=== PATIENT | male | born 1965 | race Caucasian/White ===

== ENCOUNTER 2018-11-30 05:22 | Day surgery (SDC) | payer BC, SELFPAY ==
[2018-11-30] VITALS (8 sets, daily range): BP systolic 97–136; BP diastolic 72–91; PULSE 63–85; RESP 16–18; TEMP 36.3–36.9; O2SAT 96–100; BMI 24.9
[2018-11-30 06:06] LABS: Bedside Glucose 95 mg/dL (70-110)
--- NOTE | 2018-11-30 06:16 | PCM.HP.STD ---
Problem List (1) Screening for intestinal cancer Status: Acute History of Present Illness Date of Admission: 11/30/18 The patient is a 53 year old M who presents for screening colonoscopy today. He has never had a screening colonoscopy. There is some question as to whether his father had colon cancer. He is aware that his father had abdominal surgery but is not aware whether it was benign or malignant. His father is no longer living. I have instructed him to try to check with his mother to try to determine that anterior as it may impact his surveillance program. The patient otherwise has a good feeling of health. He has no current complaints. Past Medical History Allergies No Known Allergies Allergy (Verified 11/30/18 05:48) Home Medications: Ambulatory Orders Medication Instructions Recorded Atorvastatin Calcium [Lipitor] 20 mg PO QHS 11/28/18 Metformin HCl 500 mg PO BID 11/28/18 Smoking Status: Former smoker Tobacco Use: Non-smoker Review of Systems Constitutional: Denies: Anorexia HEENT: Denies: Difficulty Swallowing Cardiovascular: Denies: Chest Pain, Claudication, Chest Pressure Respiratory: Denies: Cough Gastrointestinal: Denies: Abdominal Pain, Hematochezia, Nausea, Melena Endocrine: Reports: Change in Body Habitus - Weight loss associated with his newer diagnosis of type 2 diabetes mellitus VTE Information - Inpt Only VTE Present on Admission: No Patient Problems: Active and Suspected Problems Screening for intestinal cancer (Acute) - Physical Exam General: Alert, Oriented x3, Cooperative, No apparent distress HEENT: Atraumatic Oral: Moist Mucosa Neck: Supple Lungs: Clear to auscultation, Normal air movement Cardiovascular: Regular rate, Regular Rhythm Abdomen: Bowel Sounds Present, Soft, Non Tender, Non-Distended Extremities: No Calf Tenderness Neurological: - - Cognition intact Vital Signs Temp Pulse Resp BP Pulse Ox 97.9 F 67 16 121/90 H 100 11/30/18 05:49 11/30/18 05:49 11/30/18 05:49 11/30/18 05:49 11/30/18 05:49 Oxygen Delivery Method Room Air Weight: 173 lb 15.115 oz Body Mass Index (BMI) 24.9 POC Glucose 11/30/18 05:45 POC Glucose 95 Assessment/Plan All Active Problems Screening for intestinal cancer (Acute) I have am recommending the patient a screening colonoscopy with possible biopsy or polypectomy is indicated. He is aware of the technique, benefits, risks, alternatives. He has had an opportunity ask and have questions answered. He presents via our open access program. We will proceed as noted. Deuce Gaston M.D., F.A.C.S.
--- NOTE | 2018-11-30 06:56 | OP.ENDO_ITS ---
11/30/2018 Tem[facility] Shook Re : Colonoscopy procedure for Rob Correia Dear Bouchra This procedure was performed on Friday, November 30, 2018. My impressions and recommendations are as follows: Impressions : - Diverticulosis in the entire examined colon. - The examination was otherwise normal. - No specimens collected. Recommendations : - Discharge patient to home. - Resume previous diet. - Continue present medications. - Repeat colonoscopy in 10 years for screening purposes. My findings are described in the full procedure note, which is enclosed. If I can be of further assistance, please feel free to contact me at Doctor phone number(s): Work: . Sincerely, Deuce Gaston MD 11/30/2018 6:55:28 AM This report has been signed electronically.
== END 2018-11-30 07:39 | disposition home or self-care (01) ==
LOC: EN 05:23 → AC 05:25
PROVIDERS: Referring Provider Surgery; Visit Provider Surgery
PROC: 0DJD8ZZ Inspection of Lower Intestinal Tract, Via Natural or Artificial Opening Endoscopic (ICD-10-PCS; CPT 45378; principal; 2018-11-30 06:25)
DX: Z12.11 Encounter for screening for malignant neoplasm of colon (principal); K57.30 Diverticulosis of large intestine without perforation or abscess without bleeding; Z87.891 Personal history of nicotine dependence; Z79.84 Long term (current) use of oral hypoglycemic drugs
CPT/HCPCS: 45378; 82962; 99152; 99153; J7120

== ENCOUNTER → 2024-10-10 | Outpatient (CLI) | payer BC, SELFPAY ==
[2024-10-10 16:17] LABS: Mucous, Urine 0 SEEN /hpf (<or=2+); Red Blood Cells-Urine 0 SEEN /hpf (0-5); Squamous Epithelial Cells - UA 0 SEEN /hpf (0-5)
[2024-10-10 17:02] LABS: Microalbumin,Random Urine < 12.0 mg/L (NO RANGE EST.); Microalbumin:Creatinine Ratio UNABLE TO CALCULATE mg/g CRE
[2024-10-10 17:13] LABS: Absolute Lymphocyte Count 2.07 X10^3/uL (0.83-4.51); Absolute Neutrophil Count 4.4 X10^3/uL (2.0-7.7); Basophil# 0.03 X10^3/uL; Basophil% 0.4 % (0-1); Eosinophil# 0.09 X10^3/uL; Eosinophils% 1.2 % (0-5); Hematocrit 40.5 % (40-54); Hemoglobin 13.9 g/dL (13.0-16.5); Lymphocyte # 2.07 X10^3/ul (0.83-4.51); Lymphocyte % 28.5 % (19-41); Mean Corp Hgb Conc 34.3 g/dL (32-36); Mean Corpuscular Volume 87.3 fL (80-94); Mean Platelet Vol. 9.6 fl (6.2-12.0); Monocyte# 0.67 X10^3/uL; Monocyte% 9.2 % (0-10); NRBC Flagged by Analyzer 0 % (0-5); Neutrophil # 4.39 X10^3/uL (2.7-7.7); Neutrophil % 60.4 % (47-70); Platelet Count 240 K/mm3 (150-450); RBC Distribution Width CV 12.1 % (11.6-14.6); RBC Distribution Width SD 38.8 fl (35.1-43.9); Red Blood Count 4.64 M/mm3 (4.6-6.2); White Blood Count 7.3 K/mm3 (4.4-11.0)
[2024-10-10 17:32] LABS: ALB/GLOB Ratio 1.4 RATIO (0.9-2.4); AST(SGOT) 25 U/L (<=37); Alanine Aminotransfer ALT/SGPT 26 U/L (<=46); Albumin, Serum 4.1 g/dL (3.5-5.0); Alkaline Phosphatase 65 U/L (40-129); Anion Gap 11 (5-15); BUN 11 mg/dL (4-19); BUN/Creat Ratio 11.4 RATIO (10-20); Calcium,Total 9.2 mg/dL (7.6-11.0); Carbon Dioxide 24.2 mmol/L (21.0-32.0); Chloride 98 mmol/L (98-108); Cholesterol 149 mg/dL (<=200); Creatinine, Serum 0.99 mg/dL (0.70-1.20); EST Glomerular Filtration Rate 89 (>60); Globulin 2.9 g/dL (2.2-4.2); Glucose 108 mg/dL (70-99); High Density Lipoprotein 58 mg/dL; Low Density Lipoprotein Calc. 77 mg/dL; PSA,Total - Annual Screen 2.03 ng/mL (0.02-4.00); Protein, Total 7.1 g/dL (5.9-8.4); Sodium Level 134 mmol/L (133-145); Total Bilirubin 0.68 mg/dL (0.00-1.30); Triglycerides 73 mg/dL; Very Low Density Lipoprotein 15 mg/dL (5-40); cholesterol:hdl ratio screen 2.58
[2024-10-10 21:22] LABS: Color, Urine Straw (Yellow); Glucose, Dipstick Normal (Normal); Ketone-Dipstick Negative (Negative); Leukocyte Esterase-Dipstick Negative /ul (Negative); Nitrite-Dipstick Negative (Negative); Occult Blood-Urine Negative /ul (Negative); Protein-Dipstick 15 mg/dl (Negative); Specific Gravity, Urine 1.015 (1.002-1.030); Urine Bilirubin Dipstick Negative (Negative); Urine Clarity Clear (Clear); Urine Urobilinogen Normal (Normal)
--- OUTSIDE RECORDS SUMMARY | 2024-10-10 22:03 | XMS RPT_ITS | CCD ---
Author Organization [facility] Inform ion Partnership [facility] Care Team Providers Care Box Spring Maker Name Role Phone Joce Roe CNP Primary Care Provider Sherrie Roe CNP Primary Care Provider Aldo Butcher MD Primary Care Provider Aldo Butcher MD Primary Care Provider Aldo Butcher MD Primary Care Provider [phone] Ele Pro APRN.CNP Unavailable Corina Gomes PA-C Unavailable ALDO BUTCHER Primary Care Unavailable DESHAWN MUSA Attending Unavailabl e ALDO BUTCHER Primary Care Unavailable ALDO BUTCHER Attending Unavailable ALDO BUTCHER Primary Care Unavailable ALDO BUTCHER Referring Unavailable ALDO BUTCHER Primary Care Unavailable ALDO BUTCHER Attending Unavailable ALDO BUTCHER Primary Care Unavailable CORINA GOMES Referring Unavailable ALDO BUTCHER Primary Care Unavailable CORINA GOMES Attending Unavailable ALDO BUTCHER Primary Care Unavailable CORINA GOMES Attending Unavailable ALDO BUTCHER Primary Care Unavailable ALDO BUTCHER Referring Unavailable Medications Current Medications Medication Drug Class(es) Dates Sig (Normalized) Sig (Original) [id number] 200 actuat albuterol 0.09 mg/actuat metered dose inhaler (4 sources) beta2-Adrenergic Agonist Start: 06-03-2024 take 2 puff(s) by inhalation every four hours as needed for wheezing albuterol HFA (PROVENTIL HFA, VENTOLIN HFA) 90 mcg/actuation inhaler Inhale 2 Puffs as instructed every 4 hours as needed for wheezing/shortness of breath. 1 Each 06/03/2024 Active amoxicillin 875 mg oral tablet (2 sources) Penicillin-class Antibacterial Start: 09-09-2022 End: 09-16-2022 take 1 tablet by mouth twice daily amoxicillin (AMOXIL) 875 mg tablet Indications: Acute otitis media, unspecified otitis media type Take 1 tablet by mouth twice daily for 7 days. 14 tablet 0 09/09/2022 09/16/2022 Active Comment on above: Take 1 tablet by ronak th twice daily for 7 days. atorvastatin 20 mg oral tablet (20 sources) HMG-CoA Reductase Inhibitor Start: 11-12-2023 End: 04-19-2024 take 1 tablet by mouth once daily, then take 1 tablet by mouth once daily atorvastatin (LIPITOR) 20 mg tablet Take 1 tablet by mouth once daily. Take 1 tablet daily 90 tablet 1 04/19/2024 Active Start: 07-07-2017 End: 11-08-2023 take 1 tablet by mouth once daily, then take 1 tablet by mouth once daily atorvastatin (LIPITOR) 20 mg tablet Take 1 tablet by mouth once daily. Take 1 tablet daily 90 tablet 1 04/17/2023 11/08/2023 Discontinued Comment on above: Take 1 tablet by ronak th once daily. Take 1 tablet daily 20 mg. Take 1 tablet daily benzonatate 200 mg oral capsule (4 sources) Non-narcotic Antitussive Start: take 1 capsule by mouth every eight hours as needed Benzonatate 200 mg capsule Take 1 capsule by mouth three times a day as needed. 30 capsule 06/03/2024 Active cyanocobalamin, vitamin B-12, (VITAMIN B-12 ORAL) (12 sources) cyanocobalamin, vitamin B-12, (VITAMIN B-12 ORAL) Take by mouth once daily. Active cyanocobalamin, vitamin B-12, (VITAMIN B-12 ORAL) Take by mouth once daily. 0 Active glucosamine/chondroitin/C/Ma ng (GLUCOSAMINE-CHONDROITIN COMPLX ORAL) (17 sources) glucosamine/nomi droitin/C/Nacho (GLUCOSAMINE-CHONDROITIN COMPLX ORAL) Take by mouth once daily. Active glucosamine/nomi droitin/C/Nacho (GLUCOSAMINE-CHONDROITIN COMPLX ORAL) Take by mouth once daily. 0 Active glucosamine/nomi droitin/C/Nacho (GLUCOSAMINE-CHONDROITIN COMPLX ORAL) Take by mouth. 0 Active Comment on above: Take by mouth. 24 hr metFORMIN hydrochloride 500 mg extended release oral tablet (20 sources) Biguanide Start: 02-09-2023 End: 04-19-2024 take 1 tablet by mouth twice daily before mealtime metFORMIN ER (GLUCOPHAGE XR) 500 mg 24 hr tablet Take 1 tablet by mouth two times a day before meals. 180 tablet 1 04/19/2024 Active Start: 06-06-2017 End: 02-09-2023 metFORMIN ER (GLUCOPHAGE XR) 500 mg 24 hr tablet 500 mg. Take one tablet am and one tablet pm 0 06/06/2017 02/09/2023 Discontinued Start: 06-06-2017 metFORMIN ER ( GLUCOPHAGE XR) 500 mg 24 hr tablet 0 06/06/2017 Active Comment on above: Take 1 tablet by ronak two times a day before meals. Take one tablet am and one tablet pm 500 mg. Take one tab let am and one tablet pm Ylqpp-8-RPO-EPA-Fis h Oil (FISH OIL) 1,000 mg (120 mg-180 mg) cap (17 sources) Start: 04-17-2023 take 1 capsule by mouth twice daily Wziuw-3-YTN-EPA-Fi sh Oil (FISH OIL) 1,000 mg (120 mg-180 mg) cap Take 1 capsule by mouth two times a day. 04/17/2023 Active Start: 04-17-2023 take 1 capsule by mo [facility] twice daily Gcgaz-1-OVM-EPA-Fish Oil (FISH OIL) 1,000 mg (120 mg-180 mg) cap Take 1 capsule by mouth two times a day. 0 04/17/2023 Active Comment on above: Take 1 capsule by mo ut two times a day. sulfamethoxazole 800 mg / trimethoprim 160 mg oral tablet (1 source) Dihydrofolate Reductase Inhibitor Antibacterial, Sulfonamide Antimicrobial Start: 4 End: 4 take 1 tablet by mouth twice daily sulfamethoxazo le-trimethopri m (BACTRIM DS) 800-160 mg per tablet Take 1 tablet by mouth two times a day for 14 days. 28 tablet 0 09/15/2023 09/29/2023 Active Completed/Discontinued Medications Medication Drug Class(es) Dates Sig (Normalized) Sig (Original) cetirizine hydrochloride 10 mg oral tablet (4 sources) Histamine-1 Receptor Antagonist Start: 09-29-2022 End: 04-17-2023 take 1 tablet by mouth once daily cetirizine (ZYRTEC) 10 mg tablet Indications: Disorder of tympanic membrane of left ear Take 1 tablet by mouth once daily. 30 tablet 1 09/29/2022 04/17/2023 Discontinued Comment on above: Take 1 tablet by ronak once daily. fluticasone propionate 0.05 mg/actuat metered dose nasal spray (4 sources) Corticosteroid Start: 09-29-2022 End: 04-17-2023 take 2 spray(s) by mouth once daily fluticasone (FLONASE) 50 mcg/actuation nasal spray Indications: Disorder of tympanic membrane of left ear Use 2 Sprays in each nostril once daily. Rinse mouth after use. 11.1 mL 1 09/29/2022 04/17/2023 Discontinued Comment on above: Use 2 Sprays in each nostril once daily. Rinse mouth after use. phenylephrine hydrochloride 25 mg/ml ophthalmic solution (2 sources) alpha-1 Adrenergic Agonist Start: 10-30-2023 End: 10-30-2023 PHENYLephrine 2.5 % 1 Drop (AK-DILATE, RIDDHI-SYNEPHRINE) proparacaine hydrochloride 5 mg/ml ophthalmic solution (2 sources) Local Anesthetic Start: 10-30-2023 End: 10-30-2023 proparacaine 0.5 % 1 Drop (ALCAINE) tropicamide 10 mg/ml ophthalmic solution (2 sources) Anticholinergic Start: 10-30-2023 End: 10-30-2023 tropicamide 1 % 1 Drop (MYDRIACYL) Problems Active Problems Problem Classification Problem Date Documented Da te Episodic/Chronic Diabetes mellitus without complication (20 sources) Diabetes mellitus type 2 without retinopathy; Translations: [Type 2 diabetes mellitus without complications] Onset: 07-22-2017 Chronic Disorders of lipid metabolism (20 sources) Mixed hyperlipidemia; Translations: [Mixed hyperlipidemia] Onset: 10-12-2022 10-12-2022 Chronic Other lower respiratory disease (2 sources) Lower respiratory tract infection; Translations: [Unspecified acute lower respiratory infection] 06-03-2024 Episodic Other lower respiratory disease (2 sources) Cough; Translations: [Acute cough] 06-03-2024 Episodic Other lower respiratory disease (1 source) Unspecified acute lower respiratory infection; Translations: [Lower resp. tract infection] Onset: 06-03-2024 Episodic Otitis media and related conditions (1 source) Acute otitis media; Translations: [Otitis media, unspecified, unspecified ear] Episodic Unclassified (1 source) Acute cough; Translations: [Acute cough] Onset: 06-03-2024 Past or Other Problems Problem Classification Problem Date Documented Da te Episodic/Chronic Blindness and vision defects (20 sources) Bilateral myopia of eyes; Translations: [Myopia, bilateral] Onset: 08-23-2014 Episodic Genitourinary symptoms and ill-defined conditions (2 sources) Delay when starting to pass urine; Translations: [Hesitancy of micturition] Onset: 09-15-2023 09-15-2023 Episodic Other eye disorders (2 sources) Marginal corneal ulcer of right eye; Translations: [Marginal corneal ulcer, right eye] Onset: 09-08-2017 09-08-2017 Episodic Other screening for suspected conditions (not mental disorders or infectious disease) (20 sources) Patient encounter status; Translations: [Encounter for screening for malignant neoplasm of prostate] Onset: 10-12-2022 10-12-2022 Episodic Results Test Name Value Interpretation Reference Range Facility [facility] 06-04-2024 [facility] Telephone (MARTYWS) ROB CORREIA ([id number]) 1965 M Date Time Provider Department [facility] During your visit today, we recorded the following information about you: Corina Gomes PA-C 06/04/2024 8:25 AM Signed Positive influenza A. Continue as we discussed. MATT Guzman Sherill A, LPN 06/04/2024 8:34 AM Signed Left message for pt to contact office. SherPATRICE Mcclure Krista, LPN 06/04/2024 10:02 AM Signed Pt notified of results and provider message. Tawana Ruelas LPN Allergies As of Date: 06/04/2024 (No Known Allergies) Date Reviewed: 06/03/2024 Reviewed by: Martha Ceballos LPN - Fully Assessed Reason for Visit: Results [95] Prescriptions as of 06/04/2024 - Benzonatate 200 mg capsule Take 1 capsule by mouth three times a day as needed. - albuterol HFA (PROVENTIL HFA, VENTOLIN HFA) 90 mcg/actuation inhaler Inhale 2 Puffs as instructed every 4 hours as needed for wheezing/shortness of breath. - atorvastatin (LIPITOR) 20 mg tablet Take 1 tablet by mouth once daily. Take 1 tablet daily - metFORMIN ER (GLUCOPHAGE XR) 500 mg 24 hr tablet Take 1 tablet by mouth two times a day before meals. - cyanocobalamin, vitamin B-12, (VITAMIN B-12 ORAL) Take by mouth once daily. - glucosamine/chondroitin/C/Ma ng (GLUCOSAMINE-CHONDROITIN COMPLX ORAL) Take by mouth once daily. - Qbtnt-8-NHM-EPA-Fish Oil (FISH OIL) 1,000 mg (120 mg-180 mg) cap Take 1 capsule by mouth two times a day. Problem List As Of Date 06/04/2024 Noted Resolved Myopia [H52.10] 08/23/2014 Regular astigmatism [H52.229] 08/23/2014 Presbyopia [H52.4] 08/23/2014 Controlled type 2 diabetes mellitus without com*07/22/2017 Hyperlipidemia, mixed [E78.2] 10/12/2022 Screening for prostate cancer [Z12.5] 10/12/2022 Well adult exam [Z00.00] 10/12/2022 Encounter Status:Closed by TAWANA RUELAS on 06/04/24 [facility] CNOVon 06-03-2024 CNOV Office Visit (FAMPWS ) ROB CORREIA ([id number]) 1965 M Date Time Provider Department 06/03/24 8:20 AM CORINA GOMES During your visit today, we recorded the following information about you: Temperature Pulse Respiration Blood pressure 97.8 degrees 64/minute 18/minute 126/86 Weight 82.1 kg Corina Gomes PA-C 06/03/2024 9:04 AM Signed Chief Complaint Patient presents with: Cough HPI Rob Correia is a 59 year old male who presents here today for Above Complaints.. Patient reports dry cough for the past week. No fevers +bodyaches +headache No significant sinus symptoms, sore throat or earache +lack of appetite. +low energy Past medical history, appointments, medications, allergies reviewed. Previous Medical History PAST MEDICAL HISTORY Diagnosis Date Controlled type 2 diabetes mellitus without complication, without long-term current use of insulin ([facility]) 07/22/2017 Hyperlipidemia, mixed 10/12/2022 Myopia 08/23/2014 Presbyopia 08/23/2014 Regular astigmatism 08/23/2014 Well adult exam 10/12/2022 Last done: 10/12/2022 Previous Surgical History PAST SURGICAL HISTORY Procedure Laterality Date APPENDECTOMY PAST SURGICAL HISTORY OF hernia repair Family History FAMILY HISTORY Problem Relation Age of Onset Diabetes Mother Hyperlipidemia Mother Diabetes Father Heart Failure Father Colon Cancer Father 70's Hyperlipidemia Father other (trauma) Sister head injury from fall off a hourse Coronary Artery Disease Paternal Grandmother AR Coronary Artery Disease Paternal Grandfather AR Coronary Artery Disease Paternal Uncle Glaucoma No Family History Detached Retina No Family History Macular Degen No Family History Prostate Cancer No Family History Breast Cancer No Family History Alzheimer's Disease No Family History Kidney Disease No Family History Seizures No Family History Stroke No Family History Thyroid No Family History Patient Allergies ALLERGIES No Known Allergies Current Medications Current Outpatient Medications on File Prior to Visit Medication Sig atorvastatin (LIPITOR) 20 mg tablet Take 1 tablet by mouth once daily. Take 1 tablet daily metFORMIN ER (GLUCOPHAGE XR) 500 mg 24 hr tablet Take 1 tablet by mouth two times a day before meals. cyanocobalamin, vitamin B-12, (VITAMIN B-12 ORAL) Take by mouth once daily. glucosamine/chondroitin/C/Ma ng (GLUCOSAMINE-CHONDROITIN COMPLX ORAL) Take by mouth once daily. Ptett-3-GWS-EPA-Fish Oil (FISH OIL) 1,000 mg (120 mg-180 mg) cap Take 1 capsule by mouth two times a day. No current facility-administered medications on file prior to visit. Social History Social History Tobacco Use Smoking status: Never Smokeless tobacco: Never Vaping Use Vaping status: Never Used Substance Use Topics Alcohol use: Yes Alcohol/week: 4.0 standard drinks of alcohol Types: 4 Cans of beer per week Comment: social use Drug use: No Review of Symptoms REVIEW OF SYSTEMS See hpi EXAM: BP 126/86 (BP Site: Left Arm, BP Position: Sitting, BP Cuff Size: Large Adult) Pulse 64 Temp 36.6 ?C (97.8 ?F) Resp 18 Wt 82.1 kg (181 lb) SpO2 99% BMI 26.73 kg/m? General Appearance: Well appearing, alert, in no acute distress, well-hydrated, well nourished.. Ears: External ears normal, canals clear. Nose/Sinuses: Nares normal, septum midline, mucosa normal, no drainage or sinus tenderness. Oropharynx: Lips, mucosa, and tongue normal, teeth and gums normal, oropharynx normal. Neck: Supple, no adenopathy; thyroid symmetric, normal size, no bruits. Lungs: Lungs clear to auscultation. No wheezing, rhonchi, rales.. Heart: RRR without murmur, gallop, or rubs. No ectopy. Health Maintenance List Depression Screening Never done Anxiety Screening Never done Shingrix Vaccine(1 of 2) due on 10/18/2024 Urine Albumin:Creatinine Ratio due on 10/05/2024 HbA1C due on 10/07/2024 Diabetic Foot Exam due on 10/18/2024 Dilated Retinal Exam due on 10/29/2024 LDL Cholesterol due on 04/08/2025 Annual PCP Team Chronic Disease Visit due on 04/19/2025 Prostate Cancer Screening Discussion due on 10/18/2028 Colorectal Cancer Screening due on 11/30/2028 DTaP,Tdap,Td Vaccine(3 - Td or Tdap) due on 10/12/2032 Pneumococcal Vaccine: 50+ Completed Hepatitis B Vaccine Discontinued Influenza Vaccine Discontinued Hepatitis C Screening Discontinued HIV Screening Discontinued Covid-19 Vaccine Discontinued Data reviewed ASSESSMENT/PLAN: 1. Lower resp. tract infection - ICD9: 519.8, ICD10: J22 (primary diagnosis) Check covid/flu/rsv and CXR Symptomatic care Follow up as needed - XR CHEST 2V FRONTAL/LAT - COVID AND INFLUENZA A/B AND RSV PCR, ROUTINE 2. Acute cough - ICD9: 786.2, ICD10: R05.1 Await results. - XR CHEST 2V FRONTAL/LAT - COVID AND INFLUENZA A/B AND RS (more content not included)... Normal [facility] 06-03-2024 [facility] Telephone ([facility]) ROB CORREIA ([id number]) 1965 M Date Time Provider Department 06/03/24 CORINA GOMES [facility] During your visit today, we recorded the following information about you: Corina Gomes PA-C 06/03/2024 9:01 AM Signed CXR negative. Continue as we discussed Aparna Ryder MA 06/03/2024 10:38 AM Signed Pt notified. Aparna Ryder MA Allergies As of Date: 06/03/2024 (No Known Allergies) Date Reviewed: 06/03/2024 Reviewed by: Martha Ceballos LPN - Fully Assessed Reason for Visit: Results [95] Prescriptions as of 06/03/2024 - Benzonatate 200 mg capsule Take 1 capsule by mouth three times a day as needed. - albuterol HFA (PROVENTIL HFA, VENTOLIN HFA) 90 mcg/actuation inhaler Inhale 2 Puffs as instructed every 4 hours as needed for wheezing/shortness of breath. - atorvastatin (LIPITOR) 20 mg tablet Take 1 tablet by mouth once daily. Take 1 tablet daily - metFORMIN ER (GLUCOPHAGE XR) 500 mg 24 hr tablet Take 1 tablet by mouth two times a day before meals. - cyanocobalamin, vitamin B-12, (VITAMIN B-12 ORAL) Take by mouth once daily. - glucosamine/chondroitin/C/Ma ng (GLUCOSAMINE-CHONDROITIN COMPLX ORAL) Take by mouth once daily. - Dogfa-7-VLA-EPA-Fish Oil (FISH OIL) 1,000 mg (120 mg-180 mg) cap Take 1 capsule by mouth two times a day. Problem List As Of Date 06/03/2024 Noted Resolved Myopia [H52.10] 08/23/2014 Regular astigmatism [H52.229] 08/23/2014 Presbyopia [H52.4] 08/23/2014 Controlled type 2 diabetes mellitus without com*07/22/2017 Hyperlipidemia, mixed [E78.2] 10/12/2022 Screening for prostate cancer [Z12.5] 10/12/2022 Well adult exam [Z00.00] 10/12/2022 Encounter Status:Closed by APARNA RYDER on 06/03/24 Normal [facility] COVID AND INFLUENZA A/B AND RSV PCR, ROUTINEon 06-03-2024 SARS-CoV-2 (COVID-19) RNA JESSE+probe Ql (Unsp spec) SARS-COV-2 (AGENT OF COVID-19) RNA: Not detected INFLUENZA A RNA: Detected INFLUENZA B RNA: Not detected RESPIRATORY SYNCYTIAL VIRUS (RSV) RNA: Not detected Abnormal [facility] Comment on above: Performed By: #### C VFLRS ####[facility] LABCLIA [id number] [place] [address] [place] XR CHEST 2V FRONTAL/LATon XR CHEST 2V FRONTAL/LAT * * *Final Report* * * DATE OF EXAM: Jun 03 2024 8:57AM WOX [id number] - XR CHEST 2V FRONTAL/LAT / PROCEDURE REASON: multiple diagnoses * * * * Physician Interpretation * * * * EXAMINATION: CHEST RADIOGRAPH (2 VIEW FRONTAL and LATERAL) CLINICAL HISTORY: Acute cough Lower resp. tract infection MQ: XC2_6 EXAM DATE/TIME: 06/03/2024 8:57 AM COMPARISON: No relevant prior studies available. RESULT: Lines, tubes, and devices: None. Lungs and pleura: No consolidation. No lung mass. No pleural effusion. No pneumothorax. Cardiomediastinal silhouette: Normal cardiomediastinal silhouette. Bones and soft tissues: Degenerative changes are present within the thoracic spine. IMPRESSION: No acute radiographic abnormality. [employer] Fabricator[facility] Transcribe Date/Time: Jun 03 2024 8:57A Dictated by : FIDEL WESTBROOK MD This examination was interpreted and the report reviewed and electronically signed by: FIDEL WESTBROOK MD on Jun 03 2024 8:58AM EST [id number] Normal [facility] XR Chest PA and Lateralon IMPRESSION: No acute radiographic abnormality. Tubular [employer] Fabricator: [facility] Transcribe Date/Time: Jun 03 2024 8:57A Dictated by : FIDEL WESTBROOK MD This examination was interpreted and the report reviewed and electronically signed by: FIDEL WESTBROOK MD on Jun 03 2024 8:58AM EST DIVISION OF RADIOLOGY * * *Final Report* * * DATE OF EXAM: Jun 03 2024 8:57AM WOX [id number] - XR CHEST 2V FRONTAL/LAT / PROCEDURE REASON: multiple diagnoses * * * * Physician Interpretation * * * * EXAMINATION: CHEST RADIOGRAPH (2 VIEW FRONTAL & LATERAL) CLINICAL HISTORY: Acute cough Lower resp. tract infection MQ: XC2_6 EXAM DATE/TIME: 06/03/2024 8:57 AM COMPARISON: No relevant prior studies available. RESULT: Lines, tubes, and devices: None. Lungs and pleura: No consolidation. No lung mass. No pleural effusion. No pneumothorax. Cardiomediastinal silhouette: Normal cardiomediastinal silhouette. Bones and soft tissues: Degenerative changes are present within the thoracic spine. DIVISION OF RADIOLOGY Provider, [facility] - 06/03/2024 * * *Final Report* * * DATE OF EXAM: Jun 03 2024 8:57AM WOX [id number] - XR CHEST 2V FRONTAL/LAT / PROCEDURE REASON: multiple diagnoses * * * * Physician Interpretation * * * * EXAMINATION: CHEST RADIOGRAPH (2 VIEW FRONTAL & LATERAL) CLINICAL HISTORY: Acute cough Lower resp. tract infection MQ: XC2_6 EXAM DATE/TIME: 06/03/2024 8:57 AM COMPARISON: No relevant prior studies available. RESULT: Lines, tubes, and devices: None. Lungs and pleura: No consolidation. No lung mass. No pleural effusion. No pneumothorax. Cardiomediastinal silhouette: Normal cardiomediastinal silhouette. Bones and soft tissues: Degenerative changes are present within the thoracic spine. IMPRESSION IMPRESSION: No acute radiographic abnormality. Tubular Products Fabricator: JANICE Transcribe Date/Time: Jun 03 2024 8:57A Dictated by : FIDEL WESTBROOK MD This examination was interpreted and the report reviewed and electronically signed by: FIDEL WESTBROOK MD on Jun 03 2024 8:58AM EST [facility] Radiology Study observation (narrative) [facility] XR Chest PA and LateralOrder ed By: [facility] ([id number]) 1965 M Date Time Provider Department 05/02/24 [facility] During your visit today, we recorded the following information about you: Anjana Hsu RN 05/02/2024 1:55 PM Signed Patient calls back and states that he spoke with insurance as was told that Corina is not credentialed under Dr. Butcher and that insurance will not cover office visit. Patient/Family calling with additional questions regarding financials and billing. Patient/Family directed in the following manner: For financial questions about an upcoming service, contact Patient [employer] Chain Offbearer by calling toll-free at [phone] and request to speak with a supervisor extrusion. For questions regarding a medical bill for a past / post service, contact a Fingernail Sculptor by calling toll-free at [phone] and request to speak with a supervisor extrusion. Patient/Family verbalized understanding. Allergies As of Date: 05/02/2024 (No Known Allergies) Date Reviewed: 04/19/2024 Reviewed by: Martha Ceballos LPN - Fully Assessed Reason for Visit: Billing Issue [Other] Prescriptions as of 05/02/2024 - atorvastatin (LIPITOR) 20 mg tablet Take 1 tablet by mouth once daily. Take 1 tablet daily - metFORMIN ER (GLUCOPHAGE XR) 500 mg 24 hr tablet Take 1 tablet by mouth two times a day before meals. - cyanocobalamin, vitamin B-12, (VITAMIN B-12 ORAL) Take by mouth once daily. - glucosamine/chondroitin/C/Ma ng (GLUCOSAMINE-CHONDROITIN COMPLX ORAL) Take by mouth once daily. - Ykhbp-7-XQV-EPA-Fish Oil (FISH OIL) 1,000 mg (120 mg-180 mg) cap Take 1 capsule by mouth two times a day. Problem List As Of Date 05/02/2024 Noted Resolved Myopia [H52.10] 08/23/2014 Regular astigmatism [H52.229] 08/23/2014 Presbyopia [H52.4] 08/23/2014 Controlled type 2 diabetes mellitus without com*07/22/2017 Hyperlipidemia, mixed [E78.2] 10/12/2022 Screening for prostate cancer [Z12.5] 10/12/2022 Well adult exam [Z00.00] 10/12/2022 Encounter Status:Closed by ANJANA HSU on 05/02/24 [facility] 04-19-2024 CNOV Office Visit (FAMPWS ) ROB CORREIA ([id number]) 1965 M Date Time Provider Department 04/19/24 7:00 AM CORINA GOMES During your visit today, we recorded the following information about you: Temperature Pulse Respiration Blood pressure 97.3 degrees 68/minute 18/minute 122/80 Weight 84.4 kg Corina Gomes PA-C 04/19/2024 7:30 AM Signed Chief Complaint Patient presents with: 6 Month Exam HPI Rob Correia is a 59 year old male who presents here today for Chronic Medical Conditions.. Patient with hx of DM2, hyperlipidemia, and those as below. No concerns today. Past medical history, appointments, medications, allergies reviewed. Previous Medical History PAST MEDICAL HISTORY Diagnosis Date Controlled type 2 diabetes mellitus without complication, without long-term current use of insulin ([facility]) 07/22/2017 Hyperlipidemia, mixed 10/12/2022 Myopia 08/23/2014 Presbyopia 08/23/2014 Regular astigmatism 08/23/2014 Well adult exam 10/12/2022 Last done: 10/12/2022 Previous Surgical History PAST SURGICAL HISTORY Procedure Laterality Date APPENDECTOMY PAST SURGICAL HISTORY OF hernia repair Family History FAMILY HISTORY Problem Relation Age of Onset Diabetes Mother Hyperlipidemia Mother Diabetes Father Heart Failure Father Colon Cancer Father 70's Hyperlipidemia Father other (trauma) Sister head injury from fall off a hourse Coronary Artery Disease Paternal Grandmother AR Coronary Artery Disease Paternal Grandfather AR Coronary Artery Disease Paternal Uncle Glaucoma No Family History Detached Retina No Family History Macular Degen No Family History Prostate Cancer No Family History Breast Cancer No Family History Alzheimer's Disease No Family History Kidney Disease No Family History Seizures No Family History Stroke No Family History Thyroid No Family History Patient Allergies ALLERGIES No Known Allergies Current Medications Current Outpatient Medications on File Prior to Visit Medication Sig metFORMIN ER (GLUCOPHAGE XR) 500 mg 24 hr tablet Take 1 tablet by mouth two times a day before meals. Take one tablet am and one tablet pm atorvastatin (LIPITOR) 20 mg tablet Take 1 tablet by mouth once daily. Take 1 tablet daily cyanocobalamin, vitamin B-12, (VITAMIN B-12 ORAL) Take by mouth once daily. glucosamine/chondroitin/C/Ma ng (GLUCOSAMINE-CHONDROITIN COMPLX ORAL) Take by mouth once daily. Zbbps-0-BEC-EPA-Fish Oil (FISH OIL) 1,000 mg (120 mg-180 mg) cap Take 1 capsule by mouth two times a day. No current facility-administered medications on file prior to visit. Social History Social History Tobacco Use Smoking status: Never Smokeless tobacco: Never Vaping Use Vaping status: Never Used Substance Use Topics Alcohol use: Yes Alcohol/week: 4.0 standard drinks of alcohol Types: 4 Cans of beer per week Comment: social use Drug use: No Review of Symptoms REVIEW OF SYSTEMS GENERAL: No weight loss, malaise or fevers NECK: Negative for lumps, goiter, pain and significant neck swelling RESPIRATORY: Negative for cough, hemoptysis, wheezing, COPD, dyspnea or shortness of breath CARDIOVASCULAR: Negative for chest pain, leg swelling, hypertension, CHF or palpitations NEURO: No history of headaches, syncope, paralysis, seizures or tremors EXAM: BP 122/80 (BP Site: Left Arm, BP Position: Sitting, BP Cuff Size: Large Adult) Pulse 68 Temp 36.3 ?C (97.3 ?F) Resp 18 Wt 84.4 kg (186 lb) SpO2 97% BMI 27.47 kg/m? General Appearance: Well appearing, alert, in no acute distress, well-hydrated, well nourished.. Neck: Supple, no adenopathy; thyroid symmetric, normal size, no bruits. Lungs: Lungs clear to auscultation. No wheezing, rhonchi, rales.. Heart: RRR without murmur, gallop, or rubs. No ectopy. Extremities: No deformities, edema, skin discoloration, clubbing or cyanosis. Good capillary refill. . Peripheral Pulses: Normal. Health Maintenance List Depression Screening Never done Anxiety Screening Never done Shingrix Vaccine(1 of 2) due on 10/18/2024 Urine Albumin:Creatinine Ratio due on 10/05/2024 HbA1C due on 10/07/2024 Diabetic Foot Exam due on 10/18/2024 Annual PCP Team Chronic Disease Visit due on 10/18/2024 Dilated Retinal Exam due on 10/29/2024 LDL Cholesterol due on 04/08/2025 Prostate Cancer Screening Discussion due on 10/18/2028 Colorectal Cancer Screening due on 11/30/2028 DTaP,Tdap,Td Vaccine(3 - Td or Tdap) due on 10/12/2032 Pneumococcal Vaccine Completed Hepatitis B Vaccine Discontinued Influenza Vaccine Discontinued Hepatitis C Screening Discontinued HIV Screening Discontinued Covid-19 Vaccine Discontinued Data reviewed Latest Ref Rng 04/08/2024 Total Cholesterol, Nonfasting <200 mg/dL 163 Triglycerides, Nonfasting <150 mg/dL 128 HDL Cholesterol, N (more content not included)... Normal [facility] HbA1c (Bld)on 04-08-2024 Average glucose Estimated from glycated hemoglobin (Bld) [Mass/Vol] 143 mg/dL Normal [facility] Comment on above: Order Comment: Rachelle kim Type: BLOOD SPECIMENOrdering Facility: [facility] Address: [address] [place] [address] Result Comment: eAG: (Estimated average glucose) is a calculated value from HgbA1c and is employee's representative of the average blood glucose level in the last 2-3 month period. Performed By: #### 5 5454-3 ####[facility] LABCLIA [id number] [place] [address] [place] HbA1c (Bld) [Mass fraction] 6.6 % High 4.3-5.6 [facility] Comment on above: Order Comment: Rachelle kim Type: BLOOD SPECIMENOrdering Facility: [facility] Address: [address] [place] [address] Result Comment: Amer [place] Diabetes Association guidelines indicate that patients with HgbA1c in the range 5.7-6.4% are at increased risk for development of diabetes, and intervention by lifestyle modification may be beneficial. HgbA1c greater or equal to 6.5% is considered diagnostic of diabetes. Performed By: #### 5 5454-3 ####[facility] LABCLIA [id number] [place] [address] [place] LIPID PANEL, NONFASTINGon Cholesterol [Mass/Vol] 163 mg/dL Normal <200 [facility] Comment on above: Order Comment: Rachelle kim Type: BLOOD SPECIMENOrdering Facility: [facility] Address: [address] [place] [address] Result Comment: <200 mg/dL, Desirable 200-239 mg/dL, Borderline high >239 mg/dL, High Performed By: #### L IPNF ####[facility] LABIA [id number] [place] [address] [place] HDL CHOLESTEROL, NF 55 mg/dL Normal >39 [facility] Comment on above: Order Comment: Rachelle kim Type: BLOOD SPECIMENOrdering Facility: [facility] Address: [address] [place] [address] Result Comment: 40-5 9 mg/dL, Acceptable >59 mg/dL, High: Negative risk factor for coronary heart disease <40 mg/dL, Low: Positive risk factor for coronary heart disease Performed By: #### L IPNF ####[facility] LABCLIA [id number] [place] [address] [place] LDL CHOLESTEROL, NF 82 mg/dL Normal <100 [facility] Comment on above: Order Comment: Rachelle kim Type: BLOOD SPECIMENOrdering Facility: [facility] Address: [address] [place] [address] Result Comment: <100 mg/dL, Optimal 100-129 mg/dL, Near optimal/above optimal 130-159 mg/dL, Borderline high 160-189 mg/dL, High >189 mg/dL, Very high Secondary prevention optimal LDL Cholesterol levels are recommended to be < 70 mg/dL Performed By: #### L IPNF ####[facility] LABCLIA [id number] [address] [place] LDL/HDL RATIO, NF 1.49 mg/dL Normal <2.54 [facility] Comment on above: Order Comment: Rachelle kim Type: BLOOD SPECIMENOrdering Facility: [facility] Address: [address] [place] [address] Result Comment: Refe rence: 1. National Cholesterol Education Program ATP III Guideline At-A-Glance Quick Desk Reference: National Heart, Lung, and Blood [place]. National Institutes of Health. 2001: NIH Publication No. 01-3305. 2. An International Atherosclerosis Society position paper: global recommendations for the management of dyslipidemia: executive summary, Atherosclerosis. 2014: 232(2):410-413. Performed By: #### L IPNF ####[facility] LABCLIA [id number] [place] [address] [place] NON HDL CHOL, NF 108 mg/dL Normal <130 [facility] Comment on above: Order Comment: Rachelle kim Type: BLOOD SPECIMENOrdering Facility: [facility] Address: [address] [place] [address] Result Comment: <130 mg/dL, Optimal 130-159 mg/dL, Near optimal/above optimal 160-189 mg/dL, Borderline high 190-219 mg/dL, High >219 mg/dL, Very high Secondary prevention optimal non HDL Cholesterol levels are recommended to be <100 mg/dL Performed By: #### L IPNF ####[facility] LABCLIA [id number] [address] OF [facility] T CHOL/HDL RATIO NF 2.96 mg/dL Normal <5.10 [facility] Comment on above: Order Comment: Speci men Type: BLOOD SPECIMENOrdering Facility: [facility] Address: [address] [place] [address] Performed By: #### L IPNF ####[facility] LABCLIA [id number] [address] OF [facility] TRIGLYCERIDES, NF 128 mg/dL Normal <150 [facility] Comment on above: Order Comment: Speci men Type: BLOOD SPECIMENOrdering Facility: [facility] Address: [address] [place] [address] Result Comment: <150 mg/dL, Normal 150-199 mg/dL, Borderline high 200-499 mg/dL, High >499 mg/dL, Very high Performed By: #### L IPNF ####[facility] LABCLIA [id number] [address] [place] VLDL CHOLESTEROL, NF 26 mg/dL Normal <30 [facility] Comment on above: Order Comment: Speci men Type: BLOOD SPECIMENOrdering Facility: [facility] Address: [address] [place] [address] Performed By: #### L IPNF ####[facility] LABCLIA [id number] [address] [place] CNOVon 10-19-2023 CNOV Office Visit (FAMPWS ) ROB CORREIA ([id number]) 1965 M Date Time Provider Department 10/19/23 8:00 AM ALDO BUTCHER During your visit today, we recorded the following information about you: Pulse Blood pressure Weight Height 75/minute 130/82 81.6 kg 1.753 m Aldo Butcher MD 10/19/2023 11:47 AM Signed Chief Complaint Patient presents with: Physical HPI Rob Correia is a 58 year old male who presents here today for Physical. Patient with Hx of Diabetes, hyperlipidemia as well as those reviewed below. Patient seen optometry 2021. Knows he needs to schedule an appt this year. Past medical history, appointments, medications, allergies reviewed. Previous Medical History PAST MEDICAL HISTORY Diagnosis Date Controlled type 2 diabetes mellitus without complication, without long-term current use of insulin (HCC) 07/22/2017 Hyperlipidemia, mixed 10/12/2022 Myopia 08/23/2014 Presbyopia 08/23/2014 Regular astigmatism 08/23/2014 Well adult exam 10/12/2022 Last done: 10/12/2022 Previous Surgical History PAST SURGICAL HISTORY Procedure Laterality Date APPENDECTOMY PAST SURGICAL HISTORY OF hernia repair Family History FAMILY HISTORY Problem Relation Age of Onset Diabetes Mother Hyperlipidemia Mother Diabetes Father Heart Failure Father Colon Cancer Father 70's Hyperlipidemia Father other (trauma) Sister head injury from fall off a hourse Coronary Artery Disease Paternal Grandmother AR Coronary Artery Disease Paternal Grandfather AR Coronary Artery Disease Paternal Uncle Glaucoma No Family History Detached Retina No Family History Macular Degen No Family History Prostate Cancer No Family History Breast Cancer No Family History Alzheimer's Disease No Family History Kidney Disease No Family History Seizures No Family History Stroke No Family History Thyroid No Family History Patient Allergies ALLERGIES No Known Allergies Current Medications Current Outpatient Medications on File Prior to Visit Medication Sig cyanocobalamin, vitamin B-12, (VITAMIN B-12 ORAL) Take by mouth once daily. glucosamine/chondroitin/C/Ma ng (GLUCOSAMINE-CHONDROITIN COMPLX ORAL) Take by mouth once daily. metFORMIN ER (GLUCOPHAGE XR) 500 mg 24 hr tablet Take 1 tablet by mouth two times a day before meals. Take one tablet am and one tablet pm atorvastatin (LIPITOR) 20 mg tablet Take 1 tablet by mouth once daily. Take 1 tablet daily Bslys-7-MYJ-EPA-Fish Oil (FISH OIL) 1,000 mg (120 mg-180 mg) cap Take 1 capsule by mouth two times a day. No current facility-administered medications on file prior to visit. Social History Social History Tobacco Use Smoking status: Never Smokeless tobacco: Never Vaping Use Vaping Use: Never used Substance Use Topics Alcohol use: Yes Alcohol/week: 4.0 standard drinks of alcohol Types: 4 Cans of beer per week Comment: social use Drug use: No Review of Symptoms REVIEW OF SYSTEMS GENERAL: No weight loss, malaise or fevers HEENT: Negative for frequent or significant headaches, No changes in hearing or vision, no nose bleeds or other nasal problems NECK: Negative for lumps, goiter, pain and significant neck swelling RESPIRATORY: Negative for cough, hemoptysis, wheezing, COPD, dyspnea or shortness of breath CARDIOVASCULAR: Negative for chest pain, leg swelling, hypertension, CHF or palpitations GI: No nausea, vomiting, or diarrhea, No heartburn or reflux symptoms, and no blood : No history of dysuria, frequency or blood MUSCULOSKELETAL: Negative for joint pain or swelling, back pain or muscle pain SKIN: Negative for lesions, rash, and itching PSYCH: Negative for sleep disturbance, mood disorder and recent psychosocial stressors HEMATOLOGY/LYMPHOLOGY: Negative for prolonged bleeding, bruising easily or swollen nodes ENDOCRINE: Negative for cold or heat intolerance, polyuria, polydipsia and goiter NEURO: No history of headaches, syncope, paralysis, seizures or tremors EXAM: BP 130/91 Pulse 75 Ht 175.3 cm (5' 9) Wt 81.6 kg (180 lb) BMI 26.58 kg/m? BP 130/82 Pulse 75 Ht 175.3 cm (5' 9) Wt 81.6 kg (180 lb) BMI 26.58 kg/m? Last 5 Encounter Wt Readings: Date: Wt: 10/19/2023 81.6 kg (180 lb) 09/15/2023 81.9 kg (180 lb 9.6 oz) 04/17/2023 85.7 kg (189 lb) 10/12/2022 78.5 kg (173 lb) 09/29/2022 82.1 kg (181 lb) General Appearance: Well appearing, alert, in no acute distress, well-hydrated, well nourished.. Skin: Skin color, texture, turgor normal, no suspicious rashes or lesions. Head: Normocephalic, no masses, lesions, tenderness or abnormalities. Eyes: Anicteric sclera. Pupils are equally round and reactive to light. Extraocular movements are intact. . Ears: External ears normal, canals clear. Nose/Sinuses: Nares normal, septum midline, mucosa normal, no dr (more content not included)... Normal [facility] ALBUMIN/CREATININE RATIO, UR INEon 10-06-2023 Albumin DL <= 20 mg/L (U) [Mass/Vol] mg/dL Normal [facility] Comment on above: Order Comment: Speci men Type: URINE SPECIMENOrdering Facility: [facility] Address: [address] [place] [address] Performed By: #### U ACR ####[facility] LABCLIA [id number] [place] [address] [place] Albumin/Creatinine (U) [Mass ratio] <21 Normal <30 [facility] Comment on above: Order Comment: Speci men Type: URINE SPECIMENOrdering Facility: [facility] Address: [address] [place] [address] Result Comment: Adul t Male and Female Nephrotic Criteria: <30 mg/g is considered normal to mildly increased 30-300 mg/g is considered moderately increased >300 mg/g is considered severely increased KDIGO. (2013). KDIGO 2012 Clinical Practice Guideline for the Evaluation and Management of Chronic Kidney Disease. Official Journal of the International Society of Nephrology, 3(1), 1-150. Performed By: #### U ACR ####[facility] LABCLIA [id number] [place] [address] [place] Creatinine (U) [Mass/Vol] 57.6 mg/dL Normal 20.0-300.0 [facility] Comment on above: Order Comment: Speci men Type: URINE SPECIMENOrdering Facility: [facility] Address: [address] [place] [address] Performed By: #### U ACR ####[facility] LABCLIA [id number] [place] [address] [place] CBC W Auto Differential pane l (Bld)on 10-06-2023 Basophils (Bld) [#/Vol] 0.03 10*3/uL Normal <0.11 [facility] Comment on above: Order Comment: Speci men Type: BLOOD SPECIMENOrdering Facility: [facility] Address: [address] [place] [address] Performed By: #### 5 7021-8 ####[facility] LABCLIA [id number] [place] [address] [place] Basophils/100 WBC (Bld) 0.5 % Normal [facility] Comment on above: Order Comment: Speci men Type: BLOOD SPECIMENOrdering Facility: [facility] Address: [address] [place] [address] Performed By: #### 5 7021-8 ####[facility] LABCLIA [id number] [place] [address] [place] Differential cell count method Nom (Bld) Auto Normal [facility] Comment on above: Order Comment: Speci men Type: BLOOD SPECIMENOrdering Facility: [facility] Address: [address] [place] [address] Performed By: #### 5 7021-8 ####[facility] LABCLIA [id number] [place] [address] [place] Eosinophils (Bld) [#/Vol] 0.13 10*3/uL Normal <0.46 [facility] Comment on above: Order Comment: Speci men Type: BLOOD SPECIMENOrdering Facility: [facility] Address: [address] [place] [address] Performed By: #### 5 7021-8 ####[facility] LABCLIA [id number] [place] [address] [place] Eosinophils/100 WBC (Bld) 2.2 % Normal [facility] Comment on above: Order Comment: Speci men Type: BLOOD SPECIMENOrdering Facility: [facility] Address: [address] [place] [address] Performed By: #### 5 7021-8 ####[facility] LABCLIA [id number] [place] [address] [place] Erythrocyte distribution width (RBC) [Ratio] 12.4 % Normal 11.5-15.0 [facility] Comment on above: Order Comment: Speci men Type: BLOOD SPECIMENOrdering Facility: [facility] Address: [address] [place] [address] Performed By: #### 5 7021-8 ####[facility] LABCLIA [id number] [place] [address] [place] Hematocrit (Bld) [Volume fraction] 46.1 % Normal 39.0-51.0 [facility] Comment on above: Order Comment: Speci men Type: BLOOD SPECIMENOrdering Facility: [facility] Address: [address] [place] [address] Performed By: #### 5 7021-8 ####[facility] LABCLIA [id number] [place] [address] [place] Hemoglobin (Bld) [Mass/Vol] 15.0 g/dL Normal 13.0-17.0 [facility] Comment on above: Order Comment: Speci men Type: BLOOD SPECIMENOrdering Facility: [facility] Address: [address] [place] [address] Performed By: #### 5 7021-8 ####[facility] LABCLIA [id number] [place] [address] [place] Immature granulocytes (Bld) [#/Vol] 10*3/uL Normal <0.10 [facility] Comment on above: Order Comment: Speci men Type: BLOOD SPECIMENOrdering Facility: [facility] Address: [address] [place] [address] Performed By: #### 5 7021-8 ####[facility] LABCLIA [id number] [place] [address] [place] Immature granulocytes/100 WBC (Bld) 0.3 % Normal [facility] Comment on above: Order Comment: Speci men Type: BLOOD SPECIMENOrdering Facility: [facility] Address: [address] [place] [address] Performed By: #### 5 7021-8 ####[facility] LABCLIA [id number] [place] [address] [place] Lymphocytes (Bld) [#/Vol] 1.55 10*3/uL Normal 1.00-4.00 [facility] Comment on above: Order Comment: Speci men Type: BLOOD SPECIMENOrdering Facility: [facility] Address: [address] [place] [address] Performed By: #### 5 7021-8 ####[facility] LABCLIA [id number] [place] [address] [place] Lymphocytes/100 WBC (Bld) 25.9 % Normal [facility] Comment on above: Order Comment: Speci men Type: BLOOD SPECIMENOrdering Facility: [facility] Address: [address] [place] [address] Performed By: #### 5 7021-8 ####[facility] LABCLIA [id number] [place] [address] [place] MCH (RBC) [Entitic mass] 29.5 pg Normal 26.0-34.0 [facility] Comment on above: Order Comment: Speci men Type: BLOOD SPECIMENOrdering Facility: [facility] Address: [address] [place] [address] Performed By: #### 5 7021-8 ####[facility] LABCLIA [id number] [place] [address] [place] MCHC (RBC) [Mass/Vol] 32.5 g/dL Normal 30.5-36.0 [facility] Comment on above: Order Comment: Speci men Type: BLOOD SPECIMENOrdering Facility: [facility] Address: [address] [place] [address] Performed By: #### 5 7021-8 ####[facility] LABIA [id number] [place] [address] [place] MCV (RBC) [Entitic vol] 90.6 fL Normal 80.0-100.0 [facility] Comment on above: Order Comment: Speci men Type: BLOOD SPECIMENOrdering Facility: [facility] Address: [address] [place] [address] Performed By: #### 5 7021-8 ####[facility] LABIA [id number] [place] [address] [place] Monocytes (Bld) [#/Vol] 0.46 10*3/uL Normal <0.87 [facility] Comment on above: Order Comment: Speci men Type: BLOOD SPECIMENOrdering Facility: [facility] Address: [address] [place] [address] Performed By: #### 5 7021-8 ####[facility] LABIA [id number] [place] [address] [place] Monocytes/100 WBC (Bld) 7.7 % Normal [facility] Comment on above: Order Comment: Speci men Type: BLOOD SPECIMENOrdering Facility: [facility] Address: [address] [place] [address] Performed By: #### 5 7021-8 ####[facility] LABCLIA [id number] [place] [address] [place] Neutrophils (Bld) [#/Vol] 3.80 10*3/uL Normal 1.45-7.50 [facility] Comment on above: Order Comment: Speci men Type: BLOOD SPECIMENOrdering Facility: [facility] Address: [address] [place] [address] Performed By: #### 5 7021-8 ####[facility] LABIA [id number] [place] [address] [place] Neutrophils/100 WBC (Bld) 63.4 % Normal [facility] Comment on above: Order Comment: Speci men Type: BLOOD SPECIMENOrdering Facility: [facility] Address: [address] [place] [address] Performed By: #### 5 7021-8 ####[facility] LABIA [id number] [place] [address] [place] Nucleated RBC (Bld) [#/Vol] 10*3/uL Normal <0.01 [facility] Comment on above: Order Comment: Speci men Type: BLOOD SPECIMENOrdering Facility: [facility] Address: [address] [place] [address] Performed By: #### 5 7021-8 ####[facility] LABIA [id number] [place] [address] [place] Nucleated RBC/100 WBC (Bld) [Ratio] 0.0 /100 WBC Normal [facility] Comment on above: Order Comment: Speci men Type: BLOOD SPECIMENOrdering Facility: [facility] Address: [address] [place] [address] Performed By: #### 5 7021-8 ####[facility] LABIA [id number] [place] [address] [place] Platelet mean volume (Bld) [Entitic vol] 9.8 fL Normal 9.0-12.7 [facility] Comment on above: Order Comment: Speci men Type: BLOOD SPECIMENOrdering Facility: [facility] Address: [address] [place] [address] Performed By: #### 5 7021-8 ####[facility] LABCLIA [id number] [address] [address] [place] Platelets (Bld) [#/Vol] 225 10*3/uL Normal 150-400 [facility] Comment on above: Order Comment: Speci men Type: BLOOD SPECIMENOrdering Facility: [facility] Address: [address] [place] [address] Performed By: #### 5 7021-8 ####[facility] LABIA [id number] [place] [address] [place] RBC (Bld) [#/Vol] 5.09 10*6/uL Normal 4.20-6.00 [facility] Comment on above: Order Comment: Speci men Type: BLOOD SPECIMENOrdering Facility: [facility] Address: [address] [place] [address] Performed By: #### 5 7021-8 ####[facility] [id number] [place] [address] [place] WBC (Bld) [#/Vol] 5.99 10*3/uL Normal 3.70-11.00 [facility] Comment on above: Order Comment: Speci men Type: BLOOD SPECIMENOrdering Facility: [facility] Address: [address] [place] [address] Performed By: #### 5 7021-8 ####[facility] LABIA [id number] [place] [id number] [place] Comprehensive metabolic 2000 panelon 10-06-2023 Albumin [Mass/Vol] 4.3 g/dL Normal 3.9-4.9 [facility] Comment on above: Order Comment: Speci men Type: BLOOD SPECIMENOrdering Facility: [facility] [place] Address: [address] [place] [address] Performed By: #### 2 4323-8, LIPNF ####[facility] LABIA [id number] [place] [address] [place] ALP [Catalytic activity/Vol] 80 U/L Normal 38-113 [facility] Comment on above: Order Comment: Speci men Type: BLOOD SPECIMENOrdering Facility: [facility] Address: [address] [place] [address] Performed By: #### 2 4323-8, LIPNF ####[facility] LABCLIA [id number] [place] [address] [place] ALT [Catalytic activity/Vol] 34 U/L Normal 10-54 [facility] Comment on above: Order Comment: Speci men Type: BLOOD SPECIMENOrdering Facility: [facility] Address: [address] [place] [address] Performed By: #### 2 4323-8, LIPNF ####[facility] LABCLIA [id number] [place] [address] [place] Anion gap [Moles/Vol] 16 mmol/L Normal 9-18 [facility] Comment on above: Order Comment: Speci men Type: BLOOD SPECIMENOrdering Facility: [facility] Address: [address] [place] [address] Performed By: #### 2 4323-8, LIPNF ####[facility] LABCLIA [id number] [place] [address] [place] AST [Catalytic activity/Vol] 30 U/L Normal 14-40 [facility] Comment on above: Order Comment: Speci men Type: BLOOD SPECIMENOrdering Facility: [facility] Address: [address] [place] [address] Performed By: #### 2 4323-8, LIPNF ####[facility] LABCLIA [id number] [place] [address] [place] Bilirubin [Mass/Vol] 0.6 mg/dL Normal 0.2-1.3 [facility] Comment on above: Order Comment: Speci men Type: BLOOD SPECIMENOrdering Facility: [facility] Address: [address] [place] [address] Performed By: #### 2 4323-8, LIPNF ####[facility] LABCLIA [id number] [place] [address] [place] Calcium [Mass/Vol] 9.7 mg/dL Normal 8.5-10.2 [facility] Comment on above: Order Comment: Speci men Type: BLOOD SPECIMENOrdering Facility: [facility] Address: [address] [place] [address] Performed By: #### 2 4323-8, LIPNF ####[facility] LABCLIA [id number] [place] [address] [place] Chloride [Moles/Vol] 98 mmol/L Normal 97-105 [facility] Comment on above: Order Comment: Speci men Type: BLOOD SPECIMENOrdering Facility: [facility] Address: [address] [place] [address] Performed By: #### 2 4323-8, LIPNF ####[facility] LABCLIA [id number] [place] [address] [place] CO2 [Moles/Vol] 24 mmol/L Normal 22-30 [facility] Comment on above: Order Comment: Speci men Type: BLOOD SPECIMENOrdering Facility: [facility] Address: [address] [place] [address] Performed By: #### 2 4323-8, LIPNF ####[facility] LABCLIA [id number] [place] [address] [place] Creatinine [Mass/Vol] 0.90 mg/dL Normal 0.73-1.22 [facility] Comment on above: Order Comment: Speci men Type: BLOOD SPECIMENOrdering Facility: [facility] Address: [address] [place] [address] Performed By: #### 2 4323-8, LIPNF ####[facility] LABCLIA [id number] [place] [address] [place] Creatinine and Glomerular filtration rate.predicted panel (S/P/Bld) 100 mL/min/1.73m??? Normal >=60 [facility] Comment on above: Order Comment: Rachelle kim Type: BLOOD SPECIMENOrdering Facility: [facility] Address: [address] [place] [address] Result Comment: Norma mated Glomerular Filtration Rate (eGFR) is calculated using the 2020 CKD-EPI creatinine equation. This equation utilizes serum creatinine, sex, and age as parameters. The creatinine assay has traceable calibration to isotope dilution-mass spectrometry. Refer to KDIGO guidelines for clinical interpretation. In patients with unstable renal function, e.g. those with acute kidney injury, the eGFR may not accurately reflect actual GFR. Performed By: #### 2 4323-8, LIPNF ####[facility] LABIA [id number] [place] [address] [place] Glucose [Mass/Vol] 107 mg/dL High 74-99 [facility] Comment on above: Order Comment: Rachelle kim Type: BLOOD SPECIMENOrdering Facility: [facility] Address: [address] [place] [address] Result Comment: The [place] Diabetes Association (ADA) provides guidance for cutoff values for fasting glucose and random glucose. The ADA defines fasting as no caloric intake for at least 8 hours. Fasting plasma glucose results between 100 to 125 mg/dL indicate increased risk for diabetes (prediabetes). Fasting plasma glucose results greater than or equal to 126 mg/dL meet the criteria for diagnosis of diabetes. In the absence of unequivocal hyperglycemia, results should be confirmed by repeat testing. In a patient with classic symptoms of hyperglycemia or hyperglycemic crisis, random plasma glucose results greater than or equal to 200 mg/dL meet the criteria for diagnosis of diabetes. Reference: Standards of Medical Care in Diabetes 2016, [place] Diabetes Association. Diabetes Care. 2016.39(Suppl 1). Performed By: #### 2 4323-8, LIPNF ####[facility] LABIA [id number] [place] [address] [place] Potassium [Moles/Vol] 3.8 mmol/L Normal 3.7-5.1 [facility] Comment on above: Order Comment: Speci men Type: BLOOD SPECIMENOrdering Facility: [facility] Address: [address] [place] [address] Performed By: #### 2 4323-8, LIPNF ####[facility] LABCLIA [id number] [place] [address] [place] Protein [Mass/Vol] 6.6 g/dL Normal 6.3-8.0 [facility] Comment on above: Order Comment: Speci men Type: BLOOD SPECIMENOrdering Facility: [facility] Address: [address] [place] [address] Performed By: #### 2 4323-8, LIPNF ####[facility] LABCLIA [id number] [place] [address] [place] Sodium [Moles/Vol] 138 mmol/L Normal 136-144 [facility] Comment on above: Order Comment: Speci men Type: BLOOD SPECIMENOrdering Facility: [facility] Address: [address] [place] [address] Performed By: #### 2 4323-8, LIPNF ####[facility] LABCLIA [id number] [place] [address] [place] Urea nitrogen [Mass/Vol] 10 mg/dL Normal 9-24 [facility] Comment on above: Order Comment: Speci men Type: BLOOD SPECIMENOrdering Facility: [facility] Address: [address] [place] [address] Performed By: #### 2 4323-8, LIPNF ####[facility] LABCLIA [id number] [place] [address] [place] HbA1c (Bld)on 10-06-2023 Average glucose Estimated from glycated hemoglobin (Bld) [Mass/Vol] 148 mg/dL Normal [facility] Comment on above: Order Comment: Speci men Type: BLOOD SPECIMENOrdering Facility: [facility] Address: [address] [place] [address] Result Comment: eAG: (Estimated average glucose) is a calculated value from HgbA1c and is employee's representative of the average blood glucose level in the last 2-3 month period. Performed By: #### 5 5454-3 ####[facility] LABCLIA [id number] [place] [address] [place] HbA1c (Bld) [Mass fraction] 6.8 % High 4.3-5.6 [facility] Comment on above: Order Comment: Speci men Type: BLOOD SPECIMENOrdering Facility: [facility] Address: [address] [place] [address] Result Comment: [place] Diabetes Association guidelines indicate that patients with HgbA1c in the range 5.7-6.4% are at increased risk for development of diabetes, and intervention by lifestyle modification may be beneficial. HgbA1c greater or equal to 6.5% is considered diagnostic of diabetes. Performed By: #### 5 5454-3 ####[facility] LABIA [id number] [place] [address] [place] LIPID PANEL, NONFASTINGon Cholesterol [Mass/Vol] 170 mg/dL Normal <200 [facility] Comment on above: Order Comment: Speci men Type: BLOOD SPECIMENOrdering Facility: [facility] Address: [address] [place] [address] Result Comment: <200 mg/dL, Desirable 200-239 mg/dL, Borderline high >239 mg/dL, High Performed By: #### 2 4323-8, LIPNF ####[facility] LABIA [id number] [place] [address] [place] HDL CHOLESTEROL, NF 53 mg/dL Normal >39 [facility] Comment on above: Order Comment: Speci men Type: BLOOD SPECIMENOrdering Facility: [facility] [place] Address: [address] [place] [address] Result Comment: 40-5 9 mg/dL, Acceptable >59 mg/dL, High: Negative risk factor for coronary heart disease <40 mg/dL, Low: Positive risk factor for coronary heart disease Performed By: #### 2 4323-8, LIPNF ####[facility] LABCLIA [id number] [address] [facility] LDL CHOLESTEROL, NF 91 mg/dL Normal <100 [facility] Comment on above: Order Comment: Speci men Type: BLOOD SPECIMENOrdering Facility: [facility] [place] Address: [address] [place] [address] Result Comment: <100 mg/dL, Optimal 100-129 mg/dL, Near optimal/above optimal 130-159 mg/dL, Borderline high 160-189 mg/dL, High >189 mg/dL, Very high Secondary prevention optimal LDL Cholesterol levels are recommended to be < 70 mg/dL Performed By: #### 2 4323-8, LIPNF ####[facility] LABCLIA [id number] [address] LDL/HDL RATIO, NF 1.72 mg/dL Normal <2.54 [facility] Comment on above: Order Comment: Brucei men Type: BLOOD SPECIMENOrdering Facility: [facility] Address: [address] [place] [address] Result Comment: Refe rence: 1. National Cholesterol Education Program ATP III Guideline At-A-Glance Quick Desk Reference: National Heart, Lung, and Blood [place]. National Institutes of Health. 2001: NIH Publication No. 01-3305. 2. An International Atherosclerosis Society position paper: global recommendations for the management of dyslipidemia: executive summary, Atherosclerosis. 2014: 232(2):410-413. Performed By: #### 2 4323-8, LIPNF ####[facility] LABCLIA [id number] [address] [place] NON HDL CHOL, NF 117 mg/dL Normal <130 [facility] Comment on above: Order Comment: Brucei men Type: BLOOD SPECIMENOrdering Facility: [facility] Address: [address] [place] [address] Result Comment: <130 mg/dL, Optimal 130-159 mg/dL, Near optimal/above optimal 160-189 mg/dL, Borderline high 190-219 mg/dL, High >219 mg/dL, Very high Secondary prevention optimal non HDL Cholesterol levels are recommended to be <100 mg/dL Performed By: #### 2 4323-8, LIPNF ####[facility] LABCLIA [id number] [place] [address] [place] T CHOL/HDL RATIO NF 3.21 mg/dL Normal <5.10 [facility] Comment on above: Order Comment: Speci men Type: BLOOD SPECIMENOrdering Facility: [facility] Address: [address] [place] [address] Performed By: #### 2 4323-8, LIPNF ####[facility] LABCLIA [id number] [place] [address] [place] TRIGLYCERIDES, NF 128 mg/dL Normal <150 [facility] Comment on above: Order Comment: Speci men Type: BLOOD SPECIMENOrdering Facility: [facility] [place] Address: [address] [place] [address] Result Comment: <150 mg/dL, Normal 150-199 mg/dL, Borderline high 200-499 mg/dL, High >499 mg/dL, Very high Performed By: #### 2 4323-8, LIPNF ####[facility] LABCLIA [id number] [place] [address] [place] VLDL CHOLESTEROL, NF 26 mg/dL Normal <30 [facility] Comment on above: Order Comment: Speci men Type: BLOOD SPECIMENOrdering Facility: [facility] [place] Address: [address] [place] [address] Performed By: #### 2 4323-8, LIPNF ####[facility] LABCLIA [id number] [place] [address] [place] [facility] Prostate specific Ag [Mass/Vol] 2.12 ng/mL Normal <2.60 [facility] Comment on above: Order Comment: Speci men Type: BLOOD SPECIMENOrdering Facility: [facility] Address: [address] [place] [address] Result Comment: Tota l PSA test methodology used is the Electrochemiluminescence Immunoassay by [employer]. Total PSA values by differing methodologies cannot be interchanged. Performed By: #### 2 857-1 ####[facility] LABCLIA [id number] [place] [address] [place] Urinalysis complete panel (U )on 10-06-2023 Bacteria LM.HPF (Urine sed) [#/Area] Negative Normal Negative [facility] Comment on above: Order Comment: Speci men Type: URINE SPECIMENOrdering Facility: [facility] Address: [address] [place] [address] Performed By: #### 2 4356-8 ####[facility] LABCLIA [id number] [place] [address] [place] Bilirubin Ql (U) Negative Normal Negative [facility] Comment on above: Order Comment: Speci men Type: URINE SPECIMENOrdering Facility: [facility] [place] Address: [address] [place] [address] Performed By: #### 2 4356-8 ####[facility] LABCLIA [id number] [place] [address] [place] Clarity (Unsp spec) Clear Normal Clear [facility] Comment on above: Order Comment: Speci men Type: URINE SPECIMENOrdering Facility: [facility] Address: [address] [place] [address] Performed By: #### 2 4356-8 ####[facility] LABCLIA [id number] [place] [address] [place] Color (U) Yellow Normal Yellow [facility] Comment on above: Order Comment: Speci men Type: URINE SPECIMENOrdering Facility: [facility] Address: [address] [place] [address] Performed By: #### 2 4356-8 ####[facility] LABCLIA [id number] [place] [address] [place] Epithelial cells LM.HPF (Urine sed) [#/Area] None Seen Normal [facility] Comment on above: Order Comment: Speci men Type: URINE SPECIMENOrdering Facility: [facility] Address: [address] [place] [address] Performed By: #### 2 4356-8 ####[facility] LABCLIA [id number] [address] [place] Glucose Test strip (U) [Mass/Vol] Negative Normal Negative [facility] Comment on above: Order Comment: Speci men Type: URINE SPECIMENOrdering Facility: [facility] Address: [address] [place] [address] Performed By: #### 2 4356-8 ####[facility] LABCLIA [id number] [place] [address] [place] Hemoglobin Ql (U) Negative Normal Negative [facility] Comment on above: Order Comment: Speci men Type: URINE SPECIMENOrdering Facility: [facility] Address: [address] [place] [address] Performed By: #### 2 4356-8 ####[facility] LABCLIA [id number] [place] [address] [place] Hyaline casts (Urine sed) [#/Area] 0 /[LPF] Normal 0 /LPF [facility] Comment on above: Order Comment: Speci men Type: URINE SPECIMENOrdering Facility: [facility] Address: [address] [place] [address] Performed By: #### 2 4356-8 ####[facility] LABCLIA [id number] [place] [address] [place] Ketones Ql (U) Negative Normal Negative [facility] Comment on above: Order Comment: Speci men Type: URINE SPECIMENOrdering Facility: [facility] Address: [address] [place] [address] Performed By: #### 2 4356-8 ####[facility] LABCLIA [id number] [place] [address] [place] Leukocyte esterase Test strip Ql (U) Negative Normal Negative [facility] Comment on above: Order Comment: Speci men Type: URINE SPECIMENOrdering Facility: [facility] Address: [address] [place] [address] Performed By: #### 2 4356-8 ####[facility] LABCLIA [id number] [place] [address] [place] Nitrite Ql (U) Negative Normal Negative [facility] Comment on above: Order Comment: Speci men Type: URINE SPECIMENOrdering Facility: [facility] Address: [address] [place] [address] Performed By: #### 2 4356-8 ####[facility] LABCLIA [id number] [place] [address] [place] pH (U) 6.5 [pH] Normal <8.5 [facility] Comment on above: Order Comment: Speci men Type: URINE SPECIMENOrdering Facility: [facility] Address: [address] [place] [address] Performed By: #### 2 4356-8 ####[facility] LABCLIA [id number] [place] [address] [place] Protein (U) [Mass/Vol] Negative Normal Negative [facility] Comment on above: Order Comment: Speci men Type: URINE SPECIMENOrdering Facility: [facility] Address: [address] [place] [address] Performed By: #### 2 4356-8 ####[facility] LABCLIA [id number] [place] [address] [place] RBC LM.HPF (Urine sed) [#/Area] 0-2 /HPF Normal 0-2 /HPF [facility] Comment on above: Order Comment: Speci men Type: URINE SPECIMENOrdering Facility: [facility] Address: [address] [place] [address] Performed By: #### 2 4356-8 ####[facility] LABIA [id number] [place] [address] [place] Specific gravity (U) [Rel density] 1.012 Normal 1.005-1.030 [facility] Comment on above: Order Comment: Speci men Type: URINE SPECIMENOrdering Facility: [facility] Address: [address] [place] [address] Performed By: #### 2 4356-8 ####[facility] LABIA [id number] [address] [place] Urobilinogen Ql (U) 0.2 EU/dL Normal 0.2-1.0 EU/dL [facility] Comment on above: Order Comment: Speci men Type: URINE SPECIMENOrdering Facility: [facility] Address: [address] [place] [address] Performed By: #### 2 4356-8 ####[facility] [id number] [place] [address] [place] WBC LM.HPF (Urine sed) [#/Area] 0-5 /HPF Normal 0-5 /HPF [facility] Comment on above: Order Comment: Speci men Type: URINE SPECIMENOrdering Facility: [facility] Address: [address] [place] [address] Performed By: #### 2 4356-8 ####[facility] LABIA [id number] [place] [address] [place] CNOVon 09-15-2023 CNOV Office Visit [facility] ROB CORREIA ([id number]) 1965 M Date Time Provider Department 09/15/23 2:00 PM ALDO BUTCHER During your visit today, we recorded the following information about you: Pulse Blood pressure Weight 106/minute 122/86 81.9 kg Aldo Butcher MD 09/15/2023 4:13 PM Signed Chief Complaint Patient presents with: UTI: Urinary issues, unable to urinate, burn slightly, slow urine stream, lower back pain for 1 month HPI Rob Correia is a 58 year old male who presents here today for Urination issues.. Has been noting some hesitancy some days and with it some mild discomfort. Some dribbling prior to starting. Some reduced stream strength. No nocturia at all. No hematuria. No flank pain. Has his typical low back pain. No pain with defecation. Patient with Hx of Diabetes, hyperlipidemia as well as those reviewed below. Past medical history, appointments, medications, allergies reviewed. Previous Medical History PAST MEDICAL HISTORY Diagnosis Date Controlled type 2 diabetes mellitus without complication, without long-term current use of insulin ([facility]) 07/22/2017 Hyperlipidemia, mixed 10/12/2022 Myopia 08/23/2014 Presbyopia 08/23/2014 Regular astigmatism 08/23/2014 Well adult exam 10/12/2022 Last done: 10/12/2022 Previous Surgical History PAST SURGICAL HISTORY Procedure Laterality Date APPENDECTOMY PAST SURGICAL HISTORY OF hernia repair Family History FAMILY HISTORY Problem Relation Age of Onset Diabetes Mother Hyperlipidemia Mother Diabetes Father Heart Failure Father Colon Cancer Father 70's Hyperlipidemia Father other (trauma) Sister head injury from fall off a hourse Coronary Artery Disease Paternal Grandmother AR Coronary Artery Disease Paternal Grandfather AR Coronary Artery Disease Paternal Uncle Glaucoma No Family History Detached Retina No Family History Macular Degen No Family History Prostate Cancer No Family History Breast Cancer No Family History Alzheimer's Disease No Family History Kidney Disease No Family History Seizures No Family History Stroke No Family History Thyroid No Family History Patient Allergies ALLERGIES No Known Allergies Current Medications Current Outpatient Medications on File Prior to Visit Medication Sig glucosamine/chondroitin/C/Ma ng (GLUCOSAMINE-CHONDROITIN COMPLX ORAL) Take by mouth. metFORMIN ER (GLUCOPHAGE XR) 500 mg 24 hr tablet Take 1 tablet by mouth two times a day before meals. Take one tablet am and one tablet pm atorvastatin (LIPITOR) 20 mg tablet Take 1 tablet by mouth once daily. Take 1 tablet daily Qsgvr-9-TTF-EPA-Fish Oil (FISH OIL) 1,000 mg (120 mg-180 mg) cap Take 1 capsule by mouth two times a day. No current facility-administered medications on file prior to visit. Social History Social History Tobacco Use Smoking status: Never Smokeless tobacco: Never Vaping Use Vaping Use: Never used Substance Use Topics Alcohol use: Yes Alcohol/week: 4.0 standard drinks of alcohol Types: 4 Cans of beer per week Comment: social use Drug use: No Review of Symptoms REVIEW OF SYSTEMS See HPI EXAM: BP 122/86 (BP Site: Right Arm) Pulse 106 Wt 81.9 kg (180 lb 9.6 oz) SpO2 97% General Appearance: Well appearing, alert, in no acute distress, well-hydrated, well nourished.. Abdomen: Abdomen soft, non-tender. Genitalia: Normal, Penis normal. No urethral discharge. Scrotum normal to palpation. No hernia.. Rectal: prostate slightly enlarged and very soft on the left but not tender. . Health Maintenance List Covid-19 Vaccine( season) Never done Dilated Retinal Exam due on 03/08/2023 Behavioral Health Screening Never done Urine Albumin:Creatinine Ratio due on 10/13/2023 Diabetic Foot Exam due on 10/13/2023 Shingrix Vaccine(1 of 2) due on 10/13/2023 HbA1C due on 10/17/2023 LDL Cholesterol due on 04/17/2024 Annual PCP Team Chronic Disease Visit due on 04/17/2024 Prostate Cancer Screening Discussion due on 10/13/2027 Colorectal Cancer Screening due on 11/30/2028 DTaP,Tdap,Td Vaccine(3 - Td or Tdap) due on 10/12/2032 Pneumococcal Vaccine Completed Hepatitis B Vaccine Discontinued Influenza Vaccine Discontinued Hepatitis C Screening Discontinued HIV Screening Discontinued Data reviewed A/P ASSESSMENT/PLAN: 1. Hesitancy - ICD9: 788.64, ICD10: R39.11 - suspect this maybe a prostatitis: therefore will treat with Bactrim DS twice a day for 2 weeks Requested Prescriptions Signed Prescriptions Disp Refills sulfamethoxazole-trimethopri m (BACTRIM DS) 800-160 mg per tablet 28 tablet 0 Sig: Take 1 tablet by mouth two times a day for 14 days. Patient has routine f/u in early October and will see how he is doing. If not better will place on med for BPH. Aldo Butcher MD Allergies As of Date: 09/15/2023 (more content not included)... Normal [facility] HbA1c (Bld)on 04-17-2023 Average glucose Estimated from glycated hemoglobin (Bld) [Mass/Vol] 146 mg/dL [facility] HbA1c (Bld) [Mass fraction] 6.7 % High 4.3 - 5.6 % [facility] LIPID PANEL, NONFASTINGon Cholesterol [Mass/Vol] 139 mg/dL <200 mg/dL [facility] HDL Cholesterol, Nonfasting 52 mg/dL >39 mg[facility] LDL Cholesterol, Nonfasting 60 mg/dL <100 mg/dL [facility] LDL/HDL Ratio, Nonfasting 1.15 mg/dL <2.54 mg/dL [facility] Non HDL Cholesterol, Nonfasting 87 mg/dL <130 mg/dL [facility] Total Chol/HDL Ratio, Nonfasting 2.67 mg/dL <5.10 mg/dL [facility] Triglycerides, Nonfasting 133 mg/dL <150 mg/dL [facility] VLDL Cholesterol, Nonfasting 27 mg/dL <30 mg/dL [facility] Bedside Glucoseon 11-30-2018 BEDSIDE GLU 95 mg/dL Normal 70-110 [facility] Comment on above: Result Comment: JUAN ANTONIO AGGARWAL OF PATIENT CARE PER NURSING PROTOCOL Performed By: #### L [id number] #### [facility] Laboratory Point of Care [address] [place] [address] History and Physical Examon 11-30-2018 History and Physical Exam [facility] Medical Records Department [address] [place] [address] History and Physical 11/30/18 0616 MR#: [id number] Acct: [id number] Name: ROB CORREIA Rep #: [id number] : 1965 [id number] From: Deuce Gaston MD PCP: Temo Shook MD Status: REG [facility] Location: [place] [address] Problem List (1) Screening for intestinal cancer Status: Acute History of Present Illness Date of Admission: 11/30/18 The patient is a 53 year old M who presents for screening colonoscopy today. He has never had a screening colonoscopy. There is some question as to whether his father had colon cancer. He is aware that his father had abdominal surgery but is not aware whether it was benign or malignant. His father is no longer living. I have instructed him to try to check with his mother to try to determine that anterior as it may impact his surveillance program. The patient otherwise has a good feeling of health. He has no current complaints. Past Medical History Allergies No Known Allergies Allergy (Verified 11/30/18 05:48) Home Medications: Ambulatory Orders Medication Instructions Recorded Atorvastatin Calcium [Lipitor] 20 mg PO QHS 11/28/18 Metformin HCl 500 mg PO BID 11/28/18 Smoking Status: Former smoker Tobacco Use: Non-smoker Review of Systems Constitutional: Denies: Anorexia HEENT: Denies: Difficulty Swallowing Cardiovascular: Denies: Chest Pain, Claudication, Chest Pressure Respiratory: Denies: Cough Gastrointestinal: Denies: Abdominal Pain, Hematochezia, Nausea, Melena Endocrine: Reports: Change in Body Habitus - Weight loss associated with his newer diagnosis of type 2 diabetes mellitus VTE Information - Inpt Only VTE Present on Admission: No Patient Problems: Active and Suspected Problems Screening for intestinal cancer (Acute) - Physical Exam General: Alert, Oriented x3, Cooperative, No apparent distress HEENT: Atraumatic Oral: Moist Mucosa Neck: Supple Lungs: Clear to auscultation, Normal air movement Cardiovascular: Regular rate, Regular Rhythm Abdomen: Bowel Sounds Present, Soft, Non Tender, Non-Distended Extremities: No Calf Tenderness Neurological: - - Cognition intact Vital Signs Temp Pulse Resp BP Pulse Ox 97.9 F 67 16 121/90 H 100 11/30/18 05:49 11/30/18 05:49 11/30/18 05:49 11/30/18 05:49 11/30/18 05:49 Oxygen Delivery Method Room Air Weight: 173 lb 15.115 oz Body Mass Index (BMI) 24.9 POC Glucose POC Glucose 95 Assessment/Plan All Active Problems Screening for intestinal cancer (Acute) I have am recommending the patient a screening colonoscopy with possible biopsy or polypectomy is indicated. He is aware of the technique, benefits, risks, alternatives. He has had an opportunity ask and have questions answered. He presents via our open access program. We will proceed as noted. Deuce Gaston M.D., F.A.C.S. 11/30/18 0628 Date Deuce Gaston MD Cosigner Signature: Date (if applicable) CC: Temo Shook MD; Deuce Gaston MD Signed Normal [facility] Operative Report - Endoscopy on 11-30-2018 Operative Report - Endoscopy [facility] Medical Records Department [address] [place] [address] Operative Report - Endoscopy MR#: [id number] Acct: [id number] Name: ROB CORREIA Rep #: [id number] : 1965 53 From: Deuce Gaston MD PCP: Temo Shook MD Status: REG [facility] 11/30/2018 Tem[facility] Shook Re : Colonoscopy procedure for Rob Correia Dear Bouchra This procedure was performed on Friday, November 30, 2018. My impressions and recommendations are as follows: Impressions : - Diverticulosis in the entire examined colon. - The examination was otherwise normal. - No specimens collected. Recommendations : - Discharge patient to home. - Resume previous diet. - Continue present medications. - Repeat colonoscopy in 10 years for screening purposes. My findings are described in the full procedure note, which is enclosed. If I can be of further assistance, please feel free to contact me at Doctor phone number(s): Work: . Sincerely, Deuce Gaston MD 11/30/2018 6:55:28 AM This report has been signed electronically. 11/30/18654 Date Deuce Gaston MD Cosigner Signature: Date (if indicated) CC: Temo Shook MD; Deuce Gaston MD Date Dictated: 11/30/18609 Date Transcribed: [employer]ator: RACHEL Signed [facility] Vital Signs Date Time Vital Sign Value Performing Clinician Faci lity 06-03-2024 08:21-0500 Body mass index (BMI) [Ratio] 26.73 kg/m2 Corina Gomes PA-C Work Phone: [facility] 06-03-2024 08:21-0500 Body temperature 97.81 [degF] Corina Gomes PA-C Work Phone: [facility] 06-03-2024 08:21-0500 Body weight 82.1 kg Corina Gomes PA-C Work Phone: [facility] 06-03-2024 08:21-0500 Diastolic blood pressure 86 mm[Hg] Corina Gomes PA-C Work Phone: [facility] 06-03-2024 08:21-0500 Heart rate 64 /min Corina Gomes PA-C Work Phone: [facility] 06-03-2024 08:21-0500 Respiratory rate 18 /min Corina Gomes PA-C Work Phone: [facility] 06-03-2024 08:21-0500 SaO2% (BldA) [Mass fraction] 99 % Corina Gomes PA-C Work Phone: [facility] 06-03-2024 08:21-0500 Systolic blood pressure 126 mm[Hg] Corina Gomes PA-C Work Phone: [facility] 04-19-2024 06:55-0500 Body mass index (BMI) [Ratio] 27.47 kg/m2 Corina Gomes PA-C Work Phone: [facility] 04-19-2024 06:55-0500 Body temperature 97.3 [degF] Corina Gomes PA-C Work Phone: [facility] 04-19-2024 06:55-0500 Body weight 84.37 kg Corina Gomes PA-C Work Phone: [facility] 04-19-2024 06:55-0500 Diastolic blood pressure 80 mm[Hg] Corina Gomes PA-C Work Phone: [facility] 04-19-2024 06:55-0500 Heart rate 68 /min Corina Gomes PA-C Work Phone: [facility] 04-19-2024 06:55-0500 Respiratory rate 18 /min Corina Gomes PA-C Work Phone: [facility] 04-19-2024 06:55-0500 SaO2% (BldA) [Mass fraction] 97 % Corina Gomes PA-C Work Phone: [facility] 04-19-2024 06:55-0500 Systolic blood pressure 122 mm[Hg] Corina Gomes PA-C Work Phone: [facility] 10-19-2023 08:18-0400 Diastolic blood pressure 82 mm[Hg] Aldo Butcher MD Work Phone: [facility] 10-19-2023 08:18-0400 Systolic blood pressure 130 mm[Hg] Aldo Butcher MD Work Phone: [facility] 10-19-2023 08:03-0400 Body height 175.3 cm Aldo Butcher MD Work Phone: [facility] 10-19-2023 08:03-0400 Body mass index (BMI) [Ratio] 26.58 kg/m2 Aldo Butcher MD Work Phone: [facility] 10-19-2023 08:03-0400 Body weight 81.65 kg Aldo Butcher MD Work Phone: [facility] 10-19-2023 08:03-0400 Heart rate 75 /min Aldo Butcher MD Work Phone: [facility] 09-15-2023 14:01-0400 Body weight 81.92 kg Aldo Butcher MD Work Phone: [facility] 09-15-2023 14:01-0400 Diastolic blood pressure 86 mm[Hg] Aldo Butcher MD Work Phone: [facility] 09-15-2023 14:01-0400 Heart rate 106 /min Aldo Butcher MD Work Phone: [facility] 09-15-2023 14:01-0400 SaO2% (BldA) [Mass fraction] 97 % Aldo Butcher MD Work Phone: [facility] 09-15-2023 14:01-0400 Systolic blood pressure 122 mm[Hg] Aldo Butcher MD Work Phone: [facility] 04-17-2023 08:49-0500 Diastolic blood pressure 86 mm[Hg] Aldo Butcher MD Work Phone: [facility] 04-17-2023 08:49-0500 Systolic blood pressure 134 mm[Hg] Aldo Butcher MD Work Phone: [facility] 04-17-2023 08:40-0500 Body weight 85.73 kg Aldo Butcher MD Work Phone: [facility] 04-17-2023 08:40-0500 Heart rate 80 /min Aldo Butcher MD Work Phone: [facility] 04-17-2023 08:40-0500 Respiratory rate 16 /min Aldo Butcher MD Work Phone: [facility] 09-09-2022 09:05-0400 Body temperature 97.5 [degF] Ele Pro APRN.CNP Work Phone: [facility] 09-09-2022 09:05-0400 Body weight 81.65 kg Ele Pro [employer]ING CONTRACTOR Work Phone: [facility] 09-09-2022 09:05-0400 Diastolic blood pressure 80 mm[Hg] Ele Pro [employer]ING [employer]OR Work Phone: [facility] 09-09-2022 09:05-0400 Heart rate 72 /min Ele Inocencia [employer]ANGE [employer].HA[employer]ING CONTRACTOR Work Phone: [facility] 09-09-2022 09:05-0400 Respiratory rate 14 /min Ele Inocencia [employer].HA[employer]ING CONTRACTOR Work Phone: [facility] 09-09-2022 09:05-0400 Systolic blood pressure 130 mm[Hg] Ele Pro [employer]ANGE [employer]OWER.HAULING CONTRACTOR Work Phone: [facility] Encounters Encounter Date Encounter Type Care Provider Facility Start: 06-04-2024 End: 06-04-2024 Telephone encounter Corina Gomes PA-C Work Phone: [facility] Comment on above: Results Start: 06-03-2024 End: 06-03-2024 Telephone encounter Corina Gomes PA-C Work Phone: [facility] Comment on above: Results Start: 06-03-2024 End: 06-03-2024 Subsequent hospital visit by physician Ranj[facility] Work Phone: Radiology Comment on above: Acute cough [R05.1] Start: 06-03-2024 End: 06-03-2024 ambulatory ALDO BUTCHER Facility:[facility] Start: 06-03-2024 End: 06-03-2024 Patient encounter procedure Corina Gomes PA-C Work Phone: [facility] Comment on above: Lower resp. tract in fection (Primary Dx); Acute cough Start: 05-02-2024 End: 05-02-2024 Telephone encounter Aldo Butcher MD Work Phone: [facility] Comment on above: Billing Issue Start: 05-01-2024 End: 05-02-2024 Refill Corina Gomes PA-C Work Phone: [facility] Comment on above: Refill Request Start: 04-19-2024 End: 04-19-2024 ambulatory ALDO BUTCHER Facility:[facility] Start: 04-19-2024 End: 04-19-2024 Office outpatient visit 25 minutes Corina Gomes PA-C Work Phone: [facility] Comment on above: Controlled type 2 di abetes mellitus without complication, without long-term current use of insulin (HCC) (Primary Dx); Hyperlipidemia, mixed; Screening for prostate cancer Start: 04-08-2024 End: 04-08-2024 ambulatory ALDO BUTCHER Facility:[facility] Start: 12-12-2023 Refill Aldo gilliland MD Work Phone: [facility] Comment on above: Refill Request Start: 11-08-2023 Refill Aldo gilliland MD Work Phone: [facility] Comment on above: Refill Request Start: 10-30-2023 End: 10-30-2023 ambulatory ALDO BUTCHER Facility:[facility] Start: 10-30-2023 End: 10-30-2023 Patient encounter procedure Deshawn Musa OD Work Phone: Optometry Comment on above: Type 2 diabetes rajiv itus without retinopathy (HCC) (Primary Dx); Myopia, bilateral; Regular astigmatism of right eye; Presbyopia Start: 10-19-2023 End: 10-19-2023 ambulatory ALDO BUTCHER Facility:[facility] Start: 10-19-2023 End: 10-19-2023 Patient encounter procedure Aldo Butcher MD Work Phone: [facility] Comment on above: Well adult exam (Genna jose luis Dx); Controlled type 2 diabetes mellitus without complication, without long-term current use of insulin (HCC); Hyperlipidemia, mixed Start: 10-19-2023 End: 10-19-2023 Patient encounter status Aldo Butcher MD Work Phone: [facility] Work Phone: Start: 10-06-2023 End: 10-06-2023 ambulatory ALDO BUTCHER Facility:[facility] Start: 09-15-2023 End: 09-15-2023 Patient encounter procedure Aldo Butcher MD Work Phone: [facility] Comment on above: Hesitancy (Primary D x) Start: 09-15-2023 End: 09-15-2023 ambulatory ALDO BUTCHER Facility:[facility] Start: 09-14-2023 ambulatory Aldo gilliland MD Work Phone: [facility] Comment on above: Urination Start: 07-21-2023 ambulatory Ele salmeron APRN.HAULING CONTRACTOR Work Phone: [facility] Comment on above: Labs and paperwork Diabetic diagnosis Start: 04-17-2023 Telephone encounter Aldo Butcher MD Work Phone: [facility] Comment on above: Results Start: 04-17-2023 End: 04-17-2023 Patient encounter procedure Aldo Butcher MD Work Phone: [facility] Comment on above: Controlled type 2 di abetes mellitus without complication, without long-term current use of insulin (HCC) (Primary Dx); Hyperlipidemia, mixed; Screening for prostate cancer Start: 03-06-2023 Refill Aldo gilliland MD Work Phone: [facility] Comment on above: Refill Request Start: 02-09-2023 Refill Aldo gilliland MD Work Phone: [facility] Comment on above: Refill Request Start: 10-12-2022 Patient encounter status Aldo Butcher MD Work Phone: [facility] Work Phone: Start: 09-09-2022 End: 09-09-2022 Patient encounter procedure Ele Pro APRN.HAULING CONTRACTOR Work Phone: [facility] Comment on above: Acute otitis media, unspecified otitis media type (Primary Dx) Start: 03-08-2022 End: 03-08-2022 Patient encounter procedure Pawel Musa OD Work Phone: Optometry Comment on above: Type 2 diabetes rajiv itus without retinopathy (HCC) (Primary Dx); Myopia, bilateral; Regular astigmatism of right eye; Presbyopia Procedures Date Procedure Procedure Detail Performing Clinician Start: 06-03-2024 Radiologic exam ches t 2 views Corina Gomes PA-C Work Phone: Start: 11-30-2018 Colonoscopy Aldo kaur MD Work Phone: Plan of Treatment Date Care Activity Detail Author Start: 10-12-2032 Urine microalbumin profile [facility] Start: 11-30-2028 Colonoscopy Colonoscopy [facility] Start: 11-30-2028 Colorectal Cancer Screening Colorectal Cancer Screening [facility] Start: 11-30-2028 Screening for malign ant neoplasm of colon [facility] Start: 10-18-2028 Prostate specific antigen measurement Prostate Cancer Screening Discussion [facility] Start: 10-13-2027 Prostate Cancer Screening Discussion Prostate Cancer Screening Discussion [facility] Start: 10-13-2027 Prostate specific antigen measurement Prostate Cancer Screening Discussion [facility] Start: 06-03-2025 Annual PCP Team Medical Aide yany Disease Visit Annual PCP Team Chronic Disease Visit [facility] Start: 04-19-2025 Annual PCP Team Medical Aide yany Disease Visit Annual PCP Team Chronic Disease Visit [facility] Start: 04-08-2025 Hepatitis B surface antibody level LDL Cholesterol [facility] Start: 11-04-2024 End: 11-04-2024 Patient encounter procedure 11/04/2024 4:30 PM EDT Office Visit [facility] [address] [place] [address] Deshawn Musa, OD [address] [place] [address] Diabetic Exam/[facility] Comment on above: Diabetic Exam[facility] Start: 10-29-2024 Glaucoma screening Dilated Retinal E xam [facility] Start: 10-23-2024 End: 10-23-2024 Patient encounter procedure 10/23/2024 8:00 AM EDT Office Visit Family [facility] [address] [place] [address] Aldo Butcher MD [address] [facility] [place] [address] physical Family Medicine [facility] Comment on above: physical Start: 10-18-2024 Annual PCP Team Medical Aide yany Disease Visit Annual PCP Team Chronic Disease Visit [facility] Start: 10-18-2024 End: 01-17-2025 CBC W Auto Differential panel - Blood COMPLETE BLOOD COUNT AND DIFFERENTIAL Lab Routine Controlled type 2 diabetes mellitus without complication, without long-term current use of insulin (HCC) Expected: 10/18/2024, Expires: 01/17/2025 [facility] Comment on above: Expected: 10/18/2024 , Expires: 01/17/2025 Start: 10-18-2024 End: 01-17-2025 Comprehensive metabolic 2000 panel - Serum or Plasma COMPREHENSIVE METABOLIC PANEL Lab Routine Controlled type 2 diabetes mellitus without complication, without long-term current use of insulin (HCC) Hyperlipidemia, mixed Expected: 10/18/2024, Expires: 01/17/2025 [facility] Comment on above: Expected: 10/18/2024 , Expires: 01/17/2025 Start: 10-18-2024 Diabetic foot examination Diabetic Foot Exam [facility] Start: 10-18-2024 End: 01-17-2025 Hemoglobin A1c in Blood HEMOGLOBIN A1C Lab Routine Controlled type 2 diabetes mellitus without complication, without long-term current use of insulin (HCC) Hyperlipidemia, mixed Expected: 10/18/2024, Expires: 01/17/2025 [facility] Comment on above: Expected: 10/18/2024 , Expires: 01/17/2025 Start: 10-18-2024 End: 01-17-2025 LIPID PANEL, NONFASTING LIPID PANEL, NONFASTING Lab Routine Hyperlipidemia, mixed Expected: 10/18/2024, Expires: 01/17/2025 [facility] Comment on above: Expected: 10/18/2024 , Expires: 01/17/2025 Start: 10-18-2024 End: 01-17-2025 Microalbumin/Creatinine [Mass Ratio] in Urine ALBUMIN/CREATININE RATIO, URINE Lab Routine Controlled type 2 diabetes mellitus without complication, without long-term current use of insulin (HCC) Expected: 10/18/2024, Expires: 01/17/2025 [facility] Comment on above: Expected: 10/18/2024 , Expires: 01/17/2025 Start: 10-18-2024 End: 01-17-2025 Prostate specific Ag [Mass/volume] in Serum or Plasma PROSTATE-SPECIFIC ANTIGEN DIAGNOSTIC Lab Routine Screening for prostate cancer Expected: 10/18/2024, Expires: 01/17/2025 [facility] Comment on above: Expected: 10/18/2024 , Expires: 01/17/2025 Start: 10-18-2024 Shingrix Vaccine (1 of 2) Shingrix Vaccine (1 of 2) [facility] Comment on above: Postponed from 04/14 (Insurance Coverage) Start: 10-18-2024 End: 01-17-2025 Urinalysis complete panel - Urine URINALYSIS, WITH MICROSCOPIC Lab Routine Controlled type 2 diabetes mellitus without complication, without long-term current use of insulin (HCC) Expected: 10/18/2024, Expires: 01/17/2025 [facility] Work Phone: Comment on above: Expected: 10/18/2024 , Expires: 01/17/2025 Start: 10-07-2024 Hemoglobin A1c measurement HbA1C [facility] Start: 10-05-2024 Hepatitis B screening Urine Albumin:Creatinine Ratio [facility] Start: 10-05-2024 Hepatitis B surface antibody level LDL Cholesterol [facility] Start: 09-14-2024 Annual PCP Team Medical Aide yany Disease Visit Annual PCP Team Chronic Disease Visit [facility] Start: 05-07-2024 Behavioral Health Screening Behavioral Health Screening [facility] Comment on above: Postponed from 05/08 (Declined at this time) Start: 04-19-2024 End: 04-19-2024 Patient encounter procedure 04/19/2024 7:00 AM EST Office Visit Family Medicine [facility] [address] [place] [address] Corina Gomes PA-C [address] [place] [address] 6 month follow up. Labs prior [facility] Comment on above: 6 month follow up. L abs prior Start: 04-17-2024 Annual PCP Team Medical Aide yany Disease Visit Annual PCP Team Chronic Disease Visit [facility] Start: 04-17-2024 Hepatitis B surface antibody level LDL Cholesterol [facility] Start: 04-06-2024 Hemoglobin A1c measurement HbA1C [facility] Start: 04-05-2024 End: 07-05-2024 Hemoglobin A1c in Blood HEMOGLOBIN A1C Lab Routine Controlled type 2 diabetes mellitus without complication, without long-term current use of insulin (HCC) Expected: 04/05/2024, Expires: 07/05/2024 [facility] Work Phone: Comment on above: Expected: 04/05/2024 , Expires: 07/05/2024 Start: 04-05-2024 End: 07-05-2024 LIPID PANEL, NONFASTING LIPID PANEL, NONFASTING Lab Routine Controlled type 2 diabetes mellitus without complication, without long-term current use of insulin (HCC) Hyperlipidemia, mixed Expected: 04/05/2024, Expires: 07/05/2024 [facility] Comment on above: Expected: 04/05/2024 , Expires: 07/05/2024 Start: 10-19-2023 End: 10-19-2023 Patient encounter procedure 10/19/2023 8:00 AM EDT Office Visit Family Medicine [facility]m [address] [place], [place] [id number] Aldo Butcher MD [address] [place], [place] [id number] Physical Family Medicine [facility] Comment on above: Physical Start: 10-17-2023 Hemoglobin A1c measurement HbA1C [facility] Start: 10-17-2023 Hemoglobin A1c/Hemoglobin.total in Blood HbA1C [facility] Start: 10-13-2023 3 comp foot exam completed Diabetic Foot Exam [facility] Start: 10-13-2023 Annual PCP Team Medical Aide yany Disease Visit Annual PCP Team Chronic Disease Visit [facility] Start: 10-13-2023 Covid-19 Vaccine (#1) Covid-19 Vacci ne (#1) [facility] Comment on above: Postponed from 10/13 (Declined at this time) Start: 10-13-2023 Diabetic foot examination Diabetic Foot Exam [facility] Start: 10-13-2023 Hepatitis B screening Urine Albumin:Creatinine Ratio [facility] Start: 10-13-2023 Hepatitis B surface antibody level LDL Cholesterol [facility] Start: 10-13-2023 Shingrix Vaccine (1 of 2) Shingrix Vaccine (1 of 2) [facility] Comment on above: Postponed from 04/14 (Insurance Coverage) Start: 10-06-2023 End: 01-05-2024 ALBUMIN/CREAT RATIO RND UR ALBUMIN/CREAT RATIO RND UR Lab Routine Controlled type 2 diabetes mellitus without complication, without long-term current use of insulin (HCC) Expected: 10/06/2023, Expires: 01/05/2024 [facility] Work Phone: Comment on above: Expected: 10/06/2023 , Expires: 01/05/2024 Start: 10-06-2023 End: 01-05-2024 CBC W Auto Differential panel - Blood CBC + DIFF Lab Routine Controlled type 2 diabetes mellitus without complication, without long-term current use of insulin (HCC) Expected: 10/06/2023, Expires: 01/05/2024 [facility] Work Phone: Comment on above: Expected: 10/06/2023 , Expires: 01/05/2024 Start: 10-06-2023 End: 01-05-2024 Comprehensive metabolic 2000 panel - Serum or Plasma COMP METABOLIC PANEL Lab Routine Controlled type 2 diabetes mellitus without complication, without long-term current use of insulin (HCC) Hyperlipidemia, mixed Expected: 10/06/2023, Expires: 01/05/2024 [facility] Work Phone: Comment on above: Expected: 10/06/2023 , Expires: 01/05/2024 Start: 10-06-2023 End: 01-05-2024 Hemoglobin A1c in Blood HGB A1C Lab Routine Controlled type 2 diabetes mellitus without complication, without long-term current use of insulin (HCC) Expected: 10/06/2023, Expires: 01/05/2024 [facility] Work Phone: Comment on above: Expected: 10/06/2023 , Expires: 01/05/2024 Start: 10-06-2023 End: 01-05-2024 LIPID PANEL, NONFASTING LIPID PANEL, NONFASTING Lab Routine Controlled type 2 diabetes mellitus without complication, without long-term current use of insulin (HCC) Hyperlipidemia, mixed Expected: 10/06/2023, Expires: 01/05/2024 [facility] Work Phone: Comment on above: Expected: 10/06/2023 , Expires: 01/05/2024 Start: 10-06-2023 End: 01-05-2024 Prostate specific Ag [Mass/volume] in Serum or Plasma PSA/PROSTSPECAG DIAG Lab Routine Screening for prostate cancer Expected: 10/06/2023, Expires: 01/05/2024 [facility] Work Phone: Comment on above: Expected: 10/06/2023 , Expires: 01/05/2024 Start: 10-06-2023 End: 01-05-2024 Urinalysis complete panel - Urine URINALYSIS, WITH MICROSCOPIC Lab Routine Controlled type 2 diabetes mellitus without complication, without long-term current use of insulin (HCC) Hyperlipidemia, mixed Expected: 10/06/2023, Expires: 01/05/2024 [facility] Work Phone: Comment on above: Expected: 10/06/2023 , Expires: 01/05/2024 Start: 09-10-2023 ANNUAL PCP TEAM MOTION PICTURE PROJECTIONIST APPRENTICE YANY DISEASE VISIT ANNUAL PCP TEAM CHRONIC DISEASE VISIT [facility] Start: 05-08-2023 Behavioral Health Screening Behavioral Health Screening [facility] Start: 05-08-2023 [facility] [facility] Start: 04-13-2023 Hemoglobin A1c/Hemoglobin.total in Blood HbA1C [facility] Start: 03-08-2023 Glaucoma screening Dilated Retinal E xam [facility] Start: 03-08-2023 Hepatitis C antibody , confirmatory test DILATED RETINAL EXAM [facility] Start: 01-06-2023 Covid-19 Vaccine () Covid-19 Vaccine () [facility] Start: 01-06-2023 Influenza vaccination [facility] Start: 05-08-2022 DEPRESSION ASSESSMENT DEPRESSION ASS ESSMENT [facility] Start: 2022 PROSTATE CANCER SCREENING DISCUSSION PROSTATE CANCER SCREENING DISCUSSION [facility] Start: 01-06-2022 Influenza vaccination INFLUENZA (#1) [facility] Start: 05-08-2021 DEPRESSION ASSESSMENT DEPRESSION ASS ESSMENT [facility] Start: 2017 SHINGRIX VACCINE (1 of 2) SHINGRIX VACCINE (1 of 2) [facility] Start: 2012 COLOGUARD (FIT-DNA) COLOGUARD (FIT-D NA) [facility] Start: 2012 Colonoscopy COLONOSCOPY [facility] Start: 2012 COLORECTAL CANCER SCREENING COLORECTAL CANCER SCREENING [facility] Start: [address] COLONOGRAPHY [facility] [place] Start: 2012 FECAL OCCULT BLOOD FECAL OCCULT BLOO D [facility] Start: 2012 Screening for malign ant neoplasm of colon [facility] Start: 2012 SIGMOIDOSCOPY SIGMOIDOSCOPY [facility] Start: 1986 Urine microalbumin profile DTAP,TDAP,TD (1 - Tdap) [facility] Start: 1985 ANNUAL PCP TEAM MOTION PICTURE PROJECTIONIST APPRENTICE YANY DISEASE VISIT ANNUAL PCP TEAM CHRONIC DISEASE VISIT [facility] Start: 1985 Anxiety Screening Anxiety Screening [facility] Start: 1985 Depression Screening Depression Scre ening [facility] Start: 1985 Hepatitis B surface antibody level LDL CHOLESTEROL [facility] Start: 1985 HEPATITIS C SCREENING HEPATITIS C SC SAHRA [facility] Start: 1985 HIV SCREENING HIV SCREENING [facility] Start: 1977 3 comp foot exam completed DIABETIC FOOT EXAM [facility] Start: 1977 Hepatitis B screening URINE ALBUMIN:CREATININE RATIO [facility] Start: 1973 PNEUMOCOCCAL (1 - PCV) PNEUMOCOCCAL (1 - PCV) [facility] Start: 1972 Hemoglobin A1c/Hemoglobin.total in Blood HBA1C [facility] Start: 1967 COVID-19 VACCINE (#1) COVID-19 VACCI NE (#1) [facility] Start: 1967 HEPATITIS B (1 of 3 - 3-dose series) HEPATITIS B (1 of 3 - 3-dose series) [facility] COVID & INFLUENZA A/ B & RSV PCR, ROUTINE COVID & INFLUENZA A/B & RSV PCR, ROUTINE Microbiology Routine Acute cough Lower resp. tract infection Ordered: 06/03/2024 [facility] Work Phone: Comment on above: Ordered: 06/03/2024 [facility] Immunizations Immunization Date Immunization Notes Care Provider Todd duffy 10-12-2022 pneumococcal (PCV20) vaccine, 20 valent (PREVNAR 20) Aldo Butcher MD Work Phone: [facility] 10-12-2022 tetanus toxoid, redu nicki diphtheria toxoid, and acellular pertussis vaccine, adsorbed Aldo Butcher MD Work Phone: [facility] 08-15-2016 tetanus toxoid, redu nicki diphtheria toxoid, and acellular pertussis vaccine, adsorbed Aldo Butcher MD Work Phone: [facility] Payers Date Payer Category Payer Unknown MALAIKA BADILLO PPO [id number] 2012-Present [phone] [facility] [id number] [place] [address] PPO [id number] 2012 Unknown [id number] 2012 Unknown [id number] Social History Date Type Detail Facility Start: 07-28-2014 End: 10-12-2022 Tobacco smoking status NHIS Never smoked tobacco [facility] Work Phone: Start: 07-28-2014 End: 10-12-2022 Tobacco use and exposure Smokeless tobacco non-user [facility] Work Phone: Start: 03-08-2022 End: 06-03-2024 Alcohol intake Current drinker of alcohol (finding) [facility] Start: 03-08-2022 End: 10-15-2023 Alcohol intake [facility] Start: 12-18-2018 Alcohol Comment social use [facility] Start: 1965 Sex Assigned At Not on file C [facility] Start: 02-26-2022 End: 03-08-2022 Exposure to SARS-CoV-2 (event) Not sure [facility] Start: 10-11-2022 End: 10-15-2023 Social connection and isolation panel [facility] Do you belong to any clubs or organizations such as spiritism groups, unions, fraternal or athletic groups, or school groups? No [facility] How often do you att end meetings of the clubs or organizations you belong to? Patient refused [facility] Are you now , , , , never or living with a partner? [facility] How often to you hav e a drink containing alcohol? 2-3 time sa week [facility] How many standard dr inks containing alcohol do you have on a typical day? 1 or 2 [facility] How often do you hav e 6 or more drinks on 1 occasion? Less than monthly [facility] How hard is it for y ou to pay for the very basics like food, housing, medical care, and heating Not very hard [facility] Do you feel stress - tense, restless, nervous, or anxious, or unable to sleep at night because your mind is troubled all the time - these days [OSQ] Not at all [facility] (I/We) worried rod er (my/our) food would run out before (I/we) got money to buy more. Never true [facility] How often to you hav e a drink containing alcohol? 2-4 times a month [facility] How often do you hav e 6 or more drinks on 1 occasion? Never [facility] Clinical Notes 03-08-2022 to 06-04-2024 Telephone Encounter - Tawana Ruelas LPN - 06/04/2024 10:01 AM ESTTelephone Encounter - Tawana Ruelas LPN - 06/04/2024 10:01 AM Santiago Gordon RT(R) - 06/03/2024 8:50 AM EST Note Date & Type Note Facility 06-04-2024 Telephone encount er Note Pt notified of results and provider message. Tawana Ruelas LPN [facility] 06-04-2024 Miscellaneous Notes Formattin g of this note might be different from the original. Pt notified of results and provider message. Tawana Ruelas LPN Left message for pt to contact office. Martha Ceballos LPN Positive influenza A. Continue as we discussed. Corina Gomes PA-C documented in this encounter [facility] 06-04-2024 Telephone encount er Note Left message for pt to contact office. Martha Ceballos LPN [facility] 06-04-2024 Telephone encount er Note Positive influenza A. Continue as we discussed. Corina Gomes PA-C [facility] 06-03-2024 Telephone encount er Note Pt notified. Aparna Ryder MA [facility] 06-03-2024 Miscellaneous Notes Formattin g of this note might be different from the original. Pt notified. Aparna Ryder MA CXR negative. Continue as we discussed documented in this encounter [facility] 06-03-2024 Telephone encount er Note CXR negative. Continue as we discussed [facility] 06-03-2024 History of Presen t illness Narrative Radiology Service Progress Note PATIENT NAME: Rob Correia DATE OF SERVICE: June 03, 2024 TIME: 8:49 AM PATIENT IDENTITY VERIFICATION COMPLETED USING TWO (2) IDENTIFIERS: Name and Date of confirmed by patient verbally. FALL SCREENING: Has the patient had 2 falls in the last year or 1 fall with injury or currently using an Ambulatory Assistive Device (Walker, Cane, Wheelchair, Crutches, etc.)? No PATIENT GENDER DATA: Assigned male at PATIENT RELEVANT IMPLANT DATA REVIEWED: Yes PATIENT PRESENTS WITH AN IMPLANTABLE OR ATTACHED GUEST SERVICES MANAGER: No RADIOLOGY DEPARTMENT: General X-ray: Exam(s) Completed: Chest X-Ray PERIPHERAL IV DATA: Not applicable SIGNED BY: RT Stephanie(R) June 03, 2024 8:49 AM documented in this encounter [facility] 06-03-2024 Note HNO ID: [id number] Author: SANTIAGO MATTHEWS RT(Marco) Service: ? Author Type: Organisational Psychologist Type: Progress Notes Filed: 06/03/2024 08:56 Note Text: Radiology Service Progress Note PATIENT NAME: Rob Correia DATE OF SERVICE: June 03, 2024 TIME: 8:49 AM PATIENT IDENTITY VERIFICATION COMPLETED USING TWO (2) IDENTIFIERS: Name and Date of confirmed by patient verbally. FALL SCREENING: Has the patient had 2 falls in the last year or 1 fall with injury or currently using an Ambulatory Assistive Device (Walker, Cane, Wheelchair, Crutches, etc.)? No PATIENT GENDER DATA: Assigned male at PATIENT RELEVANT IMPLANT DATA REVIEWED: Yes PATIENT PRESENTS WITH AN IMPLANTABLE OR ATTACHED GUEST SERVICES MANAGER: No RADIOLOGY DEPARTMENT: General X-ray: Exam(s) Completed: Chest X-Ray PERIPHERAL IV DATA: Not applicable SIGNED BY: RT Stephanie(R) June 03, 2024 8:49 AM [facility] 06-03-2024 Note HNO ID: [id number] Author: CORINA GOMES PA-C Service: ? Author Type: Physician Milk Runner Type: Progress Notes Filed: 06/03/2024 09:04 Note Text: Chief Complaint Patient presents with: Cough HPI Rob Correia is a 59 year old male who presents here today for Above Complaints.. Patient reports dry cough for the past week. No fevers +bodyaches +headache No significant sinus symptoms, sore throat or earache +lack of appetite. +low energy Past medical history, appointments, medications, allergies reviewed. Previous Medical History PAST MEDICAL HISTORY Diagnosis Date Controlled type 2 diabetes mellitus without complication, without long-term current use of insulin (HCC) 07/22/2017 Hyperlipidemia, mixed 10/12/2022 Myopia 08/23/2014 Presbyopia 08/23/2014 Regular astigmatism 08/23/2014 Well adult exam 10/12/2022 Last done: 10/12/2022 Previous Surgical History PAST SURGICAL HISTORY Procedure Laterality Date APPENDECTOMY PAST SURGICAL HISTORY OF hernia repair Family History FAMILY HISTORY Problem Relation Age of Onset Diabetes Mother Hyperlipidemia Mother Diabetes Father Heart Failure Father Colon Cancer Father 70's Hyperlipidemia Father other (trauma) Sister head injury from fall off a hourse Coronary Artery Disease Paternal Grandmother AR Coronary Artery Disease Paternal Grandfather AR Coronary Artery Disease Paternal Uncle Glaucoma No Family History Detached Retina No Family History Macular Degen No Family History Prostate Cancer No Family History Breast Cancer No Family History Alzheimer's Disease No Family History Kidney Disease No Family History Seizures No Family History Stroke No Family History Thyroid No Family History Patient Allergies ALLERGIES No Known Allergies Current Medications Current Outpatient Medications on File Prior to Visit Medication Sig atorvastatin (LIPITOR) 20 mg tablet Take 1 tablet by mouth once daily. Take 1 tablet daily metFORMIN ER (GLUCOPHAGE XR) 500 mg 24 hr tablet Take 1 tablet by mouth two times a day before meals. cyanocobalamin, vitamin B-12, (VITAMIN B-12 ORAL) Take by mouth once daily. glucosamine/chondroitin/C/Nacho (GLUCOSAMINE-CHONDROITIN COMPLX ORAL) Take by mouth once daily. Tptpc-0-YCP-EPA-Fish Oil (FISH OIL) 1,000 mg (120 mg-180 mg) cap Take 1 capsule by mouth two times a day. No current facility-administered medications on file prior to visit. Social History Social History Tobacco Use Smoking status: Never Smokeless tobacco: Never Vaping Use Vaping status: Never Used Substance Use Topics Alcohol use: Yes Alcohol/week: 4.0 standard drinks of alcohol Types: 4 Cans of beer per week Comment: social use Drug use: No Review of Symptoms REVIEW OF SYSTEMS See hpi EXAM: BP 126/86 (BP Site: Left Arm, BP Position: Sitting, BP Cuff Size: Large Adult) Pulse 64 Temp 36.6 ?C (97.8 ?F) Resp 18 Wt 82.1 kg (181 lb) SpO2 99% BMI 26.73 kg/m? General Appearance: Well appearing, alert, in no acute distress, well-hydrated, well nourished.. Ears: External ears normal, canals clear. Nose/Sinuses: Nares normal, septum midline, mucosa normal, no drainage or sinus tenderness. Oropharynx: Lips, mucosa, and tongue normal, teeth and gums normal, oropharynx normal. Neck: Supple, no adenopathy; thyroid symmetric, normal size, no bruits. Lungs: Lungs clear to auscultation. No wheezing, rhonchi, rales.. Heart: RRR without murmur, gallop, or rubs. No ectopy. Health Maintenance List Depression Screening Never done Anxiety Screening Never done Shingrix Vaccine(1 of 2) due on 10/18/2024 Urine Albumin:Creatinine Ratio due on 10/05/2024 HbA1C due on 10/07/2024 Diabetic Foot Exam due on 10/18/2024 Dilated Retinal Exam due on 10/29/2024 LDL Cholesterol due on 04/08/2025 Annual PCP Team Chronic Disease Visit due on 04/19/2025 Prostate Cancer Screening Discussion due on 10/18/2028 Colorectal Cancer Screening due on 11/30/2028 DTaP,Tdap,Td Vaccine(3 - Td or Tdap) due on 10/12/2032 Pneumococcal Vaccine: 50+ Completed Hepatitis B Vaccine Discontinued Influenza Vaccine Discontinued Hepatitis C Screening Discontinued HIV Screening Discontinued Covid-19 Vaccine Discontinued Data reviewed ASSESSMENT/PLAN: 1. Lower resp. tract infection - ICD9: 519.8, ICD10: J22 (primary diagnosis) Check covid/flu/rsv and CXR Symptomatic care Follow up as needed - XR CHEST 2V FRONTAL/LAT - COVID AND INFLUENZA A/B AND RSV PCR, ROUTINE 2. Acute cough - ICD9: 786.2, ICD10: R05.1 Await results. - XR CHEST 2V FRONTAL/LAT - COVID AND INFLUENZA A/B AND RSV PCR, ROUTINE Corina Gomes PA-C [facility] 06-03-2024 History of Presen t illness Narrative Chief Complaint Patient presents with: Cough HPI Rob Correia is a 59 year old male who presents here today for Above Complaints.. Patient reports dry cough for the past week. No fevers +bodyaches +headache No significant sinus symptoms, sore throat or earache +lack of appetite. +low energy Past medical history, appointments, medications, allergies reviewed. Previous Medical History PAST MEDICAL HISTORY Diagnosis Date Controlled type 2 diabetes mellitus without complication, without long-term current use of insulin (HCC) 07/22/2017 Hyperlipidemia, mixed 10/12/2022 Myopia 08/23/2014 Presbyopia 08/23/2014 Regular astigmatism 08/23/2014 Well adult exam 10/12/2022 Last done: 10/12/2022 Previous Surgical History PAST SURGICAL HISTORY Procedure Laterality Date APPENDECTOMY PAST SURGICAL HISTORY OF hernia repair Family History FAMILY HISTORY Problem Relation Age of Onset Diabetes Mother Hyperlipidemia Mother Diabetes Father Heart Failure Father Colon Cancer Father 70's Hyperlipidemia Father other (trauma) Sister head injury from fall off a hourse Coronary Artery Disease Paternal Grandmother AR Coronary Artery Disease Paternal Grandfather AR Coronary Artery Disease Paternal Uncle Glaucoma No Family History Detached Retina No Family History Macular Degen No Family History Prostate Cancer No Family History Breast Cancer No Family History Alzheimer's Disease No Family History Kidney Disease No Family History Seizures No Family History Stroke No Family History Thyroid No Family History Patient Allergies ALLERGIES No Known Allergies Current Medications Current Outpatient Medications on File Prior to Visit Medication Sig atorvastatin (LIPITOR) 20 mg tablet Take 1 tablet by mouth once daily. Take 1 tablet daily metFORMIN ER (GLUCOPHAGE XR) 500 mg 24 hr tablet Take 1 tablet by mouth two times a day before meals. cyanocobalamin, vitamin B-12, (VITAMIN B-12 ORAL) Take by mouth once daily. glucosamine/chondroitin/C/Nacho (GLUCOSAMINE-CHONDROITIN COMPLX ORAL) Take by mouth once daily. Ibcuz-1-CPH-EPA-Fish Oil (FISH OIL) 1,000 mg (120 mg-180 mg) cap Take 1 capsule by mouth two times a day. No current facility-administered medications on file prior to visit. Social History Social History Tobacco Use Smoking status: Never Smokeless tobacco: Never Vaping Use Vaping status: Never Used Substance Use Topics Alcohol use: Yes Alcohol/week: 4.0 standard drinks of alcohol Types: 4 Cans of beer per week Comment: social use Drug use: No Review of Symptoms REVIEW OF SYSTEMS See hpi EXAM: BP 126/86 (BP Site: Left Arm, BP Position: Sitting, BP Cuff Size: Large Adult) Pulse 64 Temp 36.6 C (97.8 F) Resp 18 Wt 82.1 kg (181 lb) SpO2 99% BMI 26.73 kg/m General Appearance: Well appearing, alert, in no acute distress, well-hydrated, well nourished.. Ears: External ears normal, canals clear. Nose/Sinuses: Nares normal, septum midline, mucosa normal, no drainage or sinus tenderness. Oropharynx: Lips, mucosa, and tongue normal, teeth and gums normal, oropharynx normal. Neck: Supple, no adenopathy; thyroid symmetric, normal size, no bruits. Lungs: Lungs clear to auscultation. No wheezing, rhonchi, rales.. Heart: RRR without murmur, gallop, or rubs. No ectopy. Health Maintenance List Depression Screening Never done Anxiety Screening Never done Shingrix Vaccine(1 of 2) due on 10/18/2024 Urine Albumin:Creatinine Ratio due on 10/05/2024 HbA1C due on 10/07/2024 Diabetic Foot Exam due on 10/18/2024 Dilated Retinal Exam due on 10/29/2024 LDL Cholesterol due on 04/08/2025 Annual PCP Team Chronic Disease Visit due on 04/19/2025 Prostate Cancer Screening Discussion due on 10/18/2028 Colorectal Cancer Screening due on 11/30/2028 DTaP,Tdap,Td Vaccine(3 - Td or Tdap) due on 10/12/2032 Pneumococcal Vaccine: 50+ Completed Hepatitis B Vaccine Discontinued Influenza Vaccine Discontinued Hepatitis C Screening Discontinued HIV Screening Discontinued Covid-19 Vaccine Discontinued Data reviewed ASSESSMENT/PLAN: 1. Lower resp. tract infection - ICD9: 519.8, ICD10: J22 (primary diagnosis) Check covid/flu/rsv and CXR Symptomatic care Follow up as needed - XR CHEST 2V FRONTAL/LAT - COVID & INFLUENZA A/B & RSV PCR, ROUTINE 2. Acute cough - ICD9: 786.2, ICD10: R05.1 Await results. - XR CHEST 2V FRONTAL/LAT - COVID & INFLUENZA A/B & RSV PCR, ROUTINE Corina Gomes PA-C documented in this encounter [facility] 05-02-2024 Telephone encount er Note Patient calls back and states that he spoke with insurance as was told that Corina is not credentialed under Dr. Butcher and that insurance will not cover office visit. Patient/Family calling with additional questions regarding financials and billing. Patient/Family directed in the following manner: For financial questions about an upcoming service, contact Patient Green Chain Offbearer by calling toll-free at [phone] and request to speak with a supervisor extrusion. For questions regarding a medical bill for a past / post service, contact a Fingernail Sculptor by calling toll-free at [phone] and request to speak with a supervisor extrusion. Patient/Family verbalized understanding. [facility] 05-02-2024 Miscellaneous Notes Formattin g of this note might be different from the original. Patient calls back and states that he spoke with insurance as was told that Corina is not credentialed under Dr. Butcher and that insurance will not cover office visit. Patient/Family calling with additional questions regarding financials and billing. Patient/Family directed in the following manner: For financial questions about an upcoming service, contact Patient Green Chain Offbearer by calling toll-free at [phone] and request to speak with a supervisor extrusion. For questions regarding a medical bill for a past / post service, contact a Fingernail Sculptor by calling toll-free at [phone] and request to speak with a supervisor extrusion. Patient/Family verbalized understanding. documented in this encounter [facility] 04-19-2024 Note HNO ID: [id number] Author: CORINA GOMES PA-C Service: ? Author Type: Physician Milk Runner Type: Progress Notes Filed: 04/19/2024 07:30 Note Text: Chief Complaint Patient presents with: 6 Month Exam HPI Rob Correia is a 59 year old male who presents here today for Chronic Medical Conditions.. Patient with hx of DM2, hyperlipidemia, and those as below. No concerns today. Past medical history, appointments, medications, allergies reviewed. Previous Medical History PAST MEDICAL HISTORY Diagnosis Date Controlled type 2 diabetes mellitus without complication, without long-term current use of insulin (HCC) 07/22/2017 Hyperlipidemia, mixed 10/12/2022 Myopia 08/23/2014 Presbyopia 08/23/2014 Regular astigmatism 08/23/2014 Well adult exam 10/12/2022 Last done: 10/12/2022 Previous Surgical History PAST SURGICAL HISTORY Procedure Laterality Date APPENDECTOMY PAST SURGICAL HISTORY OF hernia repair Family History FAMILY HISTORY Problem Relation Age of Onset Diabetes Mother Hyperlipidemia Mother Diabetes Father Heart Failure Father Colon Cancer Father 70's Hyperlipidemia Father other (trauma) Sister head injury from fall off a hourse Coronary Artery Disease Paternal Grandmother AR Coronary Artery Disease Paternal Grandfather AR Coronary Artery Disease Paternal Uncle Glaucoma No Family History Detached Retina No Family History Macular Degen No Family History Prostate Cancer No Family History Breast Cancer No Family History Alzheimer's Disease No Family History Kidney Disease No Family History Seizures No Family History Stroke No Family History Thyroid No Family History Patient Allergies ALLERGIES No Known Allergies Current Medications Current Outpatient Medications on File Prior to Visit Medication Sig metFORMIN ER (GLUCOPHAGE XR) 500 mg 24 hr tablet Take 1 tablet by mouth two times a day before meals. Take one tablet am and one tablet pm atorvastatin (LIPITOR) 20 mg tablet Take 1 tablet by mouth once daily. Take 1 tablet daily cyanocobalamin, vitamin B-12, (VITAMIN B-12 ORAL) Take by mouth once daily. glucosamine/chondroitin/C/Nacho (GLUCOSAMINE-CHONDROITIN COMPLX ORAL) Take by mouth once daily. Kzsxk-8-XOI-EPA-Fish Oil (FISH OIL) 1,000 mg (120 mg-180 mg) cap Take 1 capsule by mouth two times a day. No current facility-administered medications on file prior to visit. Social History Social History Tobacco Use Smoking status: Never Smokeless tobacco: Never Vaping Use Vaping status: Never Used Substance Use Topics Alcohol use: Yes Alcohol/week: 4.0 standard drinks of alcohol Types: 4 Cans of beer per week Comment: social use Drug use: No Review of Symptoms REVIEW OF SYSTEMS GENERAL: No weight loss, malaise or fevers NECK: Negative for lumps, goiter, pain and significant neck swelling RESPIRATORY: Negative for cough, hemoptysis, wheezing, COPD, dyspnea or shortness of breath CARDIOVASCULAR: Negative for chest pain, leg swelling, hypertension, CHF or palpitations NEURO: No history of headaches, syncope, paralysis, seizures or tremors EXAM: BP 122/80 (BP Site: Left Arm, BP Position: Sitting, BP Cuff Size: Large Adult) Pulse 68 Temp 36.3 ?C (97.3 ?F) Resp 18 Wt 84.4 kg (186 lb) SpO2 97% BMI 27.47 kg/m? General Appearance: Well appearing, alert, in no acute distress, well-hydrated, well nourished.. Neck: Supple, no adenopathy; thyroid symmetric, normal size, no bruits. Lungs: Lungs clear to auscultation. No wheezing, rhonchi, rales.. Heart: RRR without murmur, gallop, or rubs. No ectopy. Extremities: No deformities, edema, skin discoloration, clubbing or cyanosis. Good capillary refill. . Peripheral Pulses: Normal. Health Maintenance List Depression Screening Never done Anxiety Screening Never done Shingrix Vaccine(1 of 2) due on 10/18/2024 Urine Albumin:Creatinine Ratio due on 10/05/2024 HbA1C due on 10/07/2024 Diabetic Foot Exam due on 10/18/2024 Annual PCP Team Chronic Disease Visit due on 10/18/2024 Dilated Retinal Exam due on 10/29/2024 LDL Cholesterol due on 04/08/2025 Prostate Cancer Screening Discussion due on 10/18/2028 Colorectal Cancer Screening due on 11/30/2028 DTaP,Tdap,Td Vaccine(3 - Td or Tdap) due on 10/12/2032 Pneumococcal Vaccine Completed Hepatitis B Vaccine Discontinued Influenza Vaccine Discontinued Hepatitis C Screening Discontinued HIV Screening Discontinued Covid-19 Vaccine Discontinued Data reviewed Latest Ref Rng 04/08/2024 Total Cholesterol, Nonfasting <200 mg/dL 163 Triglycerides, Nonfasting <150 mg/dL 128 HDL Cholesterol, Nonfasting >39 mg/dL 55 LDL Cholesterol, Nonfasting <100 mg/dL 82 Non HDL Cholesterol, Nonfasting <130 mg/dL 108 VLDL Cholesterol, Nonfasting <30 mg/dL 26 Total Chol/HDL Ratio, Nonfasting <5.10 mg/dL 2.96 LDL/HDL Ratio, Nonfasting <2.54 mg/dL 1.49 Hemoglobin A1C 4.3 - 5.6 % 6.6 (H) (more content not included)... [facility] 04-19-2024 History of Presen t illness Narrative Chief Complaint Patient presents with: 6 Month Exam HPI Rob Correia is a 59 year old male who presents here today for Chronic Medical Conditions.. Patient with hx of DM2, hyperlipidemia, and those as below. No concerns today. Past medical history, appointments, medications, allergies reviewed. Previous Medical History PAST MEDICAL HISTORY Diagnosis Date Controlled type 2 diabetes mellitus without complication, without long-term current use of insulin (HCC) 07/22/2017 Hyperlipidemia, mixed 10/12/2022 Myopia 08/23/2014 Presbyopia 08/23/2014 Regular astigmatism 08/23/2014 Well adult exam 10/12/2022 Last done: 10/12/2022 Previous Surgical History PAST SURGICAL HISTORY Procedure Laterality Date APPENDECTOMY PAST SURGICAL HISTORY OF hernia repair Family History FAMILY HISTORY Problem Relation Age of Onset Diabetes Mother Hyperlipidemia Mother Diabetes Father Heart Failure Father Colon Cancer Father 70's Hyperlipidemia Father other (trauma) Sister head injury from fall off a hourse Coronary Artery Disease Paternal Grandmother AR Coronary Artery Disease Paternal Grandfather AR Coronary Artery Disease Paternal Uncle Glaucoma No Family History Detached Retina No Family History Macular Degen No Family History Prostate Cancer No Family History Breast Cancer No Family History Alzheimer's Disease No Family History Kidney Disease No Family History Seizures No Family History Stroke No Family History Thyroid No Family History Patient Allergies ALLERGIES No Known Allergies Current Medications Current Outpatient Medications on File Prior to Visit Medication Sig metFORMIN ER (GLUCOPHAGE XR) 500 mg 24 hr tablet Take 1 tablet by mouth two times a day before meals. Take one tablet am and one tablet pm atorvastatin (LIPITOR) 20 mg tablet Take 1 tablet by mouth once daily. Take 1 tablet daily cyanocobalamin, vitamin B-12, (VITAMIN B-12 ORAL) Take by mouth once daily. glucosamine/chondroitin/C/Nacho (GLUCOSAMINE-CHONDROITIN COMPLX ORAL) Take by mouth once daily. Hpcqp-9-OVF-EPA-Fish Oil (FISH OIL) 1,000 mg (120 mg-180 mg) cap Take 1 capsule by mouth two times a day. No current facility-administered medications on file prior to visit. Social History Social History Tobacco Use Smoking status: Never Smokeless tobacco: Never Vaping Use Vaping status: Never Used Substance Use Topics Alcohol use: Yes Alcohol/week: 4.0 standard drinks of alcohol Types: 4 Cans of beer per week Comment: social use Drug use: No Review of Symptoms REVIEW OF SYSTEMS GENERAL: No weight loss, malaise or fevers NECK: Negative for lumps, goiter, pain and significant neck swelling RESPIRATORY: Negative for cough, hemoptysis, wheezing, COPD, dyspnea or shortness of breath CARDIOVASCULAR: Negative for chest pain, leg swelling, hypertension, CHF or palpitations NEURO: No history of headaches, syncope, paralysis, seizures or tremors EXAM: BP 122/80 (BP Site: Left Arm, BP Position: Sitting, BP Cuff Size: Large Adult) Pulse 68 Temp 36.3 C (97.3 F) Resp 18 Wt 84.4 kg (186 lb) SpO2 97% BMI 27.47 kg/m General Appearance: Well appearing, alert, in no acute distress, well-hydrated, well nourished.. Neck: Supple, no adenopathy; thyroid symmetric, normal size, no bruits. Lungs: Lungs clear to auscultation. No wheezing, rhonchi, rales.. Heart: RRR without murmur, gallop, or rubs. No ectopy. Extremities: No deformities, edema, skin discoloration, clubbing or cyanosis. Good capillary refill. . Peripheral Pulses: Normal. Health Maintenance List Depression Screening Never done Anxiety Screening Never done Shingrix Vaccine(1 of 2) due on 10/18/2024 Urine Albumin:Creatinine Ratio due on 10/05/2024 HbA1C due on 10/07/2024 Diabetic Foot Exam due on 10/18/2024 Annual PCP Team Chronic Disease Visit due on 10/18/2024 Dilated Retinal Exam due on 10/29/2024 LDL Cholesterol due on 04/08/2025 Prostate Cancer Screening Discussion due on 10/18/2028 Colorectal Cancer Screening due on 11/30/2028 DTaP,Tdap,Td Vaccine(3 - Td or Tdap) due on 10/12/2032 Pneumococcal Vaccine Completed Hepatitis B Vaccine Discontinued Influenza Vaccine Discontinued Hepatitis C Screening Discontinued HIV Screening Discontinued Covid-19 Vaccine Discontinued Data reviewed Latest Ref Rng 04/08/2024 Total Cholesterol, Nonfasting <200 mg/dL 163 Triglycerides, Nonfasting <150 mg/dL 128 HDL Cholesterol, Nonfasting >39 mg/dL 55 LDL Cholesterol, Nonfasting <100 mg/dL 82 Non HDL Cholesterol, Nonfasting <130 mg/dL 108 VLDL Cholesterol, Nonfasting <30 mg/dL 26 Total Chol/HDL Ratio, Nonfasting <5.10 mg/dL 2.96 LDL/HDL Ratio, Nonfasting <2.54 mg/dL 1.49 Hemoglobin A1C 4.3 - 5.6 % 6.6 (H) Estimated Average Glucose mg/dL 143 Legend: (H) High ASSESSMENT/PLAN: 1. Controlled type 2 diabetes mellitus without complication, without long-term current use of insulin (HCC) - ICD9: 250.00, ICD10: E11.9 (primary diagnosis) - Controlled - Continue current medications - URINALYSIS, WITH MICROSCOPIC - ALBUMIN/CREATININE RATIO, URINE - COMPLETE BLOOD COUNT AND DIFFERENTIAL - HEMOGLOBIN A1C - COMPREHENSIVE METABOLIC PANEL 2. Hyperlipidemia, mixed - ICD9: 272.2, ICD10: E78.2 - Controlled - Continue current medications - Counseled on healthy diet and regular exercise - LIPID PANEL, NONFASTING - HEMOGLOBIN A1C - COMPREHENSIVE METABOLIC PANEL 3. Screening for prostate cancer - ICD9: V76.44, ICD10: Z12.5 - PROSTATE-SPECIFIC ANTIGEN DIAGNOSTIC Follow up for physical in 6 months with labs prior. Corina Gomes PA-C documented in this encounter [facility] 12-13-2023 Telephone encount er Note Prescription Refill Information The patient has been identified by name and date of : Yes Caregiver verified no other encounters exist for this prescription request: Yes Caregiver confirmed with patient/requestor that no other refills are due, in the near future, with this provider at this time: Yes The last office visit in the department: 10/19/23 Does the patient have a future office visit with this provider/department: Yes Requested Prescriptions Pending Prescriptions Disp Refills metFORMIN ER (GLUCOPHAGE XR) 500 mg 24 hr tablet 180 tablet 1 Sig: Take 1 tablet by mouth two times a day before meals. Take one tablet am and one tablet pm Martha Ceballos LPN December 13, 2023 7:05 AM [facility] 12-13-2023 Miscellaneous Notes Formattin g of this note is different from the original. Prescription Refill Information The patient has been identified by name and date of : Yes Caregiver verified no other encounters exist for this prescription request: Yes Caregiver confirmed with patient/requestor that no other refills are due, in the near future, with this provider at this time: Yes The last office visit in the department: 10/19/23 Does the patient have a future office visit with this provider/department: Yes Requested Prescriptions Pending Prescriptions Disp Refills metFORMIN ER (GLUCOPHAGE XR) 500 mg 24 hr tablet 180 tablet 1 Sig: Take 1 tablet by mouth two times a day before meals. Take one tablet am and one tablet pm Martha Ceballos LPN December 13, 2023 7:05 AM documented in this encounter [facility] 11-12-2023 Telephone encount er Note The following approved medication requests have been transmitted electronically. Requested Prescriptions Signed Prescriptions Disp Refills atorvastatin (LIPITOR) 20 mg tablet 90 tablet 1 Sig: Take 1 tablet by mouth once daily. Take 1 tablet daily Authorizing Provider: ALDO BUTCHER MD [facility] 11-12-2023 Miscellaneous Notes Formattin g of this note is different from the original. The following approved medication requests have been transmitted electronically. Requested Prescriptions Signed Prescriptions Disp Refills atorvastatin (LIPITOR) 20 mg tablet 90 tablet 1 Sig: Take 1 tablet by mouth once daily. Take 1 tablet daily Authorizing Provider: ALDO BUTCHER MD Prescription Refill Information The patient has been identified by name and date of : Yes Caregiver verified no other encounters exist for this prescription request: Yes Caregiver confirmed with patient/requestor that no other refills are due, in the near future, with this provider at this time: Yes The last office visit in the department: 10/19/23 Does the patient have a future office visit with this provider/department: Yes, 04/19/24 Requested Prescriptions Pending Prescriptions Disp Refills atorvastatin (LIPITOR) 20 mg tablet 90 tablet 1 Sig: Take 1 tablet by mouth once daily. Take 1 tablet daily Robles Marrero LPN November 10, 2023 4:07 PM documented in this encounter [facility] 11-10-2023 Telephone encount er Note Prescription Refill Information The patient has been identified by name and date of : Yes Caregiver verified no other encounters exist for this prescription request: Yes Caregiver confirmed with patient/requestor that no other refills are due, in the near future, with this provider at this time: Yes The last office visit in the department: 10/19/23 Does the patient have a future office visit with this provider/department: Yes, 04/19/24 Requested Prescriptions Pending Prescriptions Disp Refills atorvastatin (LIPITOR) 20 mg tablet 90 tablet 1 Sig: Take 1 tablet by mouth once daily. Take 1 tablet daily Robles Marrero LPN November 10, 2023 4:07 PM [facility] 10-30-2023 Instructions Deshawn Musa OD - 10/30/2023 5:16 PM EDT ASSESSMENT/PLAN: 1. Type 2 diabetes mellitus without retinopathy (HCC) - ICD9: 250.00, ICD10: E11.9 (primary diagnosis) Examination shows no ocular diabetic complications today. Discussed need for optimal diabetes control to minimize chance of ocular complications. Advise patient to immediately report worsening in status or additional symptoms. Continue yearly dilated eye examinations. 2. Myopia, bilateral - ICD9: 367.1, ICD10: H52.13 3. Regular astigmatism of right eye - ICD9: 367.21, ICD10: H52.221 4. Presbyopia - ICD9: 367.4, ICD10: H52.4 Continue to wear his glasses as desired. Recommended yearly exams. documented in this encounter [facility] 10-30-2023 Note HNO ID: [id number] Author: DESHAWN MUSA OD Service: ? Author Type: MEASUREMENT SUPERVISOR Type: Progress Notes Filed: 10/30/2023 17:17 Note Text: ASSESSMENT/PLAN: 1. Type 2 diabetes mellitus without retinopathy (HCC) - ICD9: 250.00, ICD10: E11.9 (primary diagnosis) Examination shows no ocular diabetic complications today. Discussed need for optimal diabetes control to minimize chance of ocular complications. Advise patient to immediately report worsening in status or additional symptoms. Continue yearly dilated eye examinations. 2. Myopia, bilateral - ICD9: 367.1, ICD10: H52.13 3. Regular astigmatism of right eye - ICD9: 367.21, ICD10: H52.221 4. Presbyopia - ICD9: 367.4, ICD10: H52.4 Continue to wear his glasses as desired. Recommended yearly exams. Deshawn Musa, OD I have confirmed and edited as necessary the relevant ophthalmic history, ROS, and the neuro exam findings as obtained by others. [facility] 10-30-2023 History of Presen t illness Narrative ASSESSMENT/PLAN: 1. Type 2 diabetes mellitus without retinopathy (HCC) - ICD9: 250.00, ICD10: E11.9 (primary diagnosis) Examination shows no ocular diabetic complications today. Discussed need for optimal diabetes control to minimize chance of ocular complications. Advise patient to immediately report worsening in status or additional symptoms. Continue yearly dilated eye examinations. 2. Myopia, bilateral - ICD9: 367.1, ICD10: H52.13 3. Regular astigmatism of right eye - ICD9: 367.21, ICD10: H52.221 4. Presbyopia - ICD9: 367.4, ICD10: H52.4 Continue to wear his glasses as desired. Recommended yearly exams. Deshawn Musa OD I have confirmed and edited as necessary the relevant ophthalmic history, ROS, and the neuro exam findings as obtained by others. documented in this encounter [facility] 10-19-2023 Instructions Aldo Butcher MD - 10/19/2023 8:07 AM EDT If you are thinking of getting the shingrix vaccine for the prevention of shingles please check with insurance to see if covered and if you can get it at your doctors office. Please get labs and urine test done on or after 04/05/24 prior to your next visit. documented in this encounter [facility] 10-19-2023 History of Presen t illness Narrative Images from the original note were not included. Chief Complaint Patient presents with: Physical HPI Riudavid Correia is a 58 year old male who presents here today for Physical. Patient with Hx of Diabetes, hyperlipidemia as well as those reviewed below. Patient seen optometry 2021. Knows he needs to schedule an appt this year. Past medical history, appointments, medications, allergies reviewed. Previous Medical History PAST MEDICAL HISTORY Diagnosis Date Controlled type 2 diabetes mellitus without complication, without long-term current use of insulin ([facility]) 07/22/2017 Hyperlipidemia, mixed 10/12/2022 Myopia 08/23/2014 Presbyopia 08/23/2014 Regular astigmatism 08/23/2014 Well adult exam 10/12/2022 Last done: 10/12/2022 Previous Surgical History PAST SURGICAL HISTORY Procedure Laterality Date APPENDECTOMY PAST SURGICAL HISTORY OF hernia repair Family History FAMILY HISTORY Problem Relation Age of Onset Diabetes Mother Hyperlipidemia Mother Diabetes Father Heart Failure Father Colon Cancer Father 70's Hyperlipidemia Father other (trauma) Sister head injury from fall off a hourse Coronary Artery Disease Paternal Grandmother AR Coronary Artery Disease Paternal Grandfather AR Coronary Artery Disease Paternal Uncle Glaucoma No Family History Detached Retina No Family History Macular Degen No Family History Prostate Cancer No Family History Breast Cancer No Family History Alzheimer's Disease No Family History Kidney Disease No Family History Seizures No Family History Stroke No Family History Thyroid No Family History Patient Allergies ALLERGIES No Known Allergies Current Medications Current Outpatient Medications on File Prior to Visit Medication Sig cyanocobalamin, vitamin B-12, (VITAMIN B-12 ORAL) Take by mouth once daily. glucosamine/chondroitin/C/Nacho (GLUCOSAMINE-CHONDROITIN COMPLX ORAL) Take by mouth once daily. metFORMIN ER (GLUCOPHAGE XR) 500 mg 24 hr tablet Take 1 tablet by mouth two times a day before meals. Take one tablet am and one tablet pm atorvastatin (LIPITOR) 20 mg tablet Take 1 tablet by mouth once daily. Take 1 tablet daily [place]-4-NUV-EPA-Fish Oil (FISH OIL) 1,000 mg (120 mg-180 mg) cap Take 1 capsule by mouth two times a day. No current facility-administered medications on file prior to visit. Social History Social History Tobacco Use Smoking status: Never Smokeless tobacco: Never Vaping Use Vaping Use: Never used Substance Use Topics Alcohol use: Yes Alcohol/week: 4.0 standard drinks of alcohol Types: 4 Cans of beer per week Comment: social use Drug use: No Review of Symptoms REVIEW OF SYSTEMS GENERAL: No weight loss, malaise or fevers HEENT: Negative for frequent or significant headaches, No changes in hearing or vision, no nose bleeds or other nasal problems NECK: Negative for lumps, goiter, pain and significant neck swelling RESPIRATORY: Negative for cough, hemoptysis, wheezing, COPD, dyspnea or shortness of breath CARDIOVASCULAR: Negative for chest pain, leg swelling, hypertension, CHF or palpitations GI: No nausea, vomiting, or diarrhea, No heartburn or reflux symptoms, and no blood : No history of dysuria, frequency or blood MUSCULOSKELETAL: Negative for joint pain or swelling, back pain or muscle pain SKIN: Negative for lesions, rash, and itching PSYCH: Negative for sleep disturbance, mood disorder and recent psychosocial stressors HEMATOLOGY/LYMPHOLOGY: Negative for prolonged bleeding, bruising easily or swollen nodes ENDOCRINE: Negative for cold or heat intolerance, polyuria, polydipsia and goiter NEURO: No history of headaches, syncope, paralysis, seizures or tremors EXAM: BP 130/91 Pulse 75 Ht 175.3 cm (5' 9) Wt 81.6 kg (180 lb) BMI 26.58 kg/m BP 130/82 Pulse 75 Ht 175.3 cm (5' 9) Wt 81.6 kg (180 lb) BMI 26.58 kg/m Last 5 Encounter Wt Readings: Date: Wt: 10/19/2023 81.6 kg (180 lb) 09/15/2023 81.9 kg (180 lb 9.6 oz) 04/17/2023 85.7 kg (189 lb) 10/12/2022 78.5 kg (173 lb) 09/29/2022 82.1 kg (181 lb) General Appearance: Well appearing, alert, in no acute distress, well-hydrated, well nourished.. Skin: Skin color, texture, turgor normal, no suspicious rashes or lesions. Head: Normocephalic, no masses, lesions, tenderness or abnormalities. Eyes: Anicteric sclera. Pupils are equally round and reactive to light. Extraocular movements are intact. . Ears: External ears normal, canals clear. Nose/Sinuses: Nares normal, septum midline, mucosa normal, no drainage or sinus tenderness. Oropharynx: Lips, mucosa, and tongue normal, teeth and gums normal, oropharynx normal. Neck: Supple, no adenopathy; thyroid symmetric, normal size, no bruits. Lungs: Lungs clear to auscultation. No wheezing, rhonchi, rales.. Heart: RRR without murmur, gallop, or rubs. No ectopy. Abdomen: Normal abdominal exam, Abdomen soft, non-tender. Bowel sounds normal. No masses, organomegaly. Extremities: No deformities, edema, skin discoloration, clubbing or cyanosis. Good capillary refill. . Musculoskeletal: Spine range of motion normal. Muscular strength intact, No joint swelling, deformity, or tenderness. Peripheral Pulses: Normal. Neurologic: Gait normal. Reflexes normal and symmetric. Sensation to light touch and crainal nerves 2-12 intact.. Genitalia: Normal, Penis normal. No urethral discharge. Scrotum normal to palpation. No hernia.. Rectal: Normal exam. Diabetic Foot Exam: Feet: Shoes and socks removed, no deformities, ulcers, calluses, normal distal pulses, sensitive to 10 gm microfilament, and vibratory exam within normal limits Skin: warm, dry, no callouses or ulcer, and normal hair growth Vascular Pulses: Normal SEMMES-PILI MONOFILAMENT TESTING Left Foot Right Foot Dorsal Surface Intact Dorsal Surface Intact Plantar Surface Intact Plantar Surface Intact Health Maintenance List Shingrix Vaccine(1 of 2) Never done Covid-19 Vaccine( season) Never done Dilated Retinal Exam due on 03/08/2023 Behavioral Health Screening Never done Diabetic Foot Exam due on 10/13/2023 HbA1C due on 04/06/2024 Annual PCP Team Chronic Disease Visit due on 09/14/2024 Urine Albumin:Creatinine Ratio due on 10/05/2024 LDL Cholesterol due on 10/05/2024 Prostate Cancer Screening Discussion due on 10/05/2028 Colorectal Cancer Screening due on 11/30/2028 DTaP,Tdap,Td Vaccine(3 - Td or Tdap) due on 10/12/2032 Pneumococcal Vaccine Completed Hepatitis B Vaccine Discontinued Influenza Vaccine Discontinued Hepatitis C Screening Discontinued HIV Screening Discontinued Data reviewed Latest Ref Rng 10/12/2022 04/17/2023 10/06/2023 WBC 3.70 - 11.00 k/uL 7.94 5.99 RBC 4.20 - 6.00 m/uL 4.90 5.09 Hemoglobin 13.0 - 17.0 g/dL 14.7 15.0 Hematocrit 39.0 - 51.0 % 43.2 46.1 MCV 80.0 - 100.0 fL 88.2 90.6 MCH 26.0 - 34.0 pg 30.0 29.5 MCHC 30.5 - 36.0 g/dL 34.0 32.5 RDW-CV 11.5 - 15.0 % 12.4 12.4 Platelet Count 150 - 400 k/uL 227 225 MPV 9.0 - 12.7 fL 9.9 9.8 Neut% % 63.6 63.4 Abs Neut (ANC) 1.45 - 7.50 k/uL 5.05 3.80 Lymph% % 24.3 25.9 Abs Lymph 1.00 - 4.00 k/uL 1.93 1.55 [place]% % 8.7 7.7 Abs [place] <0.87 k/uL 0.69 0.46 Eosin% % 2.6 2.2 Abs Eosin <0.46 k/uL 0.21 0.13 Baso% % 0.5 0.5 Abs Baso <0.11 k/uL 0.04 0.03 Immature Gran % % 0.3 0.3 IMMATURE GRANS (ABS) <0.10 k/uL <0.03 <0.03 NRBC /100 WBC 0.0 0.0 Absolute nRBC <0.01 k/uL <0.01 <0.01 DTYPE Auto Auto Color Yellow Light Yellow Yellow Clarity Clear Clear Clear Glucose, Urine Negative Negative Negative Bilirubin, Urine Negative Negative Negative Ketones, Urine Negative Negative Negative Specific [place], Ur 1.005 - 1.030 1.009 1.012 Hemoglobin/Blood,Ur Negative Negative Negative pH, Urine <8.5 6.0 6.5 Protein, Urine Negative Negative Negative Urobilinogen 0.2-1.0 EU/dL Negative 0.2 EU/dL Nitrites Negative Negative Negative Leukest Negative Negative Negative WBC, Urine 0-5 /HPF 0-5 /HPF 0-5 /HPF RBC, Urine 0-2 /HPF 0-3 /HPF 0-2 /HPF Bacteria Negative /HPF Negative Epithelial Cells /HPF None Seen Hyaline Cast 0 /LPF 0 /LPF Protein, Total 6.3 - 8.0 g/dL 7.3 6.6 Albumin 3.9 - 4.9 g/dL 4.5 4.3 Calcium 8.5 - 10.2 mg/dL 9.6 9.7 Bilirubin, Total 0.2 - 1.3 mg/dL 0.4 0.6 Alkaline Phosphatase 38 - 113 U/L 80 80 AST 14 - 40 U/L 23 30 ALT 10 - 54 U/L 26 34 Glucose 74 - 99 mg/dL 113 (H) 107 (H) BUN 9 - 24 mg/dL 14 10 Creatinine 0.73 - 1.22 mg/dL 0.94 0.90 Sodium 136 - 144 mmol/L 137 138 Potassium 3.7 - 5.1 mmol/L 4.1 3.8 Chloride 97 - 105 mmol/L 99 98 CO2 22 - 30 mmol/L 25 24 Anion Gap 9 - 18 mmol/L 13 16 eGFR >=60 mL/min/1.73m 96 100 Non-Squamous Epithelial Cells None Seen /HPF Few ! Total Cholesterol, Nonfasting <200 mg/dL 164 139 170 Triglycerides, Nonfasting <150 mg/dL 233 (H) 133 128 HDL Cholesterol, Nonfasting >39 mg/dL 52 52 53 LDL Cholesterol, Nonfasting <100 mg/dL 65 60 91 Non HDL Cholesterol, Nonfasting <130 mg/dL 112 87 117 VLDL Cholesterol, Nonfasting <30 mg/dL 47 (H) 27 26 Total Chol/HDL Ratio, Nonfasting <5.10 mg/dL 3.15 2.67 3.21 LDL/HDL Ratio, Nonfasting <2.54 mg/dL 1.25 1.15 1.72 Creatinine, Ur Random (UCRR) 20.0 - 300.0 mg/dL 39.4 57.6 Albumin, Urine Random mg/L <12.0 <12.0 Albumin/Creat Ratio <30 mg/g -- <21 Hemoglobin A1C 4.3 - 5.6 % 6.6 (H) 6.7 (H) 6.8 (H) Estimated Average Glucose mg/dL 143 146 148 PSA <2.60 ng/mL 1.89 2.12 A/P ASSESSMENT/PLAN: 1. Well adult exam - ICD9: V70.0, ICD10: Z00.00 (primary diagnosis) - Counseled on healthy diet and regular exercise - Discussed need for and benefit of weight loss. BMI 26.58 kg/(m^2) - Follow up for annual exam in one year 2. Controlled type 2 diabetes mellitus without complication, without long-term current use of insulin (HCC) - ICD9: 250.00, ICD10: E11.9 - Controlled - Continue current medications - Counseled on healthy diet and regular exercise - Discussed need for and benefit of weight loss. BMI 26.58 kg/(m^2) - advised patient to get his eye exam set up. 3. Hyperlipidemia, mixed - ICD9: 272.2, ICD10: E78.2 - Controlled - Continue current medications - Counseled on healthy diet and regular exercise - Discussed need for and benefit of weight loss. BMI 26.58 kg/(m^2) F/u 6 months routine check A1c and Lipid piror. Aldo Butcher MD documented in this encounter [facility] 10-19-2023 Note HNO ID: [id number] Author: ALDO BUTCHER MD Service: ? Author Type: Physician Type: Progress Notes Filed: 10/19/2023 11:47 Note Text: Chief Complaint Patient presents with: Physical HPI Rob Correia is a 58 year old male who presents here today for Physical. Patient with Hx of Diabetes, hyperlipidemia as well as those reviewed below. Patient seen optometry 2021. Knows he needs to schedule an appt this year. Past medical history, appointments, medications, allergies reviewed. Previous Medical History PAST MEDICAL HISTORY Diagnosis Date Controlled type 2 diabetes mellitus without complication, without long-term current use of insulin (HCC) 07/22/2017 Hyperlipidemia, mixed 10/12/2022 Myopia 08/23/2014 Presbyopia 08/23/2014 Regular astigmatism 08/23/2014 Well adult exam 10/12/2022 Last done: 10/12/2022 Previous Surgical History PAST SURGICAL HISTORY Procedure Laterality Date APPENDECTOMY PAST SURGICAL HISTORY OF hernia repair Family History FAMILY HISTORY Problem Relation Age of Onset Diabetes Mother Hyperlipidemia Mother Diabetes Father Heart Failure Father Colon Cancer Father 70's Hyperlipidemia Father other (trauma) Sister head injury from fall off a hourse Coronary Artery Disease Paternal Grandmother AR Coronary Artery Disease Paternal Grandfather AR Coronary Artery Disease Paternal Uncle Glaucoma No Family History Detached Retina No Family History Macular Degen No Family History Prostate Cancer No Family History Breast Cancer No Family History Alzheimer's Disease No Family History Kidney Disease No Family History Seizures No Family History Stroke No Family History Thyroid No Family History Patient Allergies ALLERGIES No Known Allergies Current Medications Current Outpatient Medications on File Prior to Visit Medication Sig cyanocobalamin, vitamin B-12, (VITAMIN B-12 ORAL) Take by mouth once daily. glucosamine/chondroitin/C/Nacho (GLUCOSAMINE-CHONDROITIN COMPLX ORAL) Take by mouth once daily. metFORMIN ER (GLUCOPHAGE XR) 500 mg 24 hr tablet Take 1 tablet by mouth two times a day before meals. Take one tablet am and one tablet pm atorvastatin (LIPITOR) 20 mg tablet Take 1 tablet by mouth once daily. Take 1 tablet daily [place]ob[place]-1-BZY-EPA-Fish Oil (FISH OIL) 1,000 mg (120 mg-180 mg) cap Take 1 capsule by mouth two times a day. No current facility-administered medications on file prior to visit. Social History Social History Tobacco Use Smoking status: Never Smokeless tobacco: Never Vaping Use Vaping Use: Never used Substance Use Topics Alcohol use: Yes Alcohol/week: 4.0 standard drinks of alcohol Types: 4 Cans of beer per week Comment: social use Drug use: No Review of Symptoms REVIEW OF SYSTEMS GENERAL: No weight loss, malaise or fevers HEENT: Negative for frequent or significant headaches, No changes in hearing or vision, no nose bleeds or other nasal problems NECK: Negative for lumps, goiter, pain and significant neck swelling RESPIRATORY: Negative for cough, hemoptysis, wheezing, COPD, dyspnea or shortness of breath CARDIOVASCULAR: Negative for chest pain, leg swelling, hypertension, CHF or palpitations GI: No nausea, vomiting, or diarrhea, No heartburn or reflux symptoms, and no blood : No history of dysuria, frequency or blood MUSCULOSKELETAL: Negative for joint pain or swelling, back pain or muscle pain SKIN: Negative for lesions, rash, and itching PSYCH: Negative for sleep disturbance, mood disorder and recent psychosocial stressors HEMATOLOGY/LYMPHOLOGY: Negative for prolonged bleeding, bruising easily or swollen nodes ENDOCRINE: Negative for cold or heat intolerance, polyuria, polydipsia and goiter NEURO: No history of headaches, syncope, paralysis, seizures or tremors EXAM: BP 130/91 Pulse 75 Ht 175.3 cm (5' 9) Wt 81.6 kg (180 lb) BMI 26.58 kg/m? BP 130/82 Pulse 75 Ht 175.3 cm (5' 9) Wt 81.6 kg (180 lb) BMI 26.58 kg/m? Last 5 Encounter Wt Readings: Date: Wt: 10/19/2023 81.6 kg (180 lb) 09/15/2023 81.9 kg (180 lb 9.6 oz) 04/17/2023 85.7 kg (189 lb) 10/12/2022 78.5 kg (173 lb) 09/29/2022 82.1 kg (181 lb) General Appearance: Well appearing, alert, in no acute distress, well-hydrated, well nourished.. Skin: Skin color, texture, turgor normal, no suspicious rashes or lesions. Head: Normocephalic, no masses, lesions, tenderness or abnormalities. Eyes: Anicteric sclera. Pupils are equally round and reactive to light. Extraocular movements are intact. . Ears: External ears normal, canals clear. Nose/Sinuses: Nares normal, septum midline, mucosa normal, no drainage or sinus tenderness. Oropharynx: Lips, mucosa, and tongue normal, teeth and gums normal, oropharynx normal. Neck: Supple, no adenopathy; thyroid symmetric, normal size, no bruits. Lungs: Lungs clear to auscultation. No wheezing, rhonchi, rales.. Heart: (more content not included)... [facility] 09-15-2023 History of Presen t illness Narrative Chief Complaint Patient presents with: UTI: Urinary issues, unable to urinate, burn slightly, slow urine stream, lower back pain for 1 month HPI Rob Correia is a 58 year old male who presents here today for Urination issues.. Has been noting some hesitancy some days and with it some mild discomfort. Some dribbling prior to starting. Some reduced stream strength. No nocturia at all. No hematuria. No flank pain. Has his typical low back pain. No pain with defecation. Patient with Hx of Diabetes, hyperlipidemia as well as those reviewed below. Past medical history, appointments, medications, allergies reviewed. Previous Medical History PAST MEDICAL HISTORY Diagnosis Date Controlled type 2 diabetes mellitus without complication, without long-term current use of insulin ([facility]) 07/22/2017 Hyperlipidemia, mixed 10/12/2022 Myopia 08/23/2014 Presbyopia 08/23/2014 Regular astigmatism 08/23/2014 Well adult exam 10/12/2022 Last done: 10/12/2022 Previous Surgical History PAST SURGICAL HISTORY Procedure Laterality Date APPENDECTOMY PAST SURGICAL HISTORY OF hernia repair Family History FAMILY HISTORY Problem Relation Age of Onset Diabetes Mother Hyperlipidemia Mother Diabetes Father Heart Failure Father Colon Cancer Father 70's Hyperlipidemia Father other (trauma) Sister head injury from fall off a hourse Coronary Artery Disease Paternal Grandmother AR Coronary Artery Disease Paternal Grandfather AR Coronary Artery Disease Paternal Uncle Glaucoma No Family History Detached Retina No Family History Macular Degen No Family History Prostate Cancer No Family History Breast Cancer No Family History Alzheimer's Disease No Family History Kidney Disease No Family History Seizures No Family History Stroke No Family History Thyroid No Family History Patient Allergies ALLERGIES No Known Allergies Current Medications Current Outpatient Medications on File Prior to Visit Medication Sig glucosamine/chondroitin/C/Nacho (GLUCOSAMINE-CHONDROITIN COMPLX ORAL) Take by mouth. metFORMIN ER (GLUCOPHAGE XR) 500 mg 24 hr tablet Take 1 tablet by mouth two times a day before meals. Take one tablet am and one tablet pm atorvastatin (LIPITOR) 20 mg tablet Take 1 tablet by mouth once daily. Take 1 tablet daily Hkphl-9-[id number]-EPA-Fish Oil (FISH OIL) 1,000 mg (120 mg-180 mg) cap Take 1 capsule by mouth two times a day. No current facility-administered medications on file prior to visit. Social History Social History Tobacco Use Smoking status: Never Smokeless tobacco: Never Vaping Use Vaping Use: Never used Substance Use Topics Alcohol use: Yes Alcohol/week: 4.0 standard drinks of alcohol Types: 4 Cans of beer per week Comment: social use Drug use: No Review of Symptoms REVIEW OF SYSTEMS See HPI EXAM: BP 122/86 (BP Site: Right Arm) Pulse 106 Wt 81.9 kg (180 lb 9.6 oz) SpO2 97% General Appearance: Well appearing, alert, in no acute distress, well-hydrated, well nourished.. Abdomen: Abdomen soft, non-tender. Genitalia: Normal, Penis normal. No urethral discharge. Scrotum normal to palpation. No hernia.. Rectal: prostate slightly enlarged and very soft on the left but not tender. . Health Maintenance List Covid-19 Vaccine(2022- season) Never done Dilated Retinal Exam due on 03/08/2023 Behavioral Health Screening Never done Urine Albumin:Creatinine Ratio due on 10/13/2023 Diabetic Foot Exam due on 10/13/2023 Shingrix Vaccine(1 of 2) due on 10/13/2023 HbA1C due on 10/17/2023 LDL Cholesterol due on 04/17/2024 Annual PCP Team Chronic Disease Visit due on 04/17/2024 Prostate Cancer Screening Discussion due on 10/13/2027 Colorectal Cancer Screening due on 11/30/2028 DTaP,Tdap,Td Vaccine(3 - Td or Tdap) due on 10/12/2032 Pneumococcal Vaccine Completed Hepatitis B Vaccine Discontinued Influenza Vaccine Discontinued Hepatitis C Screening Discontinued HIV Screening Discontinued Data reviewed A/P ASSESSMENT/PLAN: 1. Hesitancy - ICD9: 788.64, ICD10: R39.11 - suspect this maybe a prostatitis: therefore will treat with Bactrim DS twice a day for 2 weeks Requested Prescriptions Signed Prescriptions Disp Refills sulfamethoxazole-trimethoprim (BACTRIM DS) 800-160 mg per tablet 28 tablet 0 Sig: Take 1 tablet by mouth two times a day for 14 days. Patient has routine f/u in early October and will see how he is doing. If not better will place on med for BPH. Aldo Butcher MD documented in this encounter [facility] 09-15-2023 Note HNO ID: [id number] Author: ALDO BUTCHER MD Service: ? Author Type: Physician Type: Progress Notes Filed: 09/15/2023 16:13 Note Text: Chief Complaint Patient presents with: UTI: Urinary issues, unable to urinate, burn slightly, slow urine stream, lower back pain for 1 month HPI Rob Correia is a 58 year old male who presents here today for Urination issues.. Has been noting some hesitancy some days and with it some mild discomfort. Some dribbling prior to starting. Some reduced stream strength. No nocturia at all. No hematuria. No flank pain. Has his typical low back pain. No pain with defecation. Patient with Hx of Diabetes, hyperlipidemia as well as those reviewed below. Past medical history, appointments, medications, allergies reviewed. Previous Medical History PAST MEDICAL HISTORY Diagnosis Date Controlled type 2 diabetes mellitus without complication, without long-term current use of insulin (HCC) 07/22/2017 Hyperlipidemia, mixed 10/12/2022 Myopia 08/23/2014 Presbyopia 08/23/2014 Regular astigmatism 08/23/2014 Well adult exam 10/12/2022 Last done: 10/12/2022 Previous Surgical History PAST SURGICAL HISTORY Procedure Laterality Date APPENDECTOMY PAST SURGICAL HISTORY OF hernia repair Family History FAMILY HISTORY Problem Relation Age of Onset Diabetes Mother Hyperlipidemia Mother Diabetes Father Heart Failure Father Colon Cancer Father 70's Hyperlipidemia Father other (trauma) Sister head injury from fall off a hourse Coronary Artery Disease Paternal Grandmother AR Coronary Artery Disease Paternal Grandfather AR Coronary Artery Disease Paternal Uncle Glaucoma No Family History Detached Retina No Family History Macular Degen No Family History Prostate Cancer No Family History Breast Cancer No Family History Alzheimer's Disease No Family History Kidney Disease No Family History Seizures No Family History Stroke No Family History Thyroid No Family History Patient Allergies ALLERGIES No Known Allergies Current Medications Current Outpatient Medications on File Prior to Visit Medication Sig glucosamine/chondroitin/C/Nacho (GLUCOSAMINE-CHONDROITIN COMPLX ORAL) Take by mouth. metFORMIN ER (GLUCOPHAGE XR) 500 mg 24 hr tablet Take 1 tablet by mouth two times a day before meals. Take one tablet am and one tablet pm atorvastatin (LIPITOR) 20 mg tablet Take 1 tablet by mouth once daily. Take 1 tablet daily Filoq-6-JYV-EPA-Fish Oil (FISH OIL) 1,000 mg (120 mg-180 mg) cap Take 1 capsule by mouth two times a day. No current facility-administered medications on file prior to visit. Social History Social History Tobacco Use Smoking status: Never Smokeless tobacco: Never Vaping Use Vaping Use: Never used Substance Use Topics Alcohol use: Yes Alcohol/week: 4.0 standard drinks of alcohol Types: 4 Cans of beer per week Comment: social use Drug use: No Review of Symptoms REVIEW OF SYSTEMS See HPI EXAM: BP 122/86 (BP Site: Right Arm) Pulse 106 Wt 81.9 kg (180 lb 9.6 oz) SpO2 97% General Appearance: Well appearing, alert, in no acute distress, well-hydrated, well nourished.. Abdomen: Abdomen soft, non-tender. Genitalia: Normal, Penis normal. No urethral discharge. Scrotum normal to palpation. No hernia.. Rectal: prostate slightly enlarged and very soft on the left but not tender. . Health Maintenance List Covid-19 Vaccine() Never done Dilated Retinal Exam due on 03/08/2023 Behavioral Health Screening Never done Urine Albumin:Creatinine Ratio due on 10/13/2023 Diabetic Foot Exam due on 10/13/2023 Shingrix Vaccine(1 of 2) due on 10/13/2023 HbA1C due on 10/17/2023 LDL Cholesterol due on 04/17/2024 Annual PCP Team Chronic Disease Visit due on 04/17/2024 Prostate Cancer Screening Discussion due on 10/13/2027 Colorectal Cancer Screening due on 11/30/2028 DTaP,Tdap,Td Vaccine(3 - Td or Tdap) due on 10/12/2032 Pneumococcal Vaccine Completed Hepatitis B Vaccine Discontinued Influenza Vaccine Discontinued Hepatitis C Screening Discontinued HIV Screening Discontinued Data reviewed A/P ASSESSMENT/PLAN: 1. Hesitancy - ICD9: 788.64, ICD10: R39.11 - suspect this maybe a prostatitis: therefore will treat with Bactrim DS twice a day for 2 weeks Requested Prescriptions Signed Prescriptions Disp Refills sulfamethoxazole-trimethoprim (BACTRIM DS) 800-160 mg per tablet 28 tablet 0 Sig: Take 1 tablet by mouth two times a day for 14 days. Patient has routine f/u in early October and will see how he is doing. If not better will place on med for BPH. Aldo Butcher MD [facility] 04-18-2023 Miscellaneous Notes Formattin g of this note might be different from the original. Pt notified of results and provider message. Tawana Ruelas LPN Called and left a voicemail for the Patient to call back and ask for a nurse to receive the providers message. Rafia Yo, ELVIE Let patient know A1c is ok at 6.7%. lipid panel was very good. documented in this encounter [facility] 04-17-2023 Instructions Aldo Butcher MD - 04/17/2023 8:58 AM EST Please get labs and urine test done on or after 10/06/2023 prior to your next visit. Consider taking Vit B6 once a ay for the foot tingling. documented in this encounter [facility] 04-17-2023 History of Presen t illness Narrative Chief Complaint Patient presents with: F/U 6 months HPI Rob Correia is a 58 year old male who presents here today for 6 month follow up. Patient with Hx of Diabetes, hyperlipidemia as well as those reviewed below. Any new concerns today? None Any recent ER/hospital visits? None Recent eye exam? Dr. Musa Doesn't check sugars Patient declined flu vaccine Past medical history, appointments, medications, allergies reviewed. Previous Medical History PAST MEDICAL HISTORY Diagnosis Date Controlled type 2 diabetes mellitus without complication, without long-term current use of insulin (HCC) 07/22/2017 Hyperlipidemia, mixed 10/12/2022 Myopia 08/23/2014 Presbyopia 08/23/2014 Regular astigmatism 08/23/2014 Well adult exam 10/12/2022 Last done: 10/12/2022 Previous Surgical History PAST SURGICAL HISTORY Procedure Laterality Date APPENDECTOMY PAST SURGICAL HISTORY OF hernia repair Family History FAMILY HISTORY Problem Relation Age of Onset Diabetes Mother Hyperlipidemia Mother Diabetes Father Heart Failure Father Colon Cancer Father 70's Hyperlipidemia Father other (trauma) Sister head injury from fall off a hourse Coronary Artery Disease Paternal Grandmother AR Coronary Artery Disease Paternal Grandfather AR Coronary Artery Disease Paternal Uncle Glaucoma No Family History Detached Retina No Family History Macular Degen No Family History Prostate Cancer No Family History Breast Cancer No Family History Alzheimer's Disease No Family History Kidney Disease No Family History Seizures No Family History Stroke No Family History Thyroid No Family History Patient Allergies ALLERGIES No Known Allergies Current Medications Current Outpatient Medications on File Prior to Visit Medication Sig metFORMIN ER (GLUCOPHAGE XR) 500 mg 24 hr tablet Take 1 tablet by mouth two times a day before meals. Take one tablet am and one tablet pm atorvastatin (LIPITOR) 20 mg tablet Take 1 tablet by mouth once daily. Take 1 tablet daily fluticasone (FLONASE) 50 mcg/actuation nasal spray Use 2 Sprays in each nostril once daily. Rinse mouth after use. cetirizine (ZYRTEC) 10 mg tablet Take 1 tablet by mouth once daily. No current facility-administered medications on file prior to visit. Social History Social History Tobacco Use Smoking status: Never Smokeless tobacco: Never Vaping Use Vaping Use: Never used Substance Use Topics Alcohol use: Yes Alcohol/week: 4.0 standard drinks of alcohol Types: 4 Cans of beer per week Comment: social use Drug use: No Review of Symptoms REVIEW OF SYSTEMS GENERAL: No weight loss, malaise or fevers NECK: Negative for lumps, goiter, pain and significant neck swelling RESPIRATORY: Negative for cough, hemoptysis, wheezing, COPD, dyspnea or shortness of breath CARDIOVASCULAR: Negative for chest pain, leg swelling, hypertension, CHF or palpitations GI: No nausea, vomiting, or diarrhea and No heartburn or reflux symptoms : No history of dysuria, frequency or blood ENDOCRINE: Negative for low BS's NEURO: No history of headaches, syncope, paralysis, seizures or tremors. Gets a tingling in his feet at times. EXAM: BP 142/88 (BP Site: Left Arm, BP Position: Sitting, BP Cuff Size: Regular Adult) Pulse 80 Resp 16 Wt 85.7 kg (189 lb) BP 134/86 Pulse 80 Resp 16 Wt 85.7 kg (189 lb) Last 5 Encounter Wt Readings: Date: Wt: 04/17/2023 85.7 kg (189 lb) 10/12/2022 78.5 kg (173 lb) 09/29/2022 82.1 kg (181 lb) 09/09/2022 81.6 kg (180 lb) Last 10 Encounter BP Readings: Date: BP: 04/17/2023 134/86 10/12/2022 118/80 09/29/2022 116/78 09/09/2022 130/80 General Appearance: Well appearing, alert, in no acute distress, well-hydrated, well nourished.. Eyes: Anicteric sclera. Pupils are equally round and reactive to light. Extraocular movements are intact. . Neck: Supple, no adenopathy; thyroid symmetric, normal size, no bruits. Lungs: Lungs clear to auscultation. No wheezing, rhonchi, rales.. Heart: RRR without murmur, gallop, or rubs. No ectopy. Abdomen: Normal abdominal exam, Abdomen soft, non-tender. Bowel sounds normal. No masses, organomegaly. Extremities: No deformities, edema, skin discoloration, clubbing or cyanosis. Good capillary refill. . Peripheral Pulses: Normal. Neurologic: Gait normal. Reflexes normal and symmetric. Sensation grossly intact.. Health Maintenance List Influenza Vaccine(1) Never done Dilated Retinal Exam due on 03/08/2023 HbA1C due on 04/13/2023 Shingrix Vaccine(1 of 2) due on 10/13/2023 Covid-19 Vaccine(1) due on 10/13/2023 Urine Albumin:Creatinine Ratio due on 10/13/2023 LDL Cholesterol due on 10/13/2023 Diabetic Foot Exam due on 10/13/2023 Annual PCP Team Chronic Disease Visit due on 10/13/2023 Prostate Cancer Screening Discussion due on 10/13/2027 Colorectal Cancer Screening due on 11/30/2028 DTaP,Tdap,Td Vaccine(3 - Td or Tdap) due on 10/12/2032 Depression Assessment Completed Pneumococcal Vaccine Completed Hepatitis B Vaccine Discontinued Hepatitis C Screening Discontinued HIV Screening Discontinued Data reviewed A/P ASSESSMENT/PLAN: 1. Controlled type 2 diabetes mellitus without complication, without long-term current use of insulin (HCC) - ICD9: 250.00, ICD10: E11.9 (primary diagnosis) - await A1c - Continue current medications - Counseled on healthy diet and regular exercise - LIPID PANEL, NONFASTING - HGB A1C 2. Hyperlipidemia, mixed - ICD9: 272.2, ICD10: E78.2 - await lipids. - Continue current medications - Counseled on healthy diet and regular exercise - LIPID PANEL, NONFASTING Will monitor BP. Typically very good and less then 135/80. Requested Prescriptions Signed Prescriptions Disp Refills metFORMIN ER (GLUCOPHAGE XR) 500 mg 24 hr tablet 180 tablet 1 Sig: Take 1 tablet by mouth two times a day before meals. Take one tablet am and one tablet pm atorvastatin (LIPITOR) 20 mg tablet 90 tablet 1 Sig: Take 1 tablet by mouth once daily. Take 1 tablet daily Hujoq-2-FVC-EPA-Fish Oil (FISH OIL) 1,000 mg (120 mg-180 mg) cap Sig: Take 1 capsule by mouth two times a day. F/u 6 months extensive check CMP, Lipid, UA, A1c, urine micro albumin, CBC, PSA Aldo Butcher MD documented in this encounter [facility] 03-06-2023 Miscellaneous Notes Formattin g of this note might be different from the original. Patient's contacted office via my chart and indicated that this prescription should have been sent to [facility] and not [facility]. Hannah Rodriguez MA documented in this encounter [facility] 02-09-2023 Miscellaneous Notes Formattin g of this note might be different from the original. Last office visit: 10/12/22 F/u scheduled: 04/17/23 Aparna Ryder Ma \ Patient has been identified by name and date of : Yes Last office visit in this department: 10/12/2022 RX INSTRUCTIONS: Patient aware RX will be sent to pharmacy. No need to notify patient. Patient phones requesting refills as follows: Requested Prescriptions Pending Prescriptions Disp Refills metFORMIN ER (GLUCOPHAGE XR) 500 mg 24 hr tablet Si tablet. Take one tablet am and one tablet pm atorvastatin (LIPITOR) 20 mg tablet Si tablet. Take 1 tablet daily Please review and advise. Lilli Espinosa documented in this encounter [facility] 09-09-2022 History of Presen t illness Narrative Chief Complaint Patient presents with: Ear Problem: Left ear pain X 5 days HPI Rob Correia is a 57 year old male who presents here today for Above Complaints.. Patient presents for left ear pain. Patient reports symptoms started on Monday with sore throat and ear pain. Patient states ear pain and fullness has continued. Past medical history, appointments, medications, allergies reviewed. Previous Medical History PAST MEDICAL HISTORY Diagnosis Date Diabetes (HCC) Elevated cholesterol NEGATIVE MEDICAL HISTORY Previous Surgical History PAST SURGICAL HISTORY Procedure Laterality Date APPENDECTOMY Family History FAMILY HISTORY Problem Relation Age of Onset Diabetes Father Heart Failure Father Diabetes Mother Glaucoma No Family History Detached Retina No Family History Macular Degen No Family History Patient Allergies ALLERGIES No Known Allergies Current Medications Current Outpatient Medications on File Prior to Visit Medication Sig atorvastatin (LIPITOR) 20 mg tablet metFORMIN ER (GLUCOPHAGE XR) 500 mg 24 hr tablet No current facility-administered medications on file prior to visit. Social History Social History Tobacco Use Smoking status: Never Smokeless tobacco: Never Vaping Use Vaping Use: Never used Substance Use Topics Alcohol use: Yes Alcohol/week: 3.3 standard drinks Types: 4 Cans of beer per week Comment: social use Drug use: No Review of Symptoms REVIEW OF SYSTEMS SEE HPI EXAM: BP 130/80 Pulse 72 Temp 36.4 C (97.5 F) Resp 14 Wt 81.6 kg (180 lb) General Appearance: Well appearing, alert, in no acute distress, well-hydrated, well nourished.. Ears: Positive findings: R TM: normal, L TM: erythematous, erythema and edema of ear canal: on left. Nose/Sinuses: Nares normal, septum midline, mucosa normal, no drainage or sinus tenderness. Oropharynx: Lips, mucosa, and tongue normal, teeth and gums normal, oropharynx normal. Neck: Supple, no adenopathy; thyroid symmetric, normal size, no bruits. Health Maintenance List HEPATITIS B(1 of 3 - 3-dose series) Never done COVID-19 VACCINE(1) Never done HBA1C Never done PNEUMOCOCCAL(1 - PCV) Never done URINE ALBUMIN:CREATININE RATIO Never done DIABETIC FOOT EXAM Never done LDL CHOLESTEROL Never done ANNUAL PCP TEAM CHRONIC DISEASE VISIT Never done HEPATITIS C SCREENING Never done HIV SCREENING Never done DTAP,TDAP,TD(1 - Tdap) Never done COLORECTAL CANCER SCREENING Never done SHINGRIX VACCINE(1 of 2) Never done PROSTATE CANCER SCREENING DISCUSSION Never done DEPRESSION ASSESSMENT Never done INFLUENZA(Season Ended) due on 01/06/2023 DILATED RETINAL EXAM due on 03/08/2023 ASSESSMENT/PLAN: 1. Acute otitis media, unspecified otitis media type - ICD9: 382.9, ICD10: H66.90 - Will begin treatment with Amoxicillin for 7 days - The patient should also be given OTC decongestants prn, warm salt water gargles, throat lozenges and/or OTC throat spray as needed, and nasal saline gtts and suction prn for the first 5-7 days of treatment. - Supportive care with plenty of fluids, rest, and analgesia prn. - Follow up in 7 days if symptoms persist or worsen. - AMOXICILLIN 875 MG TABLET Ele Pro APRN.[employer]ING [employer] documented in this encounter [facility] 03-08-2022 Instructions Pawel Musa II, OD - 03/08/2022 4:38 PM EDT Assessment and Plan E11.9 Type 2 diabetes mellitus without retinopathy (HCC) (primary encounter diagnosis) Comment: Examination shows no ocular diabetic complications today. Discussed need for optimal diabetes control to minimize chance of ocular complications. Advise patient to immediately report worsening in status or additional symptoms. Continue yearly dilated eye examinations. H52.13 Myopia, bilateral H52.221 Regular astigmatism of right eye H52.4 Presbyopia Comment: Glasses power stable. Update as desired. I have confirmed and edited as necessary the relevant ophthalmic history, ROS, and the neuro exam findings as obtained by others. I have seen and examined Rob Correia. I have discussed the case and the management of this patient's care with the Resident/Fellow, if applicable. I also have reviewed and agree with the assessment and plan as stated above and agree with all of its relevant components. Pawel Musa II, OD documented in this encounter [facility] 03-08-2022 History of Presen t illness Narrative Assessment and Plan E11.9 Type 2 diabetes mellitus without retinopathy (HCC) (primary encounter diagnosis) Comment: Examination shows no ocular diabetic complications today. Discussed need for optimal diabetes control to minimize chance of ocular complications. Advise patient to immediately report worsening in status or additional symptoms. Continue yearly dilated eye examinations. H52.13 Myopia, bilateral H52.221 Regular astigmatism of right eye H52.4 Presbyopia Comment: Glasses power stable. Update as desired. I have confirmed and edited as necessary the relevant ophthalmic history, ROS, and the neuro exam findings as obtained by others. I have seen and examined Rob Jean Masood. I have discussed the case and the management of this patient's care with the Resident/Fellow, if applicable. I also have reviewed and agree with the assessment and plan as stated above and agree with all of its relevant components. Pawel Musa II, OD documented in this encounter [facility] Evaluation note Diagnosis Type 2 diabetes mellitus without retinopathy (HCC)- Primary Type II or unspecified type diabetes mellitus without mention of complication, not stated as uncontrolled Myopia, bilateral Myopia Regular astigmatism of right eye Regular astigmatism Presbyopia [facility] Diagnosis Acute otitis media, unspecified otitis media type- Primary [facility] Diagnosis Controlled type 2 diabetes mellitus without complication, without long-term current use of insulin (HCC)- Primary Hyperlipidemia, mixed Mixed hyperlipidemia Screening for prostate cancer Special screening for malignant neoplasm of prostate [facility] Diagnosis Hesitancy- Primary Urinary hesitancy [facility] Diagnosis Well adult exam- Primary Routine general medical examination at a health care facility Controlled type 2 diabetes mellitus without complication, without long-term current use of insulin (HCC) Hyperlipidemia, mixed Mixed hyperlipidemia [facility] Diagnosis Type 2 diabetes mellitus without retinopathy (HCC)- Primary Type II or unspecified type diabetes mellitus without mention of complication, not stated as uncontrolled Myopia, bilateral Myopia Regular astigmatism of right eye Regular astigmatism Presbyopia [facility] Diagnosis Lower resp. tract infection- Primary Other diseases of respiratory system, not elsewhere classified Acute cough Acute cough Lower resp. tract infection Other diseases of respiratory system, not elsewhere classified [facility] Diagnosis Acute cough Lower resp. tract infection Other diseases of respiratory system, not elsewhere classified documented in this encounter [facility] Summary Purpose Family History No Family History Records FoundNo Family History Records Found Advance Directives No Advanced Directives Records FoundNo Advanced Directives Records Found Reason for Referral Specialty Diagnoses / Procedures Referred By Joslyn t Referred To Contact Ele Pro APRN.[facility] [address] [place] [address] Referral ID Status Reason Start Date Expiration Date Visits Re quested Visits Authorized [id number] Closed 1 1 Additional Source Comments (unrecognized sect ion and content) No Status Records FoundNo Status Records Found INFORMATION SOURCE (unrecogn ized section and content) DATE CREATED AUTHOR 12/21/2018 [facility] DATE CREATED AUTHOR AUTHOR'S HARVEY ATION 06/05/2024 [facility] Source Comments (unrecognize d section and content) In the event this informatio n is protected by the Federal Confidentiality of Alcohol and Drug Abuse Patient Records regulations: The Federal rules restrict any use of the information to criminally investigate or prosecute any alcohol or drug abuse patient.[facility] event this information is protected by the Federal Confidentiality of Alcohol and Drug Abuse Patient Records regulations: The Federal rules restrict any use of the information to criminally investigate or prosecute any alcohol or drug abuse patient.[facility] the event this information is protected by the Federal Confidentiality of Alcohol and Drug Abuse Patient Records regulations: The Federal rules restrict any use of the information to criminally investigate or prosecute any alcohol or drug abuse patient.[facility] the event this information is protected by the Federal Confidentiality of Alcohol and Drug Abuse Patient Records regulations: The Federal rules restrict any use of the information to criminally investigate or prosecute any alcohol or drug abuse patient.[facility] the event this information is protected by the Federal Confidentiality of Alcohol and Drug Abuse Patient Records regulations: The Federal rules restrict any use of the information to criminally investigate or prosecute any alcohol or drug abuse patient.[facility] the event this information is protected by the Federal Confidentiality of Alcohol and Drug Abuse Patient Records regulations: The Federal rules restrict any use of the information to criminally investigate or prosecute any alcohol or drug abuse patient.[facility] the event this information is protected by the Federal Confidentiality of Alcohol and Drug Abuse Patient Records regulations: The Federal rules restrict any use of the information to criminally investigate or prosecute any alcohol or drug abuse patient.[facility] the event this information is protected by the Federal Confidentiality of Alcohol and Drug Abuse Patient Records regulations: The Federal rules restrict any use of the information to criminally investigate or prosecute any alcohol or drug abuse patient.[facility] the event this information is protected by the Federal Confidentiality of Alcohol and Drug Abuse Patient Records regulations: The Federal rules restrict any use of the information to criminally investigate or prosecute any alcohol or drug abuse patient.[facility] the event this information is protected by the Federal Confidentiality of Alcohol and Drug Abuse Patient Records regulations: The Federal rules restrict any use of the information to criminally investigate or prosecute any alcohol or drug abuse patient.[facility] the event this information is protected by the Federal Confidentiality of Alcohol and Drug Abuse Patient Records regulations: The Federal rules restrict any use of the information to criminally investigate or prosecute any alcohol or drug abuse patient.[facility] the event this information is protected by the Federal Confidentiality of Alcohol and Drug Abuse Patient Records regulations: The Federal rules restrict any use of the information to criminally investigate or prosecute any alcohol or drug abuse patient.[facility] the event this information is protected by the Federal Confidentiality of Alcohol and Drug Abuse Patient Records regulations: The Federal rules restrict any use of the information to criminally investigate or prosecute any alcohol or drug abuse patient.[facility] the event this information is protected by the Federal Confidentiality of Alcohol and Drug Abuse Patient Records regulations: The Federal rules restrict any use of the information to criminally investigate or prosecute any alcohol or drug abuse patient.[facility] the event this information is protected by the Federal Confidentiality of Alcohol and Drug Abuse Patient Records regulations: The Federal rules restrict any use of the information to criminally investigate or prosecute any alcohol or drug abuse patient.[facility] the event this information is protected by the Federal Confidentiality of Alcohol and Drug Abuse Patient Records regulations: The Federal rules restrict any use of the information to criminally investigate or prosecute any alcohol or drug abuse patient.[facility] the event this information is protected by the Federal Confidentiality of Alcohol and Drug Abuse Patient Records regulations: The Federal rules restrict any use of the information to criminally investigate or prosecute any alcohol or drug abuse patient.[facility] the event this information is protected by the Federal Confidentiality of Alcohol and Drug Abuse Patient Records regulations: The Federal rules restrict any use of the information to criminally investigate or prosecute any alcohol or drug abuse patient.[facility] the event this information is protected by the Federal Confidentiality of Alcohol and Drug Abuse Patient Records regulations: The Federal rules restrict any use of the information to criminally investigate or prosecute any alcohol or drug abuse patient.[facility] the event this information is protected by the Federal Confidentiality of Alcohol and Drug Abuse Patient Records regulations: The Federal rules restrict any use of the information to criminally investigate or prosecute any alcohol or drug abuse patient.[facility] the event this information is protected by the Federal Confidentiality of Alcohol and Drug Abuse Patient Records regulations: The Federal rules restrict any use of the information to criminally investigate or prosecute any alcohol or drug abuse patient.[facility] the event this information is protected by the Federal Confidentiality of Alcohol and Drug Abuse Patient Records regulations: The Federal rules restrict any use of the information to criminally investigate or prosecute any alcohol or drug abuse patient.[facility] Reason for Visit (unrecogniz ed section and content) Reason Comments Diabetes Reason Comments Ear Problem Left ear pain X 5 da ys Reason Onset Date Comments Refill Request 02/09/2023 Reason Onset Date Comments Refill Request 03/06/2023 Reason Comments F/U 6 months Reason Comments Results Reason Comments UTI Urinary issues, unab le to urinate, burn slightly, slow urine stream, lower back pain for 1 month Reason Comments Physical Reason Onset Date Comments Refill Request 11/08/2023 Reason Onset Date Comments Refill Request 12/12/2023 Reason Comments 6 Month Exam Reason Onset Date Comments Refill Request 05/01/2024 Reason Comments Billing Issue Reason Comments Cough Care Teams (unrecognized sec tion and content) Box Spring Maker Relationship Specialty Start Date End Date Joce Roe CNP [address] [place] [address] PCP - General Family Medicine 01/23/21 Box Spring Maker Relationship Specialty Start Date End Date Sherrie Roe CNP [address] [place] [address] PCP - General Family Medicine 01/23/21 Box Spring Maker Relationship Specialty Start Date End Date Aldo Butcher MD [address] [address] PCP - General Family Medicine 10/12/22 Box Spring Maker Relationship Specialty Start Date End Date Aldo Butcher MD [address] [place] [address] PCP - General Family Medicine 10/12/22 Box Spring Maker Relationship Specialty Start Date End Date Aldo Butcher MD [address] [place] [address] PCP - General Family Medicine 10/12/22 Box Spring Maker Relationship Specialty Start Date End Date Aldo Butcher MD [address] [place] [address] PCP - General Family Medicine 10/12/22 Box Spring Maker Relationship Specialty Start Date End Date Aldo Butcher MD [address] [place] [address] PCP - General Family Medicine 10/12/22 Box Spring Maker Relationship Specialty Start Date End Date Aldo Butcher MD [address] [place] [address] PCP - General Family Medicine 10/12/22 Box Spring Maker Relationship Specialty Start Date End Date Aldo Butcher MD [address] [place] [address] PCP - General Family Medicine 10/12/22 Box Spring Maker Relationship Specialty Start Date End Date Aldo Butcher MD [address] [place] [address] PCP - General Family Medicine 10/12/22 Box Spring Maker Relationship Specialty Start Date End Date Aldo Butcher MD [address] [place] [address] PCP - General Family Medicine 10/12/22 Box Spring Maker Relationship Specialty Start Date End Date Aldo Butcher MD [address] [place] [address] PCP - General Family Medicine 10/12/22 Box Spring Maker Relationship Specialty Start Date End Date Aldo Butcher MD [address] [place] [address] PCP - General Family Medicine 10/12/22 Ele Pro APRN.[employer] [address] [place] [address] [employer] Attendant Family Medicine 04/13/24 Corina Gomes PA-C [address] [place] [address] [employer]ven Attendant Family Medicine 04/13/24 Box Spring Maker Relationship Specialty Start Date End Date Aldo Butcher MD [address] [place] [address] PCP - General Family Medicine 10/12/22 Ele Pro APRN.HAULING CONTRACTOR [facility] [place] [address] [employer]ven Attendant Family Medicine 04/13/24 Corina Gomes PA-C [address] [place] [address] [employer]ven Attendant Family Medicine 04/13/24 Box Spring Maker Relationship Specialty Start Date End Date Aldo Butcher MD [address] [place] [address] PCP - General Family Medicine 10/12/22 Ele Pro APRN.[employer]OR [address] [place] [address] [employer]ven Attendant Family Medicine 04/13/24 Corina Gomes PA-C [address] [place] [address] [employer]ven Attendant Family Medicine 04/13/24 Box Spring Maker Relationship Specialty Start Date End Date Aldo Butcher MD [address] [place] [address] PCP - General Family Medicine 10/12/22 Ele Pro APRN.[employer]OR [address] [place] [address] [employer]ven Attendant Family Medicine 04/13/24 Corina Gomes PA-C [address] [place] [address] [employer] Oven Attendant Family Medicine 04/13/24 Box Spring Maker Relationship Specialty Start Date End Date Aldo Butcher MD [address] [place] [address] PCP - General Family Medicine 10/12/22 Ele Pro ORANGE GROWER.HAULING CONTRACTOR [address] [place] [address] Po[employer] Oven Attendant Family Medicine 04/13/24 Corina Gomes PA-C [address] [place] [address] [employer] Attendant Family Medicine 04/13/24 Box Spring Maker Relationship Specialty Start Date End Date Aldo Butcher MD [address] [place] [address] PCP - General Family Medicine 10/12/22 Ele Pro APRN.CNP [address] [place] [address] [employer] [facility] 04/13/24 Corina Gomes PA-C [address] [place] [address] [facility] 04/13/24 FOR RECORDS PERTAINING TO PATIENTS WHO ARE OR HAVE BEEN ENROLLED IN A CHEMICAL DEPENDENCY/SUBSTANCEABUSE PROGRAM, SOME INFORMATION MAY BE OMITTED. This clinical summary was aggregated from multiple sources. Caution should be exercised in using it in the provision of clinical care. This summary normalizes information from multiple sources, and as a consequence, information in this document may materially change the coding, format and clinical context of patient data. In addition, data may be omitted in some cases. CLINICAL DECISIONS SHOULD BE BASED ON THE PRIMARY CLINICAL RECORDS. [employer] provides no warranty or guarantee of the accuracy or completeness of information in this document.
[2024-10-10 22:19] LABS: Bacteria 1+ /hpf (None Seen)
[2024-10-10 22:22] LABS: White Blood Cells 0-5 SEEN /hpf (0-5)
== END | disposition home or self-care (01) ==
LOC: LAB.FUTURE 16:09 → LAB 16:12
PROVIDERS: Visit Provider Physician Assistant
DX: E11.9 Type 2 diabetes mellitus without complications (principal); E78.2 Mixed hyperlipidemia; Z12.5 Encounter for screening for malignant neoplasm of prostate
CPT/HCPCS: 36415; 80053; 80061; 81001; 82043; 82570; 83036; 84153; 85025; G0103

== ENCOUNTER → 2024-11-19 | Outpatient (CLI) | payer BC, SELFPAY ==
--- NOTE | 2024-11-19 06:47 | CT_ITS ---
PROCEDURE: LIMITED CHEST CT CARDIAC ONLY 11/19/2024 REASON FOR EXAM: CAD SCREENING Family history. TECHNIQUE: LIMITED CHEST CT CARDIAC ONLY Coronal and Sagittal reconstruction series were provided. CONTRAST: None One or more dose reduction techniques were used (e.g., Automated exposure control, adjustment of the mA and/or kV according to patient size, use of iterative reconstruction technique). RADIATION DOSE SUMMARY: CTDlvol: 12.19 mGy DLP: 268.17 mGycm COMPARISON: None FINDINGS: Coronary artery calcification. The heart is nonenlarged. The pericardium is unremarkable. Small benign-appearing mediastinal lymph nodes. The lungs are clear. CT/Limited Chest CT Cardiac Only IMPRESSION: Coronary artery CT calcifications. Reading Location: [id number]
--- NOTE | 2024-11-19 06:47 | CT_ITS ---
PROCEDURE: LIMITED CHEST CT CARDIAC ONLY 11/19/2024 REASON FOR EXAM: CAD SCREENING Family history. TECHNIQUE: LIMITED CHEST CT CARDIAC ONLY Coronal and Sagittal reconstruction series were provided. CONTRAST: None One or more dose reduction techniques were used (e.g., Automated exposure control, adjustment of the mA and/or kV according to patient size, use of iterative reconstruction technique). RADIATION DOSE SUMMARY: CTDlvol: 12.19 mGy DLP: 268.17 mGycm COMPARISON: None FINDINGS: Coronary artery calcification. The heart is nonenlarged. The pericardium is unremarkable. Small benign-appearing mediastinal lymph nodes. The lungs are clear. CT/Limited Chest CT Cardiac Only IMPRESSION: Coronary artery CT calcifications. Reading Location: [id number]
--- OUTSIDE RECORDS SUMMARY | 2024-11-19 06:48 | XMS RPT_ITS | CCD ---
Author Organization [facility] Team Providers Care All Terrain Vehicle Technician Name Role Phone Joce Roe CNP Primary Care Provider Sherrie Roe CNP Primary Care Provider Aldo Butcher MD Primary Care Provider Aldo Butcher MD Primary Care Provider Aldo Butcher MD Primary Care Provider [place] DE ICER INSTALLER.Ele FREITAS Unavailable Corina Gomes PA-C Unavailable Dr. Temo Shook MD Primary Care Provider [phone] Corina Gray Attending Provider [place] DE ICER INSTALLER.Ele FREITAS Unavailable Corina Gomes PA-C Unavailable Temo Shook Primary Care Unavailable Corina Gomes Attending Unavailable Aldo Butcher Attending Unavailable Aldo Butcher Referring Unavailable Temo Shook Primary Care Unavailable ALDO BUTCHER Primary Care Unavailable DESHAWN MUSA Referring UnavailDESHAWN Sandoval Attending Unavailhussain e ALDO BUTCHER Attending Unavailable ALDO BUTCHER Primary Care Unavailable ALDO BUTCHER Primary Care Unavailable CORIAN GOMES Attending Unavailable ALDO BUTCHER Primary Care Unavailable CORINA GOMES Attending Unavailable ALDO BUTCHER Primary Care Unavailable ALDO BUTCHER Referring Unavailable ALDO BUTCHER Primary Care Unavailable CORINA GOMES Referring Unavailable Medications Current Medications Medication Drug Class(es) Dates Sig (Normalized) Sig (Original) amoxicillin 875 mg oral tablet (2 sources) [...] tablet (20 sources) HMG-CoA Reductase Inhibitor Start: 07-07-2017 End: 10-23-2024 take 1 tablet by mouth once daily, then take 1 tablet by mouth once daily atorvastatin (LIPITOR) 20 mg tablet Take 1 tablet by mouth once daily. Take 1 tablet daily 90 tablet 1 10/23/2024 Active Comment on above: Take 1 tablet by ronak th once daily. Take 1 tablet daily 20 mg. Take 1 tablet daily cyanocobalamin, vitamin B-12, (VITAMIN B-12 ORAL) (15 sources) cyanocobalamin, vitamin B-12, (VITAMIN B-12 ORAL) Take by mouth once daily. Active cyanocobalamin, vitamin B-12, (VITAMIN B-12 ORAL) Take by mouth once daily. 0 Active glucosamine/chondroitin/C/Ma ng (GLUCOSAMINE-CHONDROITIN COMPLX ORAL) (20 sources) glucosamine/nomi droitin/C/Nacho (GLUCOSAMINE-CHONDROITIN COMPLX ORAL) Take by mouth once daily. Active glucosamine/nomi droitin/C/Nacho (GLUCOSAMINE-CHONDROITIN COMPLX ORAL) Take by mouth once daily. 0 Active glucosamine/nomi droitin/C/Nacho (GLUCOSAMINE-CHONDROITIN COMPLX ORAL) Take by mouth. 0 Active Comment on above: Take by mouth. 24 hr metFORMIN hydrochloride 500 mg extended release oral tablet (20 sources) Biguanide Start: 02-09-2023 End: 10-23-2024 take 1 tablet by mouth twice daily before mealtime metFORMIN ER (GLUCOPHAGE XR) 500 mg 24 hr tablet Take 1 tablet by mouth two times a day before meals. 180 tablet 1 10/23/2024 Active Start: 11-28-2018 take 1 tablet by ronak th twice daily Metformin 500 MG tablet Active 500 mg PO TWICE A DAY November 28, 2018 12:00am Start: 06-06-2017 End: 02-09-2023 metFORMIN ER (GLUCOPHAGE XR) 500 mg 24 hr tablet 500 mg. Take one tablet am and one tablet pm 0 06/06/2017 02/09/2023 Discontinued Start: 06-06-2017 metFORMIN ER ( GLUCOPHAGE XR) 500 mg 24 hr tablet 0 06/06/2017 Active Comment on above: [facility]. Take one tablet am and one tablet pm 500 mg. Take one tab let am and one tablet pm Rsucf-1-UPZ-EPA-Fis h Oil (FISH OIL) 1,000 mg (120 mg-180 mg) cap (20 sources) Start: 04-17-2023 take 1 capsule by mouth twice daily Yqvkl-9-RMH-EPA-Fi sh Oil (FISH OIL) 1,000 mg (120 mg-180 mg) cap Take 1 capsule by mouth two times a day. 04/17/2023 Active Start: 04-17-2023 take 1 capsule by [facility] twice daily Zjwdk-4-YRS-EPA-Fish Oil (FISH OIL) 1,000 mg (120 mg-180 mg) cap Take 1 capsule by mouth two times a day. 0 04/17/2023 Active Comment on above: Take 1 capsule by [facility] two times a day. sulfamethoxazole 800 mg / trimethoprim 160 mg oral tablet (1 source) Dihydrofolate Reductase Inhibitor Antibacterial, Sulfonamide Antimicrobial Start: End: 4 take 1 tablet by mouth twice daily sulfamethoxazo le-trimethopri m (BACTRIM DS) 800-160 mg per tablet Take 1 tablet by mouth two times a day for 14 days. 28 tablet 0 09/15/2023 09/29/2023 Active Completed/Discontinued Medications Medication Drug Class(es) Dates Sig (Normalized) Sig (Original) [id number] 200 actuat albuterol 0.09 mg/actuat metered dose inhaler (5 sources) beta2-Adrenergic Agonist Start: 06-03-2024 End: 10-23-2024 take 2 puff(s) by inhalation every four hours as needed for wheezing albuterol HFA (PROVENTIL HFA, VENTOLIN HFA) 90 mcg/actuation inhaler Inhale 2 Puffs as instructed every 4 hours as needed for wheezing/shortness of breath. 1 Each 06/03/2024 10/23/2024 Discontinued (Course of therapy completed) benzonatate 200 mg oral capsule (5 sources) Non-narcotic Antitussive Start: 06-03-2024 End: 10-23-2024 take 1 capsule by mouth every eight hours as needed Benzonatate 200 mg capsule Take 1 capsule by mouth three times a day as needed. 30 capsule 06/03/2024 10/23/2024 Discontinued (Course of therapy completed) cetirizine hydrochloride 10 mg oral tablet (4 sources) Histamine-1 Receptor Antagonist Start: 09-29-2022 End: 04-17-2023 take 1 tablet by mouth once daily cetirizine (ZYRTEC) 10 mg tablet Indications: Disorder of tympanic membrane of left ear Take 1 tablet by mouth once daily. 30 tablet 1 09/29/2022 04/17/2023 Discontinued Comment on above: Take 1 tablet by ronak th once daily. fluticasone propionate 0.05 mg/actuat metered [...] use. phenylephrine hydrochloride 25 mg/ml ophthalmic solution (4 sources) alpha-1 Adrenergic Agonist Start: 11-04-2024 End: 11-04-2024 PHENYLephrine 2.5 % 1 drop (AK-DILATE, RIDDHI-SYNEPHRINE) Start: 11-04-2024 End: 11-04-2024 1 drop, BOTH EYES, ONCE, 1 d ose, On Mon11/04/24 at 1730, FOR OPHTHALMIC USE ONLY PROTECT FROM LIGHT Start: 10-30-2023 End: 10-30-2023 PHENYLephrine 2.5 % 1 Drop ( AK-DILATE, RIDDHI-SYNEPHRINE) proparacaine hydrochloride 5 mg/ml ophthalmic solution (4 sources) Local Anesthetic Start: 11-04-2024 End: 06-30-2025 proparacaine 0.5 % 1 drop (ALCAINE) Start: 11-04-2024 End: 11-04-2024 1 drop, BOTH EYES, ONCE, 1 d ose, On Mon11/04/24 at 1730, FOR THE EYE Start: 10-30-2023 End: 10-30-2023 proparacaine 0.5 % 1 Drop (A LCAINE) tropicamide 10 mg/ml ophthalmic solution (4 sources) Anticholinergic Start: 11-04-2024 End: 11-04-2024 tropicamide 1 % 1 drop (MYDRIACYL) Start: 11-04-2024 End: 11-04-2024 1 drop, BOTH EYES, ONCE, 1 d ose, On Mon11/04/24 at 1730, FOR THE EYE Start: 10-30-2023 End: 10-30-2023 tropicamide 1 % 1 Drop (MYDR IACYL) Problems Active Problems Problem Classification Problem Date Documented Da te Episodic/Chronic Diabetes mellitus without complication (20 sources) Diabetes mellitus type 2 without retinopathy; Translations: [Type 2 diabetes mellitus without complications] Onset: 07-22-2017 Chronic Disorders of lipid metabolism (20 sources) Mixed hyperlipidemia; Translations: [Mixed hyperlipidemia] Onset: 10-12-2022 10-12-2022 Chronic Genitourinary symptoms and ill-defined conditions (1 source) Delay when starting to pass urine; Translations: [Hesitancy of micturition] 09-15-2023 Episodic Immunizations and screening for infectious disease (2 sources) Vaccination needed; Translations: [Encounter for immunization] Onset: 10-23-2024 10-23-2024 Episodic Other connective tissue disease (4 sources) Pain of toes of bilateral feet; Translations: [Pain in right toe(s)] Onset: 10-23-2024 10-23-2024 Episodic Other connective tissue disease (1 source) Pain in right toe(s); Translations: [Pain in toes of both feet] Onset: 10-23-2024 Episodic Other connective tissue disease (1 source) Pain in left toe(s); Translations: [Pain in toes of both feet] Onset: 10-23-2024 Episodic Other lower respiratory disease (2 sources) Lower respiratory tract infection; Translations: [Unspecified acute lower respiratory infection] 06-03-2024 Episodic Other lower respiratory disease (2 sources) Cough; Translations: [Acute cough] 06-03-2024 Episodic Other screening for suspected conditions (not mental disorders or infectious disease) (20 sources) Patient encounter status; Translations: [Encounter for screening for malignant neoplasm of prostate] Onset: 10-12-2022 10-12-2022 Episodic Otitis media and related conditions (1 source) Acute otitis media; Translations: [Otitis media, unspecified, unspecified ear] Episodic Residual codes; unclassified (4 sources) FH: premature coronary heart disease; Translations: [Family history of ischemic heart disease and other diseases of the circulatory system] Onset: 10-23-2024 10-23-2024 Episodic Residual codes; unclassified (2 sources) Family history of ischemic heart disease and other diseases of the circulatory system; Translations: [Family history of ischemic heart disease and other diseases of the circulatory system] Onset: 10-23-2024 Episodic Screening and history of mental health and substance abuse codes (2 sources) Encounter for screening examination for other mental health and behavioral disorders; Translations: [Encounter for screening for depression] Onset: 10-23-2024 Episodic Unclassified (1 source) Acute cough; Translations: [Acute cough] Onset: 06-03-2024 Past or Other Problems Problem Classification Problem Date Documented Da te Episodic/Chronic Blindness and vision defects (20 sources) Bilateral myopia of eyes; Translations: [Myopia, bilateral] Onset: 08-23-2014 Episodic Other eye disorders (2 sources) Marginal corneal ulcer of right eye; Translations: [Marginal corneal ulcer, right eye] Onset: 09-08-2017 09-08-2017 Episodic Other lower respiratory disease (1 source) Unspecified acute lower respiratory infection; Translations: [Lower resp. tract infection] Onset: 06-03-2024 Episodic Unclassified (1 source) Patient encounter status 10-25-2024 Results Test Name Value Interpretation Reference Range Facility [facility] 10-24-2024 [facility] ROB CORREIA ([id number]) 1965 M Date Time Provider Department 10/24/24 ALDO BUTCHER During your visit today, we recorded the following information about you: Anjana Hsu RN 10/24/2024 10:37 AM Signed Polly from [facility] Scheduling calls and states that they received order for CT calcium scoring test. Patient does not qualify for Junior. New order needs to be sent over that takes out the Junior. ELVIE Carrillo Danielle, DE ICER INSTALLER.KILN TENDER 10/25/2024 1:53 PM Signed New order placed. Please fax to [facility] and notify patient. Rafia Bess RN 10/28/2024 10:08 AM Signed Hannah with [facility] Radiology called to say patient does not qualify for Junior for Calcium scoring test as he isn't over 60 years of age. Faxed new order over to scheduling at [phone]. Rafia Bess RN Allergies As of Date: 10/24/2024 (No Known Allergies) Date Reviewed: 10/23/2024 Reviewed by: Aldo Butcher MD - Fully Assessed Reason for Visit: Results [95] Primary Visit Diagnosis:Encounter for screening for cardiovascular disorders [Z13.6] Order(s):CT CALCIUM SCORING (CARDIAC) [facility] [[id number]] Order #: [id number] FUTURE Prescriptions as of 10/28/2024 - atorvastatin (LIPITOR) 20 mg tablet Take 1 tablet by mouth once daily. Take 1 tablet daily - metFORMIN ER (GLUCOPHAGE XR) 500 mg 24 hr tablet Take 1 tablet by mouth two times a day before meals. - cyanocobalamin, vitamin B-12, (VITAMIN B-12 ORAL) Take by mouth once daily. - glucosamine/chondroit in/C/Nacho (GLUCOSAMINE-CHONDROI TIN COMPLX ORAL) Take by mouth once daily. - Lkeht-4-QOV-EPA-Fish Oil (FISH OIL) 1,000 mg (120 mg-180 mg) cap Take 1 capsule by mouth two times a day. Problem List As Of Date 10/24/2024 Noted Resolved Myopia [H52.10] 08/23/2014 Regular astigmatism [H52.229] 08/23/2014 Presbyopia [H52.4] 08/23/2014 Controlled type 2 diabetes mellitus without com*07/22/2017 Hyperlipidemia, mixed [E78.2] 10/12/2022 Screening for prostate cancer [Z12.5] 10/12/2022 Well adult exam [Z00.00] 10/12/2022 Pain in toes of both feet [M79.674, M79.675] 10/23/2024 Family history of early CAD [Z82.49] 10/23/2024 Encounter Status:Closed by RAFIA BESS on 10/28/24 [facility] CNOVon 10-23-2024 CNOV Office Visit (FAMPWS ) PARAGMILDREDHARSHILROB Jean ([id number]) 1965 M Date Time Provider Department 10/23/24 8:00 AM [facility] BUT[facility] During your visit today, we recorded the following information about you: Pulse Respiration Blood pressure Weight 67/minute 16/minute 132/80 79.8 kg Height 1.753 m Aldo Butcher MD 10/23/2024 9:37 PM Signed Chief Complaint Patient presents with: Physical HPI Rob Jean Correia is a 59 year old male who presents here today for Physical and chronic health issues. Patient with hx of DM2, hyperlipidemia, and those as below. 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 He has been trying to watch his diet, cutting out snacks and soda, and eating whole grain bread. He denies recent fevers, frequent headaches, changes in hearing or vision, issues with his nose or throat, lumps or swelling in his neck, wheezing, dyspnea, hemoptysis, chest pain, palpitations, leg swelling, nausea, emesis, diarrhea, heartburn, hematuria, or dysuria. He also denies skin lesions, rashes, or sores, easy bruising or bleeding, changes in heat or cold tolerance, and symptoms of hypoglycemia, syncope, seizures, or tremors. He has not been checking his blood sugar regularly. 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 He also has a history of chickenpox. He denies any recent surgeries and is not aware of any new health issues in his blood relatives. His mother is still living, but his grandparents are . His sister 20 years ago due to trauma from being thrown off a horse. His father had colon cancer, which was successfully treated with surgery. He has a family history of DM and HTN, with his brother on antihypertensive medication but not diabetic, and his father having both conditions. His uncle on his father's side at 58 or 59 years old from a massive DC, and his cousin recently had stents placed at around 50 years old. Rob reports neuropathic pain in his feet, mainly in his toes, which he attributes to DM. The pain is described as a burning sensation and is alleviated by removing his shoes. He wears tennis shoes at home instead of work shoes, which helps reduce the pain. He denies any new or unusual aches and pains besides the neuropathic pain in his feet. He has not noticed any decreased interest or pleasure in activities he enjoys, nor has he been feeling down or blue, except for being affected by the weather. Past medical history, appointments, medications, allergies reviewed. [...] a hourse Coronary Artery Disease Paternal Grandmother DC Coronary Artery Disease Paternal Grandfather DC Coronary Artery Disease Paternal Uncle Glaucoma No [...] on File Prior to Visit Medication Sig Benzonatate 200 mg capsule Take 1 capsule by mouth three times a day as needed. albuterol HFA (PROVENTIL HFA, VENTOLIN HFA) 90 mcg/actuation inhaler Inhale 2 Puffs as instructed every 4 hours as needed for wheezing/shortness of breath. atorvastatin (LIPITOR) 20 mg tablet Take 1 tablet by mouth once daily. Take 1 tablet daily metFORMIN ER (GLUCOPHAGE XR) 500 mg 24 hr tablet Take 1 tablet by mouth two times a day before meals. cyanocobalamin, vitamin B-12, (VITAMIN B-12 ORAL) Take by mouth once daily. glucosamine/chondroit in/C/Nacho (GLUCOSAMINE-CHONDROI TIN COMPLX ORAL) Take by mouth once da (more content not included)... Normal [facility] Absolute lymphocyte countOrd ered By: Corina Gomes on 10-10-2024 Lymphocytes Auto (Unsp spec) [#/Vol] 2.07 10*3/uL 0.83-4.51 [facility] Absolute neutrophil countOrd ered By: Corina Gomes on 10-10-2024 Neutrophils (Bld) [#/Vol] 4.4 10*3/uL 2.0-7.7 [facility] Anion gap in Serum or Plasma Ordered By: Corina Gomes on 10-10-2024 Anion gap [Moles/Vol] 11 mmol/L 5-15 [facility] Automated blood erythrocyte countOrdered By: Corina Gomes on 10-10-2024 RBC (Bld) [#/Vol] 4.64 10*6/uL [facility] Automated blood hematocrit ( percentage)Ordered By: Corina Gomes on 10-10-2024 Hematocrit (Bld) [Volume fraction] 40.5 % 37.5 - 51.0 % [facility] Automated lymphocyte count a s percentage of total leukocytesOrdered By: Corina Gomes on 10-10-2024 Lymphocytes/100 WBC Auto (Unsp spec) 28.5 % 19- [facility] BUN/creatinine ratioOrdered By: Corina Gomes on 10-10-2024 Urea nitrogen/Creatinine [Mass ratio] 11.4 mg/mg 10- [facility] Basophil percentageOrdered B y: Corina Gomes on 10-10-2024 Basophils/100 WBC (Bld) 0.4 % [facility] Bil[facility] Test strip Ql (U)O rdered By: Corina Gomes on 10-10-2024 Bilirubin Ql (U) Negative Negative [facility] Bilirubin, totalOrdered By: Corina Gomes on 10-10-2024 Bilirubin [Mass/Vol] 0.68 mg/dL 0.00-1.30 [facility] CBC W/DIFF/PLT (EXTERNAL LAB KARLOS)on 10-10-2024 BASO ABSOLUTE [facility] EOS ABSOLUTE [facility] Immature Gran % [facility] IMMATURE GRANS ABSOLUTE [facility] LYMPHS ABSOLUTE 2.07 [facility] MCH 30 Pg 26.6 - 33 Pg [facility] MCHC (RBC) [Mass/Vol] 34.4 g/dL 31.5 - 35.7 g/dL [facility] MONOCYTES ABSOLUTE [facility] NEUTROPHILS ABSOLUTE 4.4 [facility] CBC W/Diff, Automatedon Absolute Lymph 2.07 X10 3/uL Normal 0.83-4.51 [facility] Comment on above: Performed By: #### L 501.9985, L500.4050, L400.0001, L501.9910, L502.0250, L500.4100, L100.0100 #### [facility] Laboratory [address] [place], [address] Absolute Neut 4.4 X10 3/uL Normal 2.0-7.7 [facility] Comment on above: Performed By: #### L 501.9985, L500.4050, L400.0001, L501.9910, L502.0250, L500.4100, L100.0100 #### [facility] Laboratory [address] [place], [address] Basophils/100 WBC (Bld) 0.4 % Normal 0-1 [facility] Comment on above: Performed By: #### L 501.9985, L500.4050, L400.0001, L501.9910, L502.0250, L500.4100, L100.0100 #### [facility] Laboratory [address] [place], [address] Eosinophils/100 WBC (Bld) 1.2 % Normal 0-5 [facility] Comment on above: Performed By: #### L 501.9985, L500.4050, L400.0001, L501.9910, L502.0250, L500.4100, L100.0100 #### [facility] Laboratory [address] [place], [address] Erythrocyte distribution width (RBC) [Ratio] 12.1 % Normal 11.6-14.6 [facility] Comment on above: Performed By: #### L 501.9985, L500.4050, L400.0001, L501.9910, L502.0250, L500.4100, L100.0100 #### [facility] Laboratory [address] [place], [address] Hematocrit (Bld) [Volume fraction] 40.5 % Normal 40-54 [facility] Comment on above: Performed By: #### L 501.9985, L500.4050, L400.0001, L501.9910, L502.0250, L500.4100, L100.0100 #### [facility] Laboratory [address] [place], [address] Hemoglobin (Bld) [Mass/Vol] 13.9 g/dL Normal 13.0-16.5 [facility] Comment on above: Performed By: #### L 501.9985, L500.4050, L400.0001, L501.9910, L502.0250, L500.4100, L100.0100 #### [facility] Laboratory [address] [place], [address] IG% 0.300 Normal 0.0-0.9 [facility] Comment on above: Result Comment: IG% - Immature Granulocytes (promyelocytes, myelocytes and metamyelocytes) > 1% indicates that a LEFT SHIFT is Present. Performed By: #### L 501.9985, L500.4050, L400.0001, L501.9910, L502.0250, L500.4100, L100.0100 #### [facility] Laboratory [address] [place], [address] Lymphocytes/100 WBC (Bld) 28.5 % Normal 19-41 [facility] Comment on above: Performed By: #### L 501.9985, L500.4050, L400.0001, L501.9910, L502.0250, L500.4100, L100.0100 #### [facility] Laboratory [address] [place] [place], [address] MCH (RBC) [Entitic mass] 30.0 pg Normal 27.0-32.0 [facility] Comment on above: Performed By: #### L 501.9985, L500.4050, L400.0001, L501.9910, L502.0250, L500.4100, L100.0100 #### [facility] Laboratory [address] [place], [address] MCHC (RBC) [Mass/Vol] 34.3 g/dL Normal 32-36 [facility] Comment on above: Performed By: #### L 501.9985, L500.4050, L400.0001, L501.9910, L502.0250, L500.4100, L100.0100 #### [facility] Laboratory [address] [place], [address] MCV (RBC) [Entitic vol] 87.3 fL Normal 80-94 [facility] Comment on above: Performed By: #### L 501.9985, L500.4050, L400.0001, L501.9910, L502.0250, L500.4100, L100.0100 #### [facility] Laboratory [address] [place], [address] Monocytes/100 WBC (Bld) 9.2 % Normal 0-10 [facility] Comment on above: Performed By: #### L 501.9985, L500.4050, L400.0001, L501.9910, L502.0250, L500.4100, L100.0100 #### [facility] Laboratory [address] [place], [address] Neutrophils/100 WBC (Bld) 60.4 % Normal 47-70 [facility] Comment on above: Performed By: #### L 501.9985, L500.4050, L400.0001, L501.9910, L502.0250, L500.4100, L100.0100 #### [facility] Laboratory [address] [place], [address] Nucleated RBC (Bld) [#/Vol] 0 10*3/uL Normal 0-5 [facility] Comment on above: Performed By: #### L 501.9985, L500.4050, L400.0001, L501.9910, L502.0250, L500.4100, L100.0100 #### [facility] Laboratory [address] [place], [address] Platelet mean volume (Bld) [Entitic vol] 9.6 fL Normal 6.2-12.0 [facility] Comment on above: Performed By: #### L 501.9985, L500.4050, L400.0001, L501.9910, L502.0250, L500.4100, L100.0100 #### [facility] Laboratory [address] [place], [address] Platelets (Bld) [#/Vol] 240 10*3/uL Normal 150-450 [facility] Comment on above: Performed By: #### L 501.9985, L500.4050, L400.0001, L501.9910, L502.0250, L500.4100, L100.0100 #### [facility] Laboratory [address] [place], [address] RBC (Bld) [#/Vol] 4.64 10*6/uL Normal 4.6-6.2 [facility] Comment on above: Performed By: #### L 501.9985, L500.4050, L400.0001, L501.9910, L502.0250, L500.4100, L100.0100 #### [facility] Laboratory [address] [place], [address] RDW SD 38.8 fl Normal 35.1-43.9 [facility] Comment on above: Performed By: #### L 501.9985, L500.4050, L400.0001, L501.9910, L502.0250, L500.4100, L100.0100 #### [facility] Laboratory [address] [place], [address] WBC (Bld) [#/Vol] 7.3 10*3/uL Normal 4.4-11.[address] [facility] Comment on above: Performed By: #### L 501.9985, L500.4050, L400.0001, L501.9910, L502.0250, L500.4100, L100.0100 #### [facility] Laboratory [address] [place], [address] CMP (EXTERNAL)on 10-10-2024 Alk Phos Total 65 U/L 45 - 117 U/L [facility] Bili Total 0.68 mg/dL 0.2 - 1 mg/dL [facility] GFR 89 mL/MIN [facility] GFR AFR AMER [facility] K 4.0- 3.5 - 5.1 mmol/L [facility] Calculated very low density lipoprotein (VLDL) cholesterol measurementOrdered By: Corina Gomes on 10-10-2024 Calculated very low density lipoprotein (VLDL) cholesterol measurement 15 mg/dL 5-40 [facility] Carbon dioxide, total [Moles /volume] in Central venous bloodOrdered By: Corina Gomes on 10-10-2024 CO2 [Moles/Vol] 24.2 mmol/L [facility] Chloride assayOrdered By: Ra leonard Gomes on 10-10-2024 Chloride [Moles/Vol] 98 mmol/L [facility] Comprehensive Metabolic Prof ilon 10-10-2024 Albumin [Mass/Vol] 4.1 g/dL Normal 3.5-5.[address] [facility] Comment on above: Performed By: #### L 501.9985, L500.4050, L400.0001, L501.9910, L502.0250, L500.4100, L100.0100 #### [facility] [address] [place], [address] Albumin/Globulin [Mass ratio] 1.4 {ratio} Normal 0.9-2.4 [facility] Comment on above: Performed By: #### L 501.9985, L500.4050, L400.0001, L501.9910, L502.0250, L500.4100, L100.0100 #### [facility] Laboratory [address] [place], [address] ALK PHOS 65 U/L Normal 40-129 [facility] Comment on above: Performed By: #### L 501.9985, L500.4050, L400.0001, L501.9910, L502.0250, L500.4100, L100.0100 #### [facility] [address] [place], [address] ALT [Catalytic activity/Vol] 26 U/L Normal <=46 [facility] Comment on above: Performed By: #### L 501.9985, L500.4050, L400.0001, L501.9910, L502.0250, L500.4100, L100.0100 #### [facility] Laboratory [address] [place], [address] AST [Catalytic activity/Vol] 25 U/L Normal <=37 [facility] Comment on above: Performed By: #### L 501.9985, L500.4050, L400.0001, L501.9910, L502.0250, L500.4100, L100.0100 #### [facility] Laboratory [address] [place], [address] Bilirubin [Mass/Vol] 0.68 mg/dL Normal 0.00-1.30 [facility] Comment on above: Performed By: #### L 501.9985, L500.4050, L400.0001, L501.9910, L502.0250, L500.4100, L100.0100 #### [facility] Laboratory [address] [place], [address] BUN/CRE 11.4 RATIO Normal 10-20 [facility] Comment on above: Performed By: #### L 501.9985, L500.4050, L400.0001, L501.9910, L502.0250, L500.4100, L100.0100 #### [facility] Laboratory [address] [place], [address] Calcium [Mass/Vol] 9.2 mg/dL Normal 7.6-11.[address] [facility] Comment on above: Performed By: #### L 501.9985, L500.4050, L400.0001, L501.9910, L502.0250, L500.4100, L100.0100 #### [facility] Laboratory [address] [place], [address] Chloride [Moles/Vol] 98 mmol/L Normal 98-108 [facility] Comment on above: Performed By: #### L 501.9985, L500.4050, L400.0001, L501.9910, L502.0250, L500.4100, L100.0100 #### [facility] Laboratory [address] [place], [address] CO2 [Moles/Vol] 24.2 mmol/L Normal 21.0-32.0 [facility] Comment on above: Performed By: #### L 501.9985, L500.4050, L400.0001, L501.9910, L502.0250, L500.4100, L100.0100 #### [facility] Laboratory [address] [place], [address] Creatinine [Mass/Vol] 0.99 mg/dL Normal 0.70-1.20 [facility] Comment on above: Performed By: #### L 501.9985, L500.4050, L400.0001, L501.9910, L502.0250, L500.4100, L100.0100 #### [facility] Laboratory [address] [place], [address] GAP 11 Normal 5-15 [facility] Comment on above: Performed By: #### L 501.9985, L500.4050, L400.0001, L501.9910, L502.0250, L500.4100, L100.0100 #### [facility] Laboratory [address] [place], [address] GFR/1.73 sq M.predicted among non-blacks MDRD (S/P/Bld) [Vol rate/Area] 89 mL/min/{1.73_m2} Normal >60 [facility] Comment on above: Result Comment: mL/m in/1.73m2 CKD-EPI Creatinine Equation (2020) Performed By: #### L 501.9985, L500.4050, L400.0001, L501.9910, L502.0250, L500.4100, L100.0100 #### [facility] Laboratory [address] [place], [address] Globulin (S) [Mass/Vol] 2.9 g/dL Normal 2.2-4.2 [facility] Comment on above: Performed By: #### L 501.9985, L500.4050, L400.0001, L501.9910, L502.0250, L500.4100, L100.0100 #### [facility] Laboratory [address] [place], [address] Glucose [Mass/Vol] 108 mg/dL High 70-[address] [facility] Comment on above: Performed By: #### L 501.9985, L500.4050, L400.0001, L501.9910, L502.0250, L500.4100, L100.0100 #### [facility] Laboratory [address] [place], [address] Potassium [Moles/Vol] 4.0 mmol/L Normal 3.3-5.1 [facility] Comment on above: Performed By: #### L 501.9985, L500.4050, L400.0001, L501.9910, L502.0250, L500.4100, L100.0100 #### [facility] Laboratory [address] [place], [address] Sodium [Moles/Vol] 134 mmol/L Normal 133-[address] [facility] Comment on above: Performed By: #### L 501.9985, L500.4050, L400.0001, L501.9910, L502.0250, L500.4100, L100.0100 #### [facility] [address] [place], [address] T PROT 7.1 g/dL Normal 5.9-8.4 [facility] Comment on above: Performed By: #### L 501.9985, L500.4050, L400.0001, L501.9910, L502.0250, L500.4100, L100.0100 #### [facility] Laboratory [address] [place], [place], [id number] Urea nitrogen [Mass/Vol] 11 mg/dL Normal 4-19 [facility] Comment on above: Performed By: #### L 501.9985, L500.4050, L400.0001, L501.9910, L502.0250, L500.4100, L100.0100 #### [facility] Laboratory [address] [place], [place], [id number] Eosinophil percentageOrdered By: Corina Gomes on 10-10-2024 Eosinophils/100 WBC (Bld) 1.2 % [facility] Erythrocyte distribution wid th ratioOrdered By: Corina Gomes on 10-10-2024 Erythrocyte distribution width (RBC) [Ratio] 12.1 % 11.6 - 14.6 % [facility] Erythrocyte distribution wid th standard deviationOrdered By: Corina Gomes on 10-10-2024 Erythrocyte distribution width (RBC) [Ratio] 38.8 fl 35.1-43.9 [facility] Glomerular filtration rate ( GFR) estimation/1.73 sq m using serum, plasma, or whole bOrdered By: Corina Gomes on 10-10-2024 GFR/1.73 sq M.predicted among non-blacks MDRD (S/P/Bld) [Vol rate/Area] 89 mL/min/{1.73_m2} >60 [facility] Comment on above: mL/min/1.73m2 CKD-EP I Creatinine Equation (2020) HEMOGLOBIN A1C (EXTERNAL)on 10-10-2024 HbA1c (Bld) [Mass fraction] 7 % Abnormal 0 - 5.7 % [facility] Hemoglobin A1con 10-10-2024 HbA1c (Bld) [Mass fraction] 7.0 % High <=5.6 [facility] Comment on above: Result Comment: Norm al < 5.7 % Prediabetic 5.7 - 6.4 % Diabetic >or= 6.5 % Please note range changes. Performed By: #### L 501.9985, L500.4050, L400.0001, L501.9910, L502.0250, L500.4100, L100.0100 #### [facility] Laboratory [address] [place], [address] Hemoglobin A1c percentageOrd ered By: Corina Gomes on 10-10-2024 HbA1c (Bld) [Mass fraction] 7.0 % High <5.7 [facility] Comment on above: Normal < 5.7 % Predi abetic 5.7 - 6.4 % Diabetic >or= 6.5 % Please note range changes. Hemoglobin measurementOrdere d By: Corina Gomes on 10-10-2024 Hemoglobin (Bld) [Mass/Vol] 13.9 g/dL 12.6 - 17.7 g/dL [facility] Immature granulocytes/100 WB C Auto (Bld)Ordered By: Corina Gomes on 10-10-2024 Immature granulocytes/100 WBC (Bld) 0.300 % 0.0-0.9 [facility] Comment on above: IG% - Immature Granu locytes (promyelocytes, myelocytes and metamyelocytes) > 1% indicates that a LEFT SHIFT is Present. Ketones Test strip Ql (U)Ord ered By: Corina Gomes on 10-10-2024 Ketones Ql (U) Negative Negative [facility] LDL calc ser/plasOrdered By: Corina Gomes on 10-10-2024 Cholesterol in LDL [Mass/Vol] 77 mg/dL - 100 [facility] Comment on above: Vvshgazkkr=209-526 m g/dL & Higher Fixx=190 mg/dL or greater LIPID PANEL (OUTSIDE)on LDL:HDL Ratio [facility] Non-HDL Cholesterol [facility] TC:HDL Ratio [facility] VLDL Cholesterol [facility] Laboratory - Chemistry and C hemistry - challengeOrdered By: Corina Gomes on 10-10-2024 AST [Catalytic activity/Vol] 25 U/L 8 - 37 U/L [facility] Lipid Profileon 10-10-2024 CHOL:HDL 2.58 Normal [facility] Comment on above: Performed By: #### L 501.9985, L500.4050, L400.0001, L501.9910, L502.0250, L500.4100, L100.0100 #### [facility] Laboratory [address] [place], [address] Cholesterol [Mass/Vol] 149 mg/dL Normal <=200 [facility] Comment on above: Result Comment: Chol esterol level, Desirable <200 mg/dL Borderline high cholesterol 200-239 mg/dL High cholesterol >=240 mg/dL Recommendations of the NCEP Adult Treatment Panel for the following risk-cutoff thresholds for the [place] population. Performed By: #### L 501.9985, L500.4050, L400.0001, L501.9910, L502.0250, L500.4100, L100.0100 #### [facility] Laboratory [address] [place], [address] Cholesterol in HDL [Mass/Vol] 58 mg/dL Normal [facility] Comment on above: Result Comment: Marlyn onal Cholesterol Education Program (NCEP) guidelines: <40 mg/dL: Low HDL-cholesterol (major risk factor for CHD) >= 60 mg/dL: High HDL-cholesterol (negative risk factor for CHD) HDL-cholesterol is affected by a number of factors, e.g. smoking, exercise, hormones, sex and age. Performed By: #### L 501.9985, L500.4050, L400.0001, L501.9910, L502.0250, L500.4100, L100.0100 #### [facility] Laboratory [address] [place], [address] Cholesterol in LDL [Mass/Vol] 77 mg/dL Normal [facility] Comment on above: Result Comment: Bord etwceb=479-651 mg/dL Higher Lict=377 mg/dL or greater Performed By: #### L 501.9985, L500.4050, L400.0001, L501.9910, L502.0250, L500.4100, L100.0100 #### [facility] Laboratory [address] [place], [address] Cholesterol in VLDL [Mass/Vol] 15 mg/dL Normal 5-40 [facility] Comment on above: Performed By: #### L 501.9985, L500.4050, L400.0001, L501.9910, L502.0250, L500.4100, L100.0100 #### [facility] Laboratory [address] [place], [address] Triglyceride [Mass/Vol] 73 mg/dL Normal [facility] Comment on above: Result Comment: The drugs N-Acetylcysteine and Metamizole may falsely depress this assay. Normal range: <150 mg/dL Borderline High: 150-199 mg/dL High: 200-499 mg/dL Very High: >500 mg/dL Performed By: #### L 501.9985, L500.4050, L400.0001, L501.9910, L502.0250, L500.4100, L100.0100 #### [facility] Laboratory [address] [place], [place], [id number] MCV (mean corpuscular volume ) determinationOrdered By: Corina Gomes on 10-10-2024 MCV (RBC) [Entitic vol] 87.3 fL 79 - 97 fL [facility] MICROALBUMIN/CREATININE UR W RATIO (EXTERNAL)on 10-10-2024 Albumin/Creat Ratio [facility] Creatinine Urine 92.1 [facility] Microalbumin, Random urine 12 [facility] Mean corpuscular hemoglobin (MCH) determinationOrdered By: Corina Gomes on 10-10-2024 MCH (RBC) [Entitic mass] 30.0 pg 27.0-32.0 [facility] Mean corpuscular hemoglobin concentration (MCHC) determinationOrdered By: Corina Gomes on 10-10-2024 MCHC (RBC) [Mass/Vol] 34.3 g/dL 32-36 [facility] Mean platelet volume determi nationOrdered By: Corina Gomes on 10-10-2024 Platelet mean volume (Bld) [Entitic vol] 9.6 fL 6.2-12.0 [facility] Microalb:Creat Ratio,Random URon 10-10-2024 Creatinine [Mass/Vol] 92.10 mg/dL Normal 39.00-259.00 [facility] Comment on above: Performed By: #### L 501.9985, L500.4050, L400.0001, L501.9910, L502.0250, L500.4100, L100.0100 #### [facility] Laboratory [address] [place], [place], [id number] MALB:CREAT UNABLE TO CALCULATE Normal [facility] Comment on above: Performed By: #### L 501.9985, L500.4050, L400.0001, L501.9910, L502.0250, L500.4100, L100.0100 #### [facility] Laboratory [address] [place], [place], [id number] MICROALBUMIN,UR < 12.0 Normal NO RANGE EST. [facility] Comment on above: Performed By: #### L 501.9985, L500.4050, L400.0001, L501.9910, L502.0250, L500.4100, L100.0100 #### [facility] Laboratory [address] [place], [place], [id number] Microalbumin/creat ratio urO rdered By: Corina Gomes on 10-10-2024 Urine microalbumin/creatinine ratio measurement UNABLE TO CALCULATE mg/g CRE [facility] Microscopic analysis of urin e for red blood cells (RBC)Ordered By: Corina Gomes on 10-10-2024 Microscopic analysis of urine for red blood cells (RBC) 0 SEEN /hpf 0-5 [facility] Monocyte percentageOrdered B y: Corina Gomes on 10-10-2024 Monocytes/100 WBC (Bld) 9.2 % [facility] Mucus LM Ql (Urine sed)Order ed By: Corina Gomes on 10-10-2024 Mucus Ql (Urine sed) 0 SEEN /hpf [facility] Neutrophil percentageOrdered By: Corina Gomes on 10-10-2024 Neutrophils/100 WBC (Bld) 60.4 % [facility] Nitrite Test strip Ql (U)Ord ered By: Corina Gomes on 10-10-2024 Nitrite Ql (U) Negative Negative [facility] No Panel Informationon 10-10 Interpretation and review of laboratory results Abnormal [facility] Nucleated red blood cell per centageOrdered By: Corina Gomes on 10-10-2024 Nucleated RBC/100 WBC (Bld) [Ratio] 0 % 0-5 [facility] PSA,Total - Annual Screenon 10-10-2024 PSA,TOT SCREEN 2.03 ng/mL Normal 0.02-4.00 [facility] Comment on above: Result Comment: This test was performed using the [employer] tPSA method. Measured values of a patient??sample can vary depending on the testing procedure used. PSA values determined on patient samples by different testing procedures cannot be used interchangeably. If there is a change in PSA assays while monitoring therapy, sequential testing should be performed to confirm baseline values. Performed By: #### L 501.9985, L500.4050, L400.0001, L501.9910, L502.0250, L500.4100, L100.0100 #### [facility] Laboratory [address] [place] [address]. [place], [place], [id number] Platelet countOrdered By: Ra leonard Gomes on 10-10-2024 Platelets (Bld) [#/Vol] 240 10*3/uL [facility] Potassium measurement (mass/ volume)Ordered By: Corian Gomes on 10-10-2024 Potassium (Unsp spec) [Mass/Vol] 4.0 mmol/L 3.3-5.1 [facility] Protein Test strip Ql (U)Ord ered By: Corina Gomes on 10-10-2024 Protein Ql (U) 15 mg/dl High Negative [facility] Random urine creatinine alan urement (mass/volume)Ordered By: Corina Gomes on 10-10-2024 Creatinine Unsp time (U) [Mass/Vol] 92.10 mg/dL 39.00-259.00 [facility] Screening total cholesterol/ high density lipoprotein (HDL) cholesterol ratioOrdered By: Corina Gomes on 10-10-2024 Cholesterol.total/Choles terol in HDL [Mass ratio] 2.58 {ratio} [facility] Serum creatinine measurement (mass/volume)Ordered By: Corina Gomes on 10-10-2024 Creatinine [Mass/Vol] 0.99 mg/dL [facility] Serum globulin measurementOr dered By: Corina Gomes on 10-10-2024 Globulin (S) [Mass/Vol] 2.9 g/dL 2.2-4.2 [facility] Serum glucose measurement (m ass/volume)Ordered By: Corina Gomes on 10-10-2024 Glucose [Mass/Vol] 108 mg/dL Abnormal [facility] Serum or plasma alanine dow otransferase (ALT) measurementOrdered By: Corina Gomes on 10-10-2024 ALT [Catalytic activity/Vol] 26 U/L 12 - 78 U/L [facility] Serum or plasma albumin alan urement (mass/volume)Ordered By: Corina Gomes on 10-10-2024 Albumin [Mass/Vol] 4.1 g/dL [facility] Serum or plasma albumin/glob ulin mass ratioOrdered By: Corina Gomes on 10-10-2024 Albumin/Globulin [Mass ratio] 1.4 {ratio} 0.9-2.4 [facility] Serum or plasma alkaline richard sphatase measurementOrdered By: Corina Gomes on 10-10-2024 ALP [Catalytic activity/Vol] 65 U/L 40-129 [facility] Serum or plasma calcium alan urement (mass/volume)Ordered By: Corina Gomes on 10-10-2024 Calcium [Mass/Vol] 9.2 mg/dL 8.5 - 10. 1 mg/dL [facility] Serum or plasma cholesterol in HDL measurement (mass/volume)Ordered By: Corina Gomes on 10-10-2024 Cholesterol in HDL [Mass/Vol] 58 mg/dL 40 [facility] Comment on above: National Cholesterol Education Program (NCEP) guidelines:<40 mg/dL: Low HDL-cholesterol (major risk factor for CHD)>= 60 mg/dL: High HDL-cholesterol (negative risk factor for CHD)HDL-cholesterol is affected by a number of factors, e.g. smoking, exercise, hormones, sex and age. Serum or plasma cholesterol measurement (mass/volume)Ordered By: Corina Gomes on 10-10-2024 Cholesterol [Mass/Vol] 149 mg/dL - 200 [facility] Comment on above: Cholesterol level, D esirable <200 mg/dLBorderline high cholesterol 200-239 mg/dLHigh cholesterol >=240 mg/dLRecommendations of the NCEP Adult Treatment Panel for the following risk-cutoff thresholds for the [place] population. Serum or plasma urea nitroge n measurement (mass/volume)Ordered By: Corina Gomes on 10-10-2024 Urea nitrogen [Mass/Vol] 11 mg/dL [facility] Sodium levelOrdered By: Nancy Gomes on 10-10-2024 Sodium [Moles/Vol] 134 mmol/L Abnormal 136 - 145 mmol/L [facility] Squamous epithelial cells de tection in urine sediment by light microscopyOrdered By: Corina Gomes on 10-10-2024 Epithelial cells.squamous LM Ql (Urine sed) 0 SEEN /hpf 0-5 [facility] Total proteinOrdered By: Donald Gomes on 10-10-2024 Protein [Mass/Vol] 7.1 g/dL [facility] Triglycerides measurementOrd ered By: Corina Gomes on 10-10-2024 Triglyceride [Mass/Vol] 73 mg/dL - 150 [facility] Comment on above: The drugs N-Acetylcy steine and Metamizole may falsely depress this assay. Normal range: <150 mg/dLBorderline High: 150-199 mg/dLHigh: 200-499 mg/dLVery High: >500 mg/dL Urinalysis, Completeon 10-10 WBC 0-5 SEEN Normal 0-5 [facility] Comment on above: Order Comment: Urine , Random Performed By: #### L 501.9985, L500.4050, L400.0001, L501.9910, L502.0250, L500.4100, L100.0100 #### [facility] Laboratory [address] [place], [address] BACTERIA 1+ /hpf Normal None Seen [facility] Comment on above: Order Comment: Urine , Random Performed By: #### L 501.9985, L500.4050, L400.0001, L501.9910, L502.0250, L500.4100, L100.0100 #### [facility] Laboratory [address] [place], [address] BILIRUBIN URINE Negative Normal Negative [facility] Comment on above: Order Comment: Urine , Random Performed By: #### L 501.9985, L500.4050, L400.0001, L501.9910, L502.0250, L500.4100, L100.0100 #### [facility] Laboratory [address] [place], [address] Clarity (U) Clear Normal Clear [facility] Comment on above: Order Comment: Urine , Random Performed By: #### L 501.9985, L500.4050, L400.0001, L501.9910, L502.0250, L500.4100, L100.0100 #### [facility] [address] [place], [address] Color (U) Straw Normal Yellow [facility] Comment on above: Order Comment: Urine , Random Performed By: #### L 501.9985, L500.4050, L400.0001, L501.9910, L502.0250, L500.4100, L100.0100 #### [facility] [address] [place], [address] GLUCOSE, UR Normal Normal Normal [facility] Comment on above: Order Comment: Urine , Random Performed By: #### L 501.9985, L500.4050, L400.0001, L501.9910, L502.0250, L500.4100, L100.0100 #### [facility] [address] [place], [address] KETONE UR Negative Normal Negative [facility] Comment on above: Order Comment: Urine , Random Performed By: #### L 501.9985, L500.4050, L400.0001, L501.9910, L502.0250, L500.4100, L100.0100 #### [facility] [address] [place], [address] LEUK ESTERASE Negative Normal Negative [facility] Comment on above: Order Comment: Urine , Random Performed By: #### L 501.9985, L500.4050, L400.0001, L501.9910, L502.0250, L500.4100, L100.0100 #### [facility] [place], [place], [facility] Nitrite Ql (U) Negative Normal Negative [facility] Comment on above: Order Comment: Urine , Random Performed By: #### L 501.9985, L500.4050, L400.0001, L501.9910, L502.0250, L500.4100, L100.0100 #### [facility] [place], [address] OCCULT BLOOD-UR Negative Normal Negative [facility] Comment on above: Order Comment: Urine , Random Performed By: #### L 501.9985, L500.4050, L400.0001, L501.9910, L502.0250, L500.4100, L100.0100 #### [facility] [address] [place], [address] pH UR 6.0 Normal 5.0 - 8.0 [facility] Comment on above: Order Comment: Urine , Random Performed By: #### L 501.9985, L500.4050, L400.0001, L501.9910, L502.0250, L500.4100, L100.0100 #### [facility] [address] [place], [address] PROT DIPSTX 15 mg/dl Abnormal Negative [facility] Comment on above: Order Comment: Urine , Random Performed By: #### L 501.9985, L500.4050, L400.0001, L501.9910, L502.0250, L500.4100, L100.0100 #### [facility] [address] [place], [address] SP.GR. DIPSTX 1.015 Normal 1.002-1.030 [facility] Comment on above: Order Comment: Urine , Random Performed By: #### L 501.9985, L500.4050, L400.0001, L501.9910, L502.0250, L500.4100, L100.0100 #### [facility] [address] [place], [address] UROBILI Normal Normal Normal [facility] Comment on above: Order Comment: Urine , Random Performed By: #### L 501.9985, L500.4050, L400.0001, L501.9910, L502.0250, L500.4100, L100.0100 #### [facility] [address] [place], [address] EPI,SQUAMOUS 0 SEEN Normal 0-5 [facility] Comment on above: Order Comment: Urine , Random Performed By: #### L 501.9985, L500.4050, L400.0001, L501.9910, L502.0250, L500.4100, L100.0100 #### [facility] [address] [place], [address] Mucus Ql (Urine sed) 0 SEEN Normal [facility] Comment on above: Order Comment: Urine , Random Performed By: #### L 501.9985, L500.4050, L400.0001, L501.9910, L502.0250, L500.4100, L100.0100 #### [facility] [address] [place], [address] RBC 0 SEEN Normal 0-5 [facility] Comment on above: Order Comment: Urine , Random Performed By: #### L 501.9985, L500.4050, L400.0001, L501.9910, L502.0250, L500.4100, L100.0100 #### [facility] [address] [place], [address] Urine albumin measurement [facility] detection limit of 20 mg/L or less (mass/volume)Ordered By: Corina Gomes on 10-10-2024 Albumin DL <= 20 mg/L (U) [Mass/Vol] < 12.0 mg/L NO RANGE EST. [facility] Urine clarityOrdered By: Donald Gomes on 10-10-2024 Clarity (U) Clear Clear [facility] Urine color determinationOrd ered By: Corina Gomes on 10-10-2024 Color (U) Straw Yellow [facility] Urine glucose detectionOrder ed By: Corina Gomes on 10-10-2024 Glucose Ql (U) Normal mg/dl Normal [facility] Urine leukocyte esterase det ection by dipstickOrdered By: Corina Gomes on 10-10-2024 Leukocyte esterase Test strip Ql (U) Negative Negative [facility] Urine pHOrdered By: Corina Gomes on 10-10-2024 pH (U) 6.0 [pH] 5.0 - 8.0 [facility] Urine sediment bacteria coun t by microscopy (number/high power field)Ordered By: Corina Gomes on 10-10-2024 Bacteria LM.HPF (Urine sed) [#/Area] 1 /[HPF] None Seen [facility] Urine specific gravity measu rementOrdered By: Corina Gomes on 10-10-2024 Specific gravity (U) [Rel density] 1.015 1.002-1.030 [facility] Urine urobilinogen measureme ntOrdered By: Corina Gomes on 10-10-2024 Urobilinogen Ql (U) Normal mg/dl Normal [facility] White blood cell (WBC) count Ordered By: Corina Gomes on 10-10-2024 WBC (Bld) [#/Vol] 7.3 10*3/uL 3.4 - 10.8 K/uL [facility] White blood cell countOrdere d By: Corina Gomes on 10-10-2024 White blood cell count 0-5 SEEN /hpf 0-5 [facility] CNPNon 06-04-2024 [facility] ROB CORREIA ([id number]) 1965 M Date Time Provider Department 06/04/24 [facility] During your visit today, we recorded the following information about you: Corina Gomes PA-C 06/04/2024 8:25 AM Signed Positive influenza A. Continue as we discussed. MATT Guzman Sherill A, LPN 06/04/2024 8:34 AM Signed Left message for pt to contact office. PATRICE Garcia Krista, LPN 06/04/2024 10:02 AM Signed Pt [...] ORAL) Take by mouth once daily. - glucosamine/chondroit in/C/Nacho (GLUCOSAMINE-CHONDROI TIN COMPLX ORAL) Take by mouth once daily. - Wzaba-8-FRA-EPA-Fish Oil (FISH OIL) 1,000 mg (120 mg-180 [...] Encounter Status:Closed by TAWANA RUELAS on 06/04/24 [facility] CNOVon 06-03-2024 CNOV Office Visit ([facility] ) ROB CORREIA ([id number]) 1965 M Date Time Provider Department 06/03/24 8:20 AM CORINA GOMES [facility] During your visit today, we recorded the following information about you: Temperature Pulse Respiration Blood pressure 97.8 degrees 64/minute 18/minute 126/86 Weight 82.1 kg Corina Gomes PA-C 06/03/2024 9:04 AM Signed Chief Complaint Patient presents with: Cough HPI Ruidavid Correia is a 59 year old male [...] a hourse Coronary Artery Disease Paternal Grandmother [place] Coronary Artery Disease Paternal Grandfather [place] Coronary Artery Disease Paternal Uncle Glaucoma No [...] B-12 ORAL) Take by mouth once daily. glucosamine/chondroit in/C/Nacho (GLUCOSAMINE-CHONDROI TIN COMPLX ORAL) Take by mouth once daily. Lyhwv-3-VDW-EPA-Fish Oil (FISH OIL) 1,000 mg (120 mg-180 [...] AND RS (more content not included)... Normal [facility] Renny 06-03-2024 CNPN Telephone ([facility]) ROB CORREIA ([id number]) 1965 M Date Time Provider Department 06/03/24 CORINA GOMES During your visit today, we [...] ORAL) Take by mouth once daily. - glucosamine/chondroit in/C/Nacho (GLUCOSAMINE-CHONDROI TIN COMPLX ORAL) Take by mouth once daily. - Udwke-4-AIP-EPA-Fish Oil (FISH OIL) 1,000 mg (120 mg-180 [...] Status:Closed by APARNA RYDER on 06/03/24 Normal [facility] COVID AND INFLUENZA A/B AND RSV PCR, ROUTINEon 06-03-2024 SARS-CoV-2 (COVID-19) RNA JESSE+probe Ql (Unsp spec) SARS-COV-2 (AGENT OF COVID-19) RNA: Not detected INFLUENZA A RNA: Detected INFLUENZA B RNA: Not detected RESPIRATORY SYNCYTIAL VIRUS (RSV) RNA: Not detected Abnormal [facility] Comment on above: Performed By: #### C VFLRS ####[facility] [id number] [address] [facility] XR CHEST 2V FRONTAL/LATon XR CHEST 2V FRONTAL/LAT * * *Final Repor t* * * DATE OF EXAM: Jun 03 [...] thoracic spine. IMPRESSION: No acute radiographic abnormality. Quality Control Engineering Technician: PSCB Transcribe Date/Time: Jun 03 2024 8:57A Dictated by : FIDEL WESTBROOK MD This examination was interpreted and the report reviewed and electronically signed by: FIDEL WESTBROOK MD on Jun 03 2024 8:58AM EST [id number] Normal [facility] XR Chest PA and Lateralon IMPRESSION: No acute radiographic abnormality. Quality Control Engineering Technician: PSC Transcribe Date/Time: Jun 03 2024 8:57A Dictated [...] the thoracic spine. DIVISION OF RADIOLOGY Provider, [facility] - 06/03/2024 * * *Final Report* * [...] spine. IMPRESSION IMPRESSION: No acute radiographic abnormality. Quality Control Engineering Technician: PSCB Transcribe Date/Time: Jun 03 2024 8:57A Dictated by : FIDEL WESTBROOK MD This examination was interpreted and the report reviewed and electronically signed by: FIEDL WESTBROOK MD on Jun 03 2024 8:58AM [facility] Radiology Study observation (narrative) [facility] XR Chest PA and LateralOrder ed By: Cc Provider on 06-03-2024 [facility] CNPNon 05-02-2024 CNPN Telephone ([facility]AMWS) ROB CORREIA ([id number]) 1965 M Date Time Provider Department 05/02/24 ALDO BUTCHER [facility] During your visit today, we recorded the [...] questions about an upcoming service, contact Patient Principal Quality Engineer by calling toll-free at [phone] and request to speak with a desk clerks supervisor. For questions regarding a medical bill for a past / post service, contact a Assembler Fitter by calling toll-free at [phone] and request to speak with a desk clerks supervisor. Patient/Family verbalized understanding. Allergies As of Date: [...] ORAL) Take by mouth once daily. - glucosamine/chondroit in/C/Nacho (GLUCOSAMINE-CHONDROI TIN COMPLX ORAL) Take by mouth once daily. - Gzcvo-1-SYB-EPA-Fish Oil (FISH OIL) 1,000 mg (120 mg-180 [...] Encounter Status:Closed by ANJANA HSU on 05/02/24 [facility] CNOVon 04-19-2024 CNOV Office Visit (FAMPWS ) ROB CORREIA ([id number]) 1965 M Date Time Provider Department 04/19/24 7:00 AM COR[facility]ES [facility] During your visit today, we recorded the [...] a hourse Coronary Artery Disease Paternal Grandmother [place] Coronary Artery Disease Paternal Grandfather [place] Coronary Artery Disease Paternal Uncle Glaucoma No [...] B-12 ORAL) Take by mouth once daily. glucosamine/chondroit in/C/Nacho (GLUCOSAMINE-CHONDROI TIN COMPLX ORAL) Take by mouth once daily. Ipnny-6-RSA-EPA-Fish Oil (FISH OIL) 1,000 mg (120 mg-180 [...] Cholesterol, N (more content not included)... Normal [facility] HbA1c (Bld)on 04-08-2024 Average glucose Estimated from glycated hemoglobin (Bld) [Mass/Vol] 143 mg/dL Normal [facility] Comment on above: Order Comment: Speci men Type: BLOOD SPECIMENOrdering Facility: [facility] Address: [address] [place] [address] Result Comment: eAG: (Estimated average glucose) is a calculated value from HgbA1c and is hr representative of the average blood glucose level in the last 2-3 month period. Performed By: #### 5 5454-3 ####[facility] [id number] [place] [address] [place] HbA1c (Bld) [Mass fraction] 6.6 % High 4.3-5.6 [facility] Comment on above: Order Comment: Speci men Type: BLOOD SPECIMENOrdering Facility: [facility] Address: [address] [place] [address] Result Comment: Amer ican Diabetes Association guidelines indicate that patients with HgbA1c in the range 5.7-6.4% are at increased risk for development of diabetes, and intervention by lifestyle modification may be beneficial. HgbA1c greater or equal to 6.5% is considered diagnostic of diabetes. Performed By: #### 5 5454-3 ####[facility] [id number] [place] [address] [place] LIPID PANEL, NONFASTINGon Cholesterol [Mass/Vol] 163 mg/dL Normal <200 [facility] Comment on above: Order Comment: Speci men Type: BLOOD SPECIMENOrdering Facility: [facility] Address: [address] [place] [address] Result Comment: <200 mg/dL, Desirable 200-239 mg/dL, Borderline high >239 mg/dL, High Performed By: #### L IPNF ####[facility] [id number] [place] [address] [place] HDL CHOLESTEROL, NF 55 mg/dL Normal >39 [facility] Comment on above: Order Comment: Brucei men Type: BLOOD SPECIMENOrdering Facility: [facility] Address: [address] [place] [address] Result Comment: 40-5 9 mg/dL, Acceptable >59 mg/dL, High: Negative risk factor for coronary heart disease <40 mg/dL, Low: Positive risk factor for coronary heart disease Performed By: #### L IPNF ####[facility] [id number] [place] [address] [place] LDL CHOLESTEROL, NF 82 mg/dL Normal <100 [facility] Comment on above: Order Comment: Brucei men Type: BLOOD SPECIMENOrdering Facility: [facility] Address: [address] [place] [address] Result Comment: <100 mg/dL, Optimal 100-129 mg/dL, Near optimal/above optimal 130-159 mg/dL, Borderline high 160-189 mg/dL, High >189 mg/dL, Very high Secondary prevention optimal LDL Cholesterol levels are recommended to be < 70 mg/dL Performed By: #### L IPNF ####[facility] [id number] [place] [address] [place] LDL/HDL RATIO, NF 1.49 mg/dL Normal <2.54 [facility] Comment on above: Order Comment: Rachelle kim Type: BLOOD SPECIMENOrdering Facility: [facility] Address: [address] [place] [address] Result Comment: Refe rence: 1. National Cholesterol Education Program ATP III Guideline At-A-Glance Quick Desk Reference: National Heart, Lung, and Blood [place]. National Institutes of Health. 2001: NIH Publication No. 01-3305. 2. An International Atherosclerosis Society position paper: global recommendations for the management of dyslipidemia: executive summary, Atherosclerosis. 2014: 232(2):410-413. Performed By: #### L IPNF ####[facility] [id number] [address] [place] NON HDL CHOL, NF 108 mg/dL Normal <130 [facility] Comment on above: Order Comment: Rachelle kim Type: BLOOD SPECIMENOrdering Facility: [facility] Address: [address] [place] [address] Result Comment: <130 mg/dL, Optimal 130-159 mg/dL, Near optimal/above optimal 160-189 mg/dL, Borderline high 190-219 mg/dL, High >219 mg/dL, Very high Secondary prevention optimal non HDL Cholesterol levels are recommended to be <100 mg/dL Performed By: #### L IPNF ####[facility] [id number] [address] [place] T CHOL/HDL RATIO NF 2.96 mg/dL Normal <5.10 [facility] Comment on above: Order Comment: Rachelle kim Type: BLOOD SPECIMENOrdering Facility: [facility] Address: [address] [place], [place] [id number] Performed By: #### L IPNF ####[facility] [id number] [place] [address] [place] TRIGLYCERIDES, NF 128 mg/dL Normal <150 [facility] Comment on above: Order Comment: Speci men Type: BLOOD SPECIMENOrdering Facility: [facility] Address: [address] [place] [address] Result Comment: <150 mg/dL, Normal 150-199 mg/dL, Borderline high 200-499 mg/dL, High >499 mg/dL, Very high Performed By: #### L IPNF ####[facility] [id number] [place] [address] [place] VLDL CHOLESTEROL, NF 26 mg/dL Normal <30 [facility] Comment on above: Order Comment: Speci men Type: BLOOD SPECIMENOrdering Facility: [facility] Address: [address] [place] [address] Performed By: #### L IPNF ####[facility] [id number] [place] [address] [place] HbA1c (Bld)on 04-17-2023 Average glucose Estimated from glycated hemoglobin (Bld) [Mass/Vol] 146 mg/dL [facility] HbA1c (Bld) [Mass fraction] 6.7 % High 4.3 - 5.6 % [facility] LIPID PANEL, NONFASTINGon Cholesterol [Mass/Vol] 139 mg/dL <200 mg/dL [facility] HDL Cholesterol, Nonfasting 52 mg/dL >39 mg/dL [facility] LDL Cholesterol, Nonfasting 60 mg/dL <100 mg/dL [facility] LDL/HDL Ratio, Nonfasting 1.15 mg/dL <2.54 mg/dL [facility] Non HDL Cholesterol, Nonfasting 87 mg/dL <130 mg/dL [facility] Total Chol/HDL Ratio, Nonfasting 2.67 mg/dL <5.10 mg/dL [facility] Triglycerides, Nonfasting 133 mg/dL <150 mg/dL [facility] VLDL Cholesterol, Nonfasting 27 mg/dL <30 mg/dL [facility] Vital Signs Date Time Vital Sign Value Performing Clinician Kasi worthygabe 10-23-2024 08:26-0400 Diastolic blood pressure 80 mm[Hg] Aldo Butcher MD Work Phone: [facility] 10-23-2024 08:26-0400 Systolic blood pressure 132 mm[Hg] Aldo Butcher MD Work Phone: [facility] 10-23-2024 07:58-0400 Body height 175.3 cm Aldo Butcher MD Work Phone: [facility] 10-23-2024 07:58-0400 Body mass index (BMI) [Ratio] 25.99 kg/m2 Aldo Butcher MD Work Phone: [facility] 10-23-2024 07:58-0400 Body weight 79.83 kg Aldo Butcher MD Work Phone: [facility] 10-23-2024 07:58-0400 Heart rate 67 /min Aldo Butcher MD Work Phone: [facility] 10-23-2024 07:58-0400 Respiratory rate 16 /min Aldo Butcher MD Work Phone: [facility] 10-23-2024 07:58-0400 SaO2% (BldA) [Mass fraction] 98 % Aldo Butcher MD Work Phone: [facility] 06-03-2024 08:21-0500 Body mass index (BMI) [Ratio] 26.73 kg/m2 Corina Gomes PA-C Work Phone: [facility] 06-03-2024 08:21-0500 Body temperature 97.81 [degF] Corina Gomes PA-C Work Phone: [facility] 06-03-2024 08:21-0500 Body weight 82.1 kg Corina Gomes PA-C Work Phone: [facility] 06-03-2024 08:21-0500 Diastolic blood pressure 86 mm[Hg] Corina Gomes PA-C Work Phone: [facility] 06-03-2024 08:21-0500 Heart rate 64 /min Corina Gomes PA-C Work Phone: [facility] 06-03-2024 08:21-0500 Respiratory rate 18 /min Corina Gomes PA-C Work Phone: [facility] 06-03-2024 08:21-0500 SaO2% (BldA) [Mass fraction] 99 % Corina Gomes PA-C Work Phone: [facility] 06-03-2024 08:21-0500 Systolic blood pressure 126 mm[Hg] Corina Gomes PA-C Work Phone: [facility] 04-19-2024 06:55-0500 Body mass index (BMI) [Ratio] 27.47 kg/m2 Corina Gomes PA-C Work Phone: [facility] 04-19-2024 06:55-0500 Body temperature 97.3 [degF] Corina Gomes PA-C Work Phone: [facility] 04-19-2024 06:55-0500 Body weight 84.37 kg Corina Gomes PA-C Work Phone: [facility] 04-19-2024 06:55-0500 Diastolic blood pressure 80 mm[Hg] Corina Gomes PA-C Work Phone: [facility] 04-19-2024 06:55-0500 Heart rate 68 /min Corina Gomes PA-C Work Phone: [facility] 04-19-2024 06:55-0500 Respiratory rate 18 /min Corina Gomes PA-C Work Phone: [facility] 04-19-2024 06:55-0500 SaO2% (BldA) [Mass fraction] 97 % Corina Gomes PA-C Work Phone: [facility] 04-19-2024 06:55-0500 Systolic blood pressure 122 mm[Hg] Corina Gomes PA-C Work Phone: [facility] 10-19-2023 08:18-0400 Diastolic blood pressure 82 mm[Hg] Aldo Butcher MD Work Phone: [facility] 10-19-2023 08:18-0400 Systolic blood pressure 130 mm[Hg] Aldo Butcher MD Work Phone: [facility] 10-19-2023 08:03-0400 Body height 175.3 cm Aldo Butcher MD Work Phone: [facility] 10-19-2023 08:03-0400 Body mass index (BMI) [Ratio] 26.58 kg/m2 Aldo Butcher MD Work Phone: [facility] 10-19-2023 08:03-0400 Body weight 81.65 kg Aldo Butcher MD Work Phone: [facility] 10-19-2023 08:03-0400 Heart rate 75 /min Aldo Butcher MD Work Phone: [facility] 09-15-2023 14:01-0400 Body weight 81.92 kg Aldo Butcher MD Work Phone: [facility] 09-15-2023 14:01-0400 Diastolic blood pressure 86 mm[Hg] Aldo Butcher MD Work Phone: [facility] 09-15-2023 14:01-0400 Heart rate 106 /min Aldo Butcher MD Work Phone: [facility] 09-15-2023 14:01-0400 SaO2% (BldA) [Mass fraction] 97 % Aldo Butcher MD Work Phone: [facility] 09-15-2023 14:01-0400 Systolic blood pressure 122 mm[Hg] Aldo Butcher MD Work Phone: [facility] 04-17-2023 08:49-0500 Diastolic blood pressure 86 mm[Hg] Aldo Butcher MD Work Phone: [facility] 04-17-2023 08:49-0500 Systolic blood pressure 134 mm[Hg] Aldo Butcher MD Work Phone: [facility] 04-17-2023 08:40-0500 Body weight 85.73 kg Aldo Butcher MD Work Phone: [facility] 04-17-2023 08:40-0500 Heart rate 80 /min Aldo Butcher MD Work Phone: [facility] 04-17-2023 08:40-0500 Respiratory rate 16 /min Aldo Butcher MD Work Phone: [facility] 09-09-2022 09:05-0400 Body temperature 97.5 [degF] Ele Pro DE ICER INSTALLER.KILN TENDER Work Phone: [facility] 09-09-2022 09:05-0400 Body weight 81.65 kg Ele Pro DE ICER INSTALLER.KILN TENDER Work Phone: [facility] 09-09-2022 09:05-0400 Diastolic blood pressure 80 mm[Hg] Ele Pro DE ICER INSTALLER.KILN TENDER Work Phone: [facility] 09-09-2022 09:05-0400 Heart rate 72 /min Ele Inocencia DE ICER INSTALLER.KILN TENDER Work Phone: [facility] 09-09-2022 09:05-0400 Respiratory rate 14 /min Ele Pro DE ICER INSTALLER.KILN TENDER Work Phone: [facility] 09-09-2022 09:05-0400 Systolic blood pressure 130 mm[Hg] Ele Pro DE ICER INSTALLER.KILN TENDER Work Phone: [facility] Encounters Encounter Date Encounter Type Care Provider Facility Start: 11-19-2024 ambulatory Aldo Bucther Facility :[facility] Start: 11-04-2024 End: 11-04-2024 Patient encounter procedure Deshawn Musa OD Work Phone: Optometry Comment on above: Type 2 diabetes rajiv itus without retinopathy (HCC) (Primary Dx) Start: 11-04-2024 End: 11-04-2024 ambulatory ALDO BUTCHER Facility:[facility] Start: 10-24-2024 End: 10-28-2024 Telephone encounter Aldo Butcher MD Work Phone: [facility] Comment on above: Results Start: 10-23-2024 Encounter for genera l adult medical examination without abnormal findings ALDO BUTCHER [facility] Start: 10-23-2024 End: 10-23-2024 Patient encounter procedure Aldo Butcher MD Work Phone: [facility] Comment on above: Well adult exam (Genna jose luis Dx); Controlled type 2 diabetes mellitus without complication, without long-term current use of insulin (HCC); Hyperlipidemia, mixed; Pain in toes of both feet; Family history of early CAD; Screening for heart disease; Need for vaccination; Encounter for screening examination for other mental health and behavioral disorders; Screening for depression Start: 10-23-2024 End: 10-23-2024 Patient encounter status Aldo Butcher MD Work Phone: [facility] Work Phone: Start: 10-23-2024 End: 10-23-2024 ambulatory ALDO BUTCHER Facility:[facility] Start: 10-10-2024 End: 10-10-[address] Temo Shook MD Work Phone: [facility] Work Phone: Start: 10-10-2024 End: 10-10-2024 Patient encounter procedure Corina Amaya Work Phone: Start: 10-10-2024 End: 10-10-2024 ambulatory Temo Shook Facility:[facility] Start: 06-04-2024 End: 06-04-2024 Telephone encounter Corina Gomes PA-C [facility]: [facility] Comment on above: Results Start: 06-03-2024 End: 06-03-2024 Telephone encounter Corina Gomes PA-C Work Phone: [facility] Comment on above: Results Start: 06-03-2024 End: 06-03-2024 Subsequent hospital visit by physician [facility] [place] Work Phone: Radiology Comment on above: Acute cough [R05.1] Start: 06-03-2024 End: 06-03-2024 ambulatory ALDO BUTCHER Facility:[facility] Start: 06-03-2024 End: 06-03-2024 Patient encounter procedure Corina Gomes PA-C Work Phone: [facility] Comment on above: Lower resp. tract in fection (Primary Dx); Acute cough Start: 05-02-2024 End: 05-02-2024 Telephone encounter Aldo Butcher MD Work Phone: [facility] Comment on above: Billing Issue Start: 05-01-2024 End: 05-02-2024 Refill Corina Gomes PA-C Work Phone: [facility] Comment on above: Refill Request Start: 04-19-2024 End: 04-19-2024 ambulatory ALDO BUTCHER Facility:[facility] Start: 04-19-2024 End: 04-19-2024 Office outpatient visit 25 minutes Corina Gomes PA-C Work Phone: [facility] Comment on above: Controlled type 2 di abetes mellitus without complication, without long-term current use of insulin (HCC) (Primary Dx); Hyperlipidemia, mixed; Screening for prostate cancer Start: 04-08-2024 End: 04-08-2024 ambulatory ALDO BUTCHER Facility:[facility] Start: 12-12-2023 Refill Aldo gilliland MD Work Phone: [facility] Comment on above: Refill Request Start: 11-08-2023 Refill Aldo gilliland MD Work Phone: [facility] Comment on above: Refill Request Start: 10-30-2023 End: 10-30-2023 Patient encounter procedure Deshawn Musa OD Work Phone: Optometry Comment on above: Type 2 diabetes rajiv itus without retinopathy (HCC) (Primary Dx); Myopia, bilateral; Regular astigmatism of right eye; Presbyopia Start: 10-19-2023 End: 10-19-2023 Patient encounter procedure Aldo Butcher MD Work Phone: [facility] Comment on above: Well adult exam (Genna jose luis Dx); Controlled type 2 diabetes mellitus without complication, without long-term current use of insulin (HCC); Hyperlipidemia, mixed Start: 10-19-2023 End: 10-19-2023 Patient encounter status Aldo Butcher MD Work Phone: [facility] Work Phone: Start: 09-15-2023 End: 09-15-2023 Patient encounter procedure Aldo Butcher MD Work Phone: [facility] [place] Comment on above: Hesitancy (Primary D x) Start: 09-14-2023 ambulatory Aldo gilliland MD Work Phone: [facility] [place] Comment on above: Urination Start: 07-21-2023 ambulatory Ele salmeron APRN.KILN TENDER Work Phone: [facility] Comment on above: Labs and paperwork Diabetic diagnosis Start: 04-17-2023 Telephone encounter Aldo Butcher MD Work Phone: [facility] Comment on above: Results Start: 04-17-2023 End: 04-17-2023 Patient encounter procedure Aldo Butcher MD Work Phone: [facility] [place] Comment on above: Controlled type 2 di abetes mellitus without complication, without long-term current use of insulin (HCC) (Primary Dx); Hyperlipidemia, mixed; Screening for prostate cancer Start: 03-06-2023 Refill Aldo gilliland MD Work Phone: [facility] [place] Comment on above: Refill Request Start: 02-09-2023 Refill Aldo gilliland MD Work Phone: [facility] Comment on above: Refill Request Start: 10-12-2022 Patient encounter status Aldo Butcher MD Work Phone: [facility] Work Phone: Start: 09-09-2022 End: 09-09-2022 Patient encounter procedure Ele Pro APRN.KILN TENDER Work Phone: [facility] Comment on above: Acute otitis media, unspecified otitis media type (Primary Dx) Start: 03-08-2022 End: 03-08-2022 Patient encounter procedure Pawel Musa OD Work Phone: Optometry Comment on above: Type 2 diabetes rajiv itus without retinopathy (HCC) (Primary Dx); Myopia, bilateral; Regular astigmatism of right eye; Presbyopia Procedures Date Procedure Procedure Detail Performing Clinician Start: 10-23-2024 Adult depression scr eening assessment Aldo Butcher MD Work Phone: Start: 10-10-2024 Prostate specific an tigen measurement Dr. Temo Shook MD Work Phone: Comment on above: This test was perfor med using the [employer] tPSA method. Measured values of a patient sample can vary depending on the testing procedure used. PSA values determined on patient samples by different testing procedures cannot be used interchangeably. If there is a change in PSA assays while monitoring therapy, sequential testing should be performed to confirm baseline values. Start: 10-10-2024 Urnls dip stick/tabl et reagent auto microscopy Dr. Temo Shook MD Work Phone: Start: 10-10-2024 CBC W/DIFF/PLT ([facility]) [facility] Provider Start: 10-10-2024 Comprehensive metabo lic 2000 panel - Serum or Plasma [facility] Provider Start: 10-10-2024 Hemoglobin A1c/Hemoglobin.total in Blood [facility] Provider Start: 10-10-2024 Lipid panel [facility] Provid er Start: 10-10-2024 MICROALBUMIN/CREATIN INE UR W RATIO (EXTERNAL) [facility] Provider Start: 10-10-2024 PSA screening [facility] Provi juan Start: 06-03-2024 Radiologic exam ches t 2 views Corina Gomes PA-C Work Phone: Start: 11-30-2018 Colonoscopy Aldo kaur MD Work Phone: Plan of Treatment Date Care Activity Detail Author Start: 10-12-2032 Urine microalbumin profile [facility] Start: 10-23-2029 Prostate specific antigen measurement Prostate Cancer Screening Discussion [facility] Start: 11-30-2028 Colonoscopy Colonoscopy [facility] Start: 11-30-2028 Colorectal Cancer Screening Colorectal Cancer Screening [facility] Start: 11-30-2028 Screening for malign ant neoplasm of colon [facility] Start: 10-18-2028 Prostate specific antigen measurement Prostate Cancer Screening Discussion [facility] Start: 10-13-2027 Prostate Cancer Screening Discussion Prostate Cancer Screening Discussion [facility] Start: 10-13-2027 Prostate specific antigen measurement Prostate Cancer Screening Discussion [facility] Start: 11-10-2025 End: 11-10-2025 Patient encounter procedure 11/10/2025 4:30 PM EDT Office Visit [facility] [address] [place] [address] Deshawn Musa, OD [address] [place] [address] Diabetic Exam/[facility] Comment on above: Diabetic Exam/[facility] Start: 11-04-2025 Glaucoma screening Dilated Retinal E xam [facility] Start: 10-23-2025 Annual PCP Team Investment Director yany Disease Visit Annual PCP Team Chronic Disease Visit [facility] Start: 10-23-2025 Anxiety Screening Anxiety Screening [facility] Start: 10-23-2025 Depression Screening Depression Scre ening [facility] Start: 10-23-2025 Diabetic foot examination Diabetic Foot Exam [facility] Start: 10-10-2025 Hepatitis B screening Urine Al bumin:Creatinine Ratio [facility] Start: 10-10-2025 Hepatitis B surface antibody level LDL Cholesterol [facility] Start: 06-03-2025 Annual PCP Team Investment Director yany Disease Visit Annual PCP Team Chronic Disease Visit [facility] Start: 04-24-2025 End: 04-24-2025 Patient encounter procedure 04/24/2025 7:40 AM EST Office Visit Family Medicine [facility] [address] [place] [address] Ele Pro APRN.KILN TENDER [address] [place] [address] 6 month follow up Family Medicine Rm Comment on above: 6 month follow up Start: 04-19-2025 Annual PCP Team Investment Director yany Disease Visit Annual PCP Team Chronic Disease Visit [facility] Start: 04-11-2025 End: 07-11-2025 Hemoglobin A1c in Blood HEMOGLOBIN A1C Lab Routine Controlled type 2 diabetes mellitus without complication, without long-term current use of insulin (HCC) Expected: 04/11/2025, Expires: 07/11/2025 [facility] Comment on above: Expected: 04/11/2025 , Expires: 07/11/2025 Start: 04-11-2025 Hemoglobin A1c measurement HbA1C [facility] Start: 04-11-2025 End: 07-11-2025 LIPID PANEL, NONFASTING LIPID PANEL, NONFASTING Lab Routine Controlled type 2 diabetes mellitus without complication, without long-term current use of insulin (HCC) Hyperlipidemia, mixed Expected: 04/11/2025, Expires: 07/11/2025 [facility] Comment on above: Expected: 04/11/2025 , Expires: 07/11/2025 Start: 04-08-2025 Hepatitis B surface antibody level LDL Cholesterol [facility] Start: 12-24-2024 End: 12-24-2024 Nursing evaluation of patient and report 12/24/2024 8:00 AM EDT Nurse Visit Family [facility] [address] [place] [address] Nurse, [address] [place] [address] #2 [facility] Comment on above: #2 [facility] Start: 12-22-2024 Hzv zoster vacc recombinant adjuvanted im njx ZOSTER VACCINE, RECOMBINANT (SHINGRIX) Immunization/Injection Routine Need for vaccination Expected: 12/22/2024 (Approximate) [facility] Work Phone: Comment on above: Expected: 12/22/2024 (Approximate) Start: 12-18-2024 Shingrix Vaccine (2 of 2) Shingrix Vaccine (2 of 2) [facility] Start: 11-04-2024 End: 11-04-2024 Patient encounter procedure Optometry Comment on above: Diabetic Exam/[facility] Di[facility] $60 Start: 10-29-2024 Glaucoma screening Dilated Retinal E xam [facility] Start: 10-23-2024 End: 10-23-2024 Patient encounter procedure 10/23/2024 8:00 AM EDT Office Visit Family [facility] [place] [address] [facility] [place] [address] Aldo Butcher MD [address] [place], [place] [id number] physical Family Medicine Rm Comment on above: physical Start: 10-18-2024 Annual PCP Team Investment Director yany Disease Visit Annual PCP Team Chronic Disease Visit [facility] Start: 10-18-2024 End: 01-17-2025 CBC W Auto Differential panel - Blood COMPLETE BLOOD COUNT AND DIFFERENTIAL Lab Routine Controlled type 2 diabetes mellitus without complication, without long-term current use of insulin (HCC) Expected: 10/18/2024, Expires: 01/17/2025 [facility] Comment on above: Expected: 10/18/2024 , Expires: 01/17/2025 Start: 10-18-2024 End: 01-17-2025 Comprehensive metabolic 2000 panel - Serum or Plasma COMPREHENSIVE METABOLIC PANEL Lab Routine Controlled type 2 diabetes mellitus without complication, without long-term current use of insulin (HCC) Hyperlipidemia, mixed Expected: 10/18/2024, Expires: 01/17/2025 [facility] Comment on above: Expected: 10/18/2024 , Expires: 01/17/2025 Start: 10-18-2024 Diabetic foot examination Diabetic Foot Exam [facility] Start: 10-18-2024 End: 01-17-2025 Hemoglobin A1c in Blood HEMOGLOBIN A1C Lab Routine Controlled type 2 diabetes mellitus without complication, without long-term current use of insulin (HCC) Hyperlipidemia, mixed Expected: 10/18/2024, Expires: 01/17/2025 [facility] Comment on above: Expected: 10/18/2024 , Expires: 01/17/2025 Start: 10-18-2024 End: 01-17-2025 LIPID PANEL, NONFASTING LIPID PANEL, NONFASTING Lab Routine Hyperlipidemia, mixed Expected: 10/18/2024, Expires: 01/17/2025 [facility] Comment on above: Expected: 10/18/2024 , Expires: 01/17/2025 Start: 10-18-2024 End: 01-17-2025 Microalbumin/Creatinine [Mass Ratio] in Urine ALBUMIN/CREATININE RATIO, URINE Lab Routine Controlled type 2 diabetes mellitus without complication, without long-term current use of insulin (HCC) Expected: 10/18/2024, Expires: 01/17/2025 [facility] Comment on above: Expected: 10/18/2024 , Expires: 01/17/2025 Start: 10-18-2024 End: 01-17-2025 Prostate specific Ag [Mass/volume] in Serum or Plasma PROSTATE-SPECIFIC ANTIGEN DIAGNOSTIC Lab Routine Screening for prostate cancer Expected: 10/18/2024, Expires: 01/17/2025 [facility] Comment on above: Expected: 10/18/2024 , Expires: 01/17/2025 Start: 10-18-2024 Shingrix Vaccine (1 of 2) Shingrix Vaccine (1 of 2) [facility] Comment on above: Postponed from 04/14 (Insurance Coverage) Start: 10-18-2024 End: 01-17-2025 Urinalysis complete panel - Urine URINALYSIS, WITH MICROSCOPIC Lab Routine Controlled type 2 diabetes mellitus without complication, without long-term current use of insulin (HCC) Expected: 10/18/2024, Expires: 01/17/2025 [facility] Work Phone: Comment on above: Expected: 10/18/2024 , Expires: 01/17/2025 Start: 10-07-2024 Hemoglobin A1c measurement HbA1C [facility] Start: 10-05-2024 Hepatitis B screening Urine Al bumin:Creatinine Ratio [facility] Start: 10-05-2024 Hepatitis B surface antibody level LDL Cholesterol [facility] Start: 09-14-2024 Annual PCP Team Investment Director yany Disease Visit Annual PCP Team Chronic Disease Visit [facility] Start: 05-07-2024 Behavioral Health Screening Behavioral Health Screening [facility] Comment on above: Postponed from 05/08 (Declined at this time) Start: 04-19-2024 End: 04-19-2024 Patient encounter procedure 04/19/2024 7:00 AM EST Office Visit Family Medicine [facility] [address], [place] [id number] Corina Gomes PA-C [address] [place], [place] [id number] 6 month follow up. Labs prior Family Medicine [facility] Comment on above: 6 month follow up. L abs prior Start: 04-17-2024 Annual PCP Team Investment Director yany Disease Visit Annual PCP Team Chronic Disease Visit [facility] Start: 04-17-2024 Hepatitis B surface antibody level LDL Cholesterol [facility] Start: 04-06-2024 Hemoglobin A1c measurement HbA1C [facility] Start: 04-05-2024 End: 07-05-2024 Hemoglobin A1c in Blood HEMOGLOBIN A1C Lab Routine Controlled type 2 diabetes mellitus without complication, without long-term current use of insulin (HCC) Expected: 04/05/2024, Expires: 07/05/2024 [facility] Work Phone: Comment on above: Expected: 04/05/2024 , Expires: 07/05/2024 Start: 04-05-2024 End: 07-05-2024 LIPID PANEL, NONFASTING LIPID PANEL, NONFASTING Lab Routine Controlled type 2 diabetes mellitus without complication, without long-term current use of insulin (HCC) Hyperlipidemia, mixed Expected: 04/05/2024, Expires: 07/05/2024 [facility] Comment on above: Expected: 04/05/2024 , Expires: 07/05/2024 Start: 10-19-2023 End: 10-19-2023 Patient encounter procedure 10/19/2023 8:00 AM EDT Office Visit Family Medicine [facility] [address] [place], [place] [id number] Aldo Butcher MD [address] [place], [place] [phone] Physical Family Medicine Rm Comment on above: Physical Start: 10-17-2023 Hemoglobin A1c measurement HbA1C [facility] Start: 10-17-2023 Hemoglobin A1c/Hemoglobin.total in Blood HbA1C [facility] Start: 10-13-2023 3 comp foot exam completed Diabetic Foot Exam [facility] Start: 10-13-2023 Annual PCP Team Investment Director yany Disease Visit Annual PCP Team Chronic Disease Visit [facility] Start: 10-13-2023 Covid-19 Vaccine (#1) Covid-19 Vacci ne (#1) [facility] Comment on above: Postponed from 10/13 (Declined at this time) Start: 10-13-2023 Diabetic foot examination Diabetic Foot Exam [facility] Start: 10-13-2023 Hepatitis B screening Urine Al bumin:Creatinine Ratio [facility] Start: 10-13-2023 Hepatitis B surface antibody level LDL Cholesterol [facility] Start: 10-13-2023 Shingrix Vaccine (1 of 2) Shingrix Vaccine (1 of 2) [facility] Comment on above: Postponed from 04/14 (Insurance Coverage) Start: 10-06-2023 End: 01-05-2024 ALBUMIN/CREAT RATIO RND UR ALBUMIN/CREAT RATIO RND UR Lab Routine Controlled type 2 diabetes mellitus without complication, without long-term current use of insulin (HCC) Expected: 10/06/2023, Expires: 01/05/2024 [facility] Work Phone: Comment on above: Expected: 10/06/2023 , Expires: 01/05/2024 Start: 10-06-2023 End: 01-05-2024 CBC W Auto Differential panel - Blood CBC + DIFF Lab Routine Controlled type 2 diabetes mellitus without complication, without long-term current use of insulin (HCC) Expected: 10/06/2023, Expires: 01/05/2024 [facility] Work Phone: Comment on above: Expected: 10/06/2023 , Expires: 01/05/2024 Start: 10-06-2023 End: 01-05-2024 Comprehensive metabolic 2000 panel - Serum or Plasma COMP METABOLIC PANEL Lab Routine Controlled type 2 diabetes mellitus without complication, without long-term current use of insulin (HCC) Hyperlipidemia, mixed Expected: 10/06/2023, Expires: 01/05/2024 [facility] Work Phone: Comment on above: Expected: 10/06/2023 , Expires: 01/05/2024 Start: 10-06-2023 End: 01-05-2024 Hemoglobin A1c in Blood HGB A1C Lab Routine Controlled type 2 diabetes mellitus without complication, without long-term current use of insulin (HCC) Expected: 10/06/2023, Expires: 01/05/2024 [facility] Work Phone: Comment on above: Expected: 10/06/2023 , Expires: 01/05/2024 Start: 10-06-2023 End: 01-05-2024 LIPID PANEL, NONFASTING LIPID PANEL, NONFASTING Lab Routine Controlled type 2 diabetes mellitus without complication, without long-term current use of insulin (HCC) Hyperlipidemia, mixed Expected: 10/06/2023, Expires: 01/05/2024 [facility] Work Phone: Comment on above: Expected: 10/06/2023 , Expires: 01/05/2024 Start: 10-06-2023 End: 01-05-2024 Prostate specific Ag [Mass/volume] in Serum or Plasma PSA/PROSTSPECAG DIAG Lab Routine Screening for prostate cancer Expected: 10/06/2023, Expires: 01/05/2024 [facility] Work Phone: Comment on above: Expected: 10/06/2023 , Expires: 01/05/2024 Start: 10-06-2023 End: 01-05-2024 Urinalysis complete panel - Urine URINALYSIS, WITH MICROSCOPIC Lab Routine Controlled type 2 diabetes mellitus without complication, without long-term current use of insulin (HCC) Hyperlipidemia, mixed Expected: 10/06/2023, Expires: 01/05/2024 [facility] Work Phone: Comment on above: Expected: 10/06/2023 , Expires: 01/05/2024 Start: 09-10-2023 ANNUAL PCP TEAM MARKETING AMBASSADOR YANY DISEASE VISIT ANNUAL PCP TEAM CHRONIC DISEASE VISIT [facility] Start: 05-08-2023 Behavioral Health Screening Behavioral Health Screening [facility] Start: 05-08-2023 Depression Assessment Depression Ass essment [facility] Start: 04-13-2023 Hemoglobin A1c/Hemoglobin.total in Blood HbA1C [facility] Start: 03-08-2023 Glaucoma screening Dilated Retinal E xam [facility] Start: 03-08-2023 Hepatitis C antibody , confirmatory test DILATED RETINAL EXAM [facility] Start: 01-06-2023 Covid-19 Vaccine () Covid-19 Vaccine () [facility] Start: 01-06-2023 Influenza vaccination [facility] Start: 05-08-2022 DEPRESSION ASSESSMENT DEPRESSION ASS ESSMENT [facility] Start: 2022 PROSTATE CANCER SCREENING DISCUSSION PROSTATE CANCER SCREENING DISCUSSION [facility] Start: 01-06-2022 Influenza vaccination INFLUENZA (#1) [facility] Start: 05-08-2021 DEPRESSION ASSESSMENT [facility] Start: 2017 SHINGRIX VACCINE (1 of 2) SHINGRIX VACCINE (1 of 2) [facility] Start: 2012 COLOGUARD (FIT-DNA) COLOGUARD (FIT-D NA) [facility] Start: 2012 Colonoscopy COLONOSCOPY [facility] Start: 2012 COLORECTAL CANCER SCREENING COLORECTAL CANCER SCREENING [facility] Start: [address] COL[facility]OGR[facility] Start: 2012 FECAL OCCULT BLOOD FECAL OCCULT BLOO D [facility] Start: 2012 Screening for malign ant neoplasm of colon [facility] Start: 2012 SIGMOIDOSCOPY SIGMOIDOSCOPY [facility] Start: 1986 Urine microalbumin profile DTAP,TDAP,TD (1 - Tdap) [facility] Start: 1985 ANNUAL PCP TEAM MARKETING AMBASSADOR YANY DISEASE VISIT ANNUAL PCP TEAM CHRONIC DISEASE VISIT [facility] Start: 1985 Anxiety Screening Anxiety Screening [facility] Start: 1985 Depression Screening Depression Scre ening [facility] Start: 1985 Hepatitis B surface antibody level LDL CHOLESTEROL [facility] Start: 1985 HEPATITIS C SCREENING HEPATITIS C SC REENING [facility] Start: 1985 HIV SCREENING HIV SCREENING [facility] Start: 1977 3 comp foot exam completed DIABETIC FOOT EXAM [facility] Start: 1977 Hepatitis B screening URINE AL BUMIN:CREATININE RATIO [facility] Start: 1973 PNEUMOCOCCAL (1 - PCV) PNEUMOCOCCAL (1 - PCV) [facility] Start: 1972 Hemoglobin A1c/Hemoglobin.total in Blood HBA1C [facility] Start: 1967 COVID-19 VACCINE (#1) COVID-19 VACCI NE (#1) [facility] Start: 1967 HEPATITIS B (1 of 3 - 3-dose series) HEPATITIS B (1 of 3 - 3-dose series) [facility] COVID & INFLUENZA A/ B & RSV PCR, ROUTINE COVID & INFLUENZA A/B & RSV PCR, ROUTINE Microbiology Routine Acute cough Lower resp. tract infection Ordered: 06/03/2024 [facility] Work Phone: Comment on above: Ordered: 06/03/2024 End: 11-24-2025 CT Heart and Coronary arteries for calcium scoring WO contrast CT CALCIUM SCORING (CARDIAC) WO IVCON Radiology Routine Encounter for screening for cardiovascular disorders 1 Occurrences starting 10/25/2024 until 11/24/2025 [facility] Work Phone: Comment on above: 1 Occurrences starti ng 10/25/2024 until 11/24/2025 [facility] Immunizations Immunization Date Immunization Notes Care Provider Fa clive 10-23-2024 zoster vaccine recombinant Aldo Butcher MD Work Phone: [facility] 10-12-2022 pneumococcal (PCV20) vaccine, 20 valent (PREVNAR 20) Aldo Butcher MD Work Phone: [facility] 10-12-2022 tetanus toxoid, redu nicki diphtheria toxoid, and acellular pertussis vaccine, adsorbed Aldo Butcher MD Work Phone: [facility] 08-15-2016 tetanus toxoid, redu nicki diphtheria toxoid, and acellular pertussis vaccine, adsorbed Aldo Butcher MD Work Phone: [facility] Payers Date Payer Category Payer Self-pay 2023 [facility] PPO [id number] 2012 Unknown MALAIKA BARROSO PPO [id number] 2012-Present [phone] [address] [place] [address] PPO [id number] 2012 Unknown [id number] 2012 Unknown [id number] Unknown [employer] [id number] Unknown [id number] Unknown [id number] Social History Date Type Detail Facility Start: 07-28-2014 End: 10-12-2022 Tobacco smoking status [facility] Never smoked tobacco [facility] Work Phone: Start: 07-28-2014 End: 10-12-2022 Tobacco use and exposure Smokeless tobacco non-user [facility] Work Phone: Start: 03-08-2022 End: 11-04-2024 Alcohol intake Current drinker of alcohol (finding) [facility] Start: 03-08-2022 End: 10-15-2023 Alcohol intake [facility] Start: 12-18-2018 Alcohol Comment social use [facility] Start: 1965 Sex Assigned At Not on file [facility] Start: 02-26-2022 End: 03-08-2022 Exposure to SARS-CoV-2 (event) Not sure [facility] Start: 10-11-2022 End: 10-15-2023 Social connection and isolation panel [facility] Do you belong to any clubs or organizations such as baptism groups, unions, fraternal or athletic groups, or school groups? No [facility] How often do you att end meetings of the clubs or organizations you belong to? Patient refused [facility] Are you now , , , , never or living with a partner? [facility] How often to you hav e a drink containing alcohol? 2-3 time sa week [facility] How many standard dr inks containing alcohol do you have on a typical day? 1 or 2 [facility] How often do you hav e 6 or more drinks on 1 occasion? Less than monthly [facility] How hard is it for y ou to pay for the very basics like food, housing, medical care, and heating Not very hard [facility] Do you feel stress - tense, restless, nervous, or anxious, or unable to sleep at night because your mind is troubled all the time - these days [OSQ] Not at all [facility] (I/We) worried wheth er (my/our) food would run out before (I/we) got money to buy more. Never true [facility] How often to you hav e a drink containing alcohol? 2-4 times a month [facility] How often do you hav e 6 or more drinks on 1 occasion? Never [facility] Start: 11-28-2018 Tobacco smoking stat us ARIS Ex-smoker (finding) [facility] Start: 11-28-2018 Tobacco Use Tobacco Use [facility] Start: 1965 Sex Assigned At Male [facility] Clinical Notes 03-08-2022 to 11-04-2024 Patient InstructionsCoDeshawn horton OD - 11/04/2024 5:25 PM EDTTelephone Encounter - Rafia Bess RN - 10/28/2024 10:05 AM EDTPatient InstructionsPatient InstructionsPatient Instructions Note Date & Type Note Facility 11-04-2024 Instructions Deshawn Musa OD - 11/04/2024 5:26 PM EDT ASSESSMENT/PLAN: 1. Type 2 diabetes mellitus without retinopathy (HCC) - ICD9: 250.00, ICD10: E11.9 (primary diagnosis) Examination shows no ocular diabetic complications today. Discussed need for optimal diabetes control to minimize chance of ocular complications. Advise patient to immediately report worsening in status or additional symptoms. Continue yearly dilated eye examinations. Recommended yearly dilated exams. documented in this encounter [facility] 11-04-2024 Note HNO ID: [id number] Author: DESHAWN MUSA OD Service: ? Author Type: FUND DEVELOPMENT MANAGER Type: Progress Notes Filed: 11/04/2024 17:27 Note Text: ASSESSMENT/PLAN: 1. Type 2 diabetes mellitus without retinopathy (HCC) - ICD9: 250.00, ICD10: E11.9 (primary diagnosis) Examination shows no ocular diabetic complications today. Discussed need for optimal diabetes control to minimize chance of ocular complications. Advise patient to immediately report worsening in status or additional symptoms. Continue yearly dilated eye examinations. Recommended yearly dilated exams. Deshawn Musa OD I have confirmed and edited as necessary the relevant ophthalmic history, ROS, and the neuro exam findings as obtained by others. [facility] 11-04-2024 History of Presen t illness Narrative ASSESSMENT/PLAN: 1. Type 2 diabetes mellitus without retinopathy (HCC) - ICD9: 250.00, ICD10: E11.9 (primary diagnosis) Examination shows no ocular diabetic complications today. Discussed need for optimal diabetes control to minimize chance of ocular complications. Advise patient to immediately report worsening in status or additional symptoms. Continue yearly dilated eye examinations. Recommended yearly dilated exams. Deshawn Musa OD I have confirmed and edited as necessary the relevant ophthalmic history, ROS, and the neuro exam findings as obtained by others. documented in this encounter [facility] 10-28-2024 Telephone encounter Note Hannah with [facility] called to say patient does not qualify for Junior for Calcium scoring test as he isn't over 60 years of age. Faxed new order over to scheduling at [phone]. Rafia Bess, ELVIE [facility] 10-28-2024 Miscellaneous Notes Hannah with [facility] called to say patient does not qualify for Junior for Calcium scoring test as he isn't over 60 years of age. Faxed new order over to scheduling at [phone]. Rafia Bess RN New order placed. Please fax to [facility] and notify patient. Polly from [facility] Scheduling calls and states that they received order for CT calcium scoring test. Patient does not qualify for Junior. New order needs to be sent over that takes out the Junior. Anjana Hsu RN documented in this encounter [facility] 10-25-2024 Telephone encounter Note New order placed. Please fax to [facility] and notify patient. [facility] 10-24-2024 Telephone encounter Note Polly from [facility] Scheduling calls and states that they received order for CT calcium scoring test. Patient does not qualify for Junior. New order needs to be sent over that takes out the Junior. Anjana Hsu RN [facility] 10-23-2024 Instructions Aldo Butcher MD - 10/23/2024 8:44 AM EDT We discussed your diabetes: - Your A1c is currently 7.0, which is slightly elevated. The goal is to keep it at 7.0 or below. Continue monitoring your diet and making healthy choices to help lower your A1c. - Your blood sugar during your last lab test was 108, which is within the normal range. - Consider purchasing a glucose meter from [employer] (their brand is affordable) to monitor your blood sugar at home. - Fasting blood sugar (before eating or drinking in the morning) should be below 120. - Post-meal blood sugar (2 hours after eating) should be below 180. - You can check your blood sugar 2-4 times per week, alternating between fasting and post-meal readings. - Your triglycerides, HDL (good cholesterol), and LDL (bad cholesterol) are all within normal limits. - Continue taking Metformin as prescribed. It is not contributing to the tingling in your feet. We discussed your foot pain and neuropathy: - The tingling and pain in your toes are likely related to diabetic neuropathy. Keeping your blood sugar under good control can help prevent progression. - Consider trying metatarsal pads, Triangular shapped, which can be purchased at [employer] or a drugstore near the Dr[address] Mckeon s section. These pads may help relieve pressure on your toes and reduce discomfort. - If the pain worsens or becomes unmanageable, please let us know. We discussed your weight loss: - You have lost 10 pounds over the past 6-7 months, which is a positive change. Continue watching your diet and staying active. - Cutting out snacks and soda has likely contributed to your weight loss. Keep up these healthy habits. We discussed your shingles prevention: - You received your first dose of the Shingrix vaccine today to protect against shingles. - Please return in 2-3 months for the second dose. We discussed your family history and heart health: - Given your family history of heart disease and diabetes, I recommend a CT calcium score to assess for calcium buildup in your coronary arteries. - I will send an order to [facility], which may have a junior to cover the cost. They will contact you to schedule the test. We reviewed your recent lab results: - Your kidney function, liver function, and calcium levels are all normal. - Your urine test showed a small amount of protein, but your microalbumin level was normal, indicating no significant kidney issues. - Your PSA test was normal. Follow-up: - Return in 6 months for your next routine visit. - Schedule your second Shingrix vaccine in 2-3 months. - [facility] will contact you to schedule the CT calcium score. If you have any questions or concerns before your next visit, please don t hesitate to reach out. documented in this encounter [facility] 10-23-2024 Note HNO ID: [id number] Author: ALDO BUTCHER MD Service: ? Author Type: Physician Type: Progress Notes Filed: 10/23/2024 21:37 Note Text: Chief Complaint Patient presents with: Physical HPI Rob Correia is a 59 year old male who presents here today for Physical and chronic health issues. Patient with hx of DM2, hyperlipidemia, and those as below. 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 He has been trying to watch his diet, cutting out snacks and soda, and eating whole grain bread. He denies recent fevers, frequent headaches, changes in hearing or vision, issues with his nose or throat, lumps or swelling in his neck, wheezing, dyspnea, hemoptysis, chest pain, palpitations, leg swelling, nausea, emesis, diarrhea, heartburn, hematuria, or dysuria. He also denies skin lesions, rashes, or sores, easy bruising or bleeding, changes in heat or cold tolerance, and symptoms of hypoglycemia, syncope, seizures, or tremors. He has not been checking his blood sugar regularly. 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 He also has a history of chickenpox. He denies any recent surgeries and is not aware of any new health issues in his blood relatives. His mother is still living, but his grandparents are . His sister 20 years ago due to trauma from being thrown off a horse. His father had colon cancer, which was successfully treated with surgery. He has a family history of DM and HTN, with his brother on antihypertensive medication but not diabetic, and his father having both conditions. His uncle on his father's side at 58 or 59 years old from a massive DC, and his cousin recently had stents placed at around 50 years old. Rob reports neuropathic pain in his feet, mainly in his toes, which he attributes to DM. The pain is described as a burning sensation and is alleviated by removing his shoes. He wears tennis shoes at home instead of work shoes, which helps reduce the pain. He denies any new or unusual aches and pains besides the neuropathic pain in his feet. He has not noticed any decreased interest or pleasure in activities he enjoys, nor has he been feeling down or blue, except for being affected by the weather. Past medical history, appointments, medications, allergies reviewed. [...] a hourse Coronary Artery Disease Paternal Grandmother DC Coronary Artery Disease Paternal Grandfather DC Coronary Artery Disease Paternal Uncle Glaucoma No [...] on File Prior to Visit Medication Sig Benzonatate 200 mg capsule Take 1 capsule by mouth three times a day as needed. albuterol HFA (PROVENTIL HFA, VENTOLIN HFA) 90 mcg/actuation inhaler Inhale 2 Puffs as instructed every 4 hours as needed for wheezing/shortness of breath. atorvastatin (LIPITOR) 20 mg tablet Take 1 tablet by mouth once daily. Take 1 tablet daily metFORMIN ER (GLUCOPHAGE XR) 500 mg 24 hr tablet Take 1 tablet by mouth two times a day before meals. cyanocobalamin, vitamin B-12, (VITAMIN B-12 ORAL) Take by mouth once daily. glucosamine/chondroitin/C/Nacho (GLUCOSAMINE-CHONDROITIN COMPLX ORAL) Take by mouth once daily. Cvumt-2-DXQ-EPA-Fish Oil (FISH OIL) 1,000 mg (120 mg-180 mg) cap Take 1 capsule by mouth two times a day. No current facility-administered medications on file prior to visit. Social History Social History Tobacco Use Smoking status: Never Smokeless tobacco: Never Vaping Use (more content not included)... [facility] 10-23-2024 History of Presen t illness Narrative Chief Complaint Patient presents with: Physical HPI Rob Correia is a 59 year old male who presents here today for Physical and chronic health issues. Patient with hx of DM2, hyperlipidemia, and those as below. 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 He has been trying to watch his diet, cutting out snacks and soda, and eating whole grain bread. He denies recent fevers, frequent headaches, changes in hearing or vision, issues with his nose or throat, lumps or swelling in his neck, wheezing, dyspnea, hemoptysis, chest pain, palpitations, leg swelling, nausea, emesis, diarrhea, heartburn, hematuria, or dysuria. He also denies skin lesions, rashes, or sores, easy bruising or bleeding, changes in heat or cold tolerance, and symptoms of hypoglycemia, syncope, seizures, or tremors. He has not been checking his blood sugar regularly. 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 He also has a history of chickenpox. He denies any recent surgeries and is not aware of any new health issues in his blood relatives. His mother is still living, but his grandparents are . His sister 20 years ago due to trauma from being thrown off a horse. His father had colon cancer, which was successfully treated with surgery. He has a family history of DM and HTN, with his brother on antihypertensive medication but not diabetic, and his father having both conditions. His uncle on his father's side at 58 or 59 years old from a massive DC, and his cousin recently had stents placed at around 50 years old. Rob reports neuropathic pain in his feet, mainly in his toes, which he attributes to DM. The pain is described as a burning sensation and is alleviated by removing his shoes. He wears tennis shoes at home instead of work shoes, which helps reduce the pain. He denies any new or unusual aches and pains besides the neuropathic pain in his feet. He has not noticed any decreased interest or pleasure in activities he enjoys, nor has he been feeling down or blue, except for being affected by the weather. Past medical history, appointments, medications, allergies reviewed. Previous Medical History PAST MEDICAL HISTORY Diagnosis Date Controlled type 2 diabetes mellitus without complication, without long-term current use of insulin ([facility]) 07/22/2017 Hyperlipidemia, mixed 10/12/2022 Myopia 08/23/2014 Presbyopia [...] a hourse Coronary Artery Disease Paternal Grandmother DC Coronary Artery Disease Paternal Grandfather DC Coronary Artery Disease Paternal Uncle Glaucoma No [...] on File Prior to Visit Medication Sig Benzonatate 200 mg capsule Take 1 capsule by mouth three times a day as needed. albuterol HFA (PROVENTIL HFA, VENTOLIN HFA) 90 mcg/actuation inhaler Inhale 2 Puffs as instructed every 4 hours as needed for wheezing/shortness of breath. atorvastatin (LIPITOR) 20 mg tablet Take 1 tablet by mouth once daily. Take 1 tablet daily metFORMIN ER (GLUCOPHAGE XR) 500 mg 24 hr tablet Take 1 tablet by mouth two times a day before meals. cyanocobalamin, vitamin B-12, (VITAMIN B-12 ORAL) Take by mouth once daily. glucosamine/chondroitin/C/Nacho (GLUCOSAMINE-CHONDROITIN COMPLX ORAL) Take by mouth once daily. Pzvax-5-AJP-EPA-Fish Oil (FISH OIL) 1,000 mg (120 mg-180 [...] of Symptoms REVIEW OF SYSTEMS GENERAL: No unintentional weight loss, malaise or fevers HEENT: Negative [...] : No history of dysuria, frequency or incontinence MUSCULOSKELETAL: Negative for joint pain or swelling, back pain or muscle pain SKIN: Negative for lesions, rash, and itching PSYCH: Negative for sleep disturbance, mood disorder and recent psychosocial stressors HEMATOLOGY/LYMPHOLOGY: Negative for prolonged bleeding, bruising easily or swollen nodes ENDOCRINE: Negative for cold or heat intolerance, symptoms of low BS's NEURO: No history of headaches, syncope, paralysis, seizures or tremors SEE HPI EXAM: BP 132/80 Pulse 67 Resp 16 Ht 175.3 cm (5' 9) Wt 79.8 kg (176 lb) SpO2 98% BMI 25.99 kg/m BP 132/80 Pulse 67 Resp 16 Ht 175.3 cm (5' 9) Wt 79.8 kg (176 lb) SpO2 98% BMI 25.99 kg/m Last 6 Encounter Wt Readings: Date: Wt: 10/23/2024 79.8 kg (176 lb) 06/03/2024 82.1 kg (181 lb) 04/19/2024 84.4 kg (186 lb) 10/19/2023 81.6 kg (180 lb) 09/15/2023 81.9 kg (180 lb 9.6 oz) 04/17/2023 85.7 kg (189 lb) General Appearance: Well appearing, alert, in no acute distress, well-hydrated, well nourished. and Overweight. Skin: Skin color, texture, turgor normal, no suspicious rashes or lesions. Head: Normocephalic, no masses, lesions, tenderness or abnormalities. Eyes: Anicteric sclera. Pupils are equally round and reactive to light. Extraocular movements are intact. . Ears: External ears, TM's normal, canals clear. Nose/Sinuses: Nares normal, septum [...] to palpation. No hernia.. Rectal: Normal exam. Health Maintenance List Dilated Retinal Exam due on 10/29/2024 Shingrix Vaccine(2 of 2) due on 12/18/2024 HbA1C due on 04/11/2025 Urine Albumin:Creatinine Ratio due on 10/10/2025 LDL Cholesterol due on 10/10/2025 Diabetic Foot Exam due on 10/23/2025 Annual PCP Team Chronic Disease Visit due on 10/23/2025 Depression Screening due on 10/23/2025 Anxiety Screening due on 10/23/2025 Colorectal Cancer Screening due on 11/30/2028 Prostate Cancer Screening Discussion due on 10/23/2029 DTaP,Tdap,Td Vaccine(3 - Td or Tdap) due on 10/12/2032 Pneumococcal Vaccine: 50+ Completed Hepatitis B Vaccine Discontinued Influenza Vaccine Discontinued Hepatitis C Screening Discontinued HIV Screening Discontinued Covid-19 Vaccine Discontinued Data reviewed Latest Ref Rng 10/10/2024 WBC 3.4 - 10.8 K/uL 7.3 (E) RBC 4.14 - 5.80 M/uL 4.64 (E) Hemoglobin 12.6 - 17.7 g/dL 13.9 (E) Hematocrit 37.5 - 51.0 % 40.5 (E) MCV 79 - 97 fL 87.3 (E) MCH 26.6 - 33 Pg 30.0 (E) MCHC 31.5 - 35.7 g/dL 34.4 (E) RDW 11.6 - 14.6 % 12.1 (E) Platelet Count 150 - 379 k/uL 240 (E) Neutrophil % % 60.4 (E) Lymphocyte % % 28.5 (E) Monocyte % % 9.2 (E) Eosinophil % % 1.2 (E) Basophil % % 0.4 (E) NEUTROPHILS ABSOLUTE 1.4 - 7.0 k/uL 4.4 (E) LYMPHS ABSOLUTE 0.7 - 3.1 k/uL 2.07 (E) NA 136 - 145 mmol/L 134 ! (E) K 3.5 - 5.1 mmol/L 4.0- (E) Chloride 98 - 107 MEQ/L 98 (E) CO2 21 - 32 MEQ/L 24.2 (E) Glucose 74 - 106 MG/DL 108 ! (E) BUN 7 - 18 MG/DL 11 (E) Creatinine 0.6 - 1.3 MG/DL 0.99 (E) GFR mL/MIN 89 (E) Total Protein 6.4 - 8.2 gm/dL 7.1 (E) Albumin 3.2 - 4.6 gm/dL 4.1 (E) Calcium 8.5 - 10.1 mg/dL 9.2 (E) Bili Total 0.2 - 1 mg/dL 0.68 (E) AST 8 - 37 U/L 25 (E) ALT (SGPT) 12 - 78 U/L 26 (E) Alk Phos Total 45 - 117 U/L 65 (E) Cholesterol, Total <=200 149 (E) Triglyceride <=150 73 (E) HDL CHOLESTEROL >=40 58 (E) LDL CHOLESTEROL <=100 77 (E) Microalbumin, Random urine 12 (E) Creatinine Urine 92.1 (E) Albumin/Creat Ratio <12 (E) PSA. 0.02 - 4.0 2.03 (E) Hemoglobin A1C 0 - 5.7 % 7.0 ! (E) Assessment and Plan 1. Well adult exam (Z00.00) Comprehensive physical examination performed. No acute issues identified. - pt give Shingrix #1 - Follow-up in 6 months. 2. Controlled type 2 diabetes mellitus without complication, without long-term current use of insulin (HCC) (E11.9) HbA1c elevated at 7.0%, previously 6.8%. Patient has made recent dietary changes. Fasting blood glucose was 108 mg/dL. Patient experiences mild neuropathic pain in toes, likely secondary to diabetes. - Continue Metformin. - Educated on blood glucose monitoring; recommended [employer] glucose meter and strips. - Advised on dietary modifications to reduce carbohydrate intake. - Discussed potential for weekly GLP-1 receptor agonist if glycemic control does not improve. 3. Hyperlipidemia, mixed (E78.2) Lipid panel shows triglycerides at 73 mg/dL, HDL at 58 mg/dL, and LDL at 77 mg/dL. All values are within target range. - cont lipitor 20 mg a day. 4. Pain in toes of both feet (M79.674) Mild neuropathic pain in toes, likely secondary to diabetes. No significant loss of hair on toes, indicating adequate circulation. - Recommended metatarsal pads for footwear to alleviate pressure. - Monitor for progression of symptoms. 5. Family history of early CAD (Z82.49) Uncle from a massive heart attack at age 58-59. Patient expresses concern about familial risk. - order CT calcium score. 6. Screening for heart disease (Z13.6) Patient has a family history of early CAD and is concerned about personal risk. - Ordered CT calcium score at [facility]; hospital will contact patient to schedule. 7. Need for vaccination (Z23) Patient has a history of varicella exposure and is at risk for herpes zoster. - Administered first dose of Shingrix vaccine. - Scheduled follow-up in 2-3 months for the second dose. 8. Encounter for screening examination for other mental health and behavioral disorders (Z13.39) Screening for depression (Z13.31) No signs of depression or mental health disorders reported or observed. F/u 6 months check A1c and lipid prior. Aldo Butcher MD Recording using [employer] software for draft documentation of the visit was discussed with the patient/authorized hr representative; all questions welcomed and answered. Patient/authorized hr representative agreed to proceed SENSITIVE EXAMINATION CONSENT: The sensitive examination was discussed with the Patient or Patient's Authorized Business Assistant. As applicable, any other physician, advance practice provider, medical student, or other health professional student that will be observing or involved in the sensitive examination for educational or training purposes was discussed with the Patient or Authorized Business Assistant. The Patient or Authorized Business Assistant has agreed to proceed with the sensitive examination. documented in this encounter [facility] 06-04-2024 Telephone encounter Note Pt notified of results and provider message. Tawana Ruelas LPN [facility] 06-04-2024 Miscellaneous Notes Pt notified of results and provider message. Tawana Ruelas LPN Left message for pt to contact office. Martha Ceballos LPN Positive influenza A. Continue as we discussed. Corina Gomes PA-C documented in this encounter [facility] 06-04-2024 Telephone encounter Note Left message for pt to contact office. Martha Ceballos LPN [facility] 06-04-2024 Telephone encounter Note Positive influenza A. Continue as we discussed. Corina Gomes PA-C [facility] [place] 06-03-2024 Telephone encounter Note Pt notified. Aparna Ryder MA [facility] 06-03-2024 Miscellaneous Notes Pt notified. Aparna Ryder MA CXR negative. Continue as we discussed documented in this encounter [facility] 06-03-2024 Telephone encounter Note CXR negative. Continue as we discussed [facility] 06-03-2024 History of Presen t illness Narrative [...] PATIENT PRESENTS WITH AN IMPLANTABLE OR ATTACHED FINANCIAL ANALYSIS ADVISOR: No RADIOLOGY DEPARTMENT: General X-ray: Exam(s) Completed: Chest X-Ray PERIPHERAL IV DATA: Not applicable SIGNED BY: RT Stephanie(R) June 03, 2024 8:49 AM documented in this encounter [facility] 06-03-2024 Note HNO ID: [id number] Author: SANTIAGO MATTHEWS RT(Marco) Service: ? Author Type: Fast Food Shift Supervisor Type: Progress Notes Filed: 06/03/2024 08:56 Note [...] PATIENT PRESENTS WITH AN IMPLANTABLE OR ATTACHED FINANCIAL ANALYSIS ADVISOR: No RADIOLOGY DEPARTMENT: General X-ray: Exam(s) Completed: Chest X-Ray PERIPHERAL IV DATA: Not applicable SIGNED BY: RT Stephanie(R) June 03, 2024 8:49 AM [facility] 06-03-2024 Note HNO ID: [id number] Author: CORINA GOMES PA-C Service: ? Author Type: Physician Greenhouse Assistant Type: Progress Notes Filed: 06/03/2024 09:04 Note [...] a hourse Coronary Artery Disease Paternal Grandmother DC Coronary Artery Disease Paternal Grandfather DC Coronary Artery Disease Paternal Uncle Glaucoma No [...] COMPLX ORAL) Take by mouth once daily. Xtgrt-2-OIN-EPA-Fish Oil (FISH OIL) 1,000 mg (120 mg-180 [...] AND RSV PCR, ROUTINE Corina Gomes PA-C [facility] 06-03-2024 History of Presen t illness [...] a hourse Coronary Artery Disease Paternal Grandmother DC Coronary Artery Disease Paternal Grandfather DC Coronary Artery Disease Paternal Uncle Glaucoma No [...] COMPLX ORAL) Take by mouth once daily. Dphdd-4-OJO-EPA-Fish Oil (FISH OIL) 1,000 mg (120 mg-180 [...] Corina Gomes PA-C documented in this encounter [facility] 05-02-2024 Telephone encounter Note Patient calls back and states that he spoke with insurance as was told that Corina is not credentialed under Dr. Butcher and that insurance will not cover office visit. Patient/Family calling with additional questions regarding financials and billing. Patient/Family directed in the following manner: For financial questions about an upcoming service, contact Patient Principal Quality Engineer by calling toll-free at [phone] and request to speak with a desk clerks supervisor. For questions regarding a medical bill for a past / post service, contact a Assembler Fitter by calling toll-free at [phone] and request to speak with a desk clerks supervisor. Patient/Family verbalized understanding. [facility] 05-02-2024 Miscellaneous Notes Patient calls back and states that he spoke with insurance as was told that Corina is not credentialed under Dr. Butcher and that insurance will not cover office visit. Patient/Family calling with additional questions regarding financials and billing. Patient/Family directed in the following manner: For financial questions about an upcoming service, contact Patient Principal Quality Engineer by calling toll-free at [phone] and request to speak with a desk clerks supervisor. For questions regarding a medical bill for a past / post service, contact a Assembler Fitter by calling toll-free at [phone] and request to speak with a desk clerks supervisor. Patient/Family verbalized understanding. documented in this encounter [facility] 04-19-2024 Note HNO ID: [id number] Author: CORINA GOMES PA-C Service: ? Author Type: Physician Greenhouse Assistant Type: Progress Notes Filed: 04/19/2024 07:30 Note [...] a hourse Coronary Artery Disease Paternal Grandmother DC Coronary Artery Disease Paternal Grandfather DC Coronary Artery Disease Paternal Uncle Glaucoma No [...] COMPLX ORAL) Take by mouth once daily. Rcojd-8-OUH-EPA-Fish Oil (FISH OIL) 1,000 mg (120 mg-180 [...] % 6.6 (H) (more content not included)... [facility] 04-19-2024 History of Presen t illness [...] a hourse Coronary Artery Disease Paternal Grandmother DC Coronary Artery Disease Paternal Grandfather DC Coronary Artery Disease Paternal Uncle Glaucoma No [...] COMPLX ORAL) Take by mouth once daily. Vruyr-0-UBX-EPA-Fish Oil (FISH OIL) 1,000 mg (120 mg-180 [...] Corina Gomes PA-C documented in this encounter [facility] 12-13-2023 Telephone encounter Note Prescription Refill Information The patient has [...] Ceballos LPN December 13, 2023 7:05 AM [facility] 12-13-2023 Miscellaneous Notes Prescription Refill Information The patient has been [...] 2023 7:05 AM documented in this encounter [facility] 11-12-2023 Telephone encounter Note The following approved medication requests have been transmitted electronically. Requested Prescriptions Signed Prescriptions Disp Refills atorvastatin (LIPITOR) 20 mg tablet 90 tablet 1 Sig: Take 1 tablet by mouth once daily. Take 1 tablet daily Authorizing Provider: ALDO BUTCHER MD [facility] 11-12-2023 Miscellaneous Notes The following approved medication requests have been [...] 2023 4:07 PM documented in this encounter [facility] 11-10-2023 Telephone encounter Note Prescription Refill Information The patient has [...] Marrero LPN November 10, 2023 4:07 PM [facility] 10-30-2023 Instructions Deshawn Musa, OD - 10/30/2023 5:16 PM EDT ASSESSMENT/PLAN: [...] Recommended yearly exams. documented in this encounter [facility] 10-30-2023 History of Presen t illness Narrative [...] obtained by others. documented in this encounter [facility] 10-19-2023 Instructions Aldo Butcher MD - 10/19/2023 8:07 AM EDT If you are thinking of getting the shingrix vaccine for the prevention of shingles please check with insurance to see if covered and if you can get it at your doctors office. Please get labs and urine test done on or after 04/05/24 prior to your next visit. documented in this encounter [facility] 10-19-2023 History of Presen t illness Narrative [...] a hourse Coronary Artery Disease Paternal Grandmother DC Coronary Artery Disease Paternal Grandfather DC Coronary Artery Disease Paternal Uncle Glaucoma No [...] mouth once daily. Take 1 tablet daily Tkkqz-3-PRU-EPA-Fish Oil (FISH OIL) 1,000 mg (120 mg-180 [...] Shingrix Vaccine(1 of 2) Never done Covid-19 Vaccine(2022- season) Never done Dilated Retinal [...] Lymph 1.00 - 4.00 k/uL 1.93 1.55 [place]% % 8.7 7.7 Abs [place] <0.87 k/uL 0.69 0.46 Eosin% % 2.6 [...] Negative Ketones, Urine Negative Negative Negative Specific [place], Ur 1.005 - 1.030 1.009 1.012 Hemoglobin/Blood,Ur [...] Aldo Butcher MD documented in this encounter [facility] 09-15-2023 History of Presen t illness Narrative [...] a hourse Coronary Artery Disease Paternal Grandmother DC Coronary Artery Disease Paternal Grandfather DC Coronary Artery Disease Paternal Uncle Glaucoma No [...] mouth once daily. Take 1 tablet daily Myloc-5-AYJ-EPA-Fish Oil (FISH OIL) 1,000 mg (120 mg-180 [...] not tender. . Health Maintenance List Covid-19 Vaccine(2022-) Never done Dilated Retinal Exam due on [...] Aldo Butcher MD documented in this encounter [facility] 04-18-2023 Miscellaneous Notes Pt notified of results and provider message. Tawana Ruelas LPN Called and left a voicemail for the Patient to call back and ask for a nurse to receive the providers message. Rafia Bess, RN Let patient know A1c is ok at 6.7%. lipid panel was very good. documented in this encounter [facility] 04-17-2023 Instructions Aldo Butcher MD - 04/17/2023 8:58 AM EST Please get labs and urine test done on or after 10/06/2023 prior to your next visit. Consider taking Vit B6 once a ay for the foot tingling. documented in this encounter [facility] 04-17-2023 History of Presen t illness Narrative [...] complication, without long-term current use of insulin ([facility]) 07/22/2017 Hyperlipidemia, mixed 10/12/2022 Myopia 08/23/2014 Presbyopia [...] a hourse Coronary Artery Disease Paternal Grandmother DC Coronary Artery Disease Paternal Grandfather DC Coronary Artery Disease Paternal Uncle Glaucoma No [...] mouth once daily. Take 1 tablet daily Mqrxb-2-QZA-EPA-Fish Oil (FISH OIL) 1,000 mg (120 mg-180 mg) cap Sig: Take 1 capsule by mouth two times a day. F/u 6 months extensive check CMP, Lipid, UA, A1c, urine micro albumin, CBC, PSA Aldo Butcher MD documented in this encounter [facility] 03-06-2023 Miscellaneous Notes Patient's contacted office via my chart and indicated that this prescription should have been sent to [facility] and not [facility]. Hannah Rodriguez MA documented in this encounter [facility] 02-09-2023 Miscellaneous Notes Last office visit: 10/12/22 F/u scheduled: 04/17/23 [...] advise. Lilli Espinosa documented in this encounter [facility] 09-09-2022 History of Presen t illness Narrative [...] - AMOXICILLIN 875 MG TABLET Ele Pro APRN.KILN TENDER documented in this encounter [facility] 03-08-2022 Instructions Pawel Musa II, OD - [...] Musa II, OD documented in this encounter [facility] 03-08-2022 History of Presen t illness Narrative [...] Musa II, OD documented in this encounter [facility] Evaluation note Diagnosis Type 2 diabetes mellitus without retinopathy (HCC)- Primary Type II or unspecified type diabetes mellitus without mention of complication, not stated as uncontrolled Myopia, bilateral Myopia Regular astigmatism of right eye Regular astigmatism Presbyopia [facility] Acute otitis media, unspecified otitis media type- Primary [facility] Diagnosis Controlled type 2 diabetes mellitus without complication, without long-term current use of insulin (HCC)- Primary Hyperlipidemia, mixed Mixed hyperlipidemia Screening for prostate cancer Special screening for malignant neoplasm of prostate [facility] Diagnosis Hesitancy- Primary Urinary hesitancy [facility] Diagnosis Well adult exam- Primary Routine general medical examination at a health care facility Controlled type 2 diabetes mellitus without complication, without long-term current use of insulin (HCC) Hyperlipidemia, mixed Mixed hyperlipidemia [facility] Diagnosis Type 2 diabetes mellitus without retinopathy (HCC)- Primary Type II or unspecified type diabetes mellitus without mention of complication, not stated as uncontrolled Myopia, bilateral Myopia Regular astigmatism of right eye Regular astigmatism Presbyopia [facility] Diagnosis Lower resp. tract infection- Primary Other diseases of respiratory system, not elsewhere classified Acute cough Acute cough Lower resp. tract infection Other diseases of respiratory system, not elsewhere classified [facility] Diagnosis Acute cough Lower resp. tract infection Other diseases of respiratory system, not elsewhere classified documented in this encounter [facility] noteNo assessment information availableWLouis Stokes [facility] Work Phone: Evaluation note* Diagnosis Well adult exam- Primary Routine general medical examination at a health care facility Controlled type 2 diabetes mellitus without complication, without long-term current use of insulin (HCC) Hyperlipidemia, mixed Mixed hyperlipidemia Pain in toes of both feet Family history of early CAD Family history of ischemic heart disease Screening for heart disease Screening for other and unspecified cardiovascular conditions Need for vaccination Need for prophylactic vaccination and inoculation against unspecified single disease Encounter for screening examination for other mental health and behavioral disorders Screening for depression documented in this encounter [facility] note* Diagnosis Encounter for screening for cardiovascular disorders- Primary Screening for other and unspecified cardiovascular conditions documented in this encounter [facility] note* Diagnosis Type 2 diabetes mellitus without retinopathy (HCC)- Primary Type II or unspecified type diabetes mellitus without mention of complication, not stated as uncontrolled documented in this encounter [facility] for referral (narrative)No reason for referral information availableWLouis Stokes [facility] Work Phone: Reason for Referral Specialty Diagnoses / Procedures Referred By Joslyn jasmine Referred To Contact Ele Pro APRN.[facility] [address] [place] [address] Referral ID Status Reason Start Date Expiration Date Visits Re quested Visits Authorized [id number] Closed 1 1 Chief Complaint and Reason for Visit Chief Complaint Admit Date LABS October 10, 2024 4:06p m Summary Purpose Family History No Family History Records FoundNo Family History Records Found Advance Directives No Advanced Directives Records FoundNo Advanced Directives Records Found Additional Source Comments Source Comments (unrecognize d section and content) In the event this informatio n is protected by the Federal Confidentiality of Alcohol and Drug Abuse Patient Records regulations: The Federal rules restrict any use of the information to criminally investigate or prosecute any alcohol or drug abuse patient.[facility] the event this information is protected by the Federal Confidentiality of Alcohol and Drug Abuse Patient Records regulations: The Federal rules restrict any use of the information to criminally investigate or prosecute any alcohol or drug abuse patient.[facility] the event this information is protected by the Federal Confidentiality of Alcohol and Drug Abuse Patient Records regulations: The Federal rules restrict any use of the information to criminally investigate or prosecute any alcohol or drug abuse patient.[facility] the event this information is protected by the Federal Confidentiality of Alcohol and Drug Abuse Patient Records regulations: The Federal rules restrict any use of the information to criminally investigate or prosecute any alcohol or drug abuse patient.[facility] the event this information is protected by the Federal Confidentiality of Alcohol and Drug Abuse Patient Records regulations: The Federal rules restrict any use of the information to criminally investigate or prosecute any alcohol or drug abuse patient.[facility] the event this information is protected by the Federal Confidentiality of Alcohol and Drug Abuse Patient Records regulations: The Federal rules restrict any use of the information to criminally investigate or prosecute any alcohol or drug abuse patient.[facility] the event this information is protected by the Federal Confidentiality of Alcohol and Drug Abuse Patient Records regulations: The Federal rules restrict any use of the information to criminally investigate or prosecute any alcohol or drug abuse patient.[facility] the event this information is protected by the Federal Confidentiality of Alcohol and Drug Abuse Patient Records regulations: The Federal rules restrict any use of the information to criminally investigate or prosecute any alcohol or drug abuse patient.[facility] the event this information is protected by the Federal Confidentiality of Alcohol and Drug Abuse Patient Records regulations: The Federal rules restrict any use of the information to criminally investigate or prosecute any alcohol or drug abuse patient.[facility] the event this information is protected by the Federal Confidentiality of Alcohol and Drug Abuse Patient Records regulations: The Federal rules restrict any use of the information to criminally investigate or prosecute any alcohol or drug abuse patient.[facility] the event this information is protected by the Federal Confidentiality of Alcohol and Drug Abuse Patient Records regulations: The Federal rules restrict any use of the information to criminally investigate or prosecute any alcohol or drug abuse patient.[facility] the event this information is protected by the Federal Confidentiality of Alcohol and Drug Abuse Patient Records regulations: The Federal rules restrict any use of the information to criminally investigate or prosecute any alcohol or drug abuse patient.[facility] the event this information is protected by the Federal Confidentiality of Alcohol and Drug Abuse Patient Records regulations: The Federal rules restrict any use of the information to criminally investigate or prosecute any alcohol or drug abuse patient.[facility] the event this information is protected by the Federal Confidentiality of Alcohol and Drug Abuse Patient Records regulations: The Federal rules restrict any use of the information to criminally investigate or prosecute any alcohol or drug abuse patient.[facility] the event this information is protected by the Federal Confidentiality of Alcohol and Drug Abuse Patient Records regulations: The Federal rules restrict any use of the information to criminally investigate or prosecute any alcohol or drug abuse patient.[facility] the event this information is protected by the Federal Confidentiality of Alcohol and Drug Abuse Patient Records regulations: The Federal rules restrict any use of the information to criminally investigate or prosecute any alcohol or drug abuse patient.[facility] the event this information is protected by the Federal Confidentiality of Alcohol and Drug Abuse Patient Records regulations: The Federal rules restrict any use of the information to criminally investigate or prosecute any alcohol or drug abuse patient.[facility] the event this information is protected by the Federal Confidentiality of Alcohol and Drug Abuse Patient Records regulations: The Federal rules restrict any use of the information to criminally investigate or prosecute any alcohol or drug abuse patient.[facility] the event this information is protected by the Federal Confidentiality of Alcohol and Drug Abuse Patient Records regulations: The Federal rules restrict any use of the information to criminally investigate or prosecute any alcohol or drug abuse patient.[facility] the event this information is protected by the Federal Confidentiality of Alcohol and Drug Abuse Patient Records regulations: The Federal rules restrict any use of the information to criminally investigate or prosecute any alcohol or drug abuse patient.[facility] the event this information is protected by the Federal Confidentiality of Alcohol and Drug Abuse Patient Records regulations: The Federal rules restrict any use of the information to criminally investigate or prosecute any alcohol or drug abuse patient.[facility] the event this information is protected by the Federal Confidentiality of Alcohol and Drug Abuse Patient Records regulations: The Federal rules restrict any use of the information to criminally investigate or prosecute any alcohol or drug abuse patient.[facility] the event this information is protected by the Federal Confidentiality of Alcohol and Drug Abuse Patient Records regulations: The Federal rules restrict any use of the information to criminally investigate or prosecute any alcohol or drug abuse patient.[facility] the event this information is protected by the Federal Confidentiality of Alcohol and Drug Abuse Patient Records regulations: The Federal rules restrict any use of the information to criminally investigate or prosecute any alcohol or drug abuse patient.[facility] the event this information is protected by the Federal Confidentiality of Alcohol and Drug Abuse Patient Records regulations: The Federal rules restrict any use of the information to criminally investigate or prosecute any alcohol or drug abuse patient.[facility] Reason for Visit (unrecogniz ed section and [...] Reason Comments Billing Issue Reason Comments Cough Reason Comments Results Care Teams (unrecognized sec tion and content) All Terrain Vehicle Technician Relationship Specialty Start Date End Date Joce Roe CNP [address] [place] [address] PCP - General Family Medicine 01/23/21 All Terrain Vehicle Technician Relationship Specialty Start Date End Date Sherrie Roe CNP [address] [place] [address] PCP - General Family Medicine 01/23/21 All Terrain Vehicle Technician Relationship Specialty Start Date End Date Aldo Butcher MD [address] [place] [address] PCP - General Family Medicine 10/12/22 All Terrain Vehicle Technician Relationship Specialty Start Date End Date Aldo Butcher MD [address] [place] [address] PCP - General Family Medicine 10/12/22 All Terrain Vehicle Technician Relationship Specialty Start Date End Date Aldo Butcher MD [address] [place] [address] PCP - General Family Medicine 10/12/22 All Terrain Vehicle Technician Relationship Specialty Start Date End Date Aldo Butcher MD [address] [place] [address] PCP - General Family Medicine 10/12/22 All Terrain Vehicle Technician Relationship Specialty Start Date End Date Aldo Butcher MD [address] [place] [address] PCP - General Family Medicine 10/12/22 All Terrain Vehicle Technician Relationship Specialty Start Date End Date Aldo Butcher MD [address] [place] [address] PCP - General Family Medicine 10/12/22 All Terrain Vehicle Technician Relationship Specialty Start Date End Date Aldo Butcher MD [address] [place] [address] PCP - General Family Medicine 10/12/22 All Terrain Vehicle Technician Relationship Specialty Start Date End Date Aldo Butcher MD [address] [place] [address] PCP - General Family Medicine 10/12/22 All Terrain Vehicle Technician Relationship Specialty Start Date End Date Aldo Butcher MD [address] [place] [address] PCP - General Family Medicine 10/12/22 All Terrain Vehicle Technician Relationship Specialty Start Date End Date Aldo Butcher MD [address] [place] [address] PCP - General Family Medicine 10/12/22 All Terrain Vehicle Technician Relationship Specialty Start Date End Date Aldo Butcher MD [address] [place] [address] PCP - General Family Medicine 10/12/22 Ele Pro APRN.KILN TENDER [address] [place] [address] [employer] Teacher Family Medicine 04/13/24 Corina Gomes PA-C [address] [place] [address] [employer] Teacher Family Medicine 04/13/24 All Terrain Vehicle Technician Relationship Specialty Start Date End Date Aldo Butcher MD [facility] [place] [address] PCP - General Family Medicine 10/12/22 Ele Pro, [place].KILN TENDER [facility] [place] [address] [employer] School Teacher Family Medicine 04/13/24 Corina Gomes PA-C [address] [place] [address] Elementary School Teacher Family Medicine 04/13/24 All Terrain Vehicle Technician Relationship Specialty Start Date End Date Aldo Butcher MD [address] [place] [address] PCP - General Family Medicine 10/12/22 Ele Pro, [place]IVID[place].KILN TENDER [address] [place] [address] [employer] Teacher Family Medicine 04/13/24 Corina Gomes PA-C [address] [place] [address] Elementary School Teacher Family [facility] 04/13/24 All Terrain Vehicle Technician Relationship Specialty Start Date End Date Aldo Butcher MD [address] [place] [address] PCP - General Family Medicine 10/12/22 Ele Pro, DE ICER INSTALLER.KILN TENDER [address] [place] [address] [employer] Teacher Family Medicine 04/13/24 Corina Gomes PA-C [address] [place] [address] [facility] 04/13/24 [employer] Vehicle Technician Relationship Specialty Start Date End Date Aldo Butcher MD [address] [place] [address] PCP - General Family Medicine 10/12/22 Ele Pro, DE ICER INSTALLER.KILN TENDER [address] [place] [address] [employer] Teacher Family Medicine 04/13/24 Corina Gomes PA-C [address] [place] [address] [employer] Teacher Family Medicine 04/13/24 [employer] Terrain Vehicle Technician Relationship Specialty Start Date End Date Aldo Butcher MD [address] [place] [address] PCP - General Family Medicine 10/12/22 Ele Pro APRN.KILN TENDER [address] [place] [address] Elementary [employer] Teacher Family [facility] 04/13/24 Corina Gomes PA-Bre [address] [place] [address] [facility] 04/13/24 Team Status: Active Member Role Status Dates Dr. Temo Shook MD Primary Care Provider Active Team Status: Inactive Member Role Status Dates Dr. Temo Shook MD Primary Care Provider Active Start: October 10, 2024 End: October 10, 2024 Corina LAUREANO PA Attending Provider Active Start: October 10, 2024 End: October 10, 2024 [employer] Terrain Vehicle Technician Relationship Specialty Start Date End Date Aldo Butcher MD [address] [place] [address] PCP - General Family Medicine 10/12/22 Ele Pro, NATIVID[place].KILN TENDER [address] [place] [address] [employer] Teacher Family Medicine 10/07/24 Corina Gomes PA-C [address] [place] [address] [employer] Teacher Family Medicine 10/07/24 [employer] Terrain Vehicle Technician Relationship Specialty Start Date End Date Aldo Butcher MD [address] [place] [address] PCP - General Family Medicine 10/12/22 Ele Pro APRN.KILN TENDER [address] [place], [place] [id number] [facility] 10/07/24 Corina Gomes PA-C [address] [place], [place] [id number] [facility] 10/07/24 [employer] Terrain Vehicle Technician Relationship Specialty Start Date End Date Aldo Butcher MD [address] [place], [place] [address] PCP - General Family Medicine 10/12/22 Ele Pro APRN.KILN TENDER [address] [place], [place] [id number] [facility] 10/07/24 Corina Gomes PA-C [address] [place], [place] [id number] [facility] 10/07/24 Goals (unrecognized section and content) Goals may be documented in a n alternate section (unrecognized sect ion and content) No Status Records FoundNo Status Records Found INFORMATION SOURCE (unrecogn ized section and content) DATE CREATED AUTHOR 10/30/2024 [facility] DATE CREATED AUTHOR AUTHOR'S ORGANIZ ATION 11/06/2024 [facility] FOR RECORDS PERTAINING TO PATIENTS WHO ARE [...] BE BASED ON THE PRIMARY CLINICAL RECORDS. [employer] provides no warranty or guarantee of the accuracy or completeness of information in this document.
--- OUTSIDE RECORDS SUMMARY | 2024-11-19 06:48 | XMS RPT_ITS | CCD ---
Author Organization [facility] Care Team Providers Care Attorney At Law Name Role Phone Joce Roe CNP Primary Care Provider Sherrie Roe CNP Primary Care Provider Aldo Butcher MD Primary Care Provider Aldo Butcher MD Primary Care Provider Adlo Butcher MD Primary Care Provider [place] CLINICAL STAFF EDUCATOR.Ele FREITAS Unavailable Corina Gomes PA-C Unavailable Dr. Temo Shook MD Primary Care Provider Corina Gray Attending Provider [place] CLINICAL STAFF EDUCATOR.Ele FREITAS Unavailable Corina Gomes PA-C Unavailable Temo Shook Primary Care Unavailable Corina Gomes Attending Unavailable Aldo Butcher Attending Unavailable Aldo Butcher Referring Unavailable Temo Shook Primary Care Unavailable ALDO BUTCHER Primary Care Unavailable DESHAWN MUSA Referring UnavailDESHAWN Sandoval Attending Unavailhussain e ALDO BUTCHER Attending Unavailable ALDO BUTCHER Primary Care Unavailable ALDO BUTCHER Primary Care Unavailable CORINA [...] Comment on above: [facility]. Take one tablet am and one tablet pm 500 mg. Take one tab let am and one tablet pm Nfxgh-8-YXZ-EPA-Fis h Oil (FISH OIL) 1,000 mg (120 mg-180 mg) cap (20 sources) Start: 04-17-2023 take 1 capsule by mouth twice daily Imtqd-9-AOE-EPA-Fi sh Oil (FISH OIL) 1,000 mg (120 mg-180 mg) cap Take 1 capsule by mouth two times a day. 04/17/2023 Active Start: 04-17-2023 take 1 capsule by mo [facility] twice daily Agqnx-4-LCU-EPA-Fish Oil (FISH OIL) 1,000 mg (120 mg-180 mg) cap Take 1 capsule by mouth two times a day. 0 04/17/2023 Active Comment on above: Take 1 capsule by [facility] two times a day. sulfamethoxazole 800 mg [...] Drug Class(es) Dates Sig (Normalized) Sig (Original) [id number] 200 actuat albuterol 0.09 mg/actuat metered dose [...] Test Name Value Interpretation Reference Range Facility [facility] 10-24-2024 [facility] CORREIA ([id number]) 1965 M Date Time Provider Department 10/24/24 ALDO BUTCHER During your visit today, we recorded the following information about you: Anjana Hsu RN 10/24/2024 10:37 AM Signed Polly from [facility] Scheduling calls and states that they received order for CT calcium scoring test. Patient does not qualify for Junior. New order needs to be sent over that takes out the Junior. ELVIE Carrillo Danielle, CLINICAL STAFF EDUCATOR.SWITCHING CLERK 10/25/2024 1:53 PM Signed New order placed. Please fax to [facility] and notify patient. Rafia Bess RN 10/28/2024 10:08 AM Signed Hannah with [facility] Radiology called to say patient does not qualify for Junior for Calcium scoring test as he isn't over 60 years of age. Faxed new order over to scheduling at [phone]. Rafia Bess RN Allergies As of Date: 10/24/2024 (No Known Allergies) Date Reviewed: 10/23/2024 Reviewed by: Aldo Butcher MD - Fully Assessed Reason for Visit: Results [95] Primary Visit Diagnosis:Encounter for screening for cardiovascular disorders [Z13.6] Order(s):CT CALCIUM SCORING (CARDIAC) [facility] [[id number]] Order #: [id number] FUTURE Prescriptions as of 10/28/2024 - atorvastatin [...] ORAL) Take by mouth once daily. - Ciccr-9-APV-EPA-Fish Oil (FISH OIL) 1,000 mg (120 mg-180 [...] Encounter Status:Closed by RAFIA BESS on 10/28/24 [facility] CNOVon 10-23-2024 CNOV Office Visit (FAMPWS ) PARAGMILDREDHARSHILROB Jean ([id number]) 1965 M Date Time Provider Department 10/23/24 8:00 AM [facility], we recorded the [...] or 61 years old from a massive [place], and his cousin recently had stents placed [...] a hourse Coronary Artery Disease Paternal Grandmother IN Coronary Artery Disease Paternal Grandfather [place] Coronary Artery Disease Paternal Uncle Glaucoma No [...] once da (more content not included)... Normal [facility] Absolute lymphocyte countOrd ered By: Corina Gomes on 10-10-2024 Lymphocytes Auto (Unsp spec) [#/Vol] 2.07 10*3/uL 0.83-4.51 [facility] Absolute neutrophil countOrd ered By: Corina Gomes on 10-10-2024 Neutrophils (Bld) [#/Vol] 4.4 10*3/uL 2.0-7.7 [facility] Anion gap in Serum or Plasma Ordered By: Corina Gomes on 10-10-2024 Anion gap [Moles/Vol] 11 mmol/L 5-15 [facility] Automated blood erythrocyte countOrdered By: Corina Gomes on 10-10-2024 RBC (Bld) [#/Vol] 4.64 10*6/uL [facility] Automated blood hematocrit ( percentage)Ordered By: Corina Gomes on 10-10-2024 Hematocrit (Bld) [Volume fraction] 40.5 % 37.5 - 51.0 % [facility] Automated lymphocyte count a s percentage of total leukocytesOrdered By: Corina Gomes on 10-10-2024 Lymphocytes/100 WBC Auto (Unsp spec) 28.5 % 19- [facility] BUN/creatinine ratioOrdered By: Corina Gomes on 10-10-2024 Urea nitrogen/Creatinine [Mass ratio] 11.4 mg/mg 10- [facility] Basophil percentageOrdered B y: Corina Gomes on 10-10-2024 Basophils/100 WBC (Bld) 0.4 % [facility] Bilirubin Test strip Ql (U)O rdered By: Corina Gomes on 10-10-2024 Bilirubin Ql (U) Negative Negative [facility] Bilirubin, totalOrdered By: Corina Gomes on 10-10-2024 Bilirubin [Mass/Vol] 0.68 mg/dL 0.00-1.30 [facility] CBC W/DIFF/PLT (EXTERNAL LAB KARLOS)on 10-10-2024 BASO ABSOLUTE [facility] EOS ABSOLUTE [facility] Immature Gran % [facility] IMMATURE GRANS ABSOLUTE [facility] LYMPHS ABSOLUTE 2.07 [facility] MCH 30 Pg 26.6 - 33 Pg [facility] MCHC (RBC) [Mass/Vol] 34.4 g/dL 31.5 - 35.7 g/dL [facility] MONOCYTES ABSOLUTE [facility] NEUTROPHILS [facility]OLUTE [facility].4 [facility] CBC W/Diff, Automatedon Absolute Lymph 2.07 X10 3/uL Normal 0.83-4.51 [facility] Comment on above: Performed By: #### L 501.9985, L500.4050, L400.0001, L501.9910, L502.0250, L500.4100, L100.0100 #### [facility] [address] [place], [address] Absolute Neut 4.4 X10 3/uL Normal 2.0-7.7 [facility] Comment on above: Performed By: #### L 501.9985, L500.4050, L400.0001, L501.9910, L502.0250, L500.4100, L100.0100 #### [facility] [address] [place], [address] Basophils/100 WBC (Bld) 0.4 % Normal 0-1 [facility] Comment on above: Performed By: #### L 501.9985, L500.4050, L400.0001, L501.9910, L502.0250, L500.4100, L100.0100 #### [facility] [address] [place], [address] Eosinophils/100 WBC (Bld) 1.2 % Normal 0-5 [facility] Comment on above: Performed By: #### L 501.9985, L500.4050, L400.0001, L501.9910, L502.0250, L500.4100, L100.0100 #### [facility] [address] [place], [address] Erythrocyte distribution width (RBC) [Ratio] 12.1 % Normal 11.6-14.6 [facility] Comment on above: Performed By: #### L 501.9985, L500.4050, L400.0001, L501.9910, L502.0250, L500.4100, L100.0100 #### [facility] [address] [place], [address] Hematocrit (Bld) [Volume fraction] 40.5 % Normal 40-54 [facility] Comment on above: Performed By: #### L 501.9985, L500.4050, L400.0001, L501.9910, L502.0250, L500.4100, L100.0100 #### [facility] [address] [place], [address] Hemoglobin (Bld) [Mass/Vol] 13.9 g/dL Normal 13.0-16.5 [facility] Comment on above: Performed By: #### L 501.9985, L500.4050, L400.0001, L501.9910, L502.0250, L500.4100, L100.0100 #### [facility] [address] [place], [address] IG% 0.300 Normal 0.0-0.9 [facility] Comment on above: Result Comment: IG% - Immature Granulocytes (promyelocytes, myelocytes and metamyelocytes) > 1% indicates that a LEFT SHIFT is Present. Performed By: #### L 501.9985, L500.4050, L400.0001, L501.9910, L502.0250, L500.4100, L100.0100 #### [facility] [address] [place], [address] Lymphocytes/100 WBC (Bld) 28.5 % Normal 19-41 [facility] Comment on above: Performed By: #### L 501.9985, L500.4050, L400.0001, L501.9910, L502.0250, L500.4100, L100.0100 #### [facility] [address] [place], [address] MCH (RBC) [Entitic mass] 30.0 pg Normal 27.0-32.0 [facility] Comment on above: Performed By: #### L 501.9985, L500.4050, L400.0001, L501.9910, L502.0250, L500.4100, L100.0100 #### [facility] [address] [place], [address] MCHC (RBC) [Mass/Vol] 34.3 g/dL Normal 32-36 [facility] Comment on above: Performed By: #### L 501.9985, L500.4050, L400.0001, L501.9910, L502.0250, L500.4100, L100.0100 #### [facility] [address] [place], [address] MCV (RBC) [Entitic vol] 87.3 fL Normal 80-94 [facility] Comment on above: Performed By: #### L 501.9985, L500.4050, L400.0001, L501.9910, L502.0250, L500.4100, L100.0100 #### [facility] [address] [place], [address] Monocytes/100 WBC (Bld) 9.2 % Normal 0-10 [facility] Comment on above: Performed By: #### L 501.9985, L500.4050, L400.0001, L501.9910, L502.0250, L500.4100, L100.0100 #### [facility] [address] [place], [address] Neutrophils/100 WBC (Bld) 60.4 % Normal 47-70 [facility] Comment on above: Performed By: #### L 501.9985, L500.4050, L400.0001, L501.9910, L502.0250, L500.4100, L100.0100 #### [facility] [address] [place], [address] Nucleated RBC (Bld) [#/Vol] 0 10*3/uL Normal 0-5 [facility] Comment on above: Performed By: #### L 501.9985, L500.4050, L400.0001, L501.9910, L502.0250, L500.4100, L100.0100 #### [facility] [address] [place], [address] Platelet mean volume (Bld) [Entitic vol] 9.6 fL Normal 6.2-12.0 [facility] Comment on above: Performed By: #### L 501.9985, L500.4050, L400.0001, L501.9910, L502.0250, L500.4100, L100.0100 #### [facility] [address] [place], [address] Platelets (Bld) [#/Vol] 240 10*3/uL Normal 150-450 [facility] Comment on above: Performed By: #### L 501.9985, L500.4050, L400.0001, L501.9910, L502.0250, L500.4100, L100.0100 #### [facility] [address] [place], [address] RBC (Bld) [#/Vol] 4.64 10*6/uL Normal 4.6-6.2 [facility] Comment on above: Performed By: #### L 501.9985, L500.4050, L400.0001, L501.9910, L502.0250, L500.4100, L100.0100 #### [facility] [address] [place], [address] RDW SD 38.8 fl Normal 35.1-43.9 [facility] Comment on above: Performed By: #### L 501.9985, L500.4050, L400.0001, L501.9910, L502.0250, L500.4100, L100.0100 #### [facility] [address] [place], [address] WBC (Bld) [#/Vol] 7.3 10*3/uL Normal 4.4-11.0 [facility] Comment on above: Performed By: #### L 501.9985, L500.4050, L400.0001, L501.9910, L502.0250, L500.4100, L100.0100 #### [facility] [address] [place], [address] CMP (EXTERNAL)on 10-10-2024 Alk Phos Total 65 U/L 45 - 117 U/L [facility] Bili Total 0.68 mg/dL 0.2 - 1 mg/dL [facility] GFR 89 mL/MIN [facility] GFR AFR AMER [facility] K 4.0- 3.5 - 5.1 mmol/L [facility] Calculated very low density lipoprotein (VLDL) cholesterol measurementOrdered By: Corina Gomes on 10-10-2024 Calculated very low density lipoprotein (VLDL) cholesterol measurement 15 mg/dL 5-40 [facility] Carbon dioxide, total [Moles /volume] in Central venous bloodOrdered By: Corina Gomes on 10-10-2024 CO2 [Moles/Vol] 24.2 mmol/L [facility] Chloride assayOrdered By: Ra leonard Gomes on 10-10-2024 Chloride [Moles/Vol] 98 mmol/L [facility] Comprehensive Metabolic Prof ilon 10-10-2024 Albumin [Mass/Vol] 4.1 g/dL Normal 3.5-5.0 [facility] Comment on above: Performed By: #### L 501.9985, L500.4050, L400.0001, L501.9910, L502.0250, L500.4100, L100.0100 #### [facility] [address] [place], [address] Albumin/Globulin [Mass ratio] 1.4 {ratio} Normal 0.9-2.4 [facility] Comment on above: Performed By: #### L 501.9985, L500.4050, L400.0001, L501.9910, L502.0250, L500.4100, L100.0100 #### [facility] [address] [place], [address] ALK PHOS 65 U/L Normal 40-129 [facility] Comment on above: Performed By: #### L 501.9985, L500.4050, L400.0001, L501.9910, L502.0250, L500.4100, L100.0100 #### [facility] [address] [place], [address] ALT [Catalytic activity/Vol] 26 U/L Normal <=46 [facility] Comment on above: Performed By: #### L 501.9985, L500.4050, L400.0001, L501.9910, L502.0250, L500.4100, L100.0100 #### [facility] [address] [place], [address] AST [Catalytic activity/Vol] 25 U/L Normal <=37 [facility] Comment on above: Performed By: #### L 501.9985, L500.4050, L400.0001, L501.9910, L502.0250, L500.4100, L100.0100 #### [facility] [address] [place], [address] Bilirubin [Mass/Vol] 0.68 mg/dL Normal 0.00-1.30 [facility] Comment on above: Performed By: #### L 501.9985, L500.4050, L400.0001, L501.9910, L502.0250, L500.4100, L100.0100 #### [facility] [address] [place], [address] BUN/CRE 11.4 RATIO Normal 10-20 [facility] Comment on above: Performed By: #### L 501.9985, L500.4050, L400.0001, L501.9910, L502.0250, L500.4100, L100.0100 #### [facility] [address] [place], [address] Calcium [Mass/Vol] 9.2 mg/dL Normal 7.6-11.0 [facility] Comment on above: Performed By: #### L 501.9985, L500.4050, L400.0001, L501.9910, L502.0250, L500.4100, L100.0100 #### [facility] [address] [place], [address] Chloride [Moles/Vol] 98 mmol/L Normal 98-108 [facility] Comment on above: Performed By: #### L 501.9985, L500.4050, L400.0001, L501.9910, L502.0250, L500.4100, L100.0100 #### [facility] [address] [place], [address] CO2 [Moles/Vol] 24.2 mmol/L Normal 21.0-32.0 [facility] Comment on above: Performed By: #### L 501.9985, L500.4050, L400.0001, L501.9910, L502.0250, L500.4100, L100.0100 #### [facility] [address] [place], [address] Creatinine [Mass/Vol] 0.99 mg/dL Normal 0.70-1.20 [facility] Comment on above: Performed By: #### L 501.9985, L500.4050, L400.0001, L501.9910, L502.0250, L500.4100, L100.0100 #### [facility] [address] [place], [address] GAP 11 Normal 5-15 [facility] Comment on above: Performed By: #### L 501.9985, L500.4050, L400.0001, L501.9910, L502.0250, L500.4100, L100.0100 #### [facility] [address] [place], [address] GFR/1.73 sq M.predicted among non-blacks MDRD (S/P/Bld) [Vol rate/Area] 89 mL/min/{1.73_m2} Normal >60 [facility] Comment on above: Result Comment: mL/m in/1.73m2 CKD-EPI Creatinine Equation (2020) Performed By: #### L 501.9985, L500.4050, L400.0001, L501.9910, L502.0250, L500.4100, L100.0100 #### [facility] [address] [place], [address] Globulin (S) [Mass/Vol] 2.9 g/dL Normal 2.2-4.2 [facility] Comment on above: Performed By: #### L 501.9985, L500.4050, L400.0001, L501.9910, L502.0250, L500.4100, L100.0100 #### [facility] [address] [place], [address] Glucose [Mass/Vol] 108 mg/dL High 70-99 [facility] Comment on above: Performed By: #### L 501.9985, L500.4050, L400.0001, L501.9910, L502.0250, L500.4100, L100.0100 #### [facility] [address] [place], [address] Potassium [Moles/Vol] 4.0 mmol/L Normal 3.3-5.1 [facility] Comment on above: Performed By: #### L 501.9985, L500.4050, L400.0001, L501.9910, L502.0250, L500.4100, L100.0100 #### [facility] [address] [place], [address] Sodium [Moles/Vol] 134 mmol/L Normal 133-145 [facility] Comment on above: Performed By: #### L 501.9985, L500.4050, L400.0001, L501.9910, L502.0250, L500.4100, L100.0100 #### [facility] [address] [place], [address] T PROT 7.1 g/dL Normal 5.9-8.4 [facility] Comment on above: Performed By: #### L 501.9985, L500.4050, L400.0001, L501.9910, L502.0250, L500.4100, L100.0100 #### [facility] [address] [place], [place], [id number] Urea nitrogen [Mass/Vol] 11 mg/dL Normal 4-19 [facility] Comment on above: Performed By: #### L 501.9985, L500.4050, L400.0001, L501.9910, L502.0250, L500.4100, L100.0100 #### [facility] [address] [place], [place], [address] Eosinophil percentageOrdered By: Corina Gomes on 10-10-2024 Eosinophils/100 WBC (Bld) 1.2 % [facility] Erythrocyte distribution wid th ratioOrdered By: Corina Gomes on 10-10-2024 Erythrocyte distribution width (RBC) [Ratio] 12.1 % 11.6 - 14.6 % [facility] Erythrocyte distribution wid th standard deviationOrdered By: Corina Gomes on 10-10-2024 Erythrocyte distribution width (RBC) [Ratio] 38.8 fl 35.1-43.9 [facility] Glomerular filtration rate ( GFR) estimation/1.73 sq m using serum, plasma, or whole bOrdered By: Corina Gomes on 10-10-2024 GFR/1.73 sq M.predicted among non-blacks MDRD (S/P/Bld) [Vol rate/Area] 89 mL/min/{1.73_m2} >60 [facility] Comment on above: mL/min/1.73m2 CKD-EP I Creatinine Equation (2020) HEMOGLOBIN A1C (EXTERNAL)on 10-10-2024 HbA1c (Bld) [Mass fraction] 7 % Abnormal 0 - 5.7 % [facility] Hemoglobin A1con 10-10-2024 HbA1c (Bld) [Mass fraction] 7.0 % High <=5.6 [facility] Comment on above: Result Comment: Norm al < 5.7 % Prediabetic 5.7 - 6.4 % Diabetic >or= 6.5 % Please note range changes. Performed By: #### L 501.9985, L500.4050, L400.0001, L501.9910, L502.0250, L500.4100, L100.0100 #### [facility] [address] [place], [address] Hemoglobin A1c percentageOrd ered By: Corina Gomes on 10-10-2024 HbA1c (Bld) [Mass fraction] 7.0 % High <5.7 [facility] Comment on above: Normal < 5.7 % Predi abetic 5.7 - 6.4 % Diabetic >or= 6.5 % Please note range changes. Hemoglobin measurementOrdere d By: Corina Gomes on 10-10-2024 Hemoglobin (Bld) [Mass/Vol] 13.9 g/dL 12.6 - 17.7 g/dL [facility] Immature granulocytes/100 WB C Auto (Bld)Ordered By: Corina Gomes on 10-10-2024 Immature granulocytes/100 WBC (Bld) 0.300 % 0.0-0.9 [facility] Comment on above: IG% - Immature Granu locytes (promyelocytes, myelocytes and metamyelocytes) > 1% indicates that a LEFT SHIFT is Present. Ketones Test strip Ql (U)Ord ered By: Corina Gomes on 10-10-2024 Ketones Ql (U) Negative Negative [facility] LDL calc ser/plasOrdered By: Corina Gomes on 10-10-2024 Cholesterol in LDL [Mass/Vol] 77 mg/dL - 100 [facility] Comment on above: Efbhmokpux=557-493 m g/dL & Higher Lbvw=182 mg/dL or greater LIPID PANEL (OUTSIDE)on LDL:HDL Ratio [facility] Non-HDL Cholesterol [facility] TC:HDL Ratio [facility] VLDL Cholesterol [facility] Laboratory - Chemistry and C hemistry - challengeOrdered By: Corina Gomes on 10-10-2024 AST [Catalytic activity/Vol] 25 U/L 8 - 37 U/L [facility] Lipid Profileon 10-10-2024 CHOL:HDL 2.58 Normal [facility] Comment on above: Performed By: #### L 501.9985, L500.4050, L400.0001, L501.9910, L502.0250, L500.4100, L100.0100 #### [facility] [address] [place], [address] Cholesterol [Mass/Vol] 149 mg/dL Normal <=200 [facility] Comment on above: Result Comment: Chol esterol level, Desirable <200 mg/dL Borderline high cholesterol 200-239 mg/dL High cholesterol >=240 mg/dL Recommendations of the NCEP Adult Treatment Panel for the following risk-cutoff thresholds for the [place] population. Performed By: #### L 501.9985, L500.4050, L400.0001, L501.9910, L502.0250, L500.4100, L100.0100 #### [facility] [address] [place], [address] Cholesterol in HDL [Mass/Vol] 58 mg/dL Normal [facility] Comment on above: Result Comment: Marlyn onal Cholesterol Education Program (NCEP) guidelines: <40 mg/dL: Low HDL-cholesterol (major risk factor for CHD) >= 60 mg/dL: High HDL-cholesterol (negative risk factor for CHD) HDL-cholesterol is affected by a number of factors, e.g. smoking, exercise, hormones, sex and age. Performed By: #### L 501.9985, L500.4050, L400.0001, L501.9910, L502.0250, L500.4100, L100.0100 #### [facility] [address] [place], [address] Cholesterol in LDL [Mass/Vol] 77 mg/dL Normal [facility] Comment on above: Result Comment: Bord twmxlo=904-995 mg/dL Higher Quox=120 mg/dL or greater Performed By: #### L 501.9985, L500.4050, L400.0001, L501.9910, L502.0250, L500.4100, L100.0100 #### [facility] [address] [place], [address] Cholesterol in VLDL [Mass/Vol] 15 mg/dL Normal 5-40 [facility] Comment on above: Performed By: #### L 501.9985, L500.4050, L400.0001, L501.9910, L502.0250, L500.4100, L100.0100 #### [facility] [address] [place], [address] Triglyceride [Mass/Vol] 73 mg/dL Normal [facility] Comment on above: Result Comment: The drugs N-Acetylcysteine and Metamizole may falsely depress this assay. Normal range: <150 mg/dL Borderline High: 150-199 mg/dL High: 200-499 mg/dL Very High: >500 mg/dL Performed By: #### L 501.9985, L500.4050, L400.0001, L501.9910, L502.0250, L500.4100, L100.0100 #### [facility] [address] [place], [place], [id number] MCV (mean corpuscular volume ) determinationOrdered By: Corina Gomes on 10-10-2024 MCV (RBC) [Entitic vol] 87.3 fL 79 - 97 fL [facility] MICROALBUMIN/CREATININE UR W RATIO (EXTERNAL)on 10-10-2024 Albumin/Creat Ratio [facility] Creatinine Urine 92.1 [facility] Microalbumin, Random urine 12 [facility] Mean corpuscular hemoglobin (MCH) determinationOrdered By: Corina Gomes on 10-10-2024 MCH (RBC) [Entitic mass] 30.0 pg 27.0-32.0 [facility] Mean corpuscular hemoglobin concentration (MCHC) determinationOrdered By: Corina Gomes on 10-10-2024 MCHC (RBC) [Mass/Vol] 34.3 g/dL 32-36 [facility] Mean platelet volume determi nationOrdered By: Corina Gomes on 10-10-2024 Platelet mean volume (Bld) [Entitic vol] 9.6 fL 6.2-12.0 [facility] Microalb:Creat Ratio,Random URon 10-10-2024 Creatinine [Mass/Vol] 92.10 mg/dL Normal 39.00-259.00 [facility] Comment on above: Performed By: #### L 501.9985, L500.4050, L400.0001, L501.9910, L502.0250, L500.4100, L100.0100 #### [facility] [address] [place], [place], [id number] MALB:CREAT UNABLE TO CALCULATE Normal [facility] Comment on above: Performed By: #### L 501.9985, L500.4050, L400.0001, L501.9910, L502.0250, L500.4100, L100.0100 #### [facility] [address] [place], [place], [id number] MICROALBUMIN,UR < 12.0 Normal NO RANGE EST. [facility] Comment on above: Performed By: #### L 501.9985, L500.4050, L400.0001, L501.9910, L502.0250, L500.4100, L100.0100 #### [facility] [address] [place], [place], [id number] Microalbumin/creat ratio urO rdered By: Corina Gomes on 10-10-2024 Urine microalbumin/creatinine ratio measurement UNABLE TO CALCULATE mg/g CRE [facility] Microscopic analysis of urin e for red blood cells (RBC)Ordered By: Corina Gomes on 10-10-2024 Microscopic analysis of urine for red blood cells (RBC) 0 SEEN /hpf 0-5 [facility] Monocyte percentageOrdered B y: Corina Gomes on 10-10-2024 Monocytes/100 WBC (Bld) 9.2 % [facility] Mucus LM Ql (Urine sed)Order ed By: Corina Gomes on 10-10-2024 Mucus Ql (Urine sed) 0 SEEN /hpf [facility] Neutrophil percentageOrdered By: Corina Gomes on 10-10-2024 Neutrophils/100 WBC (Bld) 60.4 % [facility] Nitrite Test strip Ql (U)Ord ered By: Corina Gomes on 10-10-2024 Nitrite Ql (U) Negative Negative [facility] No Panel Informationon 10-10 Interpretation and review of laboratory results Abnormal [facility] Nucleated red blood cell per centageOrdered By: Corina Gomes on 10-10-2024 Nucleated RBC/100 WBC (Bld) [Ratio] 0 % 0-5 [facility] PSA,Total - Annual Screenon 10-10-2024 PSA,TOT SCREEN 2.03 ng/mL Normal 0.02-4.00 [facility] Comment on above: Result Comment: This test [...] L500.4050, L400.0001, L501.9910, L502.0250, L500.4100, L100.0100 #### [facility] [address] [place] [address]. [place], [place], [id number] Platelet countOrdered By: Ra leonard Gomes on 10-10-2024 Platelets (Bld) [#/Vol] 240 10*3/uL [facility] Potassium measurement (mass/ volume)Ordered By: Corina Gomes on 10-10-2024 Potassium (Unsp spec) [Mass/Vol] 4.0 mmol/L 3.3-5.1 [facility] Protein Test strip Ql (U)Ord ered By: Corina Gomes on 10-10-2024 Protein Ql (U) 15 mg/dl High Negative [facility] Random urine creatinine alan urement (mass/volume)Ordered By: Corina Gomes on 10-10-2024 Creatinine Unsp time (U) [Mass/Vol] 92.10 mg/dL 39.00-259.00 [facility] Screening total cholesterol/ high density lipoprotein (HDL) cholesterol ratioOrdered By: Corina Gomes on 10-10-2024 Cholesterol.total/Choles terol in HDL [Mass ratio] 2.58 {ratio} [facility] Serum creatinine measurement (mass/volume)Ordered By: Corina Gomes on 10-10-2024 Creatinine [Mass/Vol] 0.99 mg/dL [facility] Serum globulin measurementOr dered By: Corina Gomes on 10-10-2024 Globulin (S) [Mass/Vol] 2.9 g/dL 2.2-4.2 [facility] Serum glucose measurement (m ass/volume)Ordered By: Corina Gomes on 10-10-2024 Glucose [Mass/Vol] 108 mg/dL Abnormal [facility] Serum or plasma alanine dow otransferase (ALT) measurementOrdered By: Corina Gomes on 10-10-2024 ALT [Catalytic activity/Vol] 26 U/L 12 - 78 U/L [facility] Serum or plasma albumin alan urement (mass/volume)Ordered By: Corina Gomes on 10-10-2024 Albumin [Mass/Vol] 4.1 g/dL [facility] Serum or plasma albumin/glob ulin mass ratioOrdered By: Corina Gomes on 10-10-2024 Albumin/Globulin [Mass ratio] 1.4 {ratio} 0.9-2.4 [facility] Serum or plasma alkaline richard sphatase measurementOrdered By: Corina Gomes on 10-10-2024 ALP [Catalytic activity/Vol] 65 U/L 40-129 [facility] Serum or plasma calcium alan urement (mass/volume)Ordered By: Corina Gomes on 10-10-2024 Calcium [Mass/Vol] 9.2 mg/dL 8.5 - 10. 1 mg/dL [facility] Serum or plasma cholesterol in HDL measurement (mass/volume)Ordered By: Corina Gomes on 10-10-2024 Cholesterol in HDL [Mass/Vol] 58 mg/dL 40 [facility] Comment on above: National Cholesterol Education Program (NCEP) guidelines:<40 mg/dL: Low HDL-cholesterol (major risk factor for CHD)>= 60 mg/dL: High HDL-cholesterol (negative risk factor for CHD)HDL-cholesterol is affected by a number of factors, e.g. smoking, exercise, hormones, sex and age. Serum or plasma cholesterol measurement (mass/volume)Ordered By: Corina Gomes on 10-10-2024 Cholesterol [Mass/Vol] 149 mg/dL - 200 [facility] Comment on above: Cholesterol level, D esirable <200 mg/dLBorderline high cholesterol 200-239 mg/dLHigh cholesterol >=240 mg/dLRecommendations of the NCEP Adult Treatment Panel for the following risk-cutoff thresholds for the [place] population. Serum or plasma urea nitroge n measurement (mass/volume)Ordered By: Corina Gomes on 10-10-2024 Urea nitrogen [Mass/Vol] 11 mg/dL [facility] Sodium levelOrdered By: Nancy Gomes on 10-10-2024 Sodium [Moles/Vol] 134 mmol/L Abnormal 136 - 145 mmol/L [facility] Squamous epithelial cells de tection in urine sediment by light microscopyOrdered By: Corina Gomes on 10-10-2024 Epithelial cells.squamous LM Ql (Urine sed) 0 SEEN /hpf 0-5 [facility] Total proteinOrdered By: Donald Gomes on 10-10-2024 Protein [Mass/Vol] 7.1 g/dL [facility] Triglycerides measurementOrd ered By: Corina Gomes on 10-10-2024 Triglyceride [Mass/Vol] 73 mg/dL - 150 [facility] Comment on above: The drugs N-Acetylcy steine and Metamizole may falsely depress this assay. Normal range: <150 mg/dLBorderline High: 150-199 mg/dLHigh: 200-499 mg/dLVery High: >500 mg/dL Urinalysis, Completeon 10-10 WBC 0-5 SEEN Normal 0-5 [facility] Comment on above: Order Comment: Urine , Random Performed By: #### L 501.9985, L500.4050, L400.0001, L501.9910, L502.0250, L500.4100, L100.0100 #### [facility] [address] [place], [address] BACTERIA 1+ /hpf Normal None Seen [facility] Comment on above: Order Comment: Urine , Random Performed By: #### L 501.9985, L500.4050, L400.0001, L501.9910, L502.0250, L500.4100, L100.0100 #### [facility] [address] [place], [address] BILIRUBIN URINE Negative Normal Negative [facility] Comment on above: Order Comment: Urine , Random Performed By: #### L 501.9985, L500.4050, L400.0001, L501.9910, L502.0250, L500.4100, L100.0100 #### [facility] [address] [place], [address] Clarity (U) Clear Normal Clear [facility] Comment on above: Order Comment: Urine , Random Performed By: #### L 501.9985, L500.4050, L400.0001, L501.9910, L502.0250, L500.4100, L100.0100 #### [facility] [address] [place], [address] Color (U) Straw Normal Yellow [facility] Comment on above: Order Comment: Urine , Random Performed By: #### L 501.9985, L500.4050, L400.0001, L501.9910, L502.0250, L500.4100, L100.0100 #### [facility] [address] [place], [address] GLUCOSE, UR Normal Normal Normal [facility] Comment on above: Order Comment: Urine , Random Performed By: #### L 501.9985, L500.4050, L400.0001, L501.9910, L502.0250, L500.4100, L100.0100 #### [facility] [address] [place], [address] KETONE UR Negative Normal Negative [facility] Comment on above: Order Comment: Urine , Random Performed By: #### L 501.9985, L500.4050, L400.0001, L501.9910, L502.0250, L500.4100, L100.0100 #### [facility] [address] [place], [address] LEUK ESTERASE Negative Normal Negative [facility] Comment on above: Order Comment: Urine , Random Performed By: #### L 501.9985, L500.4050, L400.0001, L501.9910, L502.0250, L500.4100, L100.0100 #### [facility] [place], [place], [facility] Nitrite Ql (U) Negative Normal Negative [facility] Comment on above: Order Comment: Urine , Random Performed By: #### L 501.9985, L500.4050, L400.0001, L501.9910, L502.0250, L500.4100, L100.0100 #### [facility] [place], [address] OCCULT BLOOD-UR Negative Normal Negative [facility] Comment on above: Order Comment: Urine , Random Performed By: #### L 501.9985, L500.4050, L400.0001, L501.9910, L502.0250, L500.4100, L100.0100 #### [facility] [address] [place], [address] pH UR 6.0 Normal 5.0 - 8.0 [facility] Comment on above: Order Comment: Urine , Random Performed By: #### L 501.9985, L500.4050, L400.0001, L501.9910, L502.0250, L500.4100, L100.0100 #### [facility] [address] [place], [address] PROT DIPSTX 15 mg/dl Abnormal Negative [facility] Comment on above: Order Comment: Urine , Random Performed By: #### L 501.9985, L500.4050, L400.0001, L501.9910, L502.0250, L500.4100, L100.0100 #### [facility] [address] [place], [address] SP.GR. DIPSTX 1.015 Normal 1.002-1.030 [facility] Comment on above: Order Comment: Urine , Random Performed By: #### L 501.9985, L500.4050, L400.0001, L501.9910, L502.0250, L500.4100, L100.0100 #### [facility] [address] [place], [address] UROBILI Normal Normal Normal [facility] Comment on above: Order Comment: Urine , Random Performed By: #### L 501.9985, L500.4050, L400.0001, L501.9910, L502.0250, L500.4100, L100.0100 #### [facility] [address] [place], [address] EPI,SQUAMOUS 0 SEEN Normal 0-5 [facility] Comment on above: Order Comment: Urine , Random Performed By: #### L 501.9985, L500.4050, L400.0001, L501.9910, L502.0250, L500.4100, L100.0100 #### [facility] [address] [place], [address] Mucus Ql (Urine sed) 0 SEEN Normal [facility] Comment on above: Order Comment: Urine , Random Performed By: #### L 501.9985, L500.4050, L400.0001, L501.9910, L502.0250, L500.4100, L100.0100 #### [facility] [address] [place], [address] RBC 0 SEEN Normal 0-5 [facility] Comment on above: Order Comment: Urine , Random Performed By: #### L 501.9985, L500.4050, L400.0001, L501.9910, L502.0250, L500.4100, L100.0100 #### [facility] [address] [place], [address] Urine albumin measurement [facility] detection limit of 20 mg/L or less (mass/volume)Ordered By: Corina Gomes on 10-10-2024 Albumin DL <= 20 mg/L (U) [Mass/Vol] < 12.0 mg/L NO RANGE EST. [facility] Urine clarityOrdered By: Donald Gomes on 10-10-2024 Clarity (U) Clear Clear [facility] Urine color determinationOrd ered By: Corina Gomes on 10-10-2024 Color (U) Straw Yellow [facility] Urine glucose detectionOrder ed By: Corina Gomes on 10-10-2024 Glucose Ql (U) Normal mg/dl Normal [facility] Urine leukocyte esterase det ection by dipstickOrdered By: Corina Gomes on 10-10-2024 Leukocyte esterase Test strip Ql (U) Negative Negative [facility] Urine pHOrdered By: Corina Gomes on 10-10-2024 pH (U) 6.0 [pH] 5.0 - 8.0 [facility] Urine sediment bacteria coun t by microscopy (number/high power field)Ordered By: Corina Gomes on 10-10-2024 Bacteria LM.HPF (Urine sed) [#/Area] 1 /[HPF] None Seen [facility] Urine specific gravity measu rementOrdered By: Corina Gomes on 10-10-2024 Specific gravity (U) [Rel density] 1.015 1.002-1.030 [facility] Urine urobilinogen measureme ntOrdered By: Corina Gomes on 10-10-2024 Urobilinogen Ql (U) Normal mg/dl Normal [facility] White blood cell (WBC) count Ordered By: Corina Gomes on 10-10-2024 WBC (Bld) [#/Vol] 7.3 10*3/uL 3.4 - 10.8 K/uL [facility] White blood cell countOrdere d By: Corina Gomes on 10-10-2024 White blood cell count 0-5 SEEN /hpf 0-5 [facility] CNPNon 06-04-2024 [facility] ([id number]) 1965 M Date Time Provider Department 06/04[facility]24 [facility] During your visit today, we recorded the following information about you: Corina Goems PA-C 06/04/2024 8:25 AM Signed Positive influenza [...] ORAL) Take by mouth once daily. - Tjwgh-2-HKX-EPA-Fish Oil (FISH OIL) 1,000 mg (120 mg-180 [...] Encounter Status:Closed by TAWANA RUELAS on 06/04/24 [facility] CNOVon 06-03-2024 CNOV Office Visit ([facility] ) ROB CORREIA ([id number]) 1965 M Date Time Provider Department 06/03/24 [...] a hourse Coronary Artery Disease Paternal Grandmother [place] Coronary Artery Disease Paternal Grandfather [place] Coronary Artery Disease Paternal Uncle Glaucoma No [...] COMPLX ORAL) Take by mouth once daily. Akumv-9-MFT-EPA-Fish Oil (FISH OIL) 1,000 mg (120 mg-180 [...] AND RS (more content not included)... Normal [facility] Renny 06-03-2024 CNPN Telephone ([facility]) ROB CORREIA ([id number]) 1965 M Date Time Provider Department 06/03/24 [...] ORAL) Take by mouth once daily. - Dlsrf-4-DMH-EPA-Fish Oil (FISH OIL) 1,000 mg (120 mg-180 [...] Status:Closed by APARNA RYDER on 06/03/24 Normal [facility] COVID AND INFLUENZA A/B AND RSV PCR, ROUTINEon 06-03-2024 SARS-CoV-2 (COVID-19) RNA JESSE+probe Ql (Unsp spec) SARS-COV-2 (AGENT OF COVID-19) RNA: Not detected INFLUENZA A RNA: Detected INFLUENZA B RNA: Not detected RESPIRATORY SYNCYTIAL VIRUS (RSV) RNA: Not detected Abnormal [facility] Comment on above: Performed By: #### C VFLRS ####[facility] LABCLIA [id number] [address] OF [facility] XR CHEST 2V FRONTAL/LATon XR CHEST 2V [...] thoracic spine. IMPRESSION: No acute radiographic abnormality. Drum Sprayer: PSCB Transcribe Date/Time: Jun 03 2024 8:57A Dictated by : FIDEL WESTBROOK MD This examination was interpreted and the report reviewed and electronically signed by: FIDEL WESTBROOK MD on Jun 03 2024 8:58AM EST [id number] Normal [facility] XR Chest PA and Lateralon IMPRESSION: No acute radiographic abnormality. Drum Sprayer: PSC Transcribe Date/Time: Jun 03 2024 8:57A [...] RADIOLOGY Provider, [facility] - 06/03/2024 * * *Final Report* * [...] spine. IMPRESSION IMPRESSION: No acute radiographic abnormality. Drum Sprayer: PSCB Transcribe Date/Time: Jun 03 2024 8:57A Dictated by : FIDEL WESTBROOK MD This examination was interpreted and the report reviewed and electronically signed by: FIDEL WESTBROOK MD on Jun 03 2024 8:58AM [facility] Radiology Study observation (narrative) [facility] XR Chest PA and LateralOrder ed By: Cc Provider on 06-03-2024 [facility] CNPNon 05-02-2024 CNPN Telephone ([facility]) ROB CORREIA ([id number]) 1965 M Date Time Provider Department 05/02/24 ALDO BUTCHER [facility] During your visit today, we recorded [...] questions about an upcoming service, contact Patient Cost Coordinator by calling toll-free at [phone] and request to speak with a tree fruit and nut farming supervisor. For questions regarding a medical bill for a past / post service, contact a Marine Engineering Professor by calling toll-free at [phone] and request to speak with a tree fruit and nut farming supervisor. Patient/Family verbalized understanding. Allergies As of [...] ORAL) Take by mouth once daily. - Aerwv-9-BJI-EPA-Fish Oil (FISH OIL) 1,000 mg (120 mg-180 [...] Encounter Status:Closed by ANJANA HSU on 05/02/24 [facility] CNOVon 04-19-2024 CNOV Office Visit (FAMPWS ) ROB CORREIA ([id number]) 1965 M Date Time Provider Department 04/19/24 7:00 AM [facility] During your visit today, we recorded the [...] a hourse Coronary Artery Disease Paternal Grandmother [place] Coronary Artery Disease Paternal Grandfather [place] Coronary Artery Disease Paternal Uncle Glaucoma No [...] COMPLX ORAL) Take by mouth once daily. Umhyb-9-ONJ-EPA-Fish Oil (FISH OIL) 1,000 mg (120 mg-180 [...] Cholesterol, N (more content not included)... Normal [facility] HbA1c (Bld)on 04-08-2024 Average glucose Estimated from glycated hemoglobin (Bld) [Mass/Vol] 143 mg/dL Normal [facility] Comment on above: Order Comment: Speci men Type: BLOOD SPECIMENOrdering Facility: [facility] Address: [address] [place] [address] Result Comment: eAG: (Estimated average glucose) is a calculated value from HgbA1c and is territory service representative of the average blood glucose level in the last 2-3 month period. Performed By: #### 5 5454-3 ####[facility] LABCLIA [id number] [place] [address] [place] HbA1c (Bld) [Mass fraction] 6.6 % High 4.3-5.6 [facility] Comment on above: Order Comment: Speci men Type: BLOOD SPECIMENOrdering Facility: [facility] Address: [address] [place] [address] Result Comment: Amer ican Diabetes Association guidelines indicate that patients with HgbA1c in the range 5.7-6.4% are at increased risk for development of diabetes, and intervention by lifestyle modification may be beneficial. HgbA1c greater or equal to 6.5% is considered diagnostic of diabetes. Performed By: #### 5 5454-3 ####[facility] LABCLIA [id number] [place] [address] [place] LIPID PANEL, NONFASTINGon Cholesterol [Mass/Vol] 163 mg/dL Normal <200 [facility] Comment on above: Order Comment: Speci men Type: BLOOD SPECIMENOrdering Facility: [facility] Address: [address] [place] [address] Result Comment: <200 mg/dL, Desirable 200-239 mg/dL, Borderline high >239 mg/dL, High Performed By: #### L IPNF ####[facility] LABCLIA [id number] [place] [address] [place] HDL CHOLESTEROL, NF 55 mg/dL Normal >39 [facility] Comment on above: Order Comment: Brucei men Type: BLOOD SPECIMENOrdering Facility: [facility] Address: [address] [place] [address] Result Comment: 40-5 9 mg/dL, Acceptable >59 mg/dL, High: Negative risk factor for coronary heart disease <40 mg/dL, Low: Positive risk factor for coronary heart disease Performed By: #### L IPNF ####[facility] LABCLIA [id number] [place] [address] [place] LDL CHOLESTEROL, NF 82 mg/dL Normal <100 [facility] Comment on above: Order Comment: Brucei men Type: BLOOD SPECIMENOrdering Facility: [facility] Address: [address] [place] [address] Result Comment: <100 mg/dL, Optimal 100-129 mg/dL, Near optimal/above optimal 130-159 mg/dL, Borderline high 160-189 mg/dL, High >189 mg/dL, Very high Secondary prevention optimal LDL Cholesterol levels are recommended to be < 70 mg/dL Performed By: #### L IPNF ####[facility] LABCLIA [id number] [place] [address] [place] LDL/HDL RATIO, NF 1.49 mg/dL Normal <2.54 [facility] Comment on above: Order Comment: Rachelle kim Type: BLOOD SPECIMENOrdering Facility: [facility] Address: [address] [place] [address] Result Comment: Refe rence: 1. National Cholesterol Education Program ATP III Guideline At-A-Glance Quick Desk Reference: National Heart, Lung, and Blood [place]. National Institutes of Health. 2001: NIH Publication No. 01-3305. 2. An International Atherosclerosis Society position paper: global recommendations for the management of dyslipidemia: executive summary, Atherosclerosis. 2014: 232(2):410-413. Performed By: #### L IPNF ####[facility] [id number] [address] [place] NON HDL CHOL, NF 108 mg/dL Normal <130 [facility] Comment on above: Order Comment: Rachelle kim Type: BLOOD SPECIMENOrdering Facility: [facility] Address: [address] [place] [address] Result Comment: <130 mg/dL, Optimal 130-159 mg/dL, Near optimal/above optimal 160-189 mg/dL, Borderline high 190-219 mg/dL, High >219 mg/dL, Very high Secondary prevention optimal non HDL Cholesterol levels are recommended to be <100 mg/dL Performed By: #### L IPNF ####[facility] [id number] [address] [place] T CHOL/HDL RATIO NF 2.96 mg/dL Normal <5.10 [facility] Comment on above: Order Comment: Rachelle kim Type: BLOOD SPECIMENOrdering Facility: [facility] Address: [address] [place], [place] [id number] Performed By: #### L IPNF ####[facility] LABCLIA [id number] [place] [address] [place] TRIGLYCERIDES, NF 128 mg/dL Normal <150 [facility] Comment on above: Order Comment: Speci men Type: BLOOD SPECIMENOrdering Facility: [facility] Address: [address] [place] [address] Result Comment: <150 mg/dL, Normal 150-199 mg/dL, Borderline high 200-499 mg/dL, High >499 mg/dL, Very high Performed By: #### L IPNF ####[facility] LABIA [id number] [place] [address] [place] VLDL CHOLESTEROL, NF 26 mg/dL Normal <30 [facility] Comment on above: Order Comment: Speci men Type: BLOOD SPECIMENOrdering Facility: [facility] Address: [address] [place] [address] Performed By: #### L IPNF ####[facility] LABCLIA [id number] [place] [address] [place] HbA1c (Bld)on 04-17-2023 Average glucose Estimated from glycated hemoglobin (Bld) [Mass/Vol] 146 mg/dL [facility] HbA1c (Bld) [Mass fraction] 6.7 % High 4.3 - 5.6 % [facility] LIPID PANEL, NONFASTINGon Cholesterol [Mass/Vol] 139 mg/dL <200 mg/dL [facility] HDL Cholesterol, Nonfasting 52 mg/dL >39 mg/dL [facility] LDL Cholesterol, Nonfasting 60 mg/dL <100 mg/dL [facility] LDL/HDL Ratio, Nonfasting 1.15 mg/dL <2.54 mg/dL [facility] Non HDL Cholesterol, Nonfasting 87 mg/dL <130 mg/dL [facility] Total Chol/HDL Ratio, Nonfasting 2.67 mg/dL <5.10 mg/dL [facility] Triglycerides, Nonfasting 133 mg/dL <150 mg/dL [facility] VLDL Cholesterol, Nonfasting 27 mg/dL <30 mg/dL [facility] Vital Signs Date Time Vital Sign Value Performing Clinician Kasi worthygabe 10-23-2024 08:26-0400 Diastolic blood pressure 80 mm[Hg] Aldo Butcher MD Work Phone: [facility] 10-23-2024 08:26-0400 Systolic blood pressure 132 mm[Hg] Aldo Butcher MD Work Phone: [facility] 10-23-2024 07:58-0400 Body height 175.3 cm Aldo Butcher MD Work Phone: [facility] 10-23-2024 07:58-0400 Body mass index (BMI) [Ratio] 25.99 kg/m2 Aldo Butcher MD Work Phone: [facility] 10-23-2024 07:58-0400 Body weight 79.83 kg Aldo Butcher MD Work Phone: [facility] 10-23-2024 07:58-0400 Heart rate 67 /min Aldo Butcher MD Work Phone: [facility] 10-23-2024 07:58-0400 Respiratory rate 16 /min Aldo Butcher MD Work Phone: [facility] 10-23-2024 07:58-0400 SaO2% (BldA) [Mass fraction] 98 % Aldo Butcher MD Work Phone: [facility] 06-03-2024 08:21-0500 Body mass index (BMI) [Ratio] 26.73 kg/m2 Corina Gomes PA-C Work Phone: [facility] 06-03-2024 08:21-0500 Body temperature 97.81 [degF] Corina Gomes PA-C Work Phone: [facility] 06-03-2024 08:21-0500 Body weight 82.1 kg Corina Gomes PA-C Work Phone: [facility] 06-03-2024 08:21-0500 Diastolic blood pressure 86 mm[Hg] Corina Gomes PA-C Work Phone: [facility] 06-03-2024 08:21-0500 Heart rate 64 /min Corina Gomes PA-C Work Phone: [facility] 06-03-2024 08:21-0500 Respiratory rate 18 /min Corina Gomes PA-C Work Phone: [facility] 06-03-2024 08:21-0500 SaO2% (BldA) [Mass fraction] 99 % Corina Gomes PA-C Work Phone: [facility] 06-03-2024 08:21-0500 Systolic blood pressure 126 mm[Hg] Cornia Gomes PA-C Work Phone: [facility] 04-19-2024 06:55-0500 Body mass index (BMI) [Ratio] 27.47 kg/m2 Corina Gomes PA-C Work Phone: [facility] 04-19-2024 06:55-0500 Body temperature 97.3 [degF] Corina Gomes PA-C Work Phone: [facility] 04-19-2024 06:55-0500 Body weight 84.37 kg Corina Gomes PA-C Work Phone: [facility] 04-19-2024 06:55-0500 Diastolic blood pressure 80 mm[Hg] Corina Gomes PA-C Work Phone: [facility] 04-19-2024 06:55-0500 Heart rate 68 /min Corina Gomes PA-C Work Phone: [facility] 04-19-2024 06:55-0500 Respiratory rate 18 /min Corina Gomes PA-C Work Phone: [facility] 04-19-2024 06:55-0500 SaO2% (BldA) [Mass fraction] 97 % Corina Gomes PA-C Work Phone: [facility] 04-19-2024 06:55-0500 Systolic blood pressure 122 mm[Hg] Corina Gomes PA-C Work Phone: [facility] 10-19-2023 08:18-0400 Diastolic blood pressure 82 mm[Hg] Aldo Butcher MD Work Phone: [facility] 10-19-2023 08:18-0400 Systolic blood pressure 130 mm[Hg] Aldo Butcher MD Work Phone: [facility] 10-19-2023 08:03-0400 Body height 175.3 cm Aldo Butcher MD Work Phone: [facility] 10-19-2023 08:03-0400 Body mass index (BMI) [Ratio] 26.58 kg/m2 Aldo Butcher MD Work Phone: [facility] 10-19-2023 08:03-0400 Body weight 81.65 kg Aldo Butcher MD Work Phone: [facility] 10-19-2023 08:03-0400 Heart rate 75 /min Aldo Butcher MD Work Phone: [facility] 09-15-2023 14:01-0400 Body weight 81.92 kg Aldo Butcher MD Work Phone: [facility] 09-15-2023 14:01-0400 Diastolic blood pressure 86 mm[Hg] Aldo Butcher MD Work Phone: [facility] 09-15-2023 14:01-0400 Heart rate 106 /min Aldo Butcher MD Work Phone: [facility] 09-15-2023 14:01-0400 SaO2% (BldA) [Mass fraction] 97 % Aldo Butcher MD Work Phone: [facility] 09-15-2023 14:01-0400 Systolic blood pressure 122 mm[Hg] Aldo Butcher MD Work Phone: [facility] 04-17-2023 08:49-0500 Diastolic blood pressure 86 mm[Hg] Aldo Butcher MD Work Phone: [facility] 04-17-2023 08:49-0500 Systolic blood pressure 134 mm[Hg] Aldo Butcher MD Work Phone: [facility] 04-17-2023 08:40-0500 Body weight 85.73 kg Aldo Butcher MD Work Phone: [facility] 04-17-2023 08:40-0500 Heart rate 80 /min Aldo Butcher MD Work Phone: [facility] 04-17-2023 08:40-0500 Respiratory rate 16 /min Aldo Butcher MD Work Phone: [facility] 09-09-2022 09:05-0400 Body temperature 97.5 [degF] Ele Pro CLINICAL STAFF EDUCATOR.SWITCHING CLERK Work Phone: [facility] 09-09-2022 09:05-0400 Body weight 81.65 kg Ele Pro CLINICAL STAFF EDUCATOR.SWITCHING CLERK Work Phone: [facility] 09-09-2022 09:05-0400 Diastolic blood pressure 80 mm[Hg] Ele Pro CLINICAL STAFF EDUCATOR.SWITCHING CLERK Work Phone: [facility] 09-09-2022 09:05-0400 Heart rate 72 /min Ele Inocencia CLINICAL STAFF EDUCATOR.SWITCHING CLERK Work Phone: [facility] 09-09-2022 09:05-0400 Respiratory rate 14 /min Ele Pro CLINICAL STAFF EDUCATOR.SWITCHING CLERK Work Phone: [facility] 09-09-2022 09:05-0400 Systolic blood pressure 130 mm[Hg] Ele Pro CLINICAL STAFF EDUCATOR.SWITCHING CLERK Work Phone: [facility] Encounters Encounter Date Encounter Type Care Provider Facility Start: 11-19-2024 ambulatory Aldo Butcher Facility :[facility] Start: 11-04-2024 End: 11-04-2024 Patient encounter procedure Deshawn Musa OD Work Phone: Optometry Comment on above: Type 2 diabetes rajiv itus without retinopathy (HCC) (Primary Dx) Start: 11-04-2024 End: 11-04-2024 ambulatory ALDO BUTCHER Facility:[facility] Start: 10-24-2024 End: 10-28-2024 Telephone encounter Aldo Butcher MD Work Phone: [facility] Comment on above: Results Start: 10-23-2024 Encounter for genera l adult medical examination without abnormal findings ALDO BUTCHER [facility] Start: 10-23-2024 End: 10-23-2024 Patient encounter procedure Aldo Butcher MD Work Phone: [facility] Comment on above: Well [...] encounter status Aldo Butcher MD Work Phone: [facility] Work Phone: Start: 10-23-2024 End: 10-23-2024 ambulatory ALDO BUTCHER Facility:[facility] Start: 10-10-2024 End: 10-10-[address] Temo Shook MD Work Phone: [facility] Work Phone: Start: 10-10-2024 End: 10-10-2024 Patient encounter procedure Corina Amaya Work Phone: Start: 10-10-2024 End: 10-10-2024 ambulatory Temo Shook Facility:[facility] Start: 06-04-2024 End: 06-04-2024 Telephone encounter [facility]-C [facility] Comment on above: Results Start: 06-03-2024 End: 06-03-2024 Telephone encounter Corina Gomes PA-C Work Phone: [facility] Comment on above: Results Start: 06-03-2024 End: 06-03-2024 Subsequent [facility] Work Phone: Radiology Comment on above: Acute cough [R05.1] Start: 06-03-2024 End: 06-03-2024 ambulatory ALDO BUTCHER Facility:[facility] Start: 06-03-2024 End: 06-03-2024 Patient encounter procedure Corina Gomes PA-C Work Phone: [facility] Comment on above: Lower resp. tract in fection (Primary Dx); Acute cough Start: 05-02-2024 End: 05-02-2024 Telephone encounter Aldo Butcher MD Work Phone: [facility] Comment on above: Billing Issue Start: 05-01-2024 End: 05-02-2024 Refill Corina Gomes PA-C Work Phone: [facility] Comment on above: Refill Request Start: 04-19-2024 End: 04-19-2024 ambulatory ALDO BUTCHER Facility:[facility] Start: 04-19-2024 End: 04-19-2024 Office outpatient visit 25 minutes Corina Gomes PA-C [facility] Comment on above: Controlled type 2 di abetes mellitus without complication, without long-term current use of insulin (HCC) (Primary Dx); Hyperlipidemia, mixed; Screening for prostate cancer Start: 04-08-2024 End: 04-08-2024 ambulatory ALDO BUTCHER Facility:[facility] Start: 12-12-2023 Refill Aldo gilliland MD Work Phone: [facility] Comment on above: Refill Request Start: 11-08-2023 Refill Aldo gilliland MD [facility] Comment on above: Refill Request Start: 10-30-2023 End: 10-30-2023 Patient encounter procedure Deshawn Musa OD Work Phone: Optometry Comment on above: Type 2 diabetes rajiv itus without retinopathy (HCC) (Primary Dx); Myopia, bilateral; Regular astigmatism of right eye; Presbyopia Start: 10-19-2023 End: 10-19-2023 Patient encounter procedure Aldo Butcher MD Work Phone: [facility] Comment on above: Well adult exam (Genna jose luis Dx); Controlled type 2 diabetes mellitus without complication, without long-term current use of insulin (HCC); Hyperlipidemia, mixed Start: 10-19-2023 End: 10-19-2023 Patient encounter status Aldo Butcher MD Work Phone: [facility] Work Phone: Start: 09-15-2023 End: 09-15-2023 Patient encounter procedure Aldo Butcher MD Work Phone: [facility] [place] Comment on above: Hesitancy (Primary D x) Start: 09-14-2023 ambulatory Aldo gilliland MD Work Phone: [facility] [place] Comment on above: Urination Start: 07-21-2023 ambulatory Ele salmeron APRN.SWITCHING CLERK Work Phone: [facility] Comment on above: Labs and paperwork Diabetic diagnosis Start: 04-17-2023 Telephone encounter Aldo Butcher MD Work Phone: [facility] Comment on above: Results Start: 04-17-2023 End: 04-17-2023 Patient encounter procedure Aldo Butcher MD Work Phone: [facility] [place] Comment on above: Controlled type 2 di abetes mellitus without complication, without long-term current use of insulin (HCC) (Primary Dx); Hyperlipidemia, mixed; Screening for prostate cancer Start: 03-06-2023 Refill Aldo gilliland MD Work Phone: [facility] [place] Comment on above: Refill Request Start: 02-09-2023 Refill Aldo gilliland MD Work Phone: [facility] Comment on above: Refill Request Start: 10-12-2022 Patient encounter status Aldo Butcher MD Work Phone: [facility] Work Phone: Start: 09-09-2022 End: 09-09-2022 Patient encounter procedure Ele Pro APRN.SWITCHING CLERK Work Phone: [facility] Comment on above: Acute otitis media, [...] Detail Author Start: 10-12-2032 Urine microalbumin profile [facility] Start: 10-23-2029 Prostate specific antigen measurement Prostate Cancer Screening Discussion [facility] Start: 11-30-2028 Colonoscopy Colonoscopy [facility] Start: 11-30-2028 Colorectal Cancer Screening Colorectal Cancer Screening [facility] Start: 11-30-2028 Screening for malign ant neoplasm of colon [facility] Start: 10-18-2028 Prostate specific antigen measurement Prostate Cancer Screening Discussion [facility] Start: 10-13-2027 Prostate Cancer Screening Discussion Prostate Cancer Screening Discussion [facility] Start: 10-13-2027 Prostate specific antigen measurement Prostate Cancer Screening Discussion [facility] Start: 11-10-2025 End: 11-10-2025 Patient encounter procedure 11/10/2025 4:30 PM EDT Office Visit [facility] [address] [place] [address] Deshawn Musa, OD [address] [place] [address] Diabetic Exam/[facility] Comment on above: Diabetic Exam/[facility] Start: 11-04-2025 Glaucoma screening Dilated Retinal E xam [facility] Start: 10-23-2025 Annual PCP Team Local Superintendent yany Disease Visit Annual PCP Team Chronic Disease Visit [facility] Start: 10-23-2025 Anxiety Screening Anxiety Screening [facility] Start: 10-23-2025 Depression Screening Depression Scre ening [facility] Start: 10-23-2025 Diabetic foot examination Diabetic Foot Exam [facility] Start: 10-10-2025 Hepatitis B screening Urine Al bumin:Creatinine Ratio [facility] Start: 10-10-2025 Hepatitis B surface antibody level LDL Cholesterol [facility] Start: 06-03-2025 Annual PCP Team Local Superintendent yany Disease Visit Annual PCP Team Chronic Disease Visit [facility] Start: 04-24-2025 End: 04-24-2025 Patient encounter procedure 04/24/2025 7:40 AM EST Office Visit Family Medicine [facility] [address] [place] [address] Ele Pro APRN.SWITCHING CLERK [address] [place] [address] 6 month follow up Family Medicine [facility]m Comment on above: 6 month follow up Start: 04-19-2025 Annual PCP Team Local Superintendent yany Disease Visit Annual PCP Team Chronic Disease Visit [facility] Start: 04-11-2025 End: 07-11-2025 Hemoglobin A1c in Blood HEMOGLOBIN A1C Lab Routine Controlled type 2 diabetes mellitus without complication, without long-term current use of insulin (HCC) Expected: 04/11/2025, Expires: 07/11/2025 [facility] Comment on above: Expected: 04/11/2025 , Expires: 07/11/2025 Start: 04-11-2025 Hemoglobin A1c measurement HbA1C [facility] Start: 04-11-2025 End: 07-11-2025 LIPID PANEL, NONFASTING LIPID PANEL, NONFASTING Lab Routine Controlled type 2 diabetes mellitus without complication, without long-term current use of insulin (HCC) Hyperlipidemia, mixed Expected: 04/11/2025, Expires: 07/11/2025 [facility] Comment on above: Expected: 04/11/2025 , Expires: 07/11/2025 Start: 04-08-2025 Hepatitis B surface antibody level LDL Cholesterol [facility] Start: 12-24-2024 End: 12-24-2024 Nursing evaluation of patient and report 12/24/2024 8:00 AM EDT Nurse Visit Family [facility] [address] [place] [address] Nurse, [address] [place] [address] #2 [facility] Comment on above: #2 [facility] Start: 12-22-2024 Hzv zoster vacc recombinant adjuvanted im njx ZOSTER VACCINE, RECOMBINANT (SHINGRIX) Immunization/Injection Routine Need for vaccination Expected: 12/22/2024 (Approximate) [facility] Work Phone: Comment on above: Expected: 12/22/2024 (Approximate) Start: 12-18-2024 Shingrix Vaccine (2 of 2) Shingrix Vaccine (2 of 2) [facility] Start: 11-04-2024 End: 11-04-2024 Patient encounter procedure Optometry Comment on above: Diabetic Exam/[facility] Diabetic Exam/[facility]ana $60 Start: 10-29-2024 Glaucoma screening Dilated Retinal E xam [facility] Start: 10-23-2024 End: 10-23-2024 Patient encounter procedure 10/23/2024 8:00 AM EDT Office Visit Family Medicine [place] [address] [place] [place] [address] Aldo Butcher MD [address] [place], [place] [address] physical Family Medicine Rm Comment on above: physical Start: 10-18-2024 Annual PCP Team Local Superintendent yany Disease Visit Annual PCP Team Chronic Disease Visit [facility] Start: 10-18-2024 End: 01-17-2025 CBC W Auto Differential panel - Blood COMPLETE BLOOD COUNT AND DIFFERENTIAL Lab Routine Controlled type 2 diabetes mellitus without complication, without long-term current use of insulin (HCC) Expected: 10/18/2024, Expires: 01/17/2025 [facility] Comment on above: Expected: 10/18/2024 , Expires: 01/17/2025 Start: 10-18-2024 End: 01-17-2025 Comprehensive metabolic 2000 panel - Serum or Plasma COMPREHENSIVE METABOLIC PANEL Lab Routine Controlled type 2 diabetes mellitus without complication, without long-term current use of insulin (HCC) Hyperlipidemia, mixed Expected: 10/18/2024, Expires: 01/17/2025 [facility] Comment on above: Expected: 10/18/2024 , Expires: 01/17/2025 Start: 10-18-2024 Diabetic foot examination Diabetic Foot Exam [facility] Start: 10-18-2024 End: 01-17-2025 Hemoglobin A1c in Blood HEMOGLOBIN A1C Lab Routine Controlled type 2 diabetes mellitus without complication, without long-term current use of insulin (HCC) Hyperlipidemia, mixed Expected: 10/18/2024, Expires: 01/17/2025 [facility] Comment on above: Expected: 10/18/2024 , Expires: 01/17/2025 Start: 10-18-2024 End: 01-17-2025 LIPID PANEL, NONFASTING LIPID PANEL, NONFASTING Lab Routine Hyperlipidemia, mixed Expected: 10/18/2024, Expires: 01/17/2025 [facility] Comment on above: Expected: 10/18/2024 , Expires: 01/17/2025 Start: 10-18-2024 End: 01-17-2025 Microalbumin/Creatinine [Mass Ratio] in Urine ALBUMIN/CREATININE RATIO, URINE Lab Routine Controlled type 2 diabetes mellitus without complication, without long-term current use of insulin (HCC) Expected: 10/18/2024, Expires: 01/17/2025 [facility] Comment on above: Expected: 10/18/2024 , Expires: 01/17/2025 Start: 10-18-2024 End: 01-17-2025 Prostate specific Ag [Mass/volume] in Serum or Plasma PROSTATE-SPECIFIC ANTIGEN DIAGNOSTIC Lab Routine Screening for prostate cancer Expected: 10/18/2024, Expires: 01/17/2025 [facility] Comment on above: Expected: 10/18/2024 , Expires: 01/17/2025 Start: 10-18-2024 Shingrix Vaccine (1 of 2) Shingrix Vaccine (1 of 2) [facility] Comment on above: Postponed from 04/14 (Insurance Coverage) Start: 10-18-2024 End: 01-17-2025 Urinalysis complete panel - Urine URINALYSIS, WITH MICROSCOPIC Lab Routine Controlled type 2 diabetes mellitus without complication, without long-term current use of insulin (HCC) Expected: 10/18/2024, Expires: 01/17/2025 [facility] Work Phone: Comment on above: Expected: 10/18/2024 , Expires: 01/17/2025 Start: 10-07-2024 Hemoglobin A1c measurement HbA1C [facility] Start: 10-05-2024 Hepatitis B screening Urine Al bumin:Creatinine Ratio [facility] Start: 10-05-2024 Hepatitis B surface antibody level LDL Cholesterol [facility] Start: 09-14-2024 Annual PCP Team Local Superintendent yany Disease Visit Annual PCP Team Chronic Disease Visit [facility] Start: 05-07-2024 Behavioral Health Screening Behavioral Health Screening [facility] Comment on above: Postponed from 05/08 (Declined at this time) Start: 04-19-2024 End: 04-19-2024 Patient encounter procedure 04/19/2024 7:00 AM EST Office Visit Family Medicine [facility]m [address] [place], [place] [id number] Corina Gomes PA-C [address] [place], [place] [id number] 6 month follow up. Labs prior Family Medicine Rm Comment on above: 6 month follow up. L abs prior Start: 04-17-2024 Annual PCP Team Local Superintendent yany Disease Visit Annual PCP Team Chronic Disease Visit [facility] Start: 04-17-2024 Hepatitis B surface antibody level LDL Cholesterol [facility] Start: 04-06-2024 Hemoglobin A1c measurement HbA1C [facility] Start: 04-05-2024 End: 07-05-2024 Hemoglobin A1c in Blood HEMOGLOBIN A1C Lab Routine Controlled type 2 diabetes mellitus without complication, without long-term current use of insulin (HCC) Expected: 04/05/2024, Expires: 07/05/2024 [facility] Work Phone: Comment on above: Expected: 04/05/2024 , Expires: 07/05/2024 Start: 04-05-2024 End: 07-05-2024 LIPID PANEL, NONFASTING LIPID PANEL, NONFASTING Lab Routine Controlled type 2 diabetes mellitus without complication, without long-term current use of insulin (HCC) Hyperlipidemia, mixed Expected: 04/05/2024, Expires: 07/05/2024 [facility] Comment on above: Expected: 04/05/2024 , Expires: 07/05/2024 Start: 10-19-2023 End: 10-19-2023 Patient encounter procedure 10/19/2023 8:00 AM EDT Office Visit Family Medicine [facility]m [address] [place], [place] [id number] Aldo Butcher MD [address] [place], [place] [id number] Physical Family Medicine Rm Comment on above: Physical Start: 10-17-2023 Hemoglobin A1c measurement HbA1C [facility] Start: 10-17-2023 Hemoglobin A1c/Hemoglobin.total in Blood HbA1C [facility] Start: 10-13-2023 3 comp foot exam completed Diabetic Foot Exam [facility] Start: 10-13-2023 Annual PCP Team Local Superintendent yany Disease Visit Annual PCP Team Chronic Disease Visit [facility] Start: 10-13-2023 Covid-19 Vaccine (#1) Covid-19 Vacci ne (#1) [facility] Comment on above: Postponed from 10/13 (Declined at this time) Start: 10-13-2023 Diabetic foot examination Diabetic Foot Exam [facility] Start: 10-13-2023 Hepatitis B screening Urine Al bumin:Creatinine Ratio [facility] Start: 10-13-2023 Hepatitis B surface antibody level LDL Cholesterol [facility] Start: 10-13-2023 Shingrix Vaccine (1 of 2) Shingrix Vaccine (1 of 2) [facility] Comment on above: Postponed from 04/14 (Insurance Coverage) Start: 10-06-2023 End: 01-05-2024 ALBUMIN/CREAT RATIO RND UR ALBUMIN/CREAT RATIO RND UR Lab Routine Controlled type 2 diabetes mellitus without complication, without long-term current use of insulin (HCC) Expected: 10/06/2023, Expires: 01/05/2024 [facility] Work Phone: Comment on above: Expected: 10/06/2023 , Expires: 01/05/2024 Start: 10-06-2023 End: 01-05-2024 CBC W Auto Differential panel - Blood CBC + DIFF Lab Routine Controlled type 2 diabetes mellitus without complication, without long-term current use of insulin (HCC) Expected: 10/06/2023, Expires: 01/05/2024 [facility] Work Phone: Comment on above: Expected: 10/06/2023 , Expires: 01/05/2024 Start: 10-06-2023 End: 01-05-2024 Comprehensive metabolic 2000 panel - Serum or Plasma COMP METABOLIC PANEL Lab Routine Controlled type 2 diabetes mellitus without complication, without long-term current use of insulin (HCC) Hyperlipidemia, mixed Expected: 10/06/2023, Expires: 01/05/2024 [facility] Work Phone: Comment on above: Expected: 10/06/2023 , Expires: 01/05/2024 Start: 10-06-2023 End: 01-05-2024 Hemoglobin A1c in Blood HGB A1C Lab Routine Controlled type 2 diabetes mellitus without complication, without long-term current use of insulin (HCC) Expected: 10/06/2023, Expires: 01/05/2024 [facility] Work Phone: Comment on above: Expected: 10/06/2023 , Expires: 01/05/2024 Start: 10-06-2023 End: 01-05-2024 LIPID PANEL, NONFASTING LIPID PANEL, NONFASTING Lab Routine Controlled type 2 diabetes mellitus without complication, without long-term current use of insulin (HCC) Hyperlipidemia, mixed Expected: 10/06/2023, Expires: 01/05/2024 [facility] Work Phone: Comment on above: Expected: 10/06/2023 , Expires: 01/05/2024 Start: 10-06-2023 End: 01-05-2024 Prostate specific Ag [Mass/volume] in Serum or Plasma PSA/PROSTSPECAG DIAG Lab Routine Screening for prostate cancer Expected: 10/06/2023, Expires: 01/05/2024 [facility] Work Phone: Comment on above: Expected: 10/06/2023 , Expires: 01/05/2024 Start: 10-06-2023 End: 01-05-2024 Urinalysis complete panel - Urine URINALYSIS, WITH MICROSCOPIC Lab Routine Controlled type 2 diabetes mellitus without complication, without long-term current use of insulin (HCC) Hyperlipidemia, mixed Expected: 10/06/2023, Expires: 01/05/2024 [facility] Work Phone: Comment on above: Expected: 10/06/2023 , Expires: 01/05/2024 Start: 09-10-2023 ANNUAL PCP TEAM PUMP HOUSE ENGINEER YANY DISEASE VISIT ANNUAL PCP TEAM CHRONIC DISEASE VISIT [facility] Start: 05-08-2023 Behavioral Health Screening Behavioral Health Screening [facility] Start: 05-08-2023 Depression Assessment Depression Ass essment [facility] Start: 04-13-2023 Hemoglobin A1c/Hemoglobin.total in Blood HbA1C [facility] Start: 03-08-2023 Glaucoma screening Dilated Retinal E xam [facility] Start: 03-08-2023 Hepatitis C antibody , confirmatory test DILATED RETINAL EXAM [facility] Start: 01-06-2023 Covid-19 Vaccine () Covid-19 Vaccine () [facility] Start: 01-06-2023 Influenza vaccination [facility] Start: 05-08-2022 DEPRESSION ASSESSMENT DEPRESSION ASS ESSMENT [facility] Start: 2022 PROSTATE CANCER SCREENING DISCUSSION PROSTATE CANCER SCREENING DISCUSSION [facility] Start: 01-06-2022 Influenza vaccination INFLUENZA (#1) [facility] Start: 05-08-2021 [facility] Start: 2017 SHINGRIX VACCINE (1 of 2) SHINGRIX VACCINE (1 of 2) [facility] Start: 2012 COLOGUARD (FIT-DNA) COLOGUARD (FIT-D NA) [facility] Start: 2012 Colonoscopy COLONOSCOPY [facility] Start: 2012 COLORECTAL CANCER SCREENING COLORECTAL CANCER SCREENING [facility] Start: [address] COLONOGRAPHY [facility] Start: 2012 FECAL OCCULT BLOOD FECAL OCCULT BLOO D [facility] Start: 2012 Screening for malign ant neoplasm of colon [facility] Start: 2012 SIGMOIDOSCOPY SIGMOIDOSCOPY [facility] Start: 1986 Urine microalbumin profile DTAP,TDAP,TD (1 - Tdap) [facility] Start: 1985 ANNUAL PCP TEAM PUMP HOUSE ENGINEER YANY DISEASE VISIT ANNUAL PCP TEAM CHRONIC DISEASE VISIT [facility] Start: 1985 Anxiety Screening Anxiety Screening [facility] Start: 1985 Depression Screening Depression Scre ening [facility] Start: 1985 Hepatitis B surface antibody level LDL CHOLESTEROL [facility] Start: 1985 HEPATITIS C SCREENING HEPATITIS C SC REENING [facility] Start: 1985 HIV SCREENING HIV SCREENING [facility] Start: 1977 3 comp foot exam completed DIABETIC FOOT EXAM [facility] Start: 1977 Hepatitis B screening URINE AL BUMIN:CREATININE RATIO [facility] Start: 1973 PNEUMOCOCCAL (1 - PCV) PNEUMOCOCCAL (1 - PCV) [facility] Start: 1972 Hemoglobin A1c/Hemoglobin.total in Blood HBA1C [facility] Start: 1967 COVID-19 VACCINE (#1) COVID-19 VACCI NE (#1) [facility] Start: 1967 HEPATITIS B (1 of 3 - 3-dose series) HEPATITIS B (1 of 3 - 3-dose series) [facility] COVID & INFLUENZA A/ B & RSV PCR, ROUTINE COVID & INFLUENZA A/B & RSV PCR, ROUTINE Microbiology Routine Acute cough Lower resp. tract infection Ordered: 06/03/2024 [facility] Work Phone: Comment on above: Ordered: 06/03/2024 End: 11-24-2025 CT Heart and Coronary arteries for calcium scoring WO contrast CT CALCIUM SCORING (CARDIAC) WO IVCON Radiology Routine Encounter for screening for cardiovascular disorders 1 Occurrences starting 10/25/2024 until 11/24/2025 [facility] Work Phone: Comment on above: 1 Occurrences starti ng 10/25/2024 until 11/24/2025 [facility] Immunizations Immunization Date Immunization Notes Care Provider Fa clive 10-23-2024 zoster vaccine recombinant Aldo Butcher MD Work Phone: [facility] 10-12-2022 pneumococcal (PCV20) vaccine, 20 valent (PREVNAR 20) Aldo Butcher MD Work Phone: [facility] 10-12-2022 tetanus toxoid, redu nicki diphtheria toxoid, and acellular pertussis vaccine, adsorbed Aldo Butcher MD Work Phone: [facility] 08-15-2016 tetanus toxoid, redu nicki diphtheria toxoid, and acellular pertussis vaccine, adsorbed Aldo Butcher MD Work Phone: [facility] Payers Date Payer Category Payer Self-pay 2023 [facility] PPO [id number] 2012 Unknown MALAIKA BARROSO PPO [id number] 2012-Present [phone] [address] [place] [address] PPO [id number] 2012 Unknown [id number] 2012 Unknown [id number] Unknown [employer] [id number] Unknown [id number] Unknown [id number] Social History Date Type Detail Facility Start: 07-28-2014 End: 10-12-2022 Tobacco smoking status [facility] Never smoked tobacco [facility] Work Phone: Start: 07-28-2014 End: 10-12-2022 Tobacco use and exposure Smokeless tobacco non-user [facility] Work Phone: Start: 03-08-2022 End: 11-04-2024 Alcohol intake Current drinker of alcohol (finding) [facility] Start: 03-08-2022 End: 10-15-2023 Alcohol intake [facility] Start: 12-18-2018 Alcohol Comment social use [facility] Start: 1965 Sex Assigned At Not on file [facility] Start: 02-26-2022 End: 03-08-2022 Exposure to SARS-CoV-2 (event) Not sure [facility] Start: 10-11-2022 End: 10-15-2023 Social connection and isolation panel [facility] Do you belong to any clubs or organizations such as bahai groups, unions, fraternal or athletic groups, or school groups? No [facility] How often do you att end meetings of the clubs or organizations you belong to? Patient refused [facility] Are you now , , , , never or living with a partner? [facility] How often to you hav e a drink containing alcohol? 2-3 time sa week [facility] How many standard dr inks containing alcohol do you have on a typical day? 1 or 2 [facility] How often do you hav e 6 or more drinks on 1 occasion? Less than monthly [facility] How hard is it for y ou to pay for the very basics like food, housing, medical care, and heating Not very hard [facility] Do you feel stress - tense, restless, nervous, or anxious, or unable to sleep at night because your mind is troubled all the time - these days [OSQ] Not at all [facility] (I/We) worried wheth er (my/our) food would run out before (I/we) got money to buy more. Never true [facility] How often to you hav e a drink containing alcohol? 2-4 times a month [facility] How often do you hav e 6 or more drinks on 1 occasion? Never [facility] Start: 11-28-2018 Tobacco smoking stat us HIIS Ex-smoker (finding) [facility] Start: 11-28-2018 Tobacco Use Tobacco Use [facility] Start: 1965 Sex Assigned At Male [facility] Clinical Notes 03-08-2022 to 11-04-2024 Patient InstructionsCoDeshawn [...] yearly dilated exams. documented in this encounter [facility] 11-04-2024 Note HNO ID: [id number] Author: DESHAWN MUSA OD Service: ? Author Type: OUTSIDE SALESMAN Type: Progress Notes Filed: 11/04/2024 17:27 Note [...] neuro exam findings as obtained by others. [facility] 11-04-2024 History of Presen t illness [...] obtained by others. documented in this encounter [facility] 10-28-2024 Telephone encounter Note Hannah with [facility] Radiology called to say patient does not qualify for Junior for Calcium scoring test as he isn't over 60 years of age. Faxed new order over to scheduling at [phone]. Rafia Bess, ELVIE [facility] 10-28-2024 Miscellaneous Notes Hannah with [facility] Radiology called to say patient does not qualify for Junior for Calcium scoring test as he isn't over 60 years of age. Faxed new order over to scheduling at [phone]. Rafia Bess RN New order placed. Please fax to [facility] and notify patient. Polly from [facility] Scheduling calls and states that they received order for CT calcium scoring test. Patient does not qualify for Junior. New order needs to be sent over that takes out the Junior. Anjana Hsu RN documented in this encounter [facility] 10-25-2024 Telephone encounter Note New order placed. Please fax to [facility] and notify patient. [facility] 10-24-2024 Telephone encounter Note Polly from [facility] Scheduling calls and states that they received order for CT calcium scoring test. Patient does not qualify for Junior. New order needs to be sent over that takes out the Junior. Anjana Hsu RN [facility] 10-23-2024 Instructions Aldo Butcher MD - 10/23/2024 [...] - Consider purchasing a glucose meter from [employer] (their brand is affordable) to monitor your [...] Triangular shapped, which can be purchased at [employer] or a drugstore near the Dr. Mckeon [...] - I will send an order to [facility], which may have a junior to cover [...] second Shingrix vaccine in 2-3 months. - [facility] will contact you to schedule the CT calcium score. If you have any questions or concerns before your next visit, please don t hesitate to reach out. documented in this encounter [facility] 10-23-2024 Note HNO ID: [id number] Author: ALDO BUTCHER MD Service: ? Author [...] or 61 years old from a massive [place], and his cousin recently had stents placed [...] a hourse Coronary Artery Disease Paternal Grandmother IN Coronary Artery Disease Paternal Grandfather IN Coronary Artery Disease Paternal Uncle Glaucoma No [...] COMPLX ORAL) Take by mouth once daily. Cryjs-8-BRB-EPA-Fish Oil (FISH OIL) 1,000 mg (120 mg-180 mg) cap Take 1 capsule by mouth two times a day. No current facility-administered medications on file prior to visit. Social History Social History Tobacco Use Smoking status: Never Smokeless tobacco: Never Vaping Use (more content not included)... [facility] 10-23-2024 History of Presen t illness [...] or 61 years old from a massive [place], and his cousin recently had stents placed [...] complication, without long-term current use of insulin ([facility]) 07/22/2017 Hyperlipidemia, mixed 10/12/2022 Myopia 08/23/2014 [...] a hourse Coronary Artery Disease Paternal Grandmother IN Coronary Artery Disease Paternal Grandfather IN Coronary Artery Disease Paternal Uncle Glaucoma No [...] COMPLX ORAL) Take by mouth once daily. Ymkis-0-BZR-EPA-Fish Oil (FISH OIL) 1,000 mg (120 mg-180 [...] - Educated on blood glucose monitoring; recommended [employer] glucose meter and strips. - Advised on [...] risk. - Ordered CT calcium score at [facility]; hospital will contact patient to schedule. 7. [...] lipid prior. Aldo Butcher MD Recording using [employer] software for draft documentation of the visit was discussed with the patient/authorized territory service representative; all questions welcomed and answered. Patient/authorized territory service representative agreed to proceed SENSITIVE EXAMINATION CONSENT: The sensitive examination was discussed with the Patient or Patient's Authorized C++ Professor. As applicable, any other physician, advance practice provider, medical student, or other health professional student that will be observing or involved in the sensitive examination for educational or training purposes was discussed with the Patient or Authorized C++ Professor. The Patient or Authorized C++ Professor has agreed to proceed with the sensitive examination. documented in this encounter [facility] 06-04-2024 Telephone encounter Note Pt notified of results and provider message. Tawana Ruelas LPN [facility] 06-04-2024 Miscellaneous Notes Pt notified of results and provider message. Tawana Ruelas LPN Left message for pt to contact office. Martha Ceballos LPN Positive influenza A. Continue as we discussed. Corina Gomes PA-C documented in this encounter [facility] 06-04-2024 Telephone encounter Note Left message for pt to contact office. Martha Ceballos LPN [facility] 06-04-2024 Telephone encounter Note Positive influenza A. Continue as we discussed. Corina Gomes PA-C [facility] 06-03-2024 Telephone encounter Note Pt notified. Aparna Ryder MA [facility] 06-03-2024 Miscellaneous Notes Pt notified. Aparna Ryder MA CXR negative. Continue as we discussed documented in this encounter [facility] 06-03-2024 Telephone encounter Note CXR negative. Continue as we discussed [facility] 06-03-2024 History of Presen t illness [...] PATIENT PRESENTS WITH AN IMPLANTABLE OR ATTACHED GAS ADJUSTER: No RADIOLOGY DEPARTMENT: General X-ray: Exam(s) Completed: Chest X-Ray PERIPHERAL IV DATA: Not applicable SIGNED BY: RT Stephanie(R) June 03, 2024 8:49 AM documented in this encounter [facility] 06-03-2024 Note HNO ID: [id number] Author: SANTIAGO MATTHEWS RT(Marco) Service: ? Author Type: Plaster Lather Type: Progress Notes Filed: 06/03/2024 08:56 Note [...] PATIENT PRESENTS WITH AN IMPLANTABLE OR ATTACHED GAS ADJUSTER: No RADIOLOGY DEPARTMENT: General X-ray: Exam(s) Completed: Chest X-Ray PERIPHERAL IV DATA: Not applicable SIGNED BY: RT Stephanie(R) June 03, 2024 8:49 AM [facility] 06-03-2024 Note HNO ID: [id number] Author: CORINA GOMES PA-C Service: ? Author Type: Physician Dry Chain Puller Type: Progress Notes Filed: 06/03/2024 09:04 Note [...] a hourse Coronary Artery Disease Paternal Grandmother IN Coronary Artery Disease Paternal Grandfather IN Coronary Artery Disease Paternal Uncle Glaucoma No [...] COMPLX ORAL) Take by mouth once daily. Feshi-1-FWM-EPA-Fish Oil (FISH OIL) 1,000 mg (120 mg-180 [...] AND RSV PCR, ROUTINE Corina Gomes PA-C [facility] 06-03-2024 History of Presen t illness Narrative Chief Complaint Patient presents with: Cough HPI oRb Correia is a 59 year old male [...] a hourse Coronary Artery Disease Paternal Grandmother IN Coronary Artery Disease Paternal Grandfather IN Coronary Artery Disease Paternal Uncle Glaucoma No [...] COMPLX ORAL) Take by mouth once daily. Fxiaz-3-NMB-EPA-Fish Oil (FISH OIL) 1,000 mg (120 mg-180 [...] Corina Gomes PA-C documented in this encounter [facility] 05-02-2024 Telephone encounter Note Patient calls back and states that he spoke with insurance as was told that Corina is not credentialed under Dr. Butcher and that insurance will not cover office visit. Patient/Family calling with additional questions regarding financials and billing. Patient/Family directed in the following manner: For financial questions about an upcoming service, contact Patient Cost Coordinator by calling toll-free at [phone] and request to speak with a tree fruit and nut farming supervisor. For questions regarding a medical bill for a past / post service, contact a Marine Engineering Professor by calling toll-free at [phone] and request to speak with a tree fruit and nut farming supervisor. Patient/Family verbalized understanding. [facility] 05-02-2024 Miscellaneous Notes Patient calls back and states that he spoke with insurance as was told that Corina is not credentialed under Dr. Butcher and that insurance will not cover office visit. Patient/Family calling with additional questions regarding financials and billing. Patient/Family directed in the following manner: For financial questions about an upcoming service, contact Patient Cost Coordinator by calling toll-free at [phone] and request to speak with a tree fruit and nut farming supervisor. For questions regarding a medical bill for a past / post service, contact a Marine Engineering Professor by calling toll-free at [phone] and request to speak with a tree fruit and nut farming supervisor. Patient/Family verbalized understanding. documented in this encounter [facility] 04-19-2024 Note HNO ID: [id number] Author: CORINA GOMES PA-C Service: ? Author Type: Physician Dry Chain Puller Type: Progress Notes Filed: 04/19/2024 07:30 Note [...] a hourse Coronary Artery Disease Paternal Grandmother IN Coronary Artery Disease Paternal Grandfather IN Coronary Artery Disease Paternal Uncle Glaucoma No [...] COMPLX ORAL) Take by mouth once daily. Ihdza-4-ICZ-EPA-Fish Oil (FISH OIL) 1,000 mg (120 mg-180 [...] % 6.6 (H) (more content not included)... [facility] 04-19-2024 History of Presen t illness [...] a hourse Coronary Artery Disease Paternal Grandmother IN Coronary Artery Disease Paternal Grandfather IN Coronary Artery Disease Paternal Uncle Glaucoma No [...] COMPLX ORAL) Take by mouth once daily. Dqfke-7-YHU-EPA-Fish Oil (FISH OIL) 1,000 mg (120 mg-180 [...] Corina Gomes PA-C documented in this encounter [facility] 12-13-2023 Telephone encounter Note Prescription Refill Information [...] Ceballos LPN December 13, 2023 7:05 AM [facility] 12-13-2023 Miscellaneous Notes Prescription Refill Information The [...] 2023 7:05 AM documented in this encounter [facility] 11-12-2023 Telephone encounter Note The following approved medication requests have been transmitted electronically. Requested Prescriptions Signed Prescriptions Disp Refills atorvastatin (LIPITOR) 20 mg tablet 90 tablet 1 Sig: Take 1 tablet by mouth once daily. Take 1 tablet daily Authorizing Provider: ALDO BUTCHER MD [facility] 11-12-2023 Miscellaneous Notes The following approved medication [...] 2023 4:07 PM documented in this encounter [facility] 11-10-2023 Telephone encounter Note Prescription Refill Information [...] Marrero LPN November 10, 2023 4:07 PM [facility] 10-30-2023 Instructions Deshawn Musa, OD - 10/30/2023 [...] Recommended yearly exams. documented in this encounter [facility] 10-30-2023 History of Presen t illness [...] obtained by others. documented in this encounter [facility] 10-19-2023 Instructions Aldo Butcher MD - 10/19/2023 8:07 AM EDT If you are thinking of getting the shingrix vaccine for the prevention of shingles please check with insurance to see if covered and if you can get it at your doctors office. Please get labs and urine test done on or after 04/05/24 prior to your next visit. documented in this encounter [facility] 10-19-2023 History of Presen t illness [...] a hourse Coronary Artery Disease Paternal Grandmother IN Coronary Artery Disease Paternal Grandfather IN Coronary Artery Disease Paternal Uncle Glaucoma No [...] mouth once daily. Take 1 tablet daily Dhxnu-1-RPC-EPA-Fish Oil (FISH OIL) 1,000 mg (120 mg-180 [...] Lymph 1.00 - 4.00 k/uL 1.93 1.55 [place]% % 8.7 7.7 Abs [place] <0.87 k/uL 0.69 0.46 Eosin% % 2.6 [...] Negative Ketones, Urine Negative Negative Negative Specific [place], Ur 1.005 - 1.030 1.009 1.012 Hemoglobin/Blood,Ur [...] Aldo Butcher MD documented in this encounter [facility] 09-15-2023 History of Presen t illness [...] a hourse Coronary Artery Disease Paternal Grandmother IN Coronary Artery Disease Paternal Grandfather IN Coronary Artery Disease Paternal Uncle Glaucoma No [...] mouth once daily. Take 1 tablet daily Nyafo-8-SUY-EPA-Fish Oil (FISH OIL) 1,000 mg (120 mg-180 [...] will place on med for BPH. Aldo uBtcher MD documented in this encounter [facility] 04-18-2023 Miscellaneous Notes Pt notified of results and provider message. Tawana Ruelas LPN Called and left a voicemail for the Patient to call back and ask for a nurse to receive the providers message. Rafia Bess, RN Let patient know A1c is ok at 6.7%. lipid panel was very good. documented in this encounter [facility] 04-17-2023 Instructions Aldo Butcher MD - 04/17/2023 8:58 AM EST Please get labs and urine test done on or after 10/06/2023 prior to your next visit. Consider taking Vit B6 once a ay for the foot tingling. documented in this encounter [facility] 04-17-2023 History of Presen t illness [...] complication, without long-term current use of insulin ([facility]) 07/22/2017 Hyperlipidemia, mixed 10/12/2022 Myopia 08/23/2014 [...] a hourse Coronary Artery Disease Paternal Grandmother IN Coronary Artery Disease Paternal Grandfather IN Coronary Artery Disease Paternal Uncle Glaucoma No [...] mouth once daily. Take 1 tablet daily Lsmso-3-YJV-EPA-Fish Oil (FISH OIL) 1,000 mg (120 mg-180 mg) cap Sig: Take 1 capsule by mouth two times a day. F/u 6 months extensive check CMP, Lipid, UA, A1c, urine micro albumin, CBC, PSA Aldo Butcher MD documented in this encounter [facility] 03-06-2023 Miscellaneous Notes Patient's contacted office via my chart and indicated that this prescription should have been sent to [facility] and not [facility]. Hannah Rodriguez MA documented in this encounter [facility] 02-09-2023 Miscellaneous Notes Last office visit: 10/12/22 [...] advise. Lilli Espinosa documented in this encounter [facility] 09-09-2022 History of Presen t illness [...] - AMOXICILLIN 875 MG TABLET Ele Pro APRN.SWITCHING CLERK documented in this encounter [facility] 03-08-2022 Instructions Pawel Musa II, OD [...] Musa II, OD documented in this encounter [facility] 03-08-2022 History of Presen t illness [...] Musa II, OD documented in this encounter [facility] Evaluation note Diagnosis Type 2 diabetes mellitus without retinopathy (HCC)- Primary Type II or unspecified type diabetes mellitus without mention of complication, not stated as uncontrolled Myopia, bilateral Myopia Regular astigmatism of right eye Regular astigmatism Presbyopia [facility] Acute otitis media, unspecified otitis media type- Primary [facility] Diagnosis Controlled type 2 diabetes mellitus without complication, without long-term current use of insulin (HCC)- Primary Hyperlipidemia, mixed Mixed hyperlipidemia Screening for prostate cancer Special screening for malignant neoplasm of prostate [facility] Diagnosis Hesitancy- Primary Urinary hesitancy [facility] Diagnosis Well adult exam- Primary Routine general medical examination at a health care facility Controlled type 2 diabetes mellitus without complication, without long-term current use of insulin (HCC) Hyperlipidemia, mixed Mixed hyperlipidemia [facility] Diagnosis Type 2 diabetes mellitus without retinopathy (HCC)- Primary Type II or unspecified type diabetes mellitus without mention of complication, not stated as uncontrolled Myopia, bilateral Myopia Regular astigmatism of right eye Regular astigmatism Presbyopia [facility] Diagnosis Lower resp. tract infection- Primary Other diseases of respiratory system, not elsewhere classified Acute cough Acute cough Lower resp. tract infection Other diseases of respiratory system, not elsewhere classified [facility] Diagnosis Acute cough Lower resp. tract infection Other diseases of respiratory system, not elsewhere classified documented in this encounter [facility] noteNo assessment information availableWSumma Health Work Phone: Evaluation note* Diagnosis Well adult [...] for depression documented in this encounter [facility] note* Diagnosis Encounter for screening for cardiovascular disorders- Primary Screening for other and unspecified cardiovascular conditions documented in this encounter [facility] note* Diagnosis Type 2 diabetes mellitus without retinopathy (HCC)- Primary Type II or unspecified type diabetes mellitus without mention of complication, not stated as uncontrolled documented in this encounter [facility] for referral (narrative)No reason for referral information availableWSumma Health Work Phone: Reason for Referral Specialty Diagnoses / Procedures Referred By Joslyn jasmine Referred To Contact [facility] APRN.[facility] [address] [place] [address] Referral ID Status Reason Start Date Expiration Date Visits Re quested Visits Authorized [id number] Closed 1 1 Chief Complaint and Reason [...] or prosecute any alcohol or drug abuse patient.[facility] the event this information is protected by the Federal Confidentiality of Alcohol and Drug Abuse Patient Records regulations: The Federal rules restrict any use of the information to criminally investigate or prosecute any alcohol or drug abuse patient.[facility] the event this information is protected by the Federal Confidentiality of Alcohol and Drug Abuse Patient Records regulations: The Federal rules restrict any use of the information to criminally investigate or prosecute any alcohol or drug abuse patient.[facility] the event this information is protected by the Federal Confidentiality of Alcohol and Drug Abuse Patient Records regulations: The Federal rules restrict any use of the information to criminally investigate or prosecute any alcohol or drug abuse patient.[facility] the event this information is protected by the Federal Confidentiality of Alcohol and Drug Abuse Patient Records regulations: The Federal rules restrict any use of the information to criminally investigate or prosecute any alcohol or drug abuse patient.[facility] the event this information is protected by the Federal Confidentiality of Alcohol and Drug Abuse Patient Records regulations: The Federal rules restrict any use of the information to criminally investigate or prosecute any alcohol or drug abuse patient.[facility] the event this information is protected by the Federal Confidentiality of Alcohol and Drug Abuse Patient Records regulations: The Federal rules restrict any use of the information to criminally investigate or prosecute any alcohol or drug abuse patient.[facility] the event this information is protected by the Federal Confidentiality of Alcohol and Drug Abuse Patient Records regulations: The Federal rules restrict any use of the information to criminally investigate or prosecute any alcohol or drug abuse patient.[facility] the event this information is protected by the Federal Confidentiality of Alcohol and Drug Abuse Patient Records regulations: The Federal rules restrict any use of the information to criminally investigate or prosecute any alcohol or drug abuse patient.[facility] the event this information is protected by the Federal Confidentiality of Alcohol and Drug Abuse Patient Records regulations: The Federal rules restrict any use of the information to criminally investigate or prosecute any alcohol or drug abuse patient.[facility] the event this information is protected by the Federal Confidentiality of Alcohol and Drug Abuse Patient Records regulations: The Federal rules restrict any use of the information to criminally investigate or prosecute any alcohol or drug abuse patient.[facility] the event this information is protected by the Federal Confidentiality of Alcohol and Drug Abuse Patient Records regulations: The Federal rules restrict any use of the information to criminally investigate or prosecute any alcohol or drug abuse patient.[facility] the event this information is protected by the Federal Confidentiality of Alcohol and Drug Abuse Patient Records regulations: The Federal rules restrict any use of the information to criminally investigate or prosecute any alcohol or drug abuse patient.[facility]In the event this information is protected by the Federal Confidentiality of Alcohol and Drug Abuse Patient Records regulations: The Federal rules restrict any use of the information to criminally investigate or prosecute any alcohol or drug abuse patient.[facility] HospitalIn the event this information is protected by the Federal Confidentiality of Alcohol and Drug Abuse Patient Records regulations: The Federal rules restrict any use of the information to criminally investigate or prosecute any alcohol or drug abuse patient.[facility] HospitalIn the event this information is protected by the Federal Confidentiality of Alcohol and Drug Abuse Patient Records regulations: The Federal rules restrict any use of the information to criminally investigate or prosecute any alcohol or drug abuse patient.[facility] HospitalIn the event this information is protected by the Federal Confidentiality of Alcohol and Drug Abuse Patient Records regulations: The Federal rules restrict any use of the information to criminally investigate or prosecute any alcohol or drug abuse patient.[facility] HospitalIn the event this information is protected by the Federal Confidentiality of Alcohol and Drug Abuse Patient Records regulations: The Federal rules restrict any use of the information to criminally investigate or prosecute any alcohol or drug abuse patient.[facility] HospitalIn the event this information is protected by the Federal Confidentiality of Alcohol and Drug Abuse Patient Records regulations: The Federal rules restrict any use of the information to criminally investigate or prosecute any alcohol or drug abuse patient.[facility] HospitalIn the event this information is protected by the Federal Confidentiality of Alcohol and Drug Abuse Patient Records regulations: The Federal rules restrict any use of the information to criminally investigate or prosecute any alcohol or drug abuse patient.[facility] HospitalIn the event this information is protected by the Federal Confidentiality of Alcohol and Drug Abuse Patient Records regulations: The Federal rules restrict any use of the information to criminally investigate or prosecute any alcohol or drug abuse patient.[facility] HospitalIn the event this information is protected by the Federal Confidentiality of Alcohol and Drug Abuse Patient Records regulations: The Federal rules restrict any use of the information to criminally investigate or prosecute any alcohol or drug abuse patient.[facility] HospitalIn the event this information is protected by the Federal Confidentiality of Alcohol and Drug Abuse Patient Records regulations: The Federal rules restrict any use of the information to criminally investigate or prosecute any alcohol or drug abuse patient.[facility] HospitalIn the event this information is protected by the Federal Confidentiality of Alcohol and Drug Abuse Patient Records regulations: The Federal rules restrict any use of the information to criminally investigate or prosecute any alcohol or drug abuse patient.[facility] HospitalIn the event this information is protected by the Federal Confidentiality of Alcohol and Drug Abuse Patient Records regulations: The Federal rules restrict any use of the information to criminally investigate or prosecute any alcohol or drug abuse patient.[facility] Reason for Visit (unrecogniz ed section [...] Care Teams (unrecognized sec tion and content) Attorney At Law Relationship Specialty Start Date End Date Joce Roe CNP [address] [place] [address] PCP - General Family Medicine 01/23/21 Attorney At Law Relationship Specialty Start Date End Date Sherrie Roe CNP [address] [place] [address] PCP - General Family Medicine 01/23/21 Attorney At Law Relationship Specialty Start Date End Date Aldo Butcher MD [address] [place] [address] PCP - General Family Medicine 10/12/22 Attorney At Law Relationship Specialty Start Date End Date Aldo Butcher MD [address] [place] [address] PCP - General Family Medicine 10/12/22 Attorney At Law Relationship Specialty Start Date End Date Aldo Butcher MD [address] [place] [address] PCP - General Family Medicine 10/12/22 Attorney At Law Relationship Specialty Start Date End Date Aldo Butcher MD [address] [place] [address] PCP - General Family Medicine 10/12/22 Attorney At Law Relationship Specialty Start Date End Date Aldo Butcher MD [address] [place] [address] PCP - General Family Medicine 10/12/22 Attorney At Law Relationship Specialty Start Date End Date Aldo Butcher MD [address] [place] [address] PCP - General Family Medicine 10/12/22 Attorney At Law Relationship Specialty Start Date End Date Aldo Butcher MD [address] [place] [address] PCP - General Family Medicine 10/12/22 Attorney At Law Relationship Specialty Start Date End Date Aldo Butcher MD [address] [place] [address] PCP - General Family Medicine 10/12/22 Attorney At Law Relationship Specialty Start Date End Date Aldo Butcher MD [address] [place] [address] PCP - General Family Medicine 10/12/22 Attorney At Law Relationship Specialty Start Date End Date Aldo Butcher MD [address] [place] [address] PCP - General Family Medicine 10/12/22 Attorney At Law Relationship Specialty Start Date End Date Aldo Butcher MD [address] [place] [address] PCP - General Family Medicine 10/12/22 Ele Pro APRN.SWITCHING CLERK [address] [place] [address] [facility] 04/13/24 Corina Gomes PA-C [address] [place] [address] [facility] 04/13/24 Attorney At Law Relationship Specialty Start Date End Date Aldo Butcher MD [facility] [place] [address] PCP - General Family Medicine 10/12/22 Ele Pro, [employer].SWITCHING CLERK [facility] [place] [address] [facility] 04/13/24 Corina Gomes PA-C [address] [place] [address] [facility] 04/13/24 Attorney At Law Relationship Specialty Start Date End Date Aldo Butcher MD [address] [place] [address] PCP - General Family Medicine 10/12/22 Ele Pro, [place]ID[place].SWITCHING CLERK [address] [place] [address] [facility] 04/13/24 Corina Gomes PA-C [address] [place] [address] [employer] [facility] 04/13/24 Attorney At Law Relationship Specialty Start Date End Date Aldo Butcher MD [address] [place] [address] PCP - General Family Medicine 10/12/22 Ele Pro, CLINICAL STAFF EDUCATOR.SWITCHING CLERK [address] [place] [address] [facility] 04/13/24 Corina Gomes PA-C [address] [place] [address] [facility] 04/13/24 Attorney At Law Relationship Specialty Start Date End Date Aldo Butcher MD [address] [place] [address] PCP - General Family Medicine 10/12/22 Ele Pro, CLINICAL STAFF EDUCATOR.SWITCHING CLERK [address] [place] [address] [facility] 04/13/24 Corina Gomes PA-C [address] [place] [address] [facility] 04/13/24 Attorney At Law Relationship Specialty Start Date End Date Aldo Butcher MD [address] [facility] [place] [address] PCP - General Family Medicine 10/12/22 Ele Pro APRN.SWITCHING CLERK [address] [facility] [place] [address] [employer] Family [facility] 04/13/24 Corina Gomes PA-Bre [address] [facility] [place] [address] [facility] 04/13/24 Team Status: Active Member Role Status Dates Dr. Temo Shook MD Primary Care Provider Active Team Status: Inactive Member Role Status Dates Dr. Temo Shook MD Primary Care Provider Active Start: October 10, 2024 End: October 10, 2024 Corina LAUREANO PA Attending Provider Active Start: October 10, 2024 End: October 10, 2024 Attorney At Law Relationship Specialty Start Date End Date Aldo Butcher MD [address] [place] [address] PCP - General Family Medicine 10/12/22 Ele Pro, [employer]IVID[employer].SWITCHING CLERK [address] [place] [address] [facility] 10/07/24 Corina Gomes PA-C [address] [facility] [address] [facility] 10/07/24 Attorney At Law Relationship Specialty Start Date End Date Aldo Butcher MD [address] [facility] [place] [address] PCP - General Family Medicine 10/12/22 Ele Pro APRN.SWITCHING CLERK [address] [place], [place] [id number] [facility] 10/07/24 Corina Gomes PA-C [address] [place], [place] [id number] [facility] 10/07/24 Attorney At Law Relationship Specialty Start Date End Date Aldo Butcher MD [address] [place], [place] [address] PCP - General Family Medicine 10/12/22 Ele Pro APRN.SWITCHING CLERK [address] [place], [place] [id number] [facility] 10/07/24 Corina Gomes PA-C [address] [place], [place] [id number] [facility] 10/07/24 Goals (unrecognized section and content) Goals may be documented in a n alternate section (unrecognized sect ion and content) No Status Records FoundNo Status Records Found INFORMATION SOURCE (unrecogn ized section and content) DATE CREATED AUTHOR 10/30/2024 [facility] DATE CREATED AUTHOR AUTHOR'S ORGANIZ ATION 11/06/2024 [facility] FOR RECORDS PERTAINING TO PATIENTS WHO [...] BE BASED ON THE PRIMARY CLINICAL RECORDS. [employer] provides no warranty or guarantee of the accuracy or completeness of information in this document.
--- NOTE | 2024-11-19 12:29 | CA.SCORE ---
Calcium Scoring Date of Study:: 11/19/24 Indications Indications: Screening Coronary Calcium Scoring: High-resolution Computed Tomographic imaging of the chest was performed on [11/19/2024], with particular attention paid to the coronary arteries. Images from the examination were analyzed for the presence and extent of coronary artery calcification , using coronary calcium quantification software. The patient tolerated the procedure well and there were no complications. The results of the coronary calcification analysis are provided below. Findings Coronary Artery Left Main (LM): 10 Left Anterior Descending (LAD): 98 Left Circumflex (LCX): 0 Right Coronary Artery (RCA): 0 Total Agatston Score: 108 Percentile Rankin-7 5th percentile Calcium Scoring Interpretation: Different methods to categorize the overall amount of coronary plaque. Overall amount CAC SIS Visual of coronary plaque P1 Mild -100 <2 1-2 vessels with mild amount of plaque P2 Moderate 101-300 3-4 1-2 vessels with moderate amount, 3 vessels with mild amount of plaque P3 Severe 301-999 5-7 3 vessels with moderate amount, 1 vessel with severe amount of plaque P4 Extensive >1000 >8 2-3 vessels with severe amount of plaque Calcium Score: Mild: 1-2 vessels w/mild amount of plaque Conclusion: Mild two-vessel atherosclerotic plaquing noted
== END | disposition home or self-care (01) ==
PROVIDERS: PCP Family Medicine; Referring Provider Nurse Practitioner Family; Visit Provider Nurse Practitioner Family
DX: Z13.6 Encounter for screening for cardiovascular disorders (principal)
CPT/HCPCS: 75571; 76380

== ENCOUNTER → 2025-04-14 | Outpatient (CLI) | payer BC, SELFPAY ==
[2025-04-14 15:39] LABS: Cholesterol 173 mg/dL (<=200); Low Density Lipoprotein Calc. 88 mg/dL; Triglycerides 90 mg/dL; Very Low Density Lipoprotein 18 mg/dL (5-40); cholesterol:hdl ratio screen 2.53
== END | disposition home or self-care (01) ==
LOC: LAB 14:41
PROVIDERS: PCP Family Medicine; Visit Provider Family Medicine
DX: E11.9 Type 2 diabetes mellitus without complications (principal); E78.2 Mixed hyperlipidemia
CPT/HCPCS: 36415; 80061; 83036